=== PATIENT | female | born 1960 | race Caucasian/White ===

== ENCOUNTER 2021-12-30 17:56 | Outpatient (REF) | payer BC, SELFPAY ==
[2021-12-30 18:05] LABS: Abs Immature Grans 0.04 10^3/uL (0.0-0.06); Absolute Basophil Count 0.07 10^3/uL (0.0-0.2); Absolute Eosinophil Count 0.16 10^3/uL (0.0-0.7); Absolute Lymphocyte Count 2.43 10^3/uL (1.2-3.4); Absolute Monocyte Count 0.56 10^3/uL (0.1-0.8); Absolute Neutrophil Count 4.57 10^3/uL (1.2-6.7); Basophils % 0.9; HCT 40.3 % (36.0-46.0); HGB 13.1 g/dL (11.2-15.7); Immature Grans % 0.5; MCH 26.5 pg (27.0-33.0); MCHC 32.5 % (32.0-36.0); MCV 82 fL (80-95); Monocytes % 7.2; Neutrophils % 58.4; Platelet Count 323 10^3/uL (130-400); RBC 4.94 10^6/uL (3.93-5.22); RDW 13.1 % (11.7-14.6); RDW-SD 38.7 fL; WBC 7.83 10^3/uL (4.4-10.8)
[2021-12-30 18:32] LABS: Hemoglobin A1C 5.7 % (<5.7)
[2021-12-30 18:43] LABS: ALT 83 U/L (14-59); AST 38 U/L (15-37); Albumin 3.9 g/dL (3.4-5.0); Alkaline Phosphatase 91 U/L (46-116); Anion Gap 8.4 mmol/L (3-11); BUN 19 mg/dL (7-18); Bilirubin, Total 0.3 mg/dL (0.2-1.0); CO2 26.6 mmol/L (21.0-32.0); CREATININE 0.6 mg/dL (0.55-1.02); Calcium 8.6 mg/dL (8.5-10.1); Calculated LDL 127 mg/dL (<100); Chloride 102 mmol/L (98-107); Cholesterol 200 mg/dL (<200); Glucose 75 mg/dL (74-106); HDL Cholesterol 54 mg/dL (40-60); Potassium 4.1 mmol/L (3.5-5.1); Sodium 137 mmol/L (136-145); TSH (W/Ref FT4) 1.58 uIU/mL (0.36-3.74); Total Protein 6.9 g/dL (6.4-8.2); Triglyceride 98 mg/dL (<150); Troponin I < 50 ng/L (<or=60)
[2021-12-30 22:59] LABS: NT-proBNP 130 pg/mL (<300)
[2022-01-01 08:55] LABS: IgE 15 IU/mL (<158)
[2022-01-01 10:52] LABS: IgA 252 mg/dL (85-499); IgG 914 mg/dL (610-1,616); IgM 88 mg/dL (35-242)
== END 2021-12-30 17:57 | disposition home or self-care (01) ==
LOC: LBN 17:56
PROVIDERS: PCP Internal Medicine; Visit Provider Student in an Organized Health Care Education/Training Program
DX: R07.9 Chest pain, unspecified (principal); U09.9 Post COVID-19 condition, unspecified; R79.89 Other specified abnormal findings of blood chemistry
CPT/HCPCS: 80053; 80061; 82784; 82785; 82787; 83036; 83880; 84443; 84484; 85025

== ENCOUNTER 2021-12-30 18:25 | Outpatient (REF) | payer BC, SELFPAY | END 2021-12-30 18:26 | disposition home or self-care (01) | LOC: LBN 18:25 | PROVIDERS: PCP Internal Medicine; Visit Provider Student in an Organized Health Care Education/Training Program ==

== ENCOUNTER 2022-01-11 03:37 | Outpatient (CLI) | payer BC, SELFPAY ==
[2022-01-11] MEDS: Albuterol HFA 18 GM 200 PUFF INH IH (17:18)
[2022-01-11] MEDS: Methacholine 100 MG VIAL IH (17:18)
[2022-01-11] MEDS: Inhaler, Assist Device 1 EACH MC (17:18)
--- NOTE | 2022-01-12 16:27 | W.PFT ---
Date of service: 01/11/22 Time of Service: 15:10 Pulmonary Function Test Result Requesting Provider Duchene Indications: [facility] Interpretation Spirometry: There is no airflow limitation. The FVC is low. There is a negative methacholine challenge test. Lung Volumes: Normal lung volumes. Diffusion Capacity: Diffusion is normal Airway Pressure: Normal airways resistance. Impression Normal pulmonary function testing. The slightly low FVC is likely pseudo-restriction from an elevated BMI. Clinical Correlation therefore is recommended.
== END 2022-01-11 03:38 | disposition home or self-care (01) ==
LOC: RT 03:38
PROVIDERS: PCP Internal Medicine; Visit Provider Student in an Organized Health Care Education/Training Program
DX: U09.9 Post COVID-19 condition, unspecified (principal); R07.89 Other chest pain; R06.09 Other forms of dyspnea; Z73.3 Stress, not elsewhere classified
CPT/HCPCS: 94060; 94070; 94726; 94729; 94010; J7674

== ENCOUNTER 2024-02-24 15:56 | Emergency (ER) | payer BC, SELFPAY ==
[2024-02-24 15:58] VITALS: BP 165/90; PULSE 81; RESP 18; TEMP 36.1; O2SAT 98
--- NOTE | 2024-02-24 16:19 | ED.GENADUL_ITS ---
Discharge Plan Disposition Patient Disposition: Home Condition: Stable Discharge Details Clinical Impression: Cellulitis of second toe of right foot Primary Care Provider: Yasmeen Grace ED Provider: Luann Huffman Home Meds and New Rx's Prescriptions: New levofloxacin 500 mg tablet 500 mg PO DAILY 5 Days Qty: 5 0RF Rx Instructions: take one tablet once daily x 5 days Continued multivitamin Tablet 1 tab PO DAILY hydroxyzine HCl 25 mg tablet 25 mg PO QHS PRN (Reason: anxiety and insomnia) omeprazole 20 mg capsule,delayed release(DR/EC) 20 mg PO DAILY venlafaxine 75 mg capsule,extended release 24hr 75 mg PO DAILY Discharge Instructions Instructions: Cellulitis (Skin Infection), Adult ED Additional Instructions: Please take the antibiotic as prescribed with yogurt or a probiotic. follow up with primary care provider in 3-5 days. Return to ED sooner if any worsening or concerns. Please take Tylenol or Ibuprofen with food every 4-6 hours as needed for pain and swelling. Rest ice compression elevation wear the walking boot as instructed for protection. Keep your previously Scheduled appointment. Referrals: Yasmeen Grace [Primary Care Provider] - 3 days Discharge Data Discharge Date/Time-TO BE ENTERED AT DEPARTURE: 02/24/24 18:21 HPI General Mode of arrival: ambulatory . Date/Time Provider Initiated Documentation: 02/24/24 16:06 . Limitations to Documentation: no limitations . Information obtained by: patient, RN notes reviewed and old records reviewed . HPI Narrative: 63 year old female presents to the ER with cc of right second toe infection x2 weeks. patient has been on 2 rounds of antibiotics and is on the last day of a 5 day course of Levofloxacin. Patient reports that 2 weeks ago she noticed a cyst which was draining to her right second toe which she popped with a tweezer and began squeezing it. She then dug out the tweezers next day. Shortly thereafter began with redness, increased pain and swelling. She also reports some bodyaches which began last night. Related Data Home Medications ?Medication ?Instructions ?Recorded ?Confirmed hydroxyzine HCl 25 mg tablet 25 mg PO QHS PRN anxiety and 10/19/21 12/30/21 insomnia omeprazole 20 mg capsule,delayed 20 mg PO DAILY 10/19/21 12/30/21 release venlafaxine 75 mg capsule,extended 75 mg PO DAILY 10/19/21 12/30/21 release 24 hr multivitamin 1 tab PO DAILY 10/21/21 12/30/21 levofloxacin 500 mg tablet 500 mg PO DAILY Cellulitis 5 days 02/24/24 #5 tabs Previous Rx's ?Medication ?Instructions ?Recorded levofloxacin 500 mg tablet 500 mg PO DAILY Cellulitis 5 days 02/24/24 #5 tabs Allergies Allergy/AdvReac Type Severity Reaction Status Date / Time oxycodone Allergy Unknown Verified 12/30/21 11:03 escitalopram (From Lexapro) Allergy Verified 12/30/21 11:03 sumatriptan (From Imitrex) Allergy chest pain Verified 12/30/21 11:03 General Stated Complaint: Cellulitis LIZ: 3 Review of Systems All systems reviewed & are unremarkable except as noted in HPI and below Musculoskeletal Musculoskeletal: Reports as per HPI and Reports joint swelling Integumentary/Breasts Skin/Breast: Reports erythema, Reports skin pain and Reports skin swelling Exam Extrem Right lower extremity: foot Details: tenderness and abnormal ROM of toe Details: pain with active ROM Location: of the 2nd digit Ankle/foot/toe images: 2 1. Erythema, swelling noted to right second toe. Course Vital Signs Vital signs: Vital Signs Temperature 36.1 C L 02/24/24 15:58 Pulse 81 02/24/24 15:58 Respiratory Rate 18 02/24/24 15:58 Blood Pressure 165/90 H 02/24/24 15:58 Pulse Oximetry 98 02/24/24 15:58 Temperature 36.1 C L 02/24/24 15:58 Pulse 81 02/24/24 15:58 Respiratory Rate 18 02/24/24 15:58 Blood Pressure 165/90 H 02/24/24 15:58 Pulse Oximetry 98 02/24/24 15:58 Oxygen Delivery Method Room Air 02/24/24 15:58 Oxygen Flow Rate 0 02/24/24 15:58 Procedures Abscess I/D Site: Foot Side (if applicable): Right Local Anesthetic: Lidocaine 1% Amount of anesthesia used (mL): 3 Technique: Incised with #11 Blade Amount of fluid expressed (mL): 0 Irrigation: No Packing used?: None Complications: Bleeding Medical Decision Making 63 year old female presents to the ER with cc of right second toe infection x2 weeks. patient has been on 2 rounds of antibiotics and is on the last day of a 5 day course of Levofloxacin. Patient reports that 2 weeks ago she noticed a cyst which was draining to her right second toe which she popped with a tweezer and began squeezing it. She then dug out the tweezers next day. Shortly thereafter began with redness, increased pain and swelling. She also reports some bodyaches which began last night. Patient is requesting an I&D, will do a superficial incision and place on IV Ancef. Patient reports she does have labs drawn and is requesting not to have any lab work done at this time. Attempted i&d, no purulent fluid expressed, will place dressing and give patient a walking boot. Placed on 5 more days of Levofloxacin 500 mg PO Daily. Instructed to follow up with PCP as previously scheduled. This text was generated using [employer]entric[employer] system, please disregard any oddities of phrase or misspellings. Quality:SDOH Health Related Social Needs: 2 No Data to Display PFSH All Active Problems (Updated 02/24/24 @ 17:59 by Luann Huffman NP) Cellulitis of second toe of right foot (Acute) Memory deficit (Acute) Cognitive decline (Acute) LFT elevation (Acute) Chest pain on exertion (Acute) Post-acute sequelae of COVID-19 (PASC) (Acute) Parosmia (Acute) Medical History Sense of smell altered REHMAN (dyspnea on exertion) COVID-19 Encounter for tubal ligation Shoulder arthralgia Verruca plantaris Tubulovillous adenoma of rectum Onychomycosis Basal cell carcinoma of scalp Migraine Fibrocystic disease of breast Dizziness and giddiness Reyes's pelvis Degenerative joint disease of hand Constipation Benign paroxysmal positional vertigo Mixed anxiety and depressive disorder Osteoarthritis of hips, bilateral Surgical History History of tonsillectomy H/O: hysterectomy H/O exploratory laparotomy S/P total abdominal hysterectomy H/O breast augmentation H/O abdominoplasty History of cholecystectomy H/O hernia repair S/P cystourethroscopy with dilation of urethral stricture H/O local excision of skin lesion History of colonoscopy H/O carpal tunnel repair Family History Mother Malignant carcinoid tumor of lung Maternal Uncle FH: prostate cancer Social History Smoking/Tobacco Use Status: Never Smoking risk assessment performed?: Yes Alcohol Intake: current Alcohol Intake frequency: holidays/special occasions only Drug use: Never Household members: spouse Communication Needs: Corrective Lenses Pets and animals: Yes Working smoke detector in home: Yes Carbon monox detector in home: Yes
[2024-02-24] MEDS: ceFAZolin 1 GM/50 ML BAG IVPB (16:54)
--- OUTSIDE RECORDS SUMMARY | 2024-02-24 17:04 | XMS_ITS | Continuity of Care Document ---
Author Organization [facility] Address [address] [place] [address] Care Team Providers Care Roller Shop Supervisor Name Role Phone Yasmeen Grace Primary Care Physician [phone] [facility] Date[facility]s): 04/11/22 - 04/11/22 [facility] [address] [place] [address] Encounter Diagnosis Left ankle sprain(Discharge Diagnosis) - 04/11/22 Discharge Disposition: Home or Self Care Attending Physician: Anastasia Bella MD Admitting Physician: Anastasia Bella MD Allergies, Adverse Reactions, Alerts Substance Reaction Severity Status escitalopram Unknown Active oxyCODONE Unknown Active SUMAtriptan Chest pain Unknown Active Assessment and Plan Future Appointments Future Scheduled Tests Radiology* MRI Brain w/ + w/o Contrast 03/17/22 Functional Status 04/11/22 Family Member Travel History No recent t ravel Recent Travel History No recent travel Other exposure to Infectious Disease Non e Immunizations Given and Recorded Vaccine Date Status Refusal Reason zoster vaccine, inactivated 11/17/21 Given zoster vaccine, inactivated 1 07/30/21 Recorded SARS-CoV-2 mRNA fzuiqiqzlky-zylq-thyrbwn 2 11/03/21 Recorded SARS-CoV-2 mRNA oaomuefwowh-vqqf-gzvzost 3 10/08/21 Recorded SARS-COV-2 (COVID-19) vaccine, unspecifi 11/03/21 Recorded influenza virus vaccine, live 04/09/20 Recorded influenza virus vaccine, live 04/12/19 Recorded Td(adult) unspecified formulation 07/04/17 Recorde d Td(adult) unspecified formulation 07/04/87 Recorde d zoster vaccine live 10/04/16 Recorded hepatitis B adult vaccine 07/04/99 Recorded 1Result Comment: Pt tolerated well 2Result Comment: Tolerated well 3Result Comment: Pt tolerated well Medications LORazepam 0.5 mg oral tablet 0.5 mg = 1 tab, Oral, BID, # 28 tab, 0 Refill(s), Pharmacy: [id number] Start Date: 03/11/22 Stop Date: 03/25/22 Status: Ordered omeprazole 20 mg oral delayed release capsule 20 mg = 1 cap, Oral, Daily Start Date: 11/09/21 Status: Ordered venlafaxine 150 mg oral capsule, extended release 150 mg = 1 cap, Oral, Daily, # 90 cap, 3 Refill(s), Pharmacy: [id number] Start Date: 03/17/22 Stop Date: 03/12/23 Status: Ordered Problem List Condition Confirmation Course Effective Dates Status H ealth Status Informant Basal cell carcinoma of scalp Confirmed Active Benign paroxysmal positional vertigo Confirmed Active Constipation Confirmed Active Degenerative joint disease of hand Confirmed Active Dizziness and giddiness Confirmed Active Fibrocystic disease of breast Confirmed Active Migraine 1 Confirmed Active Mixed anxiety and depressive disorder 2 Confirmed 03/27/19 Active Onychomycosis Confirmed Active Osteoarthritis of bilateral hip joints 3 Confirmed 08/31/20 Active Reyes's pelvis Confirmed Active Tubulovillous adenoma of rectum Confirmed Active Verruca plantaris Confirmed Active 1From 07-18-2019 visit: Patient notes h/a x 18 days. Related to URI. She notes h/o migraines, only responsive to percocet. She is allergic to other abortive measures. Discussed narcotics for migraines is not standard of care. Will administer ketorolac today in office, headache resolved after injection. Will have her be evaluated by Dr. Pal. She notes trying multiple medications for migraine without improvement. 2From 07-02-2021 visit: Significant anxiety related to recent covid19 infection, persistent sxs and fear of returning to work. Emotional support provided. Will increase venlafaxine to 112.5 mg qd to target sxs of anxiety. Will additionally rx hydroxyzine 25-50 mg qhs at bedtime to target sxs of anxiety and insomnia. 3with coxa profunda deformity, seen by [facility] orthopedics 08/27/20 - advised conservative management, consider surgical intervention if progressive dz Procedures Procedure Date Related Diagnosis Body Site Status Mammogram 09/09/21 Completed Carpal tunnel Surgery - Right Hand 01/19/21 Completed Colonoscopy 1 05/26/20 Completed Arthroscopy, shoulder, surgi avis; capsulorrhaphy 08/28/15 Completed Arthroscopy, shoulder, surgi avis; capsulorrhaphy 2 08/27/15 Completed Mohs surgery 3 08/18/14 Completed Shave biopsy of skin lesion 4 04/17/14 Completed Shave biopsy 5 02/14/11 Completed Shave biopsy of skin lesion 6 12/03/10 Completed Shave biopsy of skin lesion 7 10/11/10 Completed Repair of urethra 8 04/17/08 Compl eted Repair of incisional ventral hernia 06/02/05 Completed Cholecystectomy 10/28/04 Completed Cyst Excision 9 04/29/04 Completed Abdominoplasty 07/03/02 Completed Breast augmentation with implant 07/03/02 Completed Colonoscopy 01/31/02 Completed Total abdominal hysterectomy 10 01/21/00 Completed Exploratory laparotomy 12/30/99 Co mpleted Colonoscopy 11 12/27/99 Completed Bowel surgery procedure 12 07/03/99 Completed Hysterectomy 07/03/99 Completed Tubal ligation 13 06/04/98 Complet ed Tonsillectomy 11/13/90 Completed 11 sm polyp, prior anastomsis noted just proximal to first rectal fold is widely patent. 09/09/16 adenomatous rectal polyp-recommended rescreen 3 yrs 2right JFL 3BCC right occipital scalp 4Basal cell carcinoma, nodular and micronodular-right occipital scalp, 5right nasal sidewall 6Nevi on legs 7left cheek 8cystourethroscopy-urethral lift - with exploration and reclosure of anterior vaginal wall defect 9excision angiolipoma left biceps 10BSO and anterior resection 11normal exam 12associated with hysterectomy related to endometriosis 13bilateral TL with filshie clips Vital Signs Most recent to oldest [Reference Range]: 1 2 Temperature Temporal Artery [36-38 Deg C ] 36.8 Deg C (04/11/22 10:44 AM) Peripheral Pulse Rate [60-100 bpm] 80 bp m (04/11/22 11:09 AM) 76 bpm (04/11/22 10:44 AM) Respiratory Rate [12-24 br/min] 16 br/mi n (04/11/22 10:44 AM) Blood Pressure [90-140/60-90 mmHg] 143/7 6mmHg *HI* (04/11/22 10:44 AM) Weight Dosing 100.00 kg (04/11/22 10:52 AM) Weight Estimated 100.00 kg (04/11/22 10:44 AM) Height/Length Dosing 173.000 cm (04/11/22 10:52 AM) Height/Length Estimated 173.000 cm (04/11/22 10:44 AM) Social History Social History Type Response Tobacco Never tobacco user T obacco Use:. Sex Female Hospital Discharge Instructions Patient Education 04/11/2022 10:50:27 Ankle Sprain Ankle Sprain An ankle sprain is a stretch or tear in a ligament in the ankle. Ligaments are tissues that connectbones to each other. The two most common types of ankle sprains are: ??? Inversion sprain. This happens when the foot turns inward and the ankle rolls outward. It affects the ligament on the outside of the foot (lateral ligament). ??? Eversion sprain. This happens when the foot turns outward and the ankle rolls inward. It affects the ligament on the inner side of the foot (medial ligament). What are the causes? This condition is often caused by accidentally rolling or twisting the ankle. What increases the risk? You are more likely to develop this condition if you play sports. What are the signs or symptoms? Symptoms of this condition include: ??? Pain in your ankle. ??? Swelling. ??? Bruising. This may develop right after you sprain your ankle or 1???2 days later. ??? Trouble standing or walking, especially when you turn or change directions. How is this diagnosed? This condition is diagnosed with: ??? A physical exam. During the exam, your health care provider will press on certain parts of yourfoot and ankle and try to move them in certain ways. ??? X-ray imaging. These may be taken to see how severe the sprain is and to check for broken bones. How is this treated? This condition may be treated with: ??? A brace or splint. This is used to keep the ankle from moving until it heals. ??? An elastic bandage. This is used to support the ankle. ??? Crutches. ??? Pain medicine. ??? Surgery. This may be needed if the sprain is severe. ??? Physical therapy. This may help to improve the range of motion in the ankle. Follow these instructions at home: If you have a brace or a splint: ??? Wear the brace or splint as told by your health care provider. Remove it only as told by your health care provider. ??? Loosen the brace or splint if your toes tingle, become numb, or turn cold and blue. ??? Keep the brace or splint clean. ??? If the brace or splint is not waterproof: ??? Do not let it get wet. ??? Cover it with a watertight covering when you take a bath or a shower. If you have an elastic bandage (dressing): ??? Remove it to shower or bathe. ??? Try not to move your ankle much, but wiggle your toes from time to time. This helps to prevent swelling. ??? Adjust the dressing to make it more comfortable if it feels too tight. ??? Loosen the dressing if you have numbness or tingling in your foot, or if your foot becomes coldand blue. Managing pain, stiffness, and swelling ??? Take zygn-pzl-ztskhhr and prescription medicines only as told by your health care provider. ??? For 2???3 days, keep your ankle raised (elevated) above the level of your heart as much as possible. ??? If directed, put ice on the injured area: ??? If you have a removable brace or splint, remove it as told by your health care provider. ??? Put ice in a plastic bag. ??? Place a towel between your skin and the bag. ??? Leave the ice on for 20 minutes, 2???3 times a day. General instructions ??? Rest your ankle. ??? Do not use the injured limb to support your body weight until your health care provider says that you can. Use crutches as told by your health care provider. ??? Do not use any products that contain nicotine or tobacco, such as cigarettes, e-cigarettes, andchewing tobacco. If you need help quitting, ask your health care provider. ??? Keep all follow-up visits as told by your health care provider. This is important. Contact a health care provider if: ??? You have rapidly increasing bruising or swelling. ??? Your pain is not relieved with medicine. Get help right away if: ??? Your foot or toes become numb or blue. ??? You have severe pain that gets worse. Summary ??? An ankle sprain is a stretch or tear in a ligament in the ankle. Ligaments are tissues that connect bones to each other. ??? This condition is often caused by accidentally rolling or twisting the ankle. ??? Symptoms include pain, swelling, bruising, and trouble walking. ??? To relieve pain and swelling, put ice on the affected ankle, raise your ankle above the level of your heart, and use an elastic bandage. ??? Keep all follow-up visits as told by your health care provider. This is important. This information is not intended to replace advice given to you by your health care provider. Make sure you discuss any questions you have with your health care provider. Document Revised: 08/13/2021 Document Reviewed: 08/13/2021 Elsevier Patient Education ?? 2021 [employer] Follow Up Care 04/11/2022 10:44:45 With:Yasmeen Grace Address: [facility] [address] [address]- When:1 week Patient Care team information Personnel Name: Yasmeen Grace Address: Address: [id number] [place] [address]
--- OUTSIDE RECORDS SUMMARY | 2024-02-24 17:04 | XMS_ITS | Continuity of Care Document ---
Author Organization [facility] Address [address] [place] [address] Care Team Providers Care Vehicle Operator Technician Name Role Phone Yasmeen Grace Primary Care Physician [phone] [facility] Date[facility] 07/28/22 - 07/28/[address] [address] Discharge Disposition: Home or Self Care Attending Physician: Maria Teresa Moyer NP Admitting Physician: Maria Teresa Moyer NP Referring Physician: Maria Teresa Moyer TRAIN CONTROLLER Allergies, Adverse Reactions, Alerts Substance Reaction Severity Status escitalopram Unknown Active oxyCODONE Unknown Active SUMAtriptan Chest pain Unknown Active Assessment and Plan Future Appointments Future Scheduled Tests Radiology* MRI Brain w/ + w/o Contrast 03/17/22 Immunizations Given and Recorded Vaccine Date Status Refusal Reason zoster vaccine, inactivated 11/17/21 Given zoster vaccine, inactivated 1 07/30/21 Recorded SARS-CoV-2 mRNA fyhklfjclbl-awya-jmpkkkn 2 11/03/21 Recorded SARS-CoV-2 mRNA ohjkxhikden-qjaw-nftgyzc 3 10/08/21 Recorded SARS-COV-2 (COVID-19) vaccine, unspecifi 11/03/21 Recorded influenza virus vaccine, live 04/09/20 Recorded influenza virus vaccine, live 04/12/19 Recorded Td(adult) unspecified formulation 07/04/17 Recorde d Td(adult) unspecified formulation 07/04/87 Recorde d zoster vaccine live 10/04/16 Recorded hepatitis B adult vaccine 07/04/99 Recorded 1Result Comment: Pt tolerated well 2Result Comment: Tolerated well 3Result Comment: Pt tolerated well Medications azithromycin 250 mg oral tablet See Instruction, Oral, Daily, take 2 tabs on day 1 and 1 tabs on day 2-5, # 6 tab, 0 Refill(s), Pharmacy: [id number], 173, cm, 04/11/22 10:52:00 EDT, Height/Length Dosing, 100, kg, 04/11/22 10:52:00 EDT, Weight Dosing Start Date: 06/14/22 Stop Date: 06/19/22 Status: Ordered LORazepam 0.5 mg oral tablet 0.5 mg = 1 tab, Oral, BID, # 56 tab, 0 Refill(s), Pharmacy: [facility], 173, cm, 04/11/22 10:52:00 EDT, Height/Length Dosing, 100, kg, 04/11/22 10:52:00 EDT, Weight Dosing Start Date: 06/14/22 Stop Date: 07/12/22 Status: Ordered losartan 25 mg oral tablet 25 mg = 1 tab, Oral, Daily, # 90 tab, 2 Refill(s), Pharmacy: [facility], 173, cm, 04/11/22 10:52:00 EDT, Height/Length Dosing, 100, kg, 04/11/22 10:52:00 EDT, Weight Dosing Start Date: 07/09/22 Stop Date: 10/07/22 Status: Ordered omeprazole 20 mg oral delayed release capsule See Instructions, Take 1 capsule by mouth once daily, # 90 cap, 0 Refill(s), Pharmacy: [id number], 173, cm, 04/11/22 10:52:00 EDT, Height/Length Dosing, 100, kg, 04/11/22 10:52:00 EDT, Weight Dosing Start Date: 05/12/22 Status: Ordered predniSONE 20 mg oral tablet 40 mg = 2 tab, Oral, Daily, # 10 tab, 0 Refill(s), Pharmacy: [id number], 173, cm, 04/11/22 10:52:00 EDT, Height/Length Dosing, 100, kg, 04/11/22 10:52:00 EDT, Weight Dosing Start Date: 06/14/22 Stop Date: 06/19/22 Status: Ordered venlafaxine 37.5 mg oral capsule, extended release 37.5 mg = 1 cap, Oral, Daily, with food, take with 75mg capsule, # 90 cap, 3 Refill(s), Pharmacy: [id number], 173, cm, 04/11/22 10:52:00 EDT, Height/Length Dosing, 100, kg, 04/11/22 10:52:00 EDT, Weight Dosing Start Date: 05/25/22 Status: Ordered venlafaxine 75 mg oral capsule, extended release 75 mg = 1 cap, Oral, Daily, with food, take with 37.5 mg capsule, # 90 cap, 0 Refill(s), Pharmacy: [id number], 173, cm, 04/11/22 10:52:00 EDT, Height/Length Dosing, 100, kg, 04/11/22 10:52:00 EDT, Weight Dosing Start Date: 04/23/22 Status: Ordered Ventolin HFA 90 mcg/inh inhalation aerosol 2 puffs, Inhale, every 6 hr, PRN as needed for wheezing, 2 puffs 30 minutes prior to exercise, # 1 EA, 0 Refill(s), Pharmacy: [id number], 173, cm, 04/11/22 10:52:00 EDT, Height/Length Dosing, 100, kg, 04/11/22 10:52:00 EDT, Weight Dosing Start Date: 04/22/22 Status: Ordered Problem List Condition Confirmation Course [...] insomnia. 3with coxa profunda deformity, seen by [facility] orthopedics 08/27/20 - advised conservative management, consider [...] to endometriosis 13bilateral TL with filshie clips Social History Social History Type Response Tobacco Never tobacco user T obacco Use:. Sex Female Patient Care team information Personnel Name: Yasmeen Grace Address: Address: [facility] [id number] [place] [address]
--- OUTSIDE RECORDS SUMMARY | 2024-02-24 17:04 | XMS_ITS | Continuity of Care Document ---
Author Organization [facility] Address [address] [place] [address] Care Team Providers Care First Cook Name Role Phone Yasmeen Grace Primary Care Physician [phone] [facility]counter [facility] Date(s): 08/10/23 - 08/10/[address] [address] Encounter Diagnosis Other specified bacterial agents as the cause of diseases classified elsewhere (Discharge Diagnosis) - 08/10/23 Discharge Disposition: Home or Self Care Attending Physician: Chano Vogt MD Admitting Physician: Chano Vogt MD Referring Physician: Chano Vogt MD Allergies, Adverse Reactions, Alerts Substance Reaction Severity Status escitalopram Unknown Active oxyCODONE Unknown Active SUMAtriptan Chest pain Unknown Active Assessment and Plan Future Appointments Diagnostic Tests Pending * Molecular Vaginitis/Vaginosis Assay, [facility] 08/10/23 Future Scheduled Tests Laboratory* Ferritin 09/01/22 * TSH w/ Rflx to Free T4 09/01/22 Radiology* XR Knee Complete 4+ Views Bilateral 08/04/23 * XR Hips 2 Views Bilat 08/04/23 * MG Mammo Implant Screening Ramon w/ Hiro 08/04/23 Immunizations Given and Recorded Vaccine Date Status Refusal Reason zoster vaccine, inactivated 11/17/21 Given zoster vaccine, inactivated 1 07/30/21 Recorded SARS-CoV-2 mRNA kkcrjkhoujg-vqch-lokjhvw 2, 3 11/03/21 Recorded SARS-CoV-2 mRNA jzmnqktboaz-vvig-aenctwu 4 10/08/21 Recorded SARS-COV-2 (COVID-19) vaccine, unspecifi 11/03/21 Recorded influenza virus vaccine, live 04/09/20 Recorded influenza virus vaccine, live 04/12/19 Recorded Td(adult) unspecified formulation 07/04/17 Recorde d Td(adult) unspecified formulation 07/04/87 Recorde d zoster vaccine live 10/04/16 Recorded hepatitis B adult vaccine 07/04/99 Recorded 1Result Comment: Pt tolerated well 2Result Comment: Tolerated well duplicate 3Result Comment: Tolerated well 4Result Comment: Pt tolerated well Medications losartan 25 mg oral tablet 1 tab, Oral, Daily, # 90 tab, 3 Refill(s), Pharmacy: [facility], 170, cm, 04/26/23 8:40:00 EDT, Height, 100, kg, 04/11/22 10:52:00 EDT, Weight Dosing Start Date: 07/21/23 Stop Date: 11/18/23 Status: Ordered magnesium gluconate 250 mg oral tablet 500 mg 2 tab, Oral, BID, may substitute with magnesium gluconate 500mg 1 tab bid x 90 days at 180 tabs x 3 refills, # 360 tab, 3 Refill(s), Pharmacy: [facility], 173, cm, 04/11/22 10:52:00EDT, Height/Length Dosing, 100, kg, 04/11/22 10:52:00 EDT, Weight Dosing Start Date: 09/01/22 Stop Date: 08/27/23 Status: Ordered metroNIDAZOLE 500 mg oral tablet 500 mg = 1 tab, Oral, BID, # 14 tab, 0 Refill(s), Pharmacy: [facility], 168, cm, 08/10/23 9:29:00 EST, Height, 73.8, kg, 08/10/23 9:43:00 EST, Weight Dosing Start Date: 08/10/23 Status: Ordered MiraLax oral powder for reconstitution 17 g, Oral, Daily, # 510 g, 1 Refill(s), Pharmacy: [facility], 173, cm, 04/11/22 10:52:00 EDT, Height/Length Dosing, 100, kg, 04/11/22 10:52:00 EDT, Weight Dosing Start Date: 02/04/23 Status: Ordered Mounjaro 2.5 mg/0.5 mL subcutaneous solution 2.5 mg =, Subcutaneous, every week, rotate injection sites, # 4 EA, 0 Refill(s), Pharmacy: [facility], 169, cm, 08/04/23 10:41:00 EST, Height, 73.4, kg, 08/04/23 10:52:00 EST, Weight Dosing Start Date: 08/04/23 Status: Ordered omeprazole 20 mg oral delayed release capsule 1 cap, Oral, Daily, # 90 cap, 0 Refill(s), Pharmacy: [facility], 173, cm, 04/11/22 10:52:00 EDT, Height/Length Dosing, 100, kg, 04/11/22 10:52:00 EDT, Weight Dosing Start Date: 03/15/23 Status: Ordered Vitamin D3 1000 intl units oral capsule 25 mcg = 1 cap, Oral, Daily, # 100 cap, 6 Refill(s), Pharmacy: [facility], 173, cm, 04/11/22 10:52:00 EDT, Height/Length Dosing, 100, kg, 04/11/22 10:52:00 EDT, Weight Dosing Start Date: 09/01/22 Status: Ordered Problem List Condition Confirmation Course Effective Dates Status Health Status Informant Adhesive capsulitis of shoulder Confirmed 05/07/14 Active Arthropathy 1 Confirmed 04/23/15 Active Basal cell carcinoma of scalp Confirmed Active Benign paroxysmal positional vertigo Confirmed Active Biceps tendinitis Confirmed 08/28/15 Active Bicipital tenosynovitis Confirmed 06/03/15 Active BMI 32.0-32.9,adult Confirmed Active Bursitis of hip 2 Confirmed 02/22/12 Active Cellulitis of shoulder 3 Confirmed 09/05/15 Active Chondromalacia of right patella 4 Confirmed 02/22/12 Active Chronic pain of left upper limb Confirmed 06/18/16 Active Constipation Confirmed Active Constipation Confirmed Active Degenerative joint disease of hand Confirmed Active Disorder of rectum Confirmed 12/29/18 Active Dizziness and giddiness Confirmed Active Fibrocystic disease of breast Confirmed Active Hypertensive disease Confirmed Active Impingement syndrome of left shoulder region Confirmed 03/25/16 Active Impingement syndrome of right shoulder region 5 Confirmed 04/23/15 Active Migraine 6 Confirmed Active Mixed anxiety and depressive disorder 7 Confirmed 03/27/19 Active Obesity Confirmed Active Onychomycosis Confirmed Active Osteoarthritis of bilateral hip joints 8 Confirmed 08/31/20 Active Osteoarthritis of joint of right shoulder region Confirmed 08/28/15 Active Osteoarthritis of left acromioclavicular joint 9 Confirmed 11/15/16 Active Reyes's pelvis Confirmed Active Supraspinatus tear 10 Confirmed 04/23/15 Active Tendinitis of right rotator cuff Confirmed 08/28/15 Active Tubulovillous adenoma of rectum Confirmed Active Verruca plantaris Confirmed Active 1Outside Source Comment: Overview: Severe moderate right osteoarthrosis AC joint 2Outside Source Comment: Overview: Moderate mild recurrent resolved trochanteric bursitis 3Outside Source Comment: Overview: Cellulitis of right shoulder anterior incision 4Outside Source Comment: Overview: Moderate chronic right chondromalacia patella 5Outside Source Comment: Overview: Secondary impingement right shoulder 6From 07-18-2019 visit: Patient notes h/a x 18 days. Related to URI. She notes h/o migraines, only responsive to percocet. She is allergic to other abortive measures. Discussed narcotics for migraines is not standard of care. Will administer ketorolac today in office, headache resolved after injection. Will have her be evaluated by Dr. Pal. She notes trying multiple medications for migraine without improvement. 7From 07-02-2021 visit: Significant anxiety related to recent covid19 infection, persistent sxs and fear of returning to work. Emotional support provided. Will increase venlafaxine to 112.5 mg qd to target sxs of anxiety. Will additionally rx hydroxyzine 25-50 mg qhs at bedtime to target sxs of anxiety and insomnia. 8with coxa profunda deformity, seen by [facility] orthopedics 08/27/20 - advised conservative management, consider surgical intervention if progressive dz 9Outside Source Comment: Overview: possible 10Outside Source Comment: Overview: Mild right supraspinatus tear - improving Procedures Procedure Date Related Diagnosis Body Site [...] Completed Bowel surgery procedure 12 07/03/99 Completed Tubal ligation 13 06/04/98 Complet [...] Use:. Sex Female Patient Care team information Care Team Personnel Name: Yasmeen Grace Position: Physician Member Role: Primary Care Physician Address: Address: Replaced By [facility] [address] [address]- Care Team Related Persons Name: KEVIN BENNETT Name: GABRIELA SCHAFFER Address: Home [address] [place] [address], [id number]
--- OUTSIDE RECORDS SUMMARY | 2024-02-24 17:04 | XMS_ITS | Continuity of Care Document ---
Author Organization [facility] Address [address] [place] [address] Care Team Providers Care Health Service Worker Name Role Phone Yasmeen Grace Primary Care Physician [phone] Encounter [facility] Date(s): 06/14/22 - 06/14/[address] [address] Discharge Disposition: Home or Self Care Attending Physician: Yasmeen Grace Admitting Physician: Yasmeen Grace Referring Physician: Yasmeen Grace Allergies, Adverse Reactions, Alerts Substance Reaction Severity Status escitalopram Unknown Active oxyCODONE Unknown Active SUMAtriptan Chest pain Unknown Active Assessment and Plan Future Appointments Future Scheduled Tests Radiology* MRI Brain w/ + w/o Contrast 03/17/22 Immunizations Given and Recorded Vaccine Date Status Refusal Reason zoster vaccine, inactivated 11/17/21 Given zoster vaccine, inactivated 1 07/30/21 Recorded SARS-CoV-2 mRNA sqrtejhcpbd-ilwg-neijmja 2 11/03/21 Recorded SARS-CoV-2 mRNA hstmuugvpgc-jppp-vkvydhc 3 10/08/21 Recorded SARS-COV-2 (COVID-19) vaccine, unspecifi [...] 2-5, # 6 tab, 0 Refill(s), Pharmacy: [facility], 173, cm, 04/11/22 10:52:00 EDT, Height/Length Dosing, 100, kg, 04/11/22 10:52:00 EDT, Weight Dosing Start Date: 06/14/22 Stop Date: 06/19/22 Status: Ordered LORazepam 0.5 mg oral tablet 0.5 mg = 1 tab, Oral, BID, # 56 tab, 0 Refill(s), Pharmacy: [facility], 173, cm, 04/11/22 10:52:00 EDT, Height/Length Dosing, 100, kg, 04/11/22 10:52:00 EDT, Weight Dosing Start Date: 06/14/22 Stop Date: 07/12/22 Status: Ordered losartan 25 mg oral tablet 25 mg = 1 tab, Oral, Daily, # 30 tab, 2 Refill(s), Pharmacy: [facility], 173, cm, 04/11/22 10:52:00 EDT, Height/Length Dosing, 100, kg, 04/11/22 10:52:00 EDT, Weight Dosing Start Date: 06/14/22 Stop Date: 09/12/22 Status: Ordered omeprazole 20 mg oral delayed release capsule See Instructions, Take 1 capsule by mouth once daily, # 90 cap, 0 Refill(s), Pharmacy: [facility], 173, cm, 04/11/22 10:52:00 EDT, Height/Length Dosing, 100, kg, 04/11/22 10:52:00 EDT, Weight Dosing Start Date: 05/12/22 Status: Ordered predniSONE 20 mg oral tablet 40 mg = 2 tab, Oral, Daily, # 10 tab, 0 Refill(s), Pharmacy: [facility], 173, cm, 04/11/22 10:52:00 EDT, Height/Length Dosing, 100, kg, 04/11/22 10:52:00 EDT, Weight Dosing Start Date: 06/14/22 Stop Date: 06/19/22 Status: Ordered venlafaxine 37.5 mg oral capsule, extended release 37.5 mg = 1 cap, Oral, Daily, with food, take with 75mg capsule, # 90 cap, 3 Refill(s), Pharmacy: [facility], 173, cm, 04/11/22 10:52:00 EDT, Height/Length Dosing, 100, kg, 04/11/22 10:52:00 EDT, Weight Dosing Start Date: 05/25/22 Status: Ordered venlafaxine 75 mg oral capsule, extended release 75 mg = 1 cap, Oral, Daily, with food, take with 37.5 mg capsule, # 90 cap, 0 Refill(s), Pharmacy: [facility], 173, cm, 04/11/22 10:52:00 EDT, Height/Length Dosing, 100, kg, 04/11/22 10:52:00 EDT, Weight Dosing Start Date: 04/23/22 Status: Ordered Ventolin HFA 90 mcg/inh inhalation aerosol 2 puffs, Inhale, every 6 hr, PRN as needed for wheezing, 2 puffs 30 minutes prior to exercise, # 1 EA, 0 Refill(s), Pharmacy: [facility], 173, cm, 04/11/22 10:52:00 [...] insomnia. 3with coxa profunda deformity, seen by [facility] orthopedics 08/27/20 - advised conservative management, [...] to endometriosis 13bilateral TL with filshie clips Results Laboratory List Name Date SARS-CoV-2 (COVID-19)/Flu/RSV ([facility] ) (COVID-19/Flu/RSV ([facility])) 06/14/22 Most recent to oldest [Reference Range]: 1 Employed in healthcare? No *NA* (06/14/22 9:54 AM) Symptomatic as defined by CDC? Yes *NA* (06/14/22 9:54 AM) Date of onset (Lab) 13-JUN-2022 *Unknown* (06/14/22 9:54 AM) Hospitalized due to COVID-19? No *NA* (06/14/22 9:54 AM) In ICU? No *NA* (06/14/22 9:54 AM) Group care resident? No *NA* (06/14/22 9:54 AM) status? Not *NA* (06/14/22 9:54 AM) SARS-CoV-2(Covid19)PCR([facility] COVFLURSV) [Negative] Negative (06/14/22 9:54 AM) Flu A ([facility] COVFLURSV) [Negative] Posi tive *ABN* (06/14/22 9:54 AM) RSV ([facility] COVFLURSV) [Negative] Negati ve (06/14/22 9:54 AM) Flu B ([facility] COVFLURSV) [Negative] Nega tive (06/14/22 9:54 AM) Social History Social History Type Response Tobacco Never tobacco user T obacco Use:. Sex Female Patient Care team information Personnel Name: Yasmeen Grace Address: Address: [facility] [address]
--- OUTSIDE RECORDS SUMMARY | 2024-02-24 17:04 | XMS_ITS | Continuity of Care Document ---
Author Organization [facility] Address [address] [place] [address] Care Team Providers Care Inspector Government Property Name Role Phone Yasmeen Grace Primary Care Physician [facility] 01/13/24 - 01/13/[address] [address] Discharge Disposition: Home or Self Care Attending Physician: Brandy Simmons MD Admitting Physician: Brandy Simmons MD Referring Physician: Brandy Simmons MD Allergies, Adverse Reactions, Alerts Substance Reaction Severity Status escitalopram Unknown Active oxyCODONE Unknown Active SUMAtriptan Chest pain Unknown Active Assessment and Plan Future Appointments Future Scheduled Tests Radiology* XR Knee Complete 4+ Views Bilateral 08/04/23 Immunizations Given and Recorded Vaccine Date Status Refusal Reason zoster vaccine, inactivated 11/17/21 Given zoster vaccine, inactivated 1 07/30/21 Recorded SARS-CoV-2 mRNA heerrtjefls-gghe-jgtxkht 2, 3 11/03/21 Recorded SARS-CoV-2 mRNA dvcdmauusyk-rusk-ydwiqjz 4 10/08/21 Recorded SARS-COV-2 (COVID-19) vaccine, unspecifi [...] well 4Result Comment: Pt tolerated well Medications Bactrim DS 800 mg-160 mg oral tablet 1 tab, Oral, every 12 hr, # 10 tab, 0 Refill(s), Pharmacy: [facility], 168, cm, 08/10/23 9:29:00 EST, Height, 77.55, kg, 11/09/23 13:50:00 EDT, Weight Dosing Start Date: 01/13/24 Stop Date: 01/18/24 Status: Ordered losartan 25 mg oral tablet 1 tab, Oral, Daily, # 90 tab, 3 Refill(s), Pharmacy: [facility], 170, cm, 04/26/23 8:40:00 EDT, Height, 100, kg, 04/11/22 10:52:00 EDT, Weight Dosing Start Date: 07/21/23 Stop Date: 11/18/23 Status: Ordered magnesium gluconate 250 mg oral tablet 500 mg 2 tab, Oral, BID, may substitute with magnesium gluconate 500mg 1 tab bid x 90 days at 180 tabs x 3 refills, # 360 tab, 3 Refill(s), Pharmacy: [facility], 173, cm, 04/11/22 10:52:00EDT, Height/Length Dosing, 100, kg, 04/11/22 10:52:00 EDT, Weight Dosing Start Date: 09/01/22 Stop Date: 08/27/23 Status: Ordered MiraLax oral powder for reconstitution 17 g, Oral, Daily, # 510 g, 1 Refill(s), Pharmacy: [facility], 173, cm, 04/11/22 10:52:00 EDT, Height/Length Dosing, 100, kg, 04/11/22 10:52:00 EDT, Weight Dosing Start Date: 02/04/23 Status: Ordered omeprazole 20 mg oral delayed release capsule 1 cap, Oral, Daily, # 90 cap, 3 Refill(s), Pharmacy: [facility], 168, cm, 08/10/23 9:29:00 EST, Height, 77.55, kg, 11/09/23 13:50:00 EDT, Weight Dosing Start Date: 12/19/23 Status: Ordered semaglutide 8 mg/3 mL (2 mg dose) subcutaneous solution 2 mg =, Subcutaneous, every week, in the abdomen, thigh, or upper arm, # 3 mL, 2 Refill(s), Pharmacy: [facility], 168, cm, 08/10/23 9:29:00 EST, 77.55, kg, 11/09/23 13:50:00 EDT Start Date: 11/12/23 Status: Ordered Vitamin D3 1000 intl units oral capsule 25 mcg = 1 cap, Oral, Daily, # 100 cap, 6 Refill(s), Pharmacy: [facility], 173, cm, 04/11/22 10:52:00 EDT, [...] insomnia. 8with coxa profunda deformity, seen by [facility] orthopedics 08/27/20 - advised conservative management, consider [...] filshie clips Results Laboratory List Name Date Urinalysis Microscopic 01/13/24 Urinalysis with Micro if Indicated and C ulture if Indicated 01/13/24 Most recent to oldest [Reference Range]: 1 UA Color Yellow (01/13/24 10:38 AM) UA WBC [0-3] 50-100 (01/13/24 10:38 AM) UA Urobilinogen Normal *NA* (01/13/24 10:38 AM) UA Bili [Negative] Negative *NA* (01/13/24 10:38 AM) UA Ketones Trace *NA* (01/13/24 10:38 AM) UA RBC [0-2] 10-25 (01/13/24 10:38 AM) UA Leuk Est 1+ *ABN* (01/13/24 10:38 AM) UA Nitrite Negative *NA* (01/13/24 10:38 AM) UA Glucose [Negative] Negative *NA* (01/13/24 10:38 AM) UA Bacteria Few /HPF (01/13/24 10:38 AM) UA Protein Trace *NA* (01/13/24 10:38 AM) UA Blood 3+ *ABN* (01/13/24 10:38 AM) UA Mucous None Seen /HPF (01/13/24 10:38 AM) UA Spec Grav >=1.030 *NA* (01/13/24 10:38 AM) UA Squam Epithelial [None Seen] None See n (01/13/24 10:38 AM) UA pH 5.0 *NA* (01/13/24 10:38 AM) UA Appear Hazy *ABN* (01/13/24 10:38 AM) UA Culture Ind?. Indicated (01/13/24 10:38 AM) UA Amorph Few /HPF (01/13/24 10:38 AM) Orders for Microbiology Reports Name Date Urine Culture 01/13/24 Microbiology Reports TEST:Urine Culture STATUS:Order in Progress BODY SITE: SOURCE:Urine, Clean Catch COLLECTED DATE/TIME:01/13/24 10:34 AM PRELIMINARY REPORT >100,000 cfu/ml Escherichia coli Susceptibility to follow. Social History Social History Type Response Tobacco Never tobacco user T obacco Use:. Sex Female Patient Care team information Care Team Personnel Name: Yasmeen Grace Position: Physician Member Role: Informed Provider Address: Address: [facility] [address] Care Team Related Persons Name: KEVIN BENNETT Name: GABRIELA SCHAFFER Address: Alternate [address] [place] Address: Home [address] [place], [id number] Address: Mailing [address] [place], [id number]
--- OUTSIDE RECORDS SUMMARY | 2024-02-24 17:04 | XMS_ITS | Continuity of Care Document ---
Author Organization [facility] Address [address] [place] [address] Care Team Providers Care Museum Exhibit Designer Name Role Phone Yasmeen Grace Primary Care Physician [phone] Encounter [facility] Date(s): 04/26/23 - 04/26/23 [facility] [address] [place] [address] Discharge Disposition: Home Allergies, Adverse Reactions, Alerts Substance Reaction Severity Status escitalopram Unknown Active oxyCODONE Unknown Active SUMAtriptan Chest pain Unknown Active Assessment and Plan Future Appointments Future Scheduled Tests Laboratory* Ferritin 09/01/22 * TSH w/ Rflx to Free T4 09/01/22 Radiology* MG Mammo Implant Diag Bilateral w/ Hiro 04/26/23 * US Breast Limited Right 04/26/23 Immunizations Given and Recorded Vaccine Date Status Refusal Reason zoster vaccine, inactivated 11/17/21 Given zoster vaccine, inactivated 1 07/30/21 Recorded SARS-CoV-2 mRNA kyucmajzcdl-huxe-dzxazau 2 11/03/21 Recorded SARS-CoV-2 mRNA jegotlqwvqy-xhyi-gilruoo 3 10/08/21 Recorded SARS-COV-2 (COVID-19) vaccine, unspecifi 11/03/21 Recorded influenza virus vaccine, live 04/09/20 Recorded influenza virus vaccine, live 04/12/19 Recorded Td(adult) unspecified formulation 07/04/17 Recorde d Td(adult) unspecified formulation 07/04/87 Recorde d zoster vaccine live 10/04/16 Recorded hepatitis B adult vaccine 07/04/99 Recorded 1Result Comment: Pt tolerated well 2Result Comment: Tolerated well 3Result Comment: Pt tolerated well Medications losartan 25 mg oral tablet 25 mg = 1 tab, Oral, Daily, # 90 tab, 3 Refill(s), Pharmacy: [facility], 173, cm, 04/11/22 10:52:00 EDT, Height/Length Dosing, 100, kg, 04/11/22 10:52:00 EDT, Weight Dosing Start Date: 04/26/23 Stop Date: 04/20/24 Status: Ordered magnesium gluconate 250 mg oral tablet 500 mg 2 tab, Oral, BID, may substitute with magnesium gluconate 500mg 1 tab bid x 90 days at 180 tabs x 3 refills, # 360 tab, 3 Refill(s), Pharmacy: [facility], 173, cm, 04/11/22 10:52:00EDT, Height/Length Dosing, 100, kg, 04/11/22 10:52:00 EDT, Weight Dosing Start Date: 09/01/22 Stop Date: 08/27/23 Status: Ordered MiraLax oral powder for reconstitution 17 g, Oral, Daily, # 510 g, 1 Refill(s), Pharmacy: [facility], 173, cm, 04/11/22 10:52:00 EDT, Height/Length Dosing, 100, kg, 04/11/22 10:52:00 EDT, Weight Dosing Start Date: 02/04/23 Status: Ordered omeprazole 20 mg oral delayed release capsule 1 cap, Oral, Daily, # 90 cap, 0 Refill(s), Pharmacy: [facility], 173, cm, 04/11/22 10:52:00 EDT, Height/Length Dosing, 100, kg, 04/11/22 10:52:00 EDT, Weight Dosing Start Date: 03/15/23 Status: Ordered semaglutide 8 mg/3 mL (2 mg dose) subcutaneous solution 2 mg =, Subcutaneous, every week, in the abdomen, thigh, or upper arm, # 3 mL, 2 Refill(s), Pharmacy: [facility], 173, cm, 04/11/22 10:52:00 EDT, Height/Length Dosing, 100, kg, 04/11/22 10:52:00 EDT, Weight Dosing Start Date: 03/29/23 Status: Ordered Vitamin D3 1000 intl units oral capsule 25 mcg = 1 cap, Oral, Daily, # 100 cap, 6 Refill(s), Pharmacy: [facility], 173, cm, 04/11/22 [...] insomnia. 8with coxa profunda deformity, seen by [facility] orthopedics 08/27/20 - advised conservative management, consider [...] Member Role: Primary Care Physician Address: Address: [facility] [address] [address]- Care Team Related Persons Name: KEVIN BENNETT Address: Home Name: MEGAN [place] Address: Home Name: GABRIELA SCHAFFER Address: Home [address] [place], [id number]
--- OUTSIDE RECORDS SUMMARY | 2024-02-24 17:04 | XMS_ITS | Continuity of Care Document ---
Author Organization [facility] Address [address] [place] [address] Care Team Providers Care Ic Design Engineer Name Role Phone Yasmeen Grace Primary Care Physician Encounter [facility] Date(s): 12/06/22 - 12/06/[address] [address] Discharge Disposition: Home or Self Care Attending Physician: Tanya Odom UNIFORM MAKER Admitting Physician: Tanya Odom NP Referring Physician: Tanya Odom UNIFORM MAKER Allergies, Adverse Reactions, Alerts Substance Reaction Severity Status escitalopram Unknown Active oxyCODONE Unknown Active SUMAtriptan Chest pain Unknown Active Assessment and Plan Future Appointments Future Scheduled Tests Laboratory* Ferritin 09/01/22 * TSH w/ Rflx to Free T4 09/01/22 Radiology* MRI Brain w/ + w/o Contrast 03/17/22 Immunizations Given and Recorded Vaccine Date Status Refusal Reason zoster vaccine, inactivated 11/17/21 Given zoster vaccine, inactivated 1 07/30/21 Recorded SARS-CoV-2 mRNA avtxewqweuy-tqfi-oaefccc 2 11/03/21 Recorded SARS-CoV-2 mRNA muowvzzyoad-qwnf-idpqoky 3 10/08/21 Recorded SARS-COV-2 (COVID-19) vaccine, unspecifi [...] Daily, # 90 tab, 2 Refill(s), Pharmacy: [id number], 173, cm, 04/11/22 10:52:00 EDT, Height/Length Dosing, 100, kg, 04/11/22 10:52:00 EDT, Weight Dosing Start Date: 07/09/22 Stop Date: 10/07/22 Status: Ordered magnesium gluconate 250 mg oral tablet 500 mg 2 tab, Oral, BID, may substitute with magnesium gluconate 500mg 1 tab bid x 90 days at 180 tabs x 3 refills, # 360 tab, 3 Refill(s), Pharmacy: [id number], 173, cm, 04/11/22 10:52:00EDT, Height/Length Dosing, 100, kg, 04/11/22 10:52:... Start Date: 09/01/22 Stop Date: 08/27/23 Status: Ordered omeprazole 20 mg oral delayed release capsule 1 cap, Oral, Daily, # 90 cap, 0 Refill(s), Pharmacy: [facility], 173, cm, 04/11/22 10:52:00 EDT, Height/Length Dosing, 100, kg, 04/11/22 10:52:00 EDT, Weight Dosing Start Date: 10/29/22 Status: Ordered Vitamin D3 1000 intl units oral capsule 25 mcg = 1 cap, Oral, Daily, # 100 cap, 6 Refill(s), Pharmacy: [id number], 173, cm, 04/11/22 10:52:00 EDT, Height/Length Dosing, 100, kg, 04/11/22 10:52:00 EDT, Weight Dosing Start Date: 09/01/22 Status: Ordered Wellbutrin SR 100 mg/12 hours oral tablet, extended release 100 mg = 1 tab, Oral, BID, # 60 tab, 0 Refill(s), Pharmacy: [id number], 173, cm, 04/11/22 10:52:00 EDT, Height/Length Dosing, 100, kg, 04/11/22 10:52:00 EDT, Weight Dosing Start Date: 12/06/22 Status: Ordered Problem List Condition Confirmation Course Effective Dates Status Health Status Informant Adhesive capsulitis of shoulder Confirmed 05/07/14 Active Arthropathy 1 Confirmed 04/23/15 Active ADHD (attention deficit hyperactivity disorder), combined type Confirmed Active Basal cell carcinoma of scalp Confirmed Active Benign paroxysmal positional vertigo Confirmed Active Biceps tendinitis Confirmed 08/28/15 Active Bicipital tenosynovitis Confirmed 06/03/15 Active BMI 32.0-32.9,adult Confirmed Active Bursitis of hip 2 Confirmed 02/22/12 Active Cellulitis of shoulder 3 Confirmed 09/05/15 Active Chondromalacia of right patella 4 Confirmed 02/22/12 Active Chronic pain of left upper limb Confirmed 06/18/16 Active Constipation Confirmed Active Degenerative joint disease [...] and depressive disorder 7 Confirmed 03/27/19 Active Onychomycosis Confirmed Active Osteoarthritis [...] insomnia. 8with coxa profunda deformity, seen by [facility] orthopedics 08/27/20 - advised conservative management, consider [...] filshie clips Results Laboratory List Name Date Comprehensive Metabolic Panel (CMP) Hemoglobin A1c 12/06/22 Most recent to oldest [Reference Range]: 1 BUN [7-18 mg/dL] 20 mg/dL *HI* (12/06/22 11:49 AM) Glucose Level [74-106 mg/dL] 90 mg/dL (12/06/22 11:49 AM) Potassium Level [3.5-5.1 mmol/L] 3.8 mmo l/L (12/06/22 11:49 AM) AST [15-37 unit/L] 19 unit/L (12/06/22 11:49 AM) ALT [14-59 unit/L] 45 unit/L (12/06/22 11:49 AM) Sodium Level [136-145 mmol/L] 139 mmol/L (12/06/22 11:49 AM) Calcium Level [8.5-10.1 mg/dL] 9.5 mg/dL (12/06/22 11:49 AM) Albumin Level [3.4-5.0 g/dL] 4.0 g/dL (12/06/22 11:49 AM) Protein Total [6.4-8.2 g/dL] 8.3 g/dL *HI* (12/06/22 11:49 AM) Bilirubin Total [0.2-1.0 mg/dL] 0.5 mg/d L (12/06/22 11:49 AM) Alk Phos [46-146 unit/L] 102 unit/L (12/06/22 11:49 AM) CO2 [21-32 mmol/L] 28 mmol/L (12/06/22 11:49 AM) eGFR Non-AA [>=60] 86 (12/06/22 11:49 AM) eGFR AA [>=60] 86 (12/06/22 11:49 AM) Hemoglobin A1c [4.0-6.0 %] 5.6 % (12/06/22 11:49 AM) Chloride Level [98-107 mmol/L] 101 mmol/ L (12/06/22 11:49 AM) Creatinine Level [0.55-1.02 mg/dL] 0.78 mg/dL (12/06/22 11:49 AM) Social History Social History Type Response Tobacco Never tobacco user T obacco Use:. Sex Female Patient Care team information Care Team Personnel Name: Yasmeen Grace Position: Physician Member Role: Primary Care Physician Address: Address: [facility] [address] [address]- Care Team Related Persons Name: KEVIN BENNETT Address: Home Name: MEGAN [place] Address: Home Name: GABRIELA SCHAFFER Address: Home [address] [place] [address], [phone]
--- OUTSIDE RECORDS SUMMARY | 2024-02-24 17:04 | XMS_ITS | Continuity of Care Document ---
Author Organization [facility] Address [address] [place] [address] Care Team Providers Care Assistant Family Teacher Name Role Phone BrigitteJackie mallorybeth Lei Primary Care Physician [phone] Encounter [facility] [id number] Date(s): 09/01/22 - 09/01/22 [facility] [address] [place] [address] Encounter Diagnosis PLMD (periodic limb movement disorder)(Discharge Diagnosis) - 09/01/22 Discharge Disposition: Home or Self Care Attending Physician: Maria Teresa Moyer LUMBER STICKER Allergies, Adverse Reactions, Alerts Substance Reaction Severity Status escitalopram Unknown Active oxyCODONE Unknown Active SUMAtriptan Chest pain Unknown Active Assessment and Plan Future Appointments Future Scheduled Tests Laboratory* Ferritin 09/01/22 * TSH w/ Rflx to Free T4 09/01/22 Radiology* MRI Brain w/ + w/o Contrast 03/17/22 * MG Mammo Implant Screening Ramon w/ Hiro 08/03/22 Functional Status 09/01/22 Other exposure to Infectious Disease Non e Immunizations Given and Recorded Vaccine Date Status Refusal Reason zoster vaccine, inactivated 11/17/21 Given zoster vaccine, inactivated 1 07/30/21 Recorded SARS-CoV-2 mRNA fjpwuqmxpum-nxho-qrtfouf 2 11/03/21 Recorded SARS-CoV-2 mRNA opkqvinggvf-frui-puixdxi 3 10/08/21 Recorded SARS-COV-2 (COVID-19) vaccine, unspecifi 11/03/21 Recorded influenza virus vaccine, live 04/09/20 Recorded influenza virus vaccine, live 04/12/19 Recorded Td(adult) unspecified formulation 1/1/18 Recorde d Td(adult) unspecified formulation 07/04/87 Recorde d zoster vaccine live 10/04/16 Recorded hepatitis B adult vaccine 07/04/99 Recorded 1Result Comment: Pt tolerated well 2Result Comment: Tolerated well 3Result Comment: Pt tolerated well Medications LORazepam 0.5 mg oral tablet 0.5 mg = 1 tab, Oral, BID, # 56 tab, 0 Refill(s), Pharmacy: [id number], 173, cm, 04/11/22 10:52:00 EDT, Height/Length Dosing, 100, kg, 04/11/22 10:52:00 EDT, Weight Dosing Start Date: 08/03/22 Stop Date: 08/31/22 Status: Ordered losartan 25 mg oral tablet 25 mg = 1 tab, Oral, Daily, # 90 tab, 2 Refill(s), Pharmacy: [id number], 173, cm, 04/11/22 10:52:00 EDT, Height/Length Dosing, 100, kg, 04/11/22 10:52:00 EDT, Weight Dosing Start Date: 07/09/22 Stop Date: 10/07/22 Status: Ordered magnesium gluconate 250 mg oral tablet 500 mg 2 tab, Oral, BID, may substitute with magnesium gluconate 500mg 1 tab bid x 90 days at 180 tabs x 3 refills, # 360 tab, 3 Refill(s), Pharmacy: [id number], 173, cm, 04/11/22 10:52:00EDT, Height/Length Dosing, 100, kg, 04/11/22 10:52:... Start Date: 09/01/22 Stop Date: 08/27/23 Status: Ordered omeprazole 20 mg oral delayed release capsule See Instructions, Take 1 capsule by mouth once daily, # 90 cap, 0 Refill(s), Pharmacy: [id number], 173, cm, 04/11/22 10:52:00 EDT, Height/Length Dosing, 100, kg, 04/11/22 10:52:00 EDT, Weight Dosing Start Date: 05/12/22 Status: Ordered Paxlovid 150 mg-100 mg (300 mg-100 mg Dose) oral tablet 3 tab, Oral, BID, Take two 150 mg nirmatrelvir tablets with one 100 mg ritonavir tablet at the sametime as indicated on the blister cards. Provide Fact Sheet for Patients/Caregivers, # 30 tab, 0 Refill(s), Pharmacy: [id number], 173, cm, 10... Start Date: 08/10/22 Stop Date: 08/15/22 Status: Ordered venlafaxine 37.5 mg oral capsule, extended release 37.5 mg = 1 cap, Oral, Daily, Pt decreasing dose to 37.5 mg a day, # 90 cap, 0 Refill(s), Pharmacy:[id number], 173, cm, 04/11/22 10:52:00 EDT, Height/Length Dosing, 100, kg, 04/11/22 10:52:00 EDT, Weight Dosing Start Date: 08/30/22 Status: Ordered Ventolin HFA 90 mcg/inh inhalation aerosol 2 puffs, Inhale, every 6 hr, PRN as needed for wheezing, 2 puffs 30 minutes prior to exercise, # 1 EA, 0 Refill(s), Pharmacy: [id number], 173, cm, 04/11/22 10:52:00 EDT, Height/Length Dosing, 100, kg, 04/11/22 10:52:00 EDT, Weight Dosing Start Date: 04/22/22 Status: Ordered Vitamin D3 1000 intl units oral capsule 25 mcg = 1 cap, Oral, Daily, # 100 cap, 6 Refill(s), Pharmacy: [id number], 173, cm, 04/11/22 10:52:00 [...] 08/28/15 Active Bicipital tenosynovitis Confirmed 06/03/15 Active Bursitis of hip 2 Confirmed 02/22/12 [...] insomnia. 8with coxa profunda deformity, seen by [facility] orthopedics 08/27/20 - advised conservative management, [...] Most recent to oldest [Reference Range]: 1 Weight 95.25 kg (09/01/22 9:35 AM) Weight Measured (lbs) 209.99 lb (09/01/22 9:35 AM) Height 170 cm (09/01/22 9:35 AM) Height/Length Measured (inches) 66.93 in ch (09/01/22 9:35 AM) BSA Measured 2.12 m2 (09/01/22 9:35 AM) Body Mass Index 32.96 kg/m2 (09/01/22 9:35 AM) Social History Social History Type Response Tobacco Never tobacco user T obacco Use:. Sex Female Physician Outpatient Note * Maria Teresa Moyer LUMBER STICKER: PERFORM Event Display: Office Clinic Note Physician Authored Date: [id number] TOÑO MARSHALL :1960 Age:62 years Sex:Female Visit Date:09/01/2022 Primary Care Physician: Yasmeen Grace Chief Complaint Follow-up PSG results History of Present Illness The patient is a pleasant 62-year-old female who follows up today for her PSG results. ?? She reports she slept well on the night of her sleep study??and that it was a typical night sleep for her. She does endorse RLS symptoms in the evening but not aware of leg movement waking her up at night. No other new changes. to report. Review of Systems A 10-point REVIEW OF SYSTEM was obtained and reviewed, includes CONSTITUTIONAL, EYES, NOSE, THROAT,RESPIRATORY, HEART, GASTROINTESTINAL, UROLOGIC, MUSCULOSKELETAL, PSYCHIATRY, SKIN systems. Pertinent symptoms are discussed in history, otherwise negative. Physical Exam Vitals & Measurements HT:??170??cm?? WT:??95.25??kg?? BMI:??32.96?? BSA:??2.12?? General well appearing??statedage, no acute distress,??obesebuild PSYCHIATRIC: well groomed, fluent speech, good insight, linear thought process, good eye contact,_ NEUROLOGIC: alert, oriented, symmetric facial expression ?? Assessment/Plan 1.??PLMD (periodic limb movement disorder)??G47.61 Patient is a pleasant 62-year-old female who follows up today for PSG results. PSG performed 07/28/2022 shows no evidence of sleep disordered breathing, it did however show very severe periodic limb movement disorder with significant arousal.?? PLM index 96.3/h.?? PLM arousal index 13.3/h.?? Patientdoes endorse RLS symptoms prior to bedtime but not aware of any leg movement waking her up however she does endorse frequent nocturnal awakenings.?? She also mentions frequent leg cramps.?? She will begin supplementation with vitamin D 1000 IUs along with magnesium gluconate 250 to 500 mg 1 to 2 hours prior to bedtime.?? Check ferritin and TSH blood level, consider starting iron supplementation pe nding ferritin results.?? If Ferritin and TSH level normal we discussed trial of gabapentin 100 mg QHS. Ordered: magnesium gluconate 250 mg oral tablet, 500 mg 2 tab, Oral, BID, may substitute with magnesium gluconate 500mg 1 tab bid x 90 days at 180 tabs x 3 refills, # 360 tab, 3 Refill(s), Pharmacy: [id number], 173, cm, 04/11/22 10:52:00 EDT, Height/Length Dosing, 100, kg, 04/11/22 10:52:... Ferritin, Blood, Routine, 09/01/22, Once, Lab Collect, PLMD (periodic limb movement disorder) Chronic joint pain, Order for future visit TSH w/ Rflx to Free T4, Blood, Routine, 09/01/22, Once, Lab Collect, PLMD (periodic limb movement disorder) Weight gain, Order for future visit ?? Orders: Vitamin D3 1000 intl units oral capsule, 25 mcg = 1 cap, Oral, Daily, # 100 cap, 6 Refill(s), Pharmacy: [id number], 173, cm, 04/11/22 10:52:00 EDT, Height/Length Dosing, 100, kg, 04/11/22 10:52:00 EDT, Weight Dosing I provided greater than??30??minutes in the care of this patient, more than half the time was spentin [id number] counseling. ?with comorbidities of Past medical history includes??HTN, Anxiety (Lorazepam 0.5mg BID), Depression (Venlafaxine 112.5mg QD), PTSD,??Insomnia (Benadryl), Obesity ? Clinical Data Reviewed: [place] Sleepiness Scale:01/24 ? Sleep Clinical Timeline:?? 06/17/2022. Sleep consult, referred by Yasmeen Grace 07/28/2022. PSG diagnostic. snoring, frequent nocturnal awakenings, nonrestorative sleep, waking up with headaches, waking up with a dry mouth, narrow airway, Mallampati 3, ESS 04/26, [place] 3 out of 3 positive categories, CO2 of 28. Wt??= 207.8lbs, BMI = 33 mg/k2. IMPRESSION: 1.??No evidence of sleep disordered breathing during this sleep study. ??However, respiratory events may be missed due to minimal supine position sleep, only 18 minutes of NREM and absent supine REM sleep. 2.??Overall AHI: 1.3/hr; Overall RDI: 2.1/hr; REM AHI: 0.0/hr; Supine AHI: 0/hr; Right Lateral AHI:1 /hr; Left Lateral AHI: 2/hr; Prone AHI: 1/hr. 3.??Mean SpO2: 94% and [place] SpO2: 68% on Room Air; 1.4 minutes spent with SpO2 less than or equal to 88% on Room Air. 4.??Very Severe Periodic Limb Movement Disorder with significant arousals. ??PLM index 96.3/hr. PLMarousal index 13.3/hr. ?? 09/01/2022. f/u PSG results, no disordered breathing,??start Vit D3 1000 iu and mag gluconate 250-500 mg QHS, check ferritin and TSH, consider trial of gabapentin 100 mg QHS if ferritin and TSH normal ? Today's Assessment and Plan: see above Follow up: will contact patient with lab test results ? Future Orders Ferritin, Blood, Routine, 09/01/22, Once, Lab Collect, PLMD (periodic limb movement disorder) Chronic joint pain, Order for future visit TSH w/ Rflx to Free T4, Blood, Routine, 09/01/22, Once, Lab Collect, PLMD (periodic limb movement disorder) Weight gain, Order for future visit Problem List/Past Medical History Ongoing Adhesive capsulitis of shoulder Arthropathy Basal cell carcinoma of scalp Benign paroxysmal positional vertigo Biceps tendinitis Bicipital tenosynovitis Bursitis of hip Cellulitis of shoulder Chondromalacia of right patella Chronic pain of left upper limb Constipation Degenerative joint disease of hand Disorder of rectum Dizziness and giddiness Fibrocystic disease of breast Hypertensive disease Impingement syndrome of left shoulder region Impingement syndrome of right shoulder region Migraine Mixed anxiety and depressive disorder Onychomycosis Osteoarthritis of bilateral hip joints Osteoarthritis of joint of right shoulder region Osteoarthritis of left acromioclavicular joint Reyes's pelvis Supraspinatus tear Tendinitis of right rotator cuff Tubulovillous adenoma of rectum Verruca plantaris Historical No qualifying data Procedure/Surgical History ???Mammogram (09/10/2021)???Carpal tunnel Surgery - Right Hand (01/20/2021)???Colonoscopy (05/27/2020)???Arthroscopy, shoulder, surgical; capsulorrhaphy (08/28/2015)???Arthroscopy, shoulder, surgical; capsulorrhaphy (08/28/2015)???Mohs surgery (08/19/2014)???Shave biopsy of skin lesion (04/18/2014)???Shave biopsy (02/15/2011)???Shave biopsy of skin lesion (12/04/2010)???Shave biopsy of skin lesion (10/12/2010)???Repair of urethra (04/18/2008)???Repair of incisional ventral hernia (06/03/2005)??? Cholecystectomy (10/29/2004)???Cyst Excision (04/30/2004)???Abdominoplasty (07/04/2002)???Breast augmentation with implant (07/04/2002)???Colonoscopy (02/01/2002)???Total abdominal hysterectomy (01/22/2000)???Exploratory laparotomy (12/31/1999)???Colonoscopy (12/28/1999)???Hysterectomy (07/04/1999)? ??Bowel surgery procedure (07/04/1999)???Tubal ligation (06/05/1998)???Tonsillectomy (11/14/1990) Medications LORazepam 0.5 mg oral tablet, 0.5 mg= 1 tab, Oral, BID losartan 25 mg oral tablet, 25 mg= 1 tab, Oral, Daily, 2 refills magnesium gluconate 250 mg oral tablet, 500 mg= 2 tab, Oral, BID, 3 refills omeprazole 20 mg oral delayed release capsule, See Instructions Paxlovid 150 mg-100 mg (300 mg-100 mg Dose) oral tablet, 3 tab, Oral, BID venlafaxine 37.5 mg oral capsule, extended release, 37.5 mg= 1 cap, Oral, Daily Ventolin HFA 90 mcg/inh inhalation aerosol, 2 puffs, Inhale, every 6 hr, PRN Vitamin D3 1000 intl units oral capsule, 25 mcg= 1 cap, Oral, Daily, 6 refills Allergies SUMAtriptan??(Chest pain) escitalopram oxyCODONE Social History Alcohol Electronic Cigarette/Vaping Electronic Cigarette Use: Never. 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 Highest education level: High school. Home/Environment Lives with Spouse. Nutrition/Health Diet: Regular. Caffeine intake amount: 1 coffee daily. Substance Use Never Tobacco Never tobacco user Tobacco Use:. Family History Bee sting-induced anaphylaxis: Brother. Malignant neoplasm of liver: Aunt/Uncle. Malignant tumor of breast: Aunt/Uncle and Grandfather (M). Malignant tumor of cervix: Mother and Aunt/Uncle. Malignant tumor of lung: Mother. Malignant tumor of prostate: Aunt/Uncle and Grandfather (M). Immunizations Vaccine Date Status zoster vaccine, inactivated 11/17/2021 Given SARS-CoV-2 mRNA xtnioubxrxi-xaal-yvarefu 11/03/2021 Recorded Comments : Tolerated well SARS-COV-2 (COVID-19) vaccine, unspecifi 11/03/2021 Recorded SARS-CoV-2 mRNA ubjsrwomvzk-fhuy-fachver 10/08/2021 Recorded Comments : Pt tolerated well zoster vaccine, inactivated 2021 Recorded Comments : Pt tolerated well influenza virus vaccine, live 04/09/2020 Recorded influenza virus vaccine, live 04/12/2019 Recorded Td(adult) unspecified formulation 07/04/2017 Recorded zoster vaccine live 10/04/2016 Recorded hepatitis B adult vaccine 07/04/1999 Recorded Td(adult) unspecified formulation 07/04/1987 Recorded Electronically Signed on 09/01/22 10:22 AM Aly [facility] Patient Care team information Care Team Personnel Name: Yasmeen Grace Position: Physician Member Role: Primary Care Physician Address: Address: [facility] [place] [address]- Care Team Related Persons Name: KEVIN BENNETT Address: Home Name: MEGAN [place]ONA Name: GABRIELA SCHAFFER Address: Home [address] [place] [address], [phone]
--- OUTSIDE RECORDS SUMMARY | 2024-02-24 17:04 | XMS_ITS | Continuity of Care Document ---
Author Organization [facility] Address [address] [place] [address] Care Team Providers Care Casualty Underwriter Name Role Phone Yasmeen Grace Primary Care Physician [facility] - 02/08/[address] [address] Discharge Disposition: Home or Self Care Attending [...] vaccine, inactivated 1 07/30/21 Recorded SARS-CoV-2 mRNA wsgpygbbdqt-brbl-lubavub 2, 3 11/03/21 Recorded SARS-CoV-2 mRNA yfljnhvqinj-scoo-kqwrtyc 4 10/08/21 Recorded SARS-COV-2 (COVID-19) vaccine, unspecifi [...] 4Result Comment: Pt tolerated well Medications losartan 50 mg oral tablet 50 mg = 1 tab, Oral, Daily, # 90 tab, 3 Refill(s), Pharmacy: [id number], 168, cm, 02/08/24 9:58:00 EDT, Height, 77.05, kg, 02/08/24 9:46:00 EDT, Weight Dosing Start Date: 02/08/24 Stop Date: 02/02/25 Status: Ordered magnesium gluconate 250 mg oral [...] Daily, # 90 cap, 3 Refill(s), Pharmacy: [facility], 168, cm, 08/10/23 9:29:00 EST, Height, 77.55, kg, 11/09/23 13:50:00 EDT, Weight Dosing Start Date: 12/19/23 Status: Ordered Ozempic 8 mg/3 mL (2 mg dose) subcutaneous solution 2 mg =, Subcutaneous, every week, IN ABDOMEN, THIGH OR UPPER ARM., # 3 mL, 0 Refill(s), Pharmacy: [id number], 168, cm, 08/10/23 9:29:00 EST, Height, 77.55, kg, 11/09/23 13:50:00 EDT, Weight Dosing Start Date: 01/24/24 Status: Ordered Vitamin D3 1000 intl units [...] insomnia. 8with coxa profunda deformity, seen by [facility] orthopedics 08/27/20 - advised conservative management, [...] tobacco user T obacco Use:. Sex Female US Heart * Elen Alfredo A: PERFORM Event Display: Echo Report Authored Date: [id number] Patient Care team information Care Team Personnel Name: Yasmeen Grace Position: Physician Member Role: Informed Provider Address: Address: [facility] [address] [address]- Care Team Related Persons Name: KEVIN BENNETT Name: GABRIELA SCHAFFER Address: Alternate [address] Address: Home [address] [place], [id number] Address: Mailing [address] [place] [address] [address] [place], [id number]
--- OUTSIDE RECORDS SUMMARY | 2024-02-24 17:04 | XMS_ITS | Continuity of Care Document ---
Author Organization [facility] Address [address] [place] [address] Care Team Providers Care Ux Designer Name Role Phone Yasmeen Grace Primary Care Physician Encounter [facility] Date(s): 05/05/22 - 05/05/[address] [address] Discharge Disposition: Home or Self Care Attending Physician: Brit Altman Admitting Physician: Brit Altman Allergies, Adverse Reactions, Alerts Substance Reaction Severity Status escitalopram Unknown Active oxyCODONE Unknown Active SUMAtriptan Chest pain Unknown Active Assessment and Plan Future Appointments Future Scheduled Tests Radiology* MRI Brain w/ + w/o Contrast 03/17/22 Immunizations Given and Recorded Vaccine Date Status Refusal Reason zoster vaccine, inactivated 11/17/21 Given zoster vaccine, inactivated 1 07/30/21 Recorded SARS-CoV-2 mRNA bsrpebywocv-wnmj-mgrmfmu 2 11/03/21 Recorded SARS-CoV-2 mRNA gtcydtyilcm-ltnu-vtcqmab 3 10/08/21 Recorded SARS-COV-2 (COVID-19) vaccine, unspecifi [...] BID, # 56 tab, 0 Refill(s), Pharmacy: [id number], 173, cm, 04/11/22 10:52:00 EDT, Height/Length Dosing, 100, kg, 04/11/22 10:52:00 EDT, Weight Dosing Start Date: 04/22/22 Stop Date: 05/20/22 Status: Ordered omeprazole 20 mg oral delayed release capsule 20 mg = 1 cap, Oral, Daily Start Date: 11/09/21 Status: Ordered venlafaxine 37.5 mg oral capsule, extended release 37.5 mg = 1 cap, Oral, Daily, with food, take with 75mg capsule, # 90 cap, 0 Refill(s), Pharmacy: [id number], 173, cm, 04/11/22 10:52:00 EDT, Height/Length Dosing, 100, kg, 04/11/22 10:52:00 EDT, Weight Dosing Start Date: 04/23/22 Status: Ordered venlafaxine 75 mg oral capsule, extended release 75 mg = 1 cap, Oral, Daily, with food, take with 37.5 mg capsule, # 90 cap, 0 Refill(s), Pharmacy: [id number], 173, cm, 04/11/22 10:52:00 EDT, Height/Length Dosing, 100, kg, 04/11/22 10:52:00 EDT, Weight Dosing Start Date: 04/23/22 Status: Ordered Ventolin HFA 90 mcg/inh inhalation aerosol 2 puffs, Inhale, every 6 hr, PRN as needed for wheezing, 2 puffs 30 minutes prior to exercise, # 1 EA, 0 Refill(s), Pharmacy: [id number], 173, cm, 04/11/22 10:52:00 [...] rectum Confirmed Active Verruca plantaris [facility]: Patient notes h/a x 18 days. Related to URI. She notes h/o migraines, only responsive to percocet. She is allergic to other abortive measures. Discussed narcotics for migraines is not standard of care. Will administer ketorolac today in office, headache resolved after injection. Will have her be evaluated by Dr. Pal. She notes trying multiple medications for migraine without improvement. [facility]: Significant anxiety related to recent covid19 infection, persistent sxs and fear of returning to work. Emotional support provided. Will increase venlafaxine to 112.5 mg qd to target sxs of anxiety. Will additionally rx hydroxyzine 25-50 mg qhs at bedtime to target sxs of anxiety and insomnia. 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 Unknown *NA* (05/05/22 8:49 PM) Symptomatic as defined by CDC? Unknown *NA* (05/05/22 8:49 PM) Hospitalized due to COVID-19? Unknown *NA* (05/05/22 8:49 PM) In ICU? Unknown *NA* (05/05/22 8:49 PM) Group care resident? Unknown *NA* (05/05/22 8:49 PM) status? Unknown *NA* (05/05/22 8:49 PM) Social History Social History Type Response Tobacco Never tobacco user T obacco Use:. Sex Female Patient Care team information Personnel Name: Yasmeen Grace Address: Address: [facility] [address]
--- OUTSIDE RECORDS SUMMARY | 2024-02-24 17:04 | XMS_ITS | Continuity of Care Document ---
Author Organization [facility] Address [address] [place] [address] Care Team Providers Care Weekend Anchor Name Role Phone Yasmeen Grace Primary Care Physician [facility] [facility]/13/22 - 09/13/[address] [address] Encounter Diagnosis Breast cancer screening(Discharge Diagnosis) - 09/13/22 Discharge Disposition: Home or Self Care Attending [...] vaccine, inactivated 1 07/30/21 Recorded SARS-CoV-2 mRNA owixjrhcwwv-cfak-hmbgalf 2 11/03/21 Recorded SARS-CoV-2 mRNA ywsmopiiohk-eucc-arbvlkh 3 10/08/21 Recorded SARS-COV-2 (COVID-19) vaccine, unspecifi [...] # 56 tab, 0 Refill(s), Pharmacy: [id number], 173, cm, 04/11/22 10:52:00 EDT, Height/Length Dosing, 100, kg, 04/11/22 10:52:00 EDT, Weight Dosing Start Date: 08/03/22 Stop Date: 08/31/22 Status: Ordered losartan 25 mg oral tablet 25 mg = 1 tab, Oral, Daily, # 90 tab, 2 Refill(s), Pharmacy: [id number], 173, cm, 04/11/22 10:52:00 EDT, Height/Length Dosing, 100, kg, 04/11/22 10:52:00 EDT, Weight Dosing Start Date: 07/09/22 Stop Date: 10/07/22 Status: Ordered magnesium gluconate 250 mg oral tablet 500 mg 2 tab, Oral, BID, may substitute with magnesium gluconate 500mg 1 tab bid x 90 days at 180 tabs x 3 refills, # 360 tab, 3 Refill(s), Pharmacy: [id number], 173, cm, 04/11/22 10:52:00EDT, Height/Length Dosing, 100, kg, 04/11/22 10:52:... Start Date: 09/01/22 Stop Date: 08/27/23 Status: Ordered omeprazole 20 mg oral delayed release capsule See Instructions, Take 1 capsule by mouth once daily, # 90 cap, 0 Refill(s), Pharmacy: [id number], 173, cm, 04/11/22 10:52:00 [...] # 30 tab, 0 Refill(s), Pharmacy: [id number], 173, cm, 10... Start Date: 08/10/22 Stop Date: 08/15/22 Status: Ordered venlafaxine 37.5 mg oral capsule, extended release 37.5 mg = 1 cap, Oral, Daily, Pt decreasing dose to 37.5 mg a day, # 90 cap, 0 Refill(s), Pharmacy:[id number], 173, cm, 04/11/22 10:52:00 EDT, Height/Length Dosing, 100, kg, 04/11/22 10:52:00 EDT, Weight Dosing Start Date: 08/30/22 Status: Ordered Ventolin HFA 90 mcg/inh inhalation aerosol 2 puffs, Inhale, every 6 hr, PRN as needed for wheezing, 2 puffs 30 minutes prior to exercise, # 1 EA, 0 Refill(s), Pharmacy: [id number], 173, cm, 04/11/22 10:52:00 EDT, Height/Length Dosing, 100, kg, 04/11/22 10:52:00 EDT, Weight Dosing Start Date: 04/22/22 Status: Ordered Vitamin D3 1000 intl units oral capsule 25 mcg = 1 cap, Oral, Daily, # 100 cap, 6 Refill(s), Pharmacy: [id number], 173, cm, 04/11/22 10:52:00 [...] insomnia. 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
--- OUTSIDE RECORDS SUMMARY | 2024-02-24 17:04 | XMS_ITS | Continuity of Care Document ---
Author Organization [facility] Address [address] [place] [address] Care Team Providers Care Certified Orthoptist Name Role Phone Yasmeen Grace Primary Care Physician [facility] - 08/12/[address] [address] Encounter Diagnosis Bilateral hip pain(Discharge Diagnosis) - 08/12/23 Pain in left hip(Discharge Diagnosis) - 08/12/23 Discharge Disposition: Home or Self Care Attending [...] Knee Complete 4+ Views Bilateral 08/04/23 * MG Mammo Implant Screening Ramon w/ Hiro 08/04/23 Immunizations Given and Recorded Vaccine Date Status Refusal Reason zoster vaccine, inactivated 11/17/21 Given zoster vaccine, inactivated 1 07/30/21 Recorded SARS-CoV-2 mRNA yxiaewbhhdj-nwhj-vjszhpo 2, 3 11/03/21 Recorded SARS-CoV-2 mRNA nrmnqoqluin-ktdw-pehbcfl 4 10/08/21 Recorded SARS-COV-2 (COVID-19) vaccine, unspecifi [...] Daily, # 90 tab, 3 Refill(s), Pharmacy: [id number], 170, cm, 04/26/23 8:40:00 EDT, Height, 100, kg, 04/11/22 10:52:00 EDT, Weight Dosing Start Date: 07/21/23 Stop Date: 11/18/23 Status: Ordered magnesium gluconate 250 mg oral tablet 500 mg 2 tab, Oral, BID, may substitute with magnesium gluconate 500mg 1 tab bid x 90 days at 180 tabs x 3 refills, # 360 tab, 3 Refill(s), Pharmacy: [facility] [employer], 173, cm, 04/11/22 10:52:00EDT, Height/Length Dosing, 100, kg, 04/11/22 10:52:00 EDT, Weight Dosing Start Date: 09/01/22 Stop Date: 08/27/23 Status: Ordered metroNIDAZOLE 500 mg oral tablet 500 mg = 1 tab, Oral, BID, # 14 tab, 0 Refill(s), Pharmacy: [facility], 168, cm, 08/10/23 9:29:00 EST, Height, 73.8, kg, 08/10/23 9:43:00 EST, Weight Dosing Start Date: 08/10/23 Status: Ordered MiraLax oral powder for reconstitution 17 g, Oral, Daily, # 510 g, 1 Refill(s), Pharmacy: [id number], 173, cm, 04/11/22 10:52:00 EDT, Height/Length Dosing, 100, kg, 04/11/22 10:52:00 EDT, Weight Dosing Start Date: 02/04/23 Status: Ordered Mounjaro 2.5 mg/0.5 mL subcutaneous solution 2.5 mg =, Subcutaneous, every week, rotate injection sites, # 4 EA, 0 Refill(s), Pharmacy: [id number], 169, cm, 08/04/23 10:41:00 EST, Height, 73.4, kg, 08/04/23 10:52:00 EST, Weight Dosing Start Date: 08/04/23 Status: Ordered omeprazole 20 mg oral delayed release capsule 1 cap, Oral, Daily, # 90 cap, 0 Refill(s), Pharmacy: [id number], 173, cm, 04/11/22 10:52:00 EDT, Height/Length Dosing, 100, kg, 04/11/22 10:52:00 EDT, Weight Dosing Start Date: 03/15/23 Status: Ordered Vitamin D3 1000 intl units oral capsule 25 mcg = 1 cap, Oral, Daily, # 100 cap, 6 Refill(s), Pharmacy: [id number], 173, cm, 04/11/22 10:52:00 [...] insomnia. 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
--- OUTSIDE RECORDS SUMMARY | 2024-02-24 17:04 | XMS_ITS | Continuity of Care Document ---
Author Organization [facility] Address [address] [place] [address] Care Team Providers Care Acoustical Engineer Name Role Phone Yasmeen Grace Primary Care Physician [facility]counter [facility] Date(s): 05/05/23 - 05/05/[address] [address] Encounter Diagnosis Lump of right breast(Discharge Diagnosis) - 05/05/23 Discharge Disposition: Home or Self Care Attending Physician: Yasmeen Grace Admitting Physician: Yasmeen Grace Referring Physician: Yasmeen Grace Allergies, Adverse Reactions, Alerts Substance Reaction Severity Status escitalopram Unknown Active oxyCODONE Unknown Active SUMAtriptan Chest pain Unknown Active Assessment and Plan Future Appointments Future Scheduled Tests Laboratory* Ferritin 09/01/22 * TSH w/ Rflx to Free T4 09/01/22 Immunizations Given and Recorded Vaccine Date Status Refusal Reason zoster vaccine, inactivated 11/17/21 Given zoster vaccine, inactivated 1 07/30/21 Recorded SARS-CoV-2 mRNA xrycrvwunqf-neez-bqbrhax 2 11/03/21 Recorded SARS-CoV-2 mRNA rpyvrzeyyit-lqmh-wzbhyjv 3 10/08/21 Recorded SARS-COV-2 (COVID-19) vaccine, unspecifi [...] Daily, # 90 tab, 3 Refill(s), Pharmacy: [id number], 173, cm, 04/11/22 10:52:00 EDT, Height/Length Dosing, 100, kg, 04/11/22 10:52:00 EDT, Weight Dosing Start Date: 04/26/23 Stop Date: 04/20/24 Status: Ordered magnesium gluconate 250 mg oral tablet 500 mg 2 tab, Oral, BID, may substitute with magnesium gluconate 500mg 1 tab bid x 90 days at 180 tabs x 3 refills, # 360 tab, 3 Refill(s), Pharmacy: [id number], 173, cm, 04/11/22 10:52:00EDT, Height/Length Dosing, 100, kg, 04/11/22 10:52:00 EDT, Weight Dosing Start Date: 09/01/22 Stop Date: 08/27/23 Status: Ordered MiraLax oral powder for reconstitution 17 g, Oral, Daily, # 510 g, 1 Refill(s), Pharmacy: [facility], 173, cm, 04/11/22 10:52:00 EDT, Height/Length Dosing, 100, kg, 04/11/22 10:52:00 EDT, Weight Dosing Start Date: 02/04/23 Status: Ordered omeprazole 20 mg oral delayed release capsule 1 cap, Oral, Daily, # 90 cap, 0 Refill(s), Pharmacy: [facility], 173, cm, 04/11/22 10:52:00 EDT, Height/Length Dosing, 100, kg, 04/11/22 10:52:00 EDT, Weight Dosing Start Date: 03/15/23 Status: Ordered semaglutide 8 mg/3 mL (2 mg dose) subcutaneous solution 2 mg =, Subcutaneous, every week, in the abdomen, thigh, or upper arm, # 3 mL, 2 Refill(s), Pharmacy: [facility], 173, cm, 04/11/22 10:52:00 EDT, Height/Length Dosing, 100, kg, 04/11/22 10:52:00 EDT, Weight Dosing Start Date: 03/29/23 Status: Ordered Vitamin D3 1000 intl units oral capsule 25 mcg = 1 cap, Oral, Daily, # 100 cap, 6 Refill(s), Pharmacy: [id number], 173, cm, 04/11/22 10:52:00 EDT, [...] insomnia. 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
--- OUTSIDE RECORDS SUMMARY | 2024-02-24 17:05 | XMS_ITS | Encounter Summary ---
Author Organization [facility] Address [address] [place] [address] Care Team Providers Care Computer Hardware Technician Name Role Phone Matt Jackson MD Primary Care Provider Unava ilable Reason for Visit * Reason Comments Shoulder Pain left Encounter Details Date Type Department Care Team (Late st Contact Info) Description 12/27/2016 8:15 EDT Office Visit [facility] - [facility] Yakov Suazo [address] [place] [address] John Cooper III, MD [address] [place] [address] Adhesive capsulitis of left shoulder (Primary Dx); Chronic left shoulder pain Social History Tobacco Use Types Packs/Day Years Used Date Smoking Tobacco: Former Alcohol Use Standard Drinks/Week Comments Yes 0 (1 standard drink = 0.6 oz pur e alcohol) occas Sex and Gender Information Value Date Recorded Sex Assigned at Not on file Gender Identity Female 06/20/2020 11:02 EST Sexual Orientation Not on file documented as of this encounter Last Filed Vital Signs Vital Sign Reading Time Taken Comments Blood Pressure - - Pulse - - Temperature - - Respiratory Rate - - Oxygen Saturation - - Inhaled Oxygen Concentration - - Weight 77.1 kg (170 lb) 12/27/2016 0822 EDT Height 172.7 cm (5' 8) 12/27/2016 0822 EDT Body Mass Index 25.85 12/27/2016 0822 EDT documented in this encounter Progress Notes * John Cooper MD - 12/27/2016 0815 EDT Patient is here to discuss her left shoulder pain. This patient follows up to note that her left shoulder still bothers her with use. She is fairly comfortable at rest but when she tries to pick her hand away from her body or above her chest she getsincreasing discomfort. She notes her pain is primarily a mild ache at rest but when she does something suddenly or reachesthe extremes of her motion she can have a temporary severe pain which resolves quickly when she gets back to a comfortable position. She denies numbness or tingling associated with this. She denies significant swelling in her left upper extremity. She is taking no medications for this pain. She is not going to physical therapy at this time She remains very happy with her right shoulder and notices that that continues to improve and is doing exceedingly well. She also reports that her Workmen's Compensation insurance carrier has denied her left shoulder complaints as work-related and is not willing to obtain an MRI study which was her request. I have reviewed the review of systems which has been gathered by the Maintenance Manager and placed in this note. REVIEW OF SYSTEMS: Yes No Yes No Fever/Chills x Joint pain x Fatigue x Muscle pain x Night sweats x Morning stiffness x Weight change x If yes, duration Gain or loss? Numbness/tingling x Headaches x If yes, where? Dizziness x Muscle weakness x Chest pain x Excessive thirst x Shortness of breath x Change in mood x Cough x Nervous or anxious x Nausea/vomiting x Sad or depressed x Abdomnial pains/cramps x Excessive bruising x Heartburn/Reflux x Urinary Changes x Rash x Balance Issues x Objective: This patient is alert, awake and cooperative. This patient is normocephalic. This patient's mood is appropriate and is in no acute distress. This patient has unlabored breathing with a normal rate and rhythm. This patient has a regular pulse. There is no significant increased tenderness to palpation of the scalenus anticus muscle on the affected side. . There is no deformity, induration, soft tissue defect or abnormal mass detected. There is no palpable muscle atrophy. There is no focal point tenderness to palpation over the clavicle, acromioclavicular joint, anterior acromion, lesser tuberosity, bicipital groove, or greater tuberosity unless stated below: None The right shoulder has 180 degrees of forward elevation, 180 degrees of active abduction in the scapular plane, 90 degrees of external rotation at 0?? abduction and internal rotation to T12. The left shoulder has 160 degrees of forward elevation, 150 degrees of active abduction in the scapular plane, 70 degrees of external rotation at 0?? abduction and internal rotation to left buttock. With the scapula stabilized pure glenohumeral motion can be passively measured: The RIGHT shoulder has 100 degrees of forward elevation, 90 degrees of abduction in scapular plane and 90 degrees of external rotation at 0?? of abduction. At 90 degree of abduction there is not measured degrees of passive internal rotation and not measured degrees of passive external rotation. With the scapula stabilized pure glenohumeral motion can be passively measured: The LEFT shoulder has 80 degrees of forward elevation, 60 degrees of abduction in scapular plane and 30 degrees of external rotation at 0?? of abduction. At 90 degree of abduction there is not measured degrees of passive internal rotation and not measured degrees of passive external rotation. The affected shoulder has 5/5 strength with contraction of the supraspinatus, 5/5 strength with contraction of the infraspinatus, 5/5 strength with contraction of the subscapularis, 5/5 strength withcontraction of the biceps, 5/5 strength with contraction of the deltoid, 5/5 strength with contraction of the serratus anterior. The contralateral shoulder has 5/5 strength with contraction of the supraspinatus, 5/5 strength with contraction of the infraspinatus, 5/5 strength with contraction of the subscapularis, 5/5 strengthwith contraction of the biceps, 5/5 strength with contraction of the deltoid, 5/5 strength with cont raction of the serratus anterior. The ipsilateral elbow wrist and fingers have a supple, full and painless range of motion. There is an intact radial pulse. The fingers are pink and warm with good capillary refill. There is no swelling in this extremity. Assessment: Encounter Diagnoses Name Primary? Adhesive capsulitis of left shoulder Yes ??? Chronic left shoulder pain I do believe that some of her left shoulder symptoms are connected to her work place as they did relate to overuse while compensate for her right however I do agree that her full blown left shoulder idiopathic adhesive capsulitis is not likely work-related. I also doubt that she actually needs an MRI study given her strength and physical findings which seem to clearly indicate a frozen shoulder. I have offered to order one through her regular insurance but she declines that option at this time. Plan: 1. She will gently stretch her capsule independently 2. I will see her back in 4 months check on her progress or sooner if she is deteriorating This note was prepared with the aid of voice recognition technology. My attempts at proofreading sometimes misses mistakes. All attempts are made to reproduce pertinent clinical information but sometimes grammatical mistakes and inappropriate word spelling occurs. I apologize for any inconvenience. documented in this encounter Plan of Treatment Not on file documented as of this encounter Visit Diagnoses Diagnosis Adhesive capsulitis of left shoulder- Primary Adhesive capsulitis of shoulder Chronic left shoulder pain Pain in joint, shoulder region documented in this encounter Care Teams Computer Hardware Technician Relationship Specialty Start Date End Date Matt Jackson MD PCP - General 11/04/08 08/10/18 documented as of this encounter
--- OUTSIDE RECORDS SUMMARY | 2024-02-24 17:05 | XMS_ITS | Continuity of Care Document ---
Author Organization [facility] Address [address] [place] [address] Care Team Providers Care Reservations Sales Supervisor Name Role Phone Yasmeen Grace Primary Care Physician Encounter [facility] Date(s): 08/04/23 - 08/04/23 [facility] [address] [place] [address] Discharge Disposition: Home Allergies, Adverse Reactions, Alerts [...] vaccine, inactivated 1 07/30/21 Recorded SARS-CoV-2 mRNA zgztjaqdiue-hcxr-wgrxjfl 2, 3 11/03/21 Recorded SARS-CoV-2 mRNA ndpfsyrpxkb-mcpn-znxberq 4 10/08/21 Recorded SARS-COV-2 (COVID-19) vaccine, unspecifi [...] Daily, # 90 tab, 3 Refill(s), Pharmacy: [id number], 170, cm, 04/26/23 8:40:00 EDT, Height, 100, kg, 04/11/22 10:52:00 EDT, Weight Dosing Start Date: 07/21/23 Stop Date: 11/18/23 Status: Ordered magnesium gluconate 250 mg oral tablet 500 mg 2 tab, Oral, BID, may substitute with magnesium gluconate 500mg 1 tab bid x 90 days at 180 tabs x 3 refills, # 360 tab, 3 Refill(s), Pharmacy: [place] [id number], 173, cm, 04/11/22 10:52:00EDT, Height/Length Dosing, 100, kg, 04/11/22 10:52:00 EDT, Weight Dosing Start Date: 09/01/22 Stop Date: 08/27/23 Status: Ordered MiraLax oral powder for reconstitution 17 g, Oral, Daily, # 510 g, 1 Refill(s), Pharmacy: [facility], 173, cm, 04/11/22 10:52:00 EDT, Height/Length Dosing, 100, kg, 04/11/22 10:52:00 EDT, Weight Dosing Start Date: 02/04/23 Status: Ordered Mounjaro 2.5 mg/0.5 mL subcutaneous solution 2.5 mg =, Subcutaneous, every week, rotate injection sites, # 4 EA, 0 Refill(s), Pharmacy: [id number], 169, cm, 08/04/23 10:41:00 EST, Height, 73.4, kg, 08/04/23 10:52:00 EST, Weight Dosing Start Date: 08/04/23 Status: Ordered omeprazole 20 mg oral delayed release capsule 1 cap, Oral, Daily, # 90 cap, 0 Refill(s), Pharmacy: [id number], 173, cm, 04/11/22 10:52:00 EDT, Height/Length Dosing, 100, kg, 04/11/22 10:52:00 EDT, Weight Dosing Start Date: 03/15/23 Status: Ordered Vitamin D3 1000 intl units oral capsule 25 mcg = 1 cap, Oral, Daily, # 100 cap, 6 Refill(s), Pharmacy: [id number], 173, cm, 04/11/22 10:52:00 [...] Primary Care Physician Address: Address: [facility] [address] [address]- Care Team Related Persons Name: KEVIN BENNETT Address: Home Name: GABRIELA SCHAFFER Address: Home [address] [place] [address] [address], [id number]
--- OUTSIDE RECORDS SUMMARY | 2024-02-24 17:05 | XMS_ITS | Encounter Summary ---
Author Organization [facility] Address [address] [place] [address] Care Team Providers Care Form Carpenter Name Role Phone Matt Jackson MD Primary Care Provider Unava ilable Encounter Details Date Type Department Care Team (Latest Contact Info) Description 10/26/2016 8:46 EDT - 10/26/2016 23:59 EDT Hospital Encounter [facility] [place] [address] [place] [address] John Cooper III, MD [address] [place] [phone] Discharge Disposition: Auto Discharge Social History Tobacco Use Types Packs/Day Years Used Date Smoking Tobacco: Former Alcohol Use Standard Drinks/Week Comments Yes 0 (1 standard drink = 0.6 oz pur e alcohol) occas Sex and Gender Information Value Date Recorded Sex Assigned at Not on file Gender Identity Female 06/20/2020 11:02 EST Sexual Orientation Not on file documented as of this encounter Discharge Diagnoses Diagnosis M25.512 Pain in left shoulder-M25.512[ICD-10-CM] documented in this encounter Medications at Time of Discharge Medication Sig Dispensed Refills Start Date End Date ibuprofen (MOTRIN) 200 mg tablet Take 800 mg by mouth 3 times daily as needed for Pain. POTASSIUM &MAGNESIUM ASPARTATE (POTASSIUM & MAGNESIUM ASPARTAT ORAL) Take 1 Tab by mouth every morning. MULTIVITAMIN ORAL Take by mouth. Reported on 09/09/2016 12/18/2018 UNABLE TO FIND as needed. Reported on 09/09/2016 12/18/2018 documented as of this encounter Discharge Disposition Disposition Code Departure Means Destination Auto Discharge Home documented in this encounter Plan of Treatment Not on file documented as of this encounter Visit Diagnoses Not on filedocumented in this encounter Orders Medications Ordered That Lavon ht Not Have Been Administered Count Last Ordered Date First Ordered Date methylPREDNISolone ACETATE ( DEPO-MEDROL) injection 80 mg 1 10/26/2016 documented in this encounter Care Teams Form Carpenter Relationship Specialty Start Date End Date Matt Jackson MD PCP - General 11/04/08 08/10/18 documented as of this encounter
--- OUTSIDE RECORDS SUMMARY | 2024-02-24 17:05 | XMS_ITS | Encounter Summary ---
Author Organization [facility] Address [address] [place] [address] Care Team Providers Care Validation Leader Name Role Phone Shukri Renae Primary Care Provider [phone] Reason for Visit * (Routine) - Receiving Office to Obtain Authorization Specialty Diagnoses / Procedures Referred By Manisha smiley Referred To Contact Procedures XR OUTSIDE IMAGES STEFANIE Diane, Provider, Referral ID Status Reason Start Date Expiration Date Visits Requested Visits Authorized [id number] Receiving Office to Obtain Authorization 07/13/2019 1 1 Encounter Details Date Type Department Care Team (Latest Contact Info) Description 07/02/2019 - 07/02/2019 23:59 EST Hospital Encounter [facility] Radiology - [facility] [place] [address] [place] [address] Discharge Disposition: Home or Self Care Social History Tobacco Use Types Packs/Day Years Used Date Smoking Tobacco: Former Alcohol Use Standard Drinks/Week Comments Yes 0 (1 standard drink = 0.6 oz pur e alcohol) occas Sex and Gender Information Value Date Recorded Sex Assigned at Not on file Gender Identity Female 06/20/2020 11:02 EST Sexual Orientation Not on file documented as of this encounter Medications at Time of Discharge Medication Sig Dispensed Refills Start Date End Date acetaminophen (TYLENOL) 325 mg tablet Take 2 Tabs by mouth every 6 hours as needed for Pain. 12/29/2018 diphenhydrAMINE (BENADRYL) 25 mg capsule Take 50 mg by mouth every 4 hours. docusate sodium (COLACE) 100 mg capsule Take 1 Cap by mouth 2 times daily as needed for Constipation. 12/29/2018 ibuprofen (MOTRIN) 200 mg tablet Take 800 mg by mouth 3 times daily as needed for Pain. mineral oil external liquid 1 teaspoon twice daily on the vagina for 1 week 1 Bottle 2 12/29/2018 oxyCODONE (ROXICODONE) 5 mg immediate release tablet Take 1 Tab by mouth every 4 hours as needed for Pain. Daily Max: 30 mg 10 Tab 12/29/2018 polyethylene glycol 3350 (MIRALAX) 17 gram packet Take 17 g by mouth 2 times daily. 12/29/2018 POTASSIUM &MAGNESIUM ASPARTATE (POTASSIUM & MAGNESIUM ASPARTAT ORAL) Take 1 Tab by mouth every morning. venlafaxine (EFFEXOR XR) 75 mg XR capsule Take 75 mg by mouth at bedtime. documented as of this encounter Discharge Disposition Disposition Code Departure Means Destination Home or Self Care documented in this encounter Plan of Treatment Not on file documented as of this encounter Procedures Procedure Name Priority Date/Time Associated Diagnosis Comments XR OUTSIDE IMAGES MSK Routine 07/13/2019 12:32 EST documented in this encounter Results * XR OUTSIDE IMAGES MSK (07/13/2019 12:32 EST) Narrative JUAN - 07/13/2019 12:32 EST This is a non-reportable exam. Provider Unknown MD ROSAS OTHER IMAGING OR DERABLES Performing Organization Address City/State/[facility] Co de Phone Number JUAN documented in this encounter Visit Diagnoses Not on filedocumented in this encounter Care Teams Validation Leader Relationship Specialty Start Date End Date Shukri Renae PA [address] [place] [address] PCP - General 08/11/18 08/26/19 documented as of this encounter
--- OUTSIDE RECORDS SUMMARY | 2024-02-24 17:05 | XMS_ITS | Referral Summary ---
Author Organization [facility] Address [address] [place] [address] Care Team Providers Care Product Lead Name Role Phone Yasmeen Grace Primary Care Provider + Encounters Date Type Department Care Team Description 01/17/2024 Lab Requisition [facility] Pathology & Laboratory [facility] - [facility] [address] [place] [address] Sultana Trent MD Neoplasm of uncertain behavior of skin from Last 3 Months Allergies Active Allergy Reactions Criticality Noted Date Comments Sumatriptan Succinate Shortness Of Breath,Anxiety,Other (See Comments) High 07/17/2014 Heavy pressure in chest Medications Medication Sig Dispensed Refills Start Date End Date Status ibuprofen (MOTRIN) 200 mg tablet Take 800 mg by mouth 3 times daily as needed for Pain. Active POTASSIUM &MAGNESIUM ASPARTATE (POTASSIUM & MAGNESIUM ASPARTAT ORAL) Take 1 Tab by mouth every morning. Active venlafaxine (EFFEXOR XR) 75 mg XR capsule Take 75 mg by mouth at bedtime. Active diphenhydrAMINE (BENADRYL) 25 mg capsule Take 50 mg by mouth every 4 hours. Active oxyCODONE (ROXICODONE) 5 mg immediate release tablet Take 1 Tab by mouth every 4 hours as needed for Pain. Daily Max: 30 mg 10 Tab 12/29/2018 Active Additional Information Patient not taking.Reported on 08/27/2020 acetaminophen (TYLENOL) 325 mg tablet Take 2 Tabs by mouth every 6 hours as needed for Pain. 12/29/2018 Active Additional Information Patient not taking.Reported on 08/27/2020 polyethylene glycol 3350 (MIRALAX) 17 gram packet Take 17 g by mouth 2 times daily. 12/29/2018 Active Additional Information Patient not taking.Reported on 08/27/2020 docusate sodium (COLACE) 100 mg capsule Take 1 Cap by mouth 2 times daily as needed for Constipation. 12/29/2018 Active Additional Information Patient not taking.Reported on 08/27/2020 mineral oil external liquid 1 teaspoon twice daily on the vagina for 1 week 1 Bottle 2 12/29/2018 Active Additional Information Patient not taking.Reported on 08/27/2020 Active Problems Problem Noted Date Diagnosed Date Rectocele 12/29/2018 Adhesive capsulitis of left shoulder 11/15/2016 Osteoarthritis of left acromioclavicular joint 0 11/15/2016 Overview: possible Chronic left shoulder pain 06/18/2016 Secondary adhesive capsulitis of right shoulder 06/16/2016 Surgical aftercare, musculoskeletal system 06/16 Impingement syndrome of left shoulder 03/25/2016 Cellulitis of shoulder 09/05/2015 Overview: Cellulitis of right shoulder anterior incision Tear of supraspinatus tendon 08/28/2015 Bicipital tendinitis of right shoulder 6 Primary osteoarthritis of right shoulder 016 Tendinitis of right rotator cuff 08/28/2015 Right bicipital tenosynovitis 06/03/2015 Arthrosis of right acromioclavicular joint 04/23 Overview: Severe moderate right osteoarthrosis AC joint Impingement syndrome of right shoulder 5 Overview: Secondary impingement right shoulder Tear of right supraspinatus tendon 04/23/2015 Overview: Mild right supraspinatus tear - improving Adhesive capsulitis of right shoulder 05/07/2014 Adhesive capsulitis of shoulder 05/07/2014 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 Overview: Moderate chronic right chondromalacia patella Trochanteric bursitis 02/22/2012 Overview: Moderate mild recurrent resolved trochanteric bursitis Social History Tobacco Use Types Packs/Day Years Used Date Smoking Tobacco: Former Smokeless Tobacco: Never Alcohol Use Standard Drinks/Week Comments Yes 0 (1 standard drink = 0.6 oz pur e alcohol) occas Interpersonal Safety Answer Date Record ed Physically Hurt Never 02/05/2020 Verbally Threaten Not on file 02/05/2020 Sex and Gender Information Value Date Recorded Sex Assigned at Not on file Gender Identity Female 06/20/2020 11:02 EST Sexual Orientation Not on file Last Filed Vital Signs Vital Sign Reading Time Taken Comments Blood Pressure 117/53 12/29/2018 1304 EDT Pulse 63 09/09/2016 1506 EST Temperature 36.2 ??C (97.2 ??F) 12/29/2018 1304 EDT Respiratory Rate 16 12/29/2018 1304 EDT Oxygen Saturation 96% 12/29/2018 1304 EDT Inhaled Oxygen Concentration - - Weight 79.4 kg (175 lb) 08/27/2019 1053 EST Height 172.7 cm (5' 8) 06/24/2020 1120 EST Body Mass Index 26.61 08/27/2019 1053 EST Plan of Treatment Not on file Procedures Procedure Name Priority Date/Time Associated Diagnosis Comments SURGICAL PATHOLOGY Today 01/16/2024 9:43 EDT Neoplasm of uncertain behavior of skin from Last 3 Months Results * SURGICAL PATHOLOGY (01/16/2024 9:43 EDT) Note to Patient The following pathology results have been interpreted by your pathologist and may be available to you before your health provider has had the opportunity to review them. Please allow time for your provider to receive these results and explore management options, if applicable. 01/17/2024 16:08 EDT [facility] Final Diagnosis A. SKIN OF ARM, RIGHT DISTAL POSTERIOR UPPER, SHAVE BIOPSY: - Melanocytic nevus, junctional type, with unusual architectural features and mild cytologic atypia, irritated, encompassed within the examined sections.. 01/17/2024 16:08 EDT [facility] Attestation By the signature below, the attending physician certifies that they have 1) personally conducted a gross and/or microscopic examination of the described specimen(s), and/or personally interpreted the results of laboratory testing of the described specimen(s), and 2) personally rendered or confirmed the above diagnosis. 01/17/2024 16:08 [facility] at 1608 Clinical History Irregular brown macule; Ddx: Atypical nevus vs other; clinical diagnosis code: D48.5 01/17/2024 16:08 [facility] Gross Description A. Received in formalin labelled with proper patient identification (initials M, P) and right distal posterior uppe... is a 0.6 x 0.6 cm reyes irregular skin shave. The epidermis displays a 0.4 x 0.3 cm central brown irregular macule which is less than 0.1 cm from the closest peripheral margin. The specimen is inked, bisected and entirely submitted in A1. JOSE DANIEL RODRIGUEZ(ASCP) 01/17/2024 7:49 01/17/2024 16:08 T [facility] Performing Lab [facility] 01/17/2024 16:08 [facility] Scanned Images 01/17/2024 16:08 [facility] Tissue SPECIMEN FROM SKIN / Unknown 01/16/2024 9:43 EDT 01/17/2024 7:10 EDT Sultana Trent MD PATHOLOGY ORDERABLES [facility] [address] [place], [place] [address] from Last 3 Months Advance Directives For more information, please contact: [phone] * Full Code (Latest Code Status on File) Date Activated Date Inactivated Comments 12/29/2018 6:58 12/29/2018 15:25 Question Answer Comments Reason for decision includes: Full code consistent with overall plan of care Who participated in the discussion? Not Discusse d * Full Code Date Activated Date Inactivated Comments 08/28/2015 10:23 08/28/2015 19:11 Question Answer Comments Reason for decision includes: Full code consistent with overall plan of care Who participated in the discussion? Not Discusse d Care Teams Product Lead Relationship Specialty Start Date End Date Yasmeen Grace PA [facility] [place] [phone] PCP - General 08/27/19
--- OUTSIDE RECORDS SUMMARY | 2024-02-24 17:05 | XMS_ITS | Clinical Summary ---
Author Organization [facility] Address [address] [place] [address] Care Team Providers Care Award Machine Operator Name Role Phone Yasmeen Grace Primary Care Provider + Allergies Active Allergy Reactions Criticality Noted Date [...] Overview: Moderate mild recurrent resolved trochanteric bursitis Encounters Date Type Department Care Team Description 01/17/2024 Lab Requisition [facility] Pathology & Laboratory Medicine - [address] [address] Sultana Trent MD Neoplasm of uncertain behavior of skin from Last 3 Months Surgical History Surgery Date Site/Laterality Comments GALLBLADDER SURGERY CHOLECYSTECTOMY HYSTERECTOMY SKIN BIOPSY ABDOMEN SURGERY APPENDECTOMY COLON SURGERY TONSILLECTOMY COSMETIC SURGERY MOHS SURGERY 08/19/14 right occipital scalp SHOULDER ARTHROSCOPY 08/28/2015 Right Capsular Release DCE OVARY REMOVAL MAMMAPLASTY AUGMENTATION 07/04/2012 - 07/03/2013 Bilateral silicone Medical History Medical History Date Comments Basal cell carcinoma 08/19/14 right occip ital scalp Adhesive capsulitis of shoulder 05/07/2014 Right bicipital tenosynovitis 06/03/2015 Cellulitis of shoulder 09/05/2015 Celluliti s of right shoulder anteror incision Chondromalacia, patella 02/22/2012 Acromioclavicular arthrosis 04/23/2015 Impingement syndrome of right shoulder 5 Secondary Supraspinatus tendon tear 04/23/2015 Trochanteric bursitis 02/22/2012 Family History Medical History Relation Comments Breast Cancer Maternal Aunt Cancer Maternal Grandfather Breast Cancer Maternal Grandmother Cancer Maternal Grandmother Cancer Mother lung Relation Status Comments Maternal Aunt Maternal Grandfather Maternal Grandmother Mother Social History Tobacco Use Types Packs/Day Years [...] 11:02 EST Sexual Orientation Not on file Obstetrics History Para Term AB IAB SAB Ectopic Multiple Livin g Live Births 5 5 Date Outcome GA Total Labor Labor/2nd/3rd Weight Sex Type Anes PTL Aleena A1 A5 Name Clin Para Para Para Para Para Last Filed Vital Signs Vital Sign Reading [...] 26.61 08/27/2019 1053 EST Plan of Treatment Health Maintenance Due Date Last Done Comments Hepatitis C Screen 1960 RSV Immunization ( o r 60+ Years) (1 - 1-dose 60+ series) 2021 COVID-19 Vaccine (2022-24 season) 2023 Procedures Procedure Name Priority Date/Time Associated Diagnosis [...] explore management options, if applicable. 01/17/2024 16:08 [facility] Final Diagnosis A. SKIN OF ARM, RIGHT DISTAL POSTERIOR UPPER, SHAVE BIOPSY: - Melanocytic nevus, junctional type, with unusual architectural features and mild cytologic atypia, irritated, encompassed within the examined sections.. 01/17/2024 16:08 [facility] Attestation By the signature below, the attending physician certifies that they have 1) personally conducted a gross and/or microscopic examination of the described specimen(s), and/or personally interpreted the results of laboratory testing of the described specimen(s), and 2) personally rendered or confirmed the above diagnosis. 01/17/2024 16:08 [facility] at 1608 Clinical History Irregular brown macule; Ddx: Atypical nevus vs other; clinical diagnosis code: D48.5 01/17/2024 16:08 [facility] Gross Description A. Received in [...] JOSE DANIEL RODRIGUEZ(ASCP) 01/17/2024 7:49 01/17/2024 16:08 EDT [facility] Performing Lab [facility] 01/17/2024 16:08 EDT [facility] Scanned Images 01/17/2024 16:08 EDT [facility] Tissue SPECIMEN FROM SKIN / Unknown 01/16/2024 9:43 EDT 01/17/2024 7:10 EDT Sultana Trent MD PATHOLOGY ORDERABLES [facility] [address] [place] [address] from Last 3 Months Advance Directives For more information, please contact: [phone] * Full Code (Latest Code Status on [...] the discussion? Not Discusse d Care Teams Award Machine Operator Relationship Specialty Start Date End Date Yasmeen Grace PA [address] [place] [address] [place] [phone] PCP - General 08/27/19
--- OUTSIDE RECORDS SUMMARY | 2024-02-24 17:05 | XMS_ITS | Encounter Summary ---
Author Organization [facility] Address [address] [place] [address] Care Team Providers Care Physical Fitness Teacher Name Role Phone Yasmeen Grace Primary Care Provider + Reason for Referral * Radiology Services (Routine/Next Available) - Closed Specialty Diagnoses / Procedures Referred By Contac t Referred To Contact Diagnoses Bilateral hip pain Procedures XR HIPS BILATERAL 5 OR MORE VIEWS, OPTIONAL PELVIS Walter Dixon MD [address] [place] [phone] Referral ID Status Reason Start Date Expiration Date Visits Re quested Visits Authorized [id number] Closed 08/22/2020 1 1 Reason for Visit * Radiology Services (Routine/Next Available) - Closed Specialty Diagnoses / Procedures Referred By Contac t Referred To Contact Diagnoses Bilateral hip pain Procedures XR HIPS BILATERAL 5 OR MORE VIEWS, OPTIONAL PELVIS Walter Dixon MD [address] [place] [phone] Referral ID Status Reason Start Date Expiration Date Visits Re quested Visits Authorized [id number] Closed 08/22/2020 1 1 Encounter Details Date Type Department Care Team (Latest Contact Info) Description 08/27/2020 11:05 EST - 08/27/2020 23:59 EST Hospital Encounter [address] [facility] [address] [facility] [place] [address] Bilateral hip pain Discharge Disposition: Home or Self Care Social [...] Name Priority Date/Time Associated Diagnosis Comments XR HIPS BILATERAL 5 OR MORE VIEWS, OPTIONAL PELVIS Routine 08/27/2020 11:30 EST Bilateral hip pain documented in this encounter Results * XR HIPS BILATERAL 5 OR MORE VIEWS, OPTIONAL PELVIS (08/27/2020 11:30 EST) Anatomical Region Laterality Modality Bilateral Computed Radiogr aphy 08/27/2020 13:1 9 EST Impressions 08/27/2020 13:19 EST FINDINGS / IMPRESSION: * ??One view pelvis 2 views each hip * ??Moderate to severe bilateral hip degenerative changes. * ??SI joint, and pubic symphyseal as well as lower lumbar spine degenerative changes. Narrative 08/27/2020 13:19 EST EXAM/TECHNIQUE: XR HIPS BILATERAL 5 OR MORE VIEWS, OPTIONAL PELVIS ??08/27/2020 11:15 AM HISTORY: ??BILAT HIP PAIN COMPARISON: None. Procedure Note Alpesh Pope MD - 08/27/2020 EXAM/TECHNIQUE: XR HIPS BILATERAL 5 OR MORE VIEWS, OPTIONAL PELVIS08/27/2020 11:15 AM HISTORY: BILAT HIP PAIN COMPARISON: None. IMPRESSION FINDINGS / IMPRESSION: * One view pelvis 2 views each hip * Moderate to severe bilateral hip degenerative changes. * SI joint, and pubic symphyseal as well as lower lumbar spinedegenerative changes. Walter Dixon MD IMG DIAGNOST IC IMAGING ORDERABLES documented in this encounter Visit Diagnoses Diagnosis Bilateral hip pain Pain in joint, pelvic region and thigh documented in this encounter Care Teams Physical Fitness Teacher Relationship Specialty Start Date End Date Yasmeen Grace PA [address] [place] [address] [place] [phone] PCP - General 08/27/19 documented as of this encounter
--- OUTSIDE RECORDS SUMMARY | 2024-02-24 17:05 | XMS_ITS | Encounter Summary ---
Author Organization [facility] Address [address] [place] [address] Care Team Providers Care Leather Sprayer Name Role Phone Yasmeen Grace Primary Care Provider + Encounter Details Date Type Department Care Team (Latest Contact Info) Description 06/20/2020 Travel Social History Tobacco Use Types Packs/Day Years [...] 11:02 EST Sexual Orientation Not on file COVID-19 Exposure Response Date Recorded In the last month, have you been in contact with someone who was confirmed or suspected to have Coronavirus / COVID-19? No / Unsure 06/20/2020 10:59 EST documented as of this encounter Plan of Treatment Not on file documented as of this encounter Visit Diagnoses Not on filedocumented in this encounter Care Teams Leather Sprayer Relationship Specialty Start Date End Date Yasmeen Grace PA [address] [place] [address] [place] [phone] PCP - General 08/27/19 documented as of this encounter
--- OUTSIDE RECORDS SUMMARY | 2024-02-24 17:05 | XMS_ITS | Encounter Summary ---
Author Organization [facility] Address [address] [place] [address] Care Team Providers Care Surgical Assistant Certified Name Role Phone Yasmeen Grace Primary Care Provider + Encounter Details Date Type Department Care Team (Late st Contact Info) Description 12/31/2021 Lab Requisition [facility] Pathology & [facility] - [facility] [address] [place] [address] Outr Resulting Lab, Provider Social History Tobacco Use Types Packs/Day Years [...] on file documented as of this encounter Plan of Treatment Not on file documented as of this encounter Procedures Procedure Name Priority Date/Time Associated Diagnosis Comments HOLD SST Today 12/30/2021 12:05 EDT IMMUNOGLOBULINS Today 12/30/2021 12:05 EDT IGE Today 12/30/2021 12:05 EDT documented in this encounter Results * HOLD SST (12/30/2021 12:05 EDT) Hold Hold 12/31/2021 19:15 EDT [facility] Blood VENOUS BLOOD / Unknown 12/30/2021 12:05 EDT 12/31/2021 18:04 EDT Provider Outr Resulting Lab LAB INFO SER VICE AND SUPPORT & PHONE RESULT Performing Organization Address City/[facility]/ZIP Co de Phone Number [facility] [address] [place] [address] * IGE (12/30/2021 12:05 EDT) IgE 15 <158 IU/mL 01/01/2022 8:50 EDT [facility] Blood VENOUS BLOOD / Unknown 12/30/2021 12:05 EDT 12/31/2021 17:59 EDT Provider Outr Resulting Lab CHEMISTRY & BLOOD GAS ORDERABLES Performing Organization Address City/[facility]/ZIP Co de Phone Number [facility] [address] [place] [address] * IMMUNOGLOBULINS (12/30/2021 12:05 EDT) Pathologist [facility] IgG 914 610-1,616 mg/dL 01/01/2022 10:48 EDT [facility] IgA 252 85 - 499 mg/dL 01/01/2022 10:48 EDT [facility] IgM 88 35 - 242 mg/dL 01/01/2022 10:48 EDT [facility] Blood VENOUS BLOOD / Unknown 12/30/2021 12:05 EDT 12/31/2021 17:59 EDT Provider Outr Resulting Lab CHEMISTRY & BLOOD GAS ORDERABLES Performing Organization Address City/[facility]/ZIP Co de Phone Number [facility] [address] [place] [address] documented in this encounter Visit Diagnoses Not on filedocumented in this encounter Care Teams Surgical Assistant Certified Relationship Specialty Start Date End Date Yasmeen Grace PA [address] [place] [address] [place] [phone] PCP - General 08/27/19 documented as of this encounter
--- OUTSIDE RECORDS SUMMARY | 2024-02-24 17:05 | XMS_ITS | Encounter Summary ---
Author Organization [facility] Address [address] [place] [address] Care Team Providers Care Leaf Size Picker Name Role Phone Yasmeen Grace Primary Care Provider + Reason for Referral * Radiology Services (Routine) - Closed Specialty Diagnoses / Procedures Referred By Manisha smiley Referred To Contact Diagnoses Breast cancer screening by mammogram Procedures MA BREAST SCREENING FAITH BILATERAL Matt Jackson MD Referral ID Status Reason Start Date Expiration Date Visits Re quested Visits Authorized [id number] Closed 09/27/2019 1 1 Reason for Visit * Radiology Services (Routine) - Closed Specialty Diagnoses / Procedures Referred By Manisha smiley Referred To Contact Diagnoses Breast cancer screening by mammogram Procedures MA BREAST SCREENING FAITH BILATERAL Matt Jackson MD Referral ID Status Reason Start Date Expiration Date Visits Re quested Visits Authorized [id number] Closed 09/27/2019 1 1 Encounter Details Date Type Department Care Team (Latest Contact Info) Description 06/24/2020 10:57 EST - 06/24/2020 23:59 EST Hospital Encounter [facility] [address], [place] [id number] Breast cancer screening by mammogram Discharge Disposition: Home or Self Care Social [...] have Coronavirus / COVID-19? No / Unsure 06/24/2020 10:55 EST documented as of this encounter Last Filed Vital Signs Vital Sign Reading Time Taken Comments Blood Pressure - - Pulse - - Temperature - - Respiratory Rate - - Oxygen Saturation - - Inhaled Oxygen Concentration - - Weight - - Height 172.7 cm (5' 8) 06/24/2020 1120 EST Body Mass Index - - documented in this encounter Medications at Time [...] Procedure Name Priority Date/Time Associated Diagnosis Comments MA BREAST SCREENING FAITH BILATERAL Routine 06/24/2020 11:59 EST Breast cancer screening by mammogram documented in this encounter Results * MA BREAST SCREENING FAITH BILATERAL (06/24/2020 11:59 EST) Anatomical Region Laterality Modality Breast Bilateral Mammography 06/24/2020 14:5 5 EST Impressions 06/24/2020 14:55 EST Negative, no evidence of malignancy. RECOMMENDATION: Routine screening mammography is recommended. OVERALL ASSESSMENT: BI-RADS 2: Benign These results will be communicated to your patient via a lay letter from Radiology. If any additional imaging is needed we will contact your patient directly. Narrative 06/24/2020 14:55 EST MA BREAST SCREENING FAITH BILATERAL ??06/24/2020 11:20 AM History: screen Comparison: ??Comparison has been made to previous images. Technique: Routine 3D tomosynthesis with synthesized 2D views with CAD Bilateral Breast Composition: The breast tissue is almost entirely fatty. Bilateral Breast Findings: ??No significant masses, calcifications or other abnormalities are seen. There are bilateral intact-appearing retropectoral silicone implants. Procedure Note Adal Lopez MD - 06/24/2020 MA BREAST SCREENING FAITH BILATERAL 06/24/2020 11:20 AM History: screen Comparison: Comparison has been made to previous images. Technique: Routine 3D tomosynthesis with synthesized 2D views with CAD Bilateral Breast Composition: The breast tissue is almost entirely fatty. Bilateral Breast Findings: No significant masses, calcifications or otherabnormalities are seen. There are bilateral intact-appearing retropectoralsilicone implants. IMPRESSION Negative, no evidence of malignancy. RECOMMENDATION: Routine screening mammography is recommended. OVERALL ASSESSMENT: BI-RADS 2: Benign These results will be communicated to your patient via a lay letter fromRadiology. If any additional imaging is needed we will contact yourpatient directly. Matt Jackson MD [facility] documented in this encounter Visit Diagnoses Diagnosis Breast cancer screening by mammogram documented in this encounter Care Teams Leaf Size Picker Relationship Specialty Start Date End Date Yasmeen Grace PA [address] [place] [address] [place] [address] PCP - General 08/27/19 documented as of this encounter
--- OUTSIDE RECORDS SUMMARY | 2024-02-24 17:05 | XMS_ITS | Encounter Summary ---
Author Organization [facility] Address [address] [place] [address] Care Team Providers Care Clinical Services Professional Name Role Phone Yasmeen Grace Primary Care Provider + Reason for Visit * Reason Comments Pain Pain * Consult (Routine) - Closed Specialty Diagnoses / Procedures Referred By Manisha smiley Referred To Contact Orthopedic Surgery Diagnoses Bilateral hip joint arthritis Procedures REFERAL TO ORTHOPEADICS Self, Referral [facility] [address] [address] Referral ID Status Reason Start Date Expiration Date Visits Re quested Visits Authorized [id number] Closed 1 1 Encounter Details Date Type Department Care Team (Latest Contact Info) Description 08/27/2019 11:00 EST Initial consult [facility] Orthopedic Surgery - [address] [place] [address] [phone] Beni Corrigan MD [address] [place] [address] [phone] Pain in joint involving right pelvic region and thigh (Primary Dx); Arthritis of left hip; Arthritis of right hip; Iliotibial band syndrome, unspecified laterality; Chronic pain of both knees; Miller's cyst of knee, right; Trochanteric bursitis of both hips; Protrusio acetabuli Social History Tobacco Use Types Packs/Day Years [...] - Inhaled Oxygen Concentration - - Weight 79.4 kg (175 lb) 08/27/2019 1053 EST Height 172.7 cm (5' 8) 08/27/2019 1053 EST Body Mass Index 26.61 08/27/2019 1053 EST documented in this encounter Progress Notes * Francisca Chung MA - 08/27/2019 1100 EST REVIEW OF SYSTEMS: Yes No Yes No [...] Changes x Rash x Balance Issues x * Beni Corrigan MD - 08/27/2019 1100 EST Chief complaint: Hip pain Subjective: This is a 59-year-old female who see me the first time in second opinion consultation regarding bilateral hip pain. The patient works as an [employer]ATOR in [employer] and she has a history ofprevious pulmonary embolism and migraine headaches and she had a previous history of right shoulderrepair by Dr. Cai in August 2015. She is had a 10-year history of bilateral hip pain with theleft mostly hurting more than that of the right but now somewhat equal. Recently she has had over the past 3 days of bilateral knee pain along the lateral aspect of her knees with out any incidence of injury except that she was doing a lot more lifting of patients and noticed some more patellofemoral crepitus. She feels that the knees almost hurt worse than the hips recently. She has been using ibuprofen 800 mg twice a day. She was seen in [facility] [employer] [facility] and had a suggestion of doing a hip replacement for her. Objective: General shows a friendly female no acute distress who is oriented x3 vital signs are stable with the patient's BMI of 26.6 Neck exam grossly normal-appearing Spine exam: Grossly straight without any evidence of significant leg length discrepancy or pelvic obliquity with a negative straight leg raising bilaterally. Pelvis examination: The patient has some pain at the greater trochanteric area bilaterally and there is pain about the iliotibial band bilaterally which is somewhat tight. Internal rotation of 15 degrees next rotation of 40 degrees and abduction 40 degrees and adduction 35 degrees with flexion 110 degrees bilaterally. Knee examination: Both knees are without effusion or swelling have a 6 or 7 degree valgus stance. She has pain along the lateral distal IT band and at the flare of the lateral femur suggesting a lateral IT band friction syndrome. She also has pain at Clemencia's tubercle. Both range of motion of the knees is from 0degrees to 115 degrees with normal tracking of the patella bilaterally. There is some lateral joint line pain but no medial joint line pain. Right knee shows a probable Millre's cyst. Skin exam grossly normal without bruising or vascular change Neurovascular examination: Grossly normal lower extremity sensation in the dermatomes with good strength of flexion extension bilaterally. Pulses are not tested. X-rays: Review of the x-rays from June 21, 2019 and July 02, 2019 of the AP pelvis and lateral hips are independently evaluated by me today showing the patient to have evidence for mild to moderate degenerative arthritis of the hips with protrusio acetabuli and ANN without evidence of fracture. There is some sacroiliac joint arthritis as well. She also was noted to have traction Enthesopathy spurs noted throughout the pelvis. 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 At length we talked about hips and the knees. She has significant protrusio acetabuli andthe resultant stiffness of the hips irritates the capsule when she tries to do abduction or lifting. This therefore the increased pain about the IT band which gives her the trochanteric bursitis painin the friction syndrome at the knee. I have not taken any x-rays of the knees but this also might show some osteoarthritis of the knees as well. Our plan would be to use meloxicam 15 mg daily ratherthan the ibuprofen as a trial coupled with heat stretching exercises she can do by herself because she does not want to do PT and then to have this patient return to see us in 8 weeks and if she is to having pain x-ray the knees at that time. We have also talked about other options for care of her hip arthritic areas including joint replacement therapy. I will have this patient see Dr. Cesar Dixon for entertaining possible anterior approach hip replacements for her. documented in this encounter Plan of Treatment Not on file documented as of this encounter Visit Diagnoses Diagnosis Pain in joint involving right pelvic region and thigh- Primary Arthritis of left hip Arthritis of right hip Iliotibial band syndrome, unspecified laterality Chronic pain of both knees Miller's cyst of knee, right Trochanteric bursitis of both hips Enthesopathy of hip region Protrusio acetabuli Unspecified intrapelvic protrusion acetabulum, pelvic region and thigh documented in this encounter Care Teams Clinical Services Professional Relationship Specialty Start Date End Date Yasmeen Grace PA [address] [place] [address] [place] [address] PCP - General 08/27/19 documented as of this encounter
--- OUTSIDE RECORDS SUMMARY | 2024-02-24 17:05 | XMS_ITS | Encounter Summary ---
Author Organization [facility] Address [address] [place] [address] Care Team Providers Care Child And Youth Program Assistant Name Role Phone Shukri Renae Primary Care Provider [phone] Reason for Referral * (Routine) - Receiving Office to Obtain Authorization Specialty Diagnoses / Procedures Referred By Manisha smiley Referred To Contact Lupe Randle MD [address] [facility] [address] Referral ID Status Reason Start Date Expiration Date Visits Requested Visits Authorized [id number] Receiving Office to Obtain Authorization Specialty Services Required [address] Rivera in 2 weeks in the office. * (Routine) - Receiving Office to Obtain Authorization Specialty Diagnoses / Procedures Referred By Manisha smiley Referred To Contact Lupe Randle MD [address] [place] [address] Referral ID Status Reason Start Date Expiration Date Visits Requested Visits Authorized [id number] Receiving Office to Obtain Authorization Specialty Services Required 9 1 1 Comments Call 911 anytime you think you may need emergency care. For example, call if: - You passed out (lost consciousness). - You have severe trouble breathing. - You have sudden chest pain and shortness of breath, or you cough up blood. Call your doctor now or seek immediate medical care if: - You have bright red vaginal bleeding that soaks one or more pads in an hour for two consecutive hours, or you have large clots. - You have foul-smelling discharge from your vagina. - You are sick to your stomach or cannot keep fluids down. - You have pain that does not get better after you take pain medicine. - You have loose stitches, or your incision comes open. - You have signs of infection, such as: - Increased pain, swelling, warmth, or redness. - Red streaks leading from the incision. - Pus draining from the incision. - A fever greater than 100.4 degrees F (38 degrees C). - You have signs of a blood clot, such as: - Pain in your calf, back of the knee, thigh, or groin. - Redness and swelling in your leg or groin. - You have trouble passing urine or stool, especially if you have pain or swelling in your lower belly. Watch closely for changes in your health, and be sure to contact your doctor if: - You do not have a bowel movement after taking a laxative. - You have hot flashes, sweating, flushing, or a fast heartbeat, but no fever. Encounter Details Date Type Department Care Team (Latest Contact Info) Description 12/29/2018 5:57 EDT - 12/29/2018 13:05 EDT Hospital Encounter [facility] Perioperative Services- [address] [address] John Rivera MD [address] [place] [phone] Rectocele (Primary Dx) Discharge Disposition: Home or Self Care Social [...] Blood Pressure 117/53 12/29/2018 1304 EDT Pulse - - Temperature 36.2 ??C (97.2 ??F) 12/29/2018 1304 EDT Respiratory Rate 16 12/29/2018 1304 EDT Oxygen Saturation 96% 12/29/2018 1304 EDT Inhaled Oxygen Concentration - - Weight 79.4 kg (175 lb) 12/18/2018 1041 EDT Height 172.7 cm (5' 8) 12/18/2018 1041 EDT Body Mass Index 26.61 12/18/2018 1041 EDT documented in this encounter Discharge Diagnoses Diagnosis N81.6 Rectocele-N81.6[ICD-10-CM] documented in this encounter Discharge Instructions * Discharge Instructions* Tyra Magdaleno RN - 12/29/2018 10:54 EDT Nursing Discharge Instructions Diet: ?? You should increase your fluid intake as tolerable for the next 24 hours. ?? If you are unable to keep liquids down due to vomiting, you should contact your surgeon. Activity: ?? Unless specific surgical activities were given, you should alternate periods of rest with periods of mild activity (i.e. walking around the house) and increase your activity as tolerated to normaldaily activities. ?? To help prevent post-operative respiratory complications, take several deep breaths and a few vigorous coughs each hour while awake. Reducing Infection: ?? You and your household members should wash hands regularly, particularly after using the toilet and before handling food. ?? To reduce your risk of a wound infection follow the dressing care instructions from your surgeon. If you have any of the following symptoms, contact your surgeon o Fever greater than 101 degrees o Flu like symptoms (i.e. headache, nausea/vomiting, chills) o Swelling, redness, or drainage (yellow/green in color) around the surgical site o Persistent pain or pain that was controlled with medication but now has worsened. Considerations of Pain Medications: ?? In order to prevent constipation, increase your daily fluid intake and your fiber intake. You may also take daily howd-nia-fryrvcl stool softener such as Colace. ?? Follow your prescription as written on the bottle. Contact your surgeon if you are having difficulty taking your pain medication as prescribed due to nausea/vomiting, excessive drowsiness/stupor, or other side effects. ?? Contact your surgeon if your pain medication does not seem to help with your pain. * Discharge Instr - AVS First Page* Lupe Randle MD - 12/29/2018 10:38 EDT Images from the original note were not included. Pain management: For the 2 days after surgery, alternate/stagger tylenol 650mg and ibuprofen 600mg (if you can take these medications) so you get one or the other every 3 hours. ??You don't have to wake up to take medicines. As healing occurs, you will be able to increase the length of time betweendoses until you will not need to use the medication at all. You may be discharged from the hospitalwith a prescription for pain medicine. Take prescription medicines if pain is not tolerable with the tylenol and ibuprofen. ??Prescription pain medications can be habit forming (addicting) and shouldbe used with caution. For best results, take the medication when you first note the onset of pain. As healing occurs, youwill be able to stretch out the length of time between doses until you will not need to use the medication at all. You may have some degree of discomfort for up to 12 weeks. Hygiene: You will notice a moderate amount of red to brown vaginal drainage for the first several days after surgery. This drainage may persist for up to one month depending on your healing process and activity level. No bathing (immersion in bathtub or hot tub or pool) for three weeks after surgery unless otherwise directed as this can increase the risk of infections. Sitz baths OK as directed by your doctor. You may shower; washing carefully around catheter and rinsing well. As healing occurs, you may notice sutures in the vaginal area. Do not pull on them. Many of the sutures will dissolve over time. Managing Constipation: ??Avoiding pushing and straining after surgery is important. You will be prescribed stool softeners or can take Milk of Magnesium to assist with ease of bowel movements, especially while you take pain medications. If advised, take Fiber supplement by mouth twice daily for thenext 4 weeks unless stools become too soft and Colace 1 capsule by mouth twice daily. Do not go longer than two days without a bowel movement. If necessary, take one ounce (30cc) of Milk of Magnesiumat bedtime. If you do not have a bowel movement by the next morning, repeat the process again that morning. You may need to take this medicine more than once in the first few weeks after surgery, especially if you are taking pain medication. If you are already taking a regular routine of supplements or stool softeners, you will continue to do so. Diet/nutrition: Follow a high fiber diet and maintain good hydration (urine should be light yellow). Water will aid in keeping your stool soft and keeping your urine dilute. Eight 8 ounce glasses of water daily is recommended. Fiber adds bulk to your stool and keeps it softer, making elimination easier. Suggested foods include: whole wheat grains, bran, brown rice, dried fruits, berries, oranges,and vegetables including broccoli, beans, peas, and corn. Driving precautions: ?You should not drive if you are taking pain medications.?? Catheter: ??It is possible that you might have a catheter for a few days after surgery. If so, you will be instructed on how to remove it in advance, or you will have an office visit shortly after surgery to have it removed. Please review the Catheter Care instructions before surgery so you will bebetter prepared after your surgery. Activity Level and Exercises:?You are allowed to walk as much as is comfortable two days after surgery. Walk within your pain/discomfort limit - don???t push yourself for long distances. ??Slowly rebuild your endurance and slowly work up to the distances you walked before your surgery. No strenuous activity for the first 2-3 weeks. Don???t do crunches, sit ups or double leg lowering, and other similar exercises, as they put too much downward pressure on your pelvic organs. Roll to your side to get out of bed, don???t sit straight up. Rest: If you overdo activity, you may notice an increase in fatigue and the amount and redness of vaginal discharge. If so, cut back on your activity. You should rest lying down on your back with your knees supported by a pillow or two to relieve the pressure within the pelvis. If you continue to bleed heavily, (one pad per hour), contact our office. Nothing in your vagina for 6-12 weeks: Your surgeon will discuss this with you at your follow up visit and update this precaution based on your healing. Lifting limits: Do not lift anything heavier than 10# (pounds) in the first 6 weeks and no more than 30 pounds x 3 months post-operatively. ?? Some examples: A gallon of milk weighs 8.6 lbs. Your grocery bag shouldn???t have much more in it if you buy a gallon of anything. ?Don???t lift a roast or turkey out of the oven if it weighs more than this. Ask for help. ?Plan in advance to dole out dog or cat food, ajay litter, etc into smaller containers than you might ordinarily use - lighten things up in advance. Lifting Mechanics:?Avoid full squats with your knees apart. Instead, do a golfer???s or a half kneeling lift.? Golfer???s Lift ?Half kneeling Lift Start to use your pelvic floor muscles gently, to support your healing surgery. Limit lifting, and gently use your muscles to support your healing repair, when you do light lifting ?? PROBLEMS? Please call our office if you experience: Fever greater than 101.5 F A malodorous or foul vaginal discharge Heavy vaginal bleeding that does not slow down with less activity Significant increase in pain not associated with increased activity documented in this encounter Medications at Time [...] at bedtime. documented as of this encounter Ordered Prescriptions Prescription Sig Dispensed Refills Start Date End Da te mineral oil external liquid 1 teaspoon twice daily on the vagina for 1 week 1 Bottle 2 12/29/2018 docusate sodium (COLACE) 100 mg capsule Take 1 Cap by mouth 2 times daily as needed for Constipation. 12/29/2018 polyethylene glycol 3350 (MIRALAX) 17 gram packet Take 17 g by mouth 2 times daily. 12/29/2018 acetaminophen (TYLENOL) 325 mg tablet Take 2 Tabs by mouth every 6 hours as needed for Pain. 12/29/2018 oxyCODONE (ROXICODONE) 5 mg immediate release tablet Take 1 Tab by mouth every 4 hours as needed for Pain. Daily Max: 30 mg 10 Tab 12/29/2018 documented in this encounter Discharge Disposition Disposition Code Departure Means Destination Home or Self Care documented in this encounter Progress Notes * Mulu Joyner RN - 12/18/2018 1109 EDT Michelle Blanco has been instructed as follows regarding medication administration for the day of the scheduled procedure. Date of Surgery: 12/29/2018 Instructions for Taking Medications Day of Surgery Medication Sig Last Dose Hold DOS Take DOS ibuprofen (MOTRIN) 200 mg tablet Take 800 mg by mouth 3 times daily as needed for Pain. 12/25/2018 POTASSIUM &MAGNESIUM ASPARTATE (POTASSIUM & MAGNESIUM ASPARTAT ORAL) Take 1 Tab by mouth every morning. 12/22/2018 venlafaxine (EFFEXOR XR) 75 mg XR capsule Take 75 mg by mouth at bedtime. Yes Anesthesia prescreen phone call completed with patient. documented in this encounter H&P Notes * Lupe Randle MD - 12/29/2018 0656 EDT The preoperative history and physical which was performed within 30 days of this procedure has been reviewed and the clinically appropriate elements of the physical examination have been repeated. There are no changes to the documented history and physical or if so such changes are documented below CV: RRR Pulm: CTAB Lupe Randle MD 12/29/2018 6:56 Source Note - DISTRICT EXTENSION SERVICE AGENT, SCAN 2 - 12/28/2018 11:43 EDT documented in this encounter OR Notes * OR Surgeon - John Rivera MD - 12/29/2018 0000 EDT OPERATIVE REPORT SERVICE DATE: 12/29/2018 SURGEON: John Rivera MD PROJECT SURVEYOR: Lupe Randle MD PREOPERATIVE DIAGNOSIS: Rectocele. POSTOPERATIVE DIAGNOSIS: Rectocele. PROCEDURE: Posterior colporrhaphy. ANESTHESIA: General with laryngeal mask airway, local with 0.25% Marcaine with epinephrine. FINDINGS: Stage II cystocele and stage II rectocele. INDICATIONS: Michelle Goff is a 58-year-old who presented to clinic because she had to splint in order to have a bowel movement. She was counseled on risks, benefits and alternatives and desired surgical repair. NARRATIVE: The patient was taken to the OR with an IV in place where a WHO checklist was performed with the patient awake and participatory. General anesthesia was then induced with successful placement of LMA. The patient was placed in the dorsal lithotomy position and cleansed and prepped in the usual sterile fashion. Exam was performed with findings as above. The vagina was grasped with an Allis clamp, an Allis clamp at 1 cm proximal to the hymenal ring and then was grasped approximately 6 cm cranial to this as well with another Allis clamp, 0.25% Marcaine with epinephrine was then injected just superficially and incision was then made with the scalpel through the skin. The lateral aspect of this incision was then grasped on the left side and Metzenbaum scissors were used to sharply dissect laterally. This was then followed with blunt dissection to create the rectovaginal plane. The same procedure was then performed on the right aspect of the incision. The incision was then extended superiorly in similar fashion until it was thought to extend to the most superior aspect of the rectocele. A 2-0 PDS suture was then used at the most superior aspect of the rectocele and a horizontal mattress suture was then placed at the superior aspect of the rectocele in order to reduce the rectocele at the junction of the rectovaginal fascia. An additional suture was then placed in a similarfashion immediately caudal to this suture and subsequently 2-0 Vicryls were then placed continuallyinferiorly and caudally along this plane until the entirety of the rectocele was reduced. The vaginal mucosa was then closed in a running locked fashion with 2-0 Vicryl and there was not thought to be a need for a perineorrhaphy. Heránndez catheter was placed with good urine output of 150 mL. The suture line was felt to be hemostatic. The patient was taken out of the dorsal lithotomy position after being cleansed and she was awoken from general anesthesia in stable condition. The patient tolerated the procedure well. Sponge, lap and needle counts were correct x2. Dr Rivera was present for the entire procedure. ESTIMATED BLOOD LOSS: 20 mL FLUIDS: 1 mL URINE OUTPUT: 150 mL SPECIMENS: None. DRAINS, PACKS, FOREIGN OBJECTS RETAINED: Hernández. COMPLICATIONS: None. CONDITION: Stable. DISPOSITION: PACU, then home. Unless otherwise noted, there were no complications, no blood loss, no cultures obtained, no specimens removed, and no drains retained. John Rivera MD 06 01 PM / Lupe Randle MD rn Confirmation: [id number] Dictation ID: [id number] cc:Lupe Rivera MD documented in this encounter Miscellaneous Notes * Anesthesia Post-Eval - Brendon Draper MD - 12/29/2018 1223 EDT Anesthesia Post op Note Michelle Blanco [id number] Anesthesia received: General; Vital Signs: Temp: 36.3 ??C (97.3 ??F), Heart Rate: 89 BPM, BP: 120/61, Resp: 16, SpO2: 99 % Vital signs Stable: Yes Consciousness: Recovered to baseline Patient's participation in evaluation:Able to participate Temperature Status: Normothermic Respiratory Status: Airway patent Supplemental O2: Room air Oxygen Saturation: Within patient's normal range Cardiovascular Status: Within patient's normal range Post-op Hydration: Adequate Nausea / Vomiting: None Pain Control: Adequate Current Pain Score: Numeric Pain Level (Scale 1-10): 0 Post-op Assessment: Tolerated procedure well Disposition: Home Complications: No apparent anesthetic complications Brendon Draper MD 12/29/2018 12:23 * Brief Op Note - Lupe Randle MD - 12/29/2018 1024 EDT Brief Operative Note Date: 12/29/2018 Attending: John Rivera MD Shipping Supervisor: Lupe Randle MD Pre-op diagnosis: Rectocele Post-op diagnosis: Same Procedure: Posterior colporrhaphy Anesthesia: General with LMA Findings: 1. Stage 2 cystocele 2. Stage 2 rectocele Blood loss: 20 cc Fluids: 1 L Urine output: 150 cc Specimens: none Drains/Packs/Foreign object retained: Hernández Complications: None Condition: stable Disposition: PACU, then home See dictated operative report for more details Lupe Randle MD 12/29/2018 10:25 documented in this encounter Plan of Treatment Scheduled Referrals Name Type Priority Associated Diagnoses Order Schedule PROVIDER FOLLOW-UP INSTRUCTIONS Outpatient Referral Routine Ordered: 12/29/2018 PROVIDER FOLLOW-UP INSTRUCTIONS Outpatient Referral Routine Ordered: 12/29/2018 documented as of this encounter Procedures Procedure Name Priority Date/Time Associated Diagnosis Comments ECG REPORT - SCANNED 12/28/2018 11:43 EDT documented in this encounter Results * ECG REPORT - SCANNED (12/28/2018 11:43 EDT) 12/28/2018 11:4 3 EDT Scan 2 [employer] Field Technician PROCEDURE/MINOR AMINA GICAL ORDERABLES documented in this encounter Visit Diagnoses Diagnosis Rectocele- Primary Rectocele documented in this encounter Administered Medications Inactive Administered Medications - up to 3 most recent administrations Medication Order MAR Action Action Date Dose Rate Site atropine 0.1 mg/mL syringe 0.5 mg 0.5 mg, intravenous, PRN, Starting on Tue12/29/18 at 0941, Until Tue12/29/18 at 1520, Symptomatic HR < 50, Routine, Recovery (only) diphenhydrAMINE (BENADRYL) injection 12.5 mg 12.5 mg, intravenous, PRN, 1 dose, Starting on Tue12/29/18 at 0941, Until Tue12/29/18 at 1101, nausea, Routine, Recovery (only) Given 12/29/2018 11:01 EDT 12.5 mg fentaNYL citrate (PF) injection 25-50 mcg 25-50 mcg, intravenous, EVERY 5 MIN PRN, 2 doses, Starting on Tue12/29/18 at 0941, Until Tue12/29/18 at 1520, Pain, Routine, Recovery (only) lactated ringers (LR) infusion at 25 mL/hr, intravenous, CONTINUOUS, Starting on Tue12/29/18 at 1000, Until Tue12/29/18 at 1520, Routine, Pre-Op DOS Rx Approved lactated ringers (LR) infusion at 25 mL/hr, intravenous, CONTINUOUS, Starting on Tue12/29/18 at 0730, Until Tue12/29/18 at 1520, Routine, Preprocedure lactated ringers (LR) infusion at 75 mL/hr, intravenous, CONTINUOUS, Starting on Tue12/29/18 at 1000, Until Tue12/29/18 at 1520, Routine, Recovery (only) naloxone (NARCAN) injection 0.2 mg 0.2 mg, intravenous, PRN, Starting on Tue12/29/18 at 0941, Until Tue12/29/18 at 1520, Opioid Reversal, Routine, Recovery (only) ondansetron (PF) (ZOFRAN) injection 4 mg 4 mg, intravenous, PRN, 1 dose, Starting on Tue12/29/18 at 0941, Until Tue12/29/18 at 1520, Nausea, Vomiting, Routine, Recovery (only) oxyCODONE (ROXICODONE) immediate release tablet 5-10 mg 5-10 mg, oral, EVERY 30 MINUTES PRN, 2 doses, Starting on Tue12/29/18 at 0941, Until Tue12/29/18 at 1520, Pain, Routine, Recovery (only) Given 12/29/2018 10:40 EDT 5 mg documented in this encounter Discontinued Medications Medication Sig Discontinue Reason Start Date End Da te gabapentin (NEURONTIN) 300 mg capsule Take 1 Cap by mouth at bedtime. May increase prn to 1 po bid and then 1 po tid, may add 1 dose every 2 days not to exceed 3 po TID Therapy completed 04/11/2017 12/18/2018 MULTIVITAMIN ORAL Take by mouth. Reported on 09/09/2016 Therapy completed 12/18/2018 traMADol (ULTRAM) 50 mg tablet Take 1-2 Tabs by mouth every 6 hours as needed for Pain. Daily Max: 400 mg Therapy completed 04/29/2017 12/18/2018 UNABLE TO FIND as needed. Reported on 09/09/2016 Therapy completed 12/18/2018 documented as of this encounter Historical Medications * This list may reflect changes made after this encounter. Medication Sig Dispensed Refills Start Date End Date diphenhydrAMINE (BENADRYL) 25 mg capsule Take 50 mg by mouth every 4 hours. venlafaxine (EFFEXOR XR) 75 mg XR capsule Take 75 mg by mouth at bedtime. added in this encounter Active and Recently Administered Medications Times are shown in EDT. Continuous Medication Order 12/27/2018 12/28/2018 12/29/2018 lactated ringers (LR) infusion at 25 mL/hr, intravenous, CONTINUOUS, Starting on Tue12/29/18 at 1000, Until Tue12/29/18 at 1520, Routine, Pre-Op DOS Rx Approved 1041 (Completed - Pr ovider: Tyra Magdaleno RN) lactated ringers (LR) infusion at 25 mL/hr, intravenous, CONTINUOUS, Starting on Tue12/29/18 at 0730, Until Tue12/29/18 at 1520, Routine, Preprocedure 1041 (Completed - Pr ovider: Tyra Magdaleno RN) lactated ringers (LR) infusion at 75 mL/hr, intravenous, CONTINUOUS, Starting on Tue12/29/18 at 1000, Until Tue12/29/18 at 1520, Routine, Recovery (only) 1041 (Continued Infu edis - Provider: Tyra Magdaleno RN) PRN Medication Order 12/27/2018 12/28/2018 12/29/2018 atropine 0.1 mg/mL syringe 0.5 mg 0.5 mg, intravenous, PRN, Starting on Tue12/29/18 at 0941, Until Tue12/29/18 at 1520, Symptomatic HR < 50, Routine, Recovery (only) diphenhydrAMINE (BENADRYL) injection 12.5 mg (COMPLETED) 12.5 mg, intravenous, PRN, 1 dose, Starting on Tue12/29/18 at 0941, Until Tue12/29/18 at 1101, nausea, Routine, Recovery (only) 1101 (Given - Provid er: Tyra Magdaleno RN) fentaNYL citrate (PF) injection 25-50 mcg 25-50 mcg, intravenous, EVERY 5 MIN PRN, 2 doses, Starting on Tue12/29/18 at 0941, Until Tue12/29/18 at 1520, Pain, Routine, Recovery (only) naloxone (NARCAN) injection 0.2 mg 0.2 mg, intravenous, PRN, Starting on Tue12/29/18 at 0941, Until Tue12/29/18 at 1520, Opioid Reversal, Routine, Recovery (only) ondansetron (PF) (ZOFRAN) injection 4 mg 4 mg, intravenous, PRN, 1 dose, Starting on Tue12/29/18 at 0941, Until Tue12/29/18 at 1520, Nausea, Vomiting, Routine, Recovery (only) oxyCODONE (ROXICODONE) immediate release tablet 5-10 mg 5-10 mg, oral, EVERY 30 MINUTES PRN, 2 doses, Starting on Tue12/29/18 at 0941, Until Tue12/29/18 at 1520, Pain, Routine, Recovery (only) 1040 (Given - Provid er: Tyra Magdaleno RN) documented in this encounter Orders Medications Ordered That Lavon ht Not Have Been Administered Count Last Ordered Date First Ordered Date atropine 0.1 mg/mL syringe 0.5 mg 1 019 fentaNYL citrate (PF) injection 25-50 mcg 1 12/29/2018 lactated ringers (LR) infusion 3 12/29/2018 naloxone (NARCAN) injection 0.2 mg 1 2018 ondansetron (PF) (ZOFRAN) injection 4 mg 1 12/29/2018 Diet Count Last Ordered Date First Orde red Date DISCHARGE DIET 1 12/29/2018 Nursing Count Last Ordered Date First Orde red Date APPLY WARMING BLANKET 1 12/29/[address] SEQUENTIAL COMPRESSION DEVICE 1 12/29 Admission Count Last Ordered Date First Orde red Date STATUS: OUTPATIENT SURGICAL OP BED/SERVICES 1 12/29/2018 Transfer Count Last Ordered Date First Orde red Date NOTIFY PPS PACU PATIENT DISCHARGE 1 019 NOTIFY PPS PATIENT ARRIVAL IN PACU 1 2018 Discharge Count Last Ordered Date First Orde red Date DISCHARGE PATIENT 1 12/29/2018 documented in this encounter Care Teams Child And Youth Program Assistant Relationship Specialty Start Date End Date Shukri Renae PA [address] [place] [address] PCP - General 08/11/18 08/26/19 documented as of this encounter
--- OUTSIDE RECORDS SUMMARY | 2024-02-24 17:05 | XMS_ITS | Encounter Summary ---
Author Organization [facility] Address [address] [place] [address] Care Team Providers Care Public Transit Trolley Driver Name Role Phone Yamseen Grace Primary Care Provider + Encounter Details Date Type Department Care Team (Late st Contact Info) Description 01/17/2024 Lab Requisition [facility] Pathology & Laboratory Medicine - [address] [address] Sultana Trent MD [address] [facility], Level [address] [place] [address] Neoplasm of uncertain behavior of skin Social History Tobacco Use Types Packs/Day Years [...] EDT Neoplasm of uncertain behavior of skin documented in this encounter Results * SURGICAL PATHOLOGY (01/16/2024 9:43 EDT) Note to Patient The following pathology results have been interpreted by your pathologist and may be available to you before your health provider has had the opportunity to review them. Please allow time for your provider to receive these results and explore management options, if applicable. 01/17/2024 16:08 [facility] Final Diagnosis A. SKIN OF ARM, RIGHT DISTAL POSTERIOR UPPER, SHAVE BIOPSY: - Melanocytic nevus, junctional type, with unusual architectural features and mild cytologic atypia, irritated, encompassed within the examined sections.. 01/17/2024 16:08 [facility] Attestation By the signature below, the attending physician certifies that they have 1) personally conducted a gross and/or microscopic examination of the described specimen(s), and/or personally interpreted the results of laboratory testing of the described specimen(s), and 2) personally rendered or confirmed the above diagnosis. 01/17/2024 16:08 [facility] at 1608 Clinical History Irregular brown macule; Ddx: Atypical nevus vs other; clinical diagnosis code: D48.5 01/17/2024 16:08 [facility] Gross Description A. Received [...] JOSE DANIEL RODRIGUEZ(ASCP) 01/17/2024 7:49 01/17/2024 16:08 [facility] Performing Lab [facility] 01/17/2024 16:08 [facility] Scanned Images 01/17/2024 16:08 [facility] Tissue SPECIMEN FROM SKIN / Unknown 01/16/2024 9:43 EDT 01/17/2024 7:10 EDT Sultana Trent MD PATHOLOGY ORDERABLES [facility] [address] [place] [address] documented in this encounter Visit Diagnoses Diagnosis Neoplasm of uncertain behavior of skin documented in this encounter Care Teams Public Transit Trolley Driver Relationship Specialty Start Date End Date Yasmeen Grace PA [address] [place] [address] [place] [phone] PCP - General 08/27/19 documented as of this encounter
--- OUTSIDE RECORDS SUMMARY | 2024-02-24 17:05 | XMS_ITS | Encounter Summary ---
Author Organization [facility] Address [address] [place] [address] Care Team Providers Care Backhaul Driver Name Role Phone Matt Jackson MD Primary Care Provider Unava ilable Reason for Visit * Reason Onset Date Comments Diagnostic Imaging Report 11/16/2016 MRI -S HOULDER Encounter Details Date Type Department Care Team (Late st Contact Info) Description 11/16/2016 Telephone [facility] Orthopedic Surgery - [facility] [address] [place], [place] [id number] John Cooper III, MD [address] [place] [address] Diagnostic Imaging Report (MRI -SHOULDER) Social History Tobacco Use Types Packs/Day Years Used Date Smoking Tobacco: Former Alcohol Use Standard Drinks/Week Comments Yes 0 (1 standard drink = 0.6 oz pur e alcohol) occas Sex and Gender Information Value Date Recorded Sex Assigned at Not on file Gender Identity Female 06/20/2020 11:02 EST Sexual Orientation Not on file documented as of this encounter Miscellaneous Notes * Telephone Encounter - Rocio Gaspar - 11/22/2016 1032 EDT Patient aware. * Telephone Encounter - Rocio Gaspar - 11/22/2016 0954 EDT Patient aware of MRI date and time. She is unsure if she can do the scanner at [facility] due to anxietyand understands Dr. Cooper's concern with going to [place] [facility]. She is going to see if she cancheck out the scanner prior to her scheduled date to make sure. * Telephone Encounter - Rocio Gaspar - 11/22/2016 0954 EDT ----- Message from Evelyn Becerra sent at 11/16/2016 9:15 EDT ----- Regarding: [facility] MRI scheduled for Tuesday12/01/16 at 4 pm, arrive in registration at 3:30pm, Daxa Love. Evelyn Rowe * Telephone Encounter - Rocio Gaspar - 11/16/2016 0920 EDT Spoke with patient. She is really anxious about [facility] MRI unit and feels that even with the new units, she will not be successful in getting into the unit, regardless of valium or not. Are you willing to ok [place] [facility]? * Telephone Encounter - Ayleen Marshall - 11/16/2016 0805 EDT Reason for Call: Diagnostic Imaging Report (MRI -SHOULDER) Summary/Symptoms: PATIENT WOULD LIKE TO HAVE HER MRI OVER AT [place] [facility] Best number to call back: ABOVE Appointment Offered? No Ayleen Marshall 11/16/2016 8:05 documented in this encounter Plan of Treatment Not on file documented as of this encounter Visit Diagnoses Not on filedocumented in this encounter Care Teams Backhaul Driver Relationship Specialty Start Date End Date Matt Jackson MD PCP - General 11/04/08 08/10/18 documented as of this encounter
--- OUTSIDE RECORDS SUMMARY | 2024-02-24 17:05 | XMS_ITS | Encounter Summary ---
Author Organization [facility] Address [address] [place] [address] Care Team Providers Care Hadoop Architect Name Role Phone Yasmeen Grace Primary Care Provider + Encounter Details Date Type Department Care Team (Latest Contact Info) Description 06/24/2020 Travel Social History Tobacco Use Types Packs/Day [...] 10:55 EST documented as of this encounter Plan of Treatment Not on file documented as of this encounter Visit Diagnoses Not on filedocumented in this encounter Care Teams Hadoop Architect Relationship Specialty Start Date End Date Yasmeen Grace PA [address] [place] [address] [place] [phone] PCP - General 08/27/19 documented as of this encounter
--- OUTSIDE RECORDS SUMMARY | 2024-02-24 17:05 | XMS_ITS | Encounter Summary ---
Author Organization [facility] Address [address] [place] [address] Care Team Providers Care Portfolio Analyst Name Role Phone Yasmeen Grace Primary Care Provider + Reason for Referral * Radiology Services (Routine/Next Available) - Closed Specialty Diagnoses / Procedures Referred By Manisha smiley Referred To Contact Diagnoses Bilateral hip pain Procedures XR HIPS BILATERAL 5 OR MORE VIEWS, OPTIONAL PELVIS Walter Dixon MD [address] [place] [phone] Referral ID Status Reason Start Date Expiration Date Visits Re quested Visits Authorized [id number] Closed 08/22/2020 1 1 Encounter Details Date Type Department Care Team (Late st Contact Info) Description 08/20/2020 Orders Only [facility] Total Joint Program - [address] [place] [address] Walter Dixon MD [address] [place] [phone] Bilateral hip pain (Primary Dx) Social History Tobacco Use Types Packs/Day Years [...] on file documented as of this encounter Results * XR HIPS BILATERAL [...] this encounter Visit Diagnoses Diagnosis Bilateral hip pain- Primary Pain in joint, pelvic region and thigh Bilateral hip pain Pain in joint, pelvic region and thigh documented in this encounter Care Teams Portfolio Analyst Relationship Specialty Start Date End Date Yasmeen Grace PA [address] [place] [address] [place] [phone] PCP - General 08/27/19 documented as of this encounter
--- OUTSIDE RECORDS SUMMARY | 2024-02-24 17:05 | XMS_ITS | Encounter Summary ---
Author Organization [facility] Address [address] [place] [address] Care Team Providers Care Hedis Nurse Name Role Phone Yasmeen Grace Primary Care Provider + Encounter Details Date Type Department Care Team (Late st Contact Info) Description 05/28/2020 Lab Requisition [facility] Pathology & Laboratory Medicine - [facility] [address] [place] [address] Albina Hopson MD [address] [place] [address] [address] [place] [phone] Encounter for other general examination Social History Tobacco Use Types Packs/Day Years [...] Date/Time Associated Diagnosis Comments SURGICAL PATHOLOGY Today 05/27/2020 10 :35 EST Encounter for other general examination documented in this encounter Results * SURGICAL PATHOLOGY (05/27/2020 10:35 EST) Final Diagnosis A. RECTUM, POLYP, BIOPSY: - Traditional serrated adenoma. 06/02/2020 11:45 [facility] Attestation There was significant resident/fellow involvement in the diagnostic evaluation of this case. By the signature below, the attending physician certifies that they have personally conducted a gross and/or microscopic examination of the described specimens and rendered or confirmed the above diagnosis. 06/02/2020 11:45 [facility] at 1145 Clinical History History of colon polyps; colon polyp 06/02/2020 11:45 [facility] Gross Description A. Received in formalin labelled with proper patient identification (initials M, P) and rectal polyp is a reyes-brown tissue (0.6 x 0.3 x 0.2 cm). Submitted in toto in A1. JOSE DANIEL MENDEZ(ASCP) 05/28/2020 8:54 06/02/2020 11:45 [facility] Resident/Arturo w: Albina Iqbal DO 06/02/2020 11:45 [facility] Performing Lab [facility] 06/02/2020 11:45 [facility] Scanned Images 06/02/2020 11:45 [facility] Tissue SPECIMEN FROM RECTUM / Unknown 05/27/2020 10:35 EST 05/28/2020 8:44 EST Albina Hopson MD PATHOLOGY ORDER [facility] [address] [place] [address] documented in this encounter Visit Diagnoses Diagnosis Encounter for other general examination documented in this encounter Care Teams Hedis Nurse Relationship Specialty Start Date End Date Yasmeen Grace PA [address] [place] [address] [place] [phone] PCP - General 08/27/19 documented as of this encounter
--- OUTSIDE RECORDS SUMMARY | 2024-02-24 17:05 | XMS_ITS | Encounter Summary ---
Author Organization [facility] Address [address] [place] [address] Care Team Providers Care Developer Evangelist Name Role Phone Yasmeen Grace Primary Care Provider + Encounter Details Date Type Department Care Team (Late st Contact Info) Description 02/16/2022 Lab Requisition [facility] Pathology & Laboratory Medicine - [facility] [address] [place] [address] Outr Resulting Lab, Provider Social History Tobacco [...] Procedure Name Priority Date/Time Associated Diagnosis Comments AST Routine 02/16/2022 11:26 EDT documented in this encounter Results * (ABNORMAL) AST (02/16/2022 11:26 EDT) AST 62(H) 15 - 46 U/L 02/16/2022 21:[address] [facility] Blood VENOUS BLOOD / Unknown 02/16/2022 11:26 EDT 02/16/2022 21:08 EDT Provider Outr Resulting Lab CHEMISTRY & BLOOD GAS ORDERABLES [facility] [address] [place] [address] documented in this encounter Visit Diagnoses Not on filedocumented in this encounter Care Teams Developer Evangelist Relationship Specialty Start Date End Date Yasmeen Grace PA [address] [place] [address] [place] [phone] PCP - General 08/27/19 documented as of this encounter
--- OUTSIDE RECORDS SUMMARY | 2024-02-24 17:05 | XMS_ITS | Encounter Summary ---
Author Organization [facility] Address [address] [place] [address] Care Team Providers Care Shell Worker Name Role Phone Shukri Renae Primary Care Provider [phone] Encounter Details Date Type Department Care Team (Late st Contact Info) Description 08/30/2018 Results Only Imaging [facility] [phone] Matt Jackson MD Social History Tobacco Use Types Packs/Day Years [...] Name Priority Date/Time Associated Diagnosis Comments MA 2D/3D BILATERAL FAITH ROUTINE SCREENING MAMMO 08/30/2018 13:45 EST documented in this encounter Results * MA 2D/3D BILATERAL FAITH ROUTINE SCREENING MAMMO (08/30/2018 13:45 EST) Anatomical Region Laterality Modality Other 08/30/2018 13:4 5 EST 09/05/2018 11:27 EST Narrative 09/05/2018 11:27 EST Comparison has been made to previous images. Bilateral Breast Findings: (Full breast 2D and implant displaced 3D Tomosynthesis with synthesized 2D views with CAD) There are scattered fibroglandular densities (25% - 50% fibroglandular). Normal-appearing retro-pectoral, silicone gel implants are present. IMPRESSION: BILATERAL BREASTS: Normal-appearing retro-pectoral, silicone gel implants. Benign, no evidence of malignancy. Normal interval follow-up is recommended in 12 months. OVERALL ASSESSMENT - CATEGORY 2 - BENIGN END OF IMPRESSION These results will be communicated to your patient via a lay letter from Radiology. If any additional imaging is needed we will contact your patient directly. Procedure Note Adal Lopez MD - 09/05/2018 Comparison has been made to previous images. Bilateral Breast Findings: (Full breast 2D and implant displaced 3D Tomosynthesis with synthesized 2D views with CAD) There are scattered fibroglandular densities (25% - 50% fibroglandular). Normal-appearing retro-pectoral, silicone gel implants are present. IMPRESSION: BILATERAL BREASTS: Normal-appearing retro-pectoral, silicone gel implants. Benign, no evidence of malignancy. Normal interval follow-up is recommended in 12 months. OVERALL ASSESSMENT - CATEGORY 2 - BENIGN END OF IMPRESSION These results will be communicated to your patient via a lay letter from Radiology. If any additional imaging is needed we will contact your patient directly. Matt Jackson MD IMG MAMMOGRAPHY [facility] documented in this encounter Visit Diagnoses Not on filedocumented in this encounter Care Teams Shell Worker Relationship Specialty Start Date End Date Shukri Renae PA [address] [place] [address] PCP - General 08/11/18 08/26/19 documented as of this encounter
--- OUTSIDE RECORDS SUMMARY | 2024-02-24 17:05 | XMS_ITS | Encounter Summary ---
Author Organization [facility] Address [address] [place] [address] Care Team Providers Care Fluxer Name Role Phone Yasmeen Grace Primary Care Provider + Reason for Visit * Reason Comments Pain Pain * Consult (Routine/Next Available) - Order Cancelled Specialty Diagnoses / Procedures Referred By Manisha smiley Referred To Contact Orthopedic Surgery Diagnoses Arthritis of right hip Arthritis of left hip Pain in joint involving right pelvic region and thigh Iliotibial band syndrome, unspecified laterality Chronic pain of both knees Miller's cyst of knee, right Trochanteric bursitis of both hips Protrusio acetabuli Beni Corrigan MD [address] [place] [address] Walter Dixon MD [address] [place] [phone] Referral ID Status Reason Start Date Expiration Date Visits Requested Visits Authorized [id number] Order Cancelled Specialty Services Required 08/27/2019 1 1 Encounter Details Date Type Department Care Team (Late st Contact Info) Description 08/27/2020 11:00 EST Office Visit [facility] Total Joint Program - [place] [address] [place] [address] Walter Dixon MD [address] [place] [phone] Protrusio acetabuli (Primary Dx); Primary osteoarthritis of both hips Social History Tobacco Use Types Packs/Day Years [...] on file documented as of this encounter Progress Notes * Walter Dixon MD - 08/27/2020 1100 EST NEW HIP PAIN Chief Complaint Patient presents with ??? Right Hip - Pain ??? Left Hip - Pain Patient Active Problem List Diagnosis Date Noted ??? Rectocele 12/29/2018 Priority: Medium ??? Adhesive capsulitis of left shoulder 11/15/2016 Priority: Medium ??? Osteoarthritis of left acromioclavicular joint 11/15/2016 Priority: Medium ??? Chronic left shoulder pain 06/18/2016 Priority: Medium ??? Secondary adhesive capsulitis of right shoulder 06/16/2016 Priority: Medium ??? Surgical aftercare, musculoskeletal system 06/16/2016 Priority: Medium ??? Impingement syndrome of left shoulder 03/25/2016 Priority: Medium ??? Tear of supraspinatus tendon 08/28/2015 Priority: Medium ??? Bicipital tendinitis of right shoulder 08/28/2015 Priority: Medium ??? Primary osteoarthritis of right shoulder 08/28/2015 Priority: Medium ??? Tendinitis of right rotator cuff 08/28/2015 Priority: Medium ??? Right bicipital tenosynovitis 06/03/2015 Priority: Medium ??? Adhesive capsulitis of right shoulder 05/07/2014 Priority: Medium ??? Adhesive capsulitis of shoulder 05/07/2014 Priority: Medium ??? Cellulitis of shoulder 09/05/2015 ??? Arthrosis of right acromioclavicular joint 04/23/2015 ??? Impingement syndrome of right shoulder 04/23/2015 ??? Tear of right supraspinatus tendon 04/23/2015 ??? 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 ??? Trochanteric bursitis 02/22/2012 SUBJECTIVE: Michelle Blanco presents today for bilateral right greater than left hip pain. This has been going on for years. It will awaken her at night 2-3 times. Tends to be worse at night especially when she is laying down. It also bothers her if she sits for too long. She has no problems walking a mile once she gets to 2 or 3 miles she may be somewhat bothered but almost as if she can walk as far she needs without much difficulty. She tried meloxicam that did not help. Is not had any injections and has not done formal physical therapy. She notes that since she was a child she has not been able to sit crisscross. She had a shoulder surgery with Dr. 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 Past Medical History: Diagnosis Date ??? 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 Adhesive capsulitis of shoulder 05/07/2014 ??? Basal cell carcinoma 08/19/14 right occipital scalp ??? Cellulitis of shoulder 09/05/2015 Cellulitis of right shoulder anteror incision ??? 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 Impingement syndrome of right shoulder 04/23/2015 Secondary ??? Right bicipital tenosynovitis 06/03/2015 ??? Supraspinatus tendon tear 04/23/2015 ??? Trochanteric bursitis 02/22/2012 Past Surgical History: Procedure Laterality Date ??? ABDOMEN SURGERY ??? APPENDECTOMY ??? CHOLECYSTECTOMY ??? COLON SURGERY ??? COSMETIC SURGERY ??? GALLBLADDER SURGERY ??? HYSTERECTOMY ??? MAMMAPLASTY AUGMENTATION Bilateral 2013 silicone ??? MOHS SURGERY 08/19/14 right occipital scalp ??? OVARY REMOVAL ??? SHOULDER ARTHROSCOPY Right 08/28/2015 Capsular Release DCE ??? SKIN BIOPSY ??? TONSILLECTOMY Current Outpatient Medications Medication ??? acetaminophen (TYLENOL) 325 mg tablet ??? diphenhydrAMINE (BENADRYL) 25 mg capsule ??? docusate sodium (COLACE) 100 mg capsule ??? ibuprofen (MOTRIN) 200 mg tablet ??? mineral oil external liquid ??? oxyCODONE (ROXICODONE) 5 mg immediate release tablet ??? polyethylene glycol 3350 (MIRALAX) 17 gram packet ? ? POTASSIUM &MAGNESIUM ASPARTATE (POTASSIUM & MAGNESIUM ASPARTAT ORAL) ??? venlafaxine (EFFEXOR XR) 75 mg XR capsule No current facility-administered medications for this visit. Allergies Allergen Reactions ??? Imitrex [Sumatriptan Succinate] Shortness Of Breath, Anxiety and Other (See Comments) Heavy pressure in chest REVIEW OF SYSTEMS: Documented on the patient intake form. These were reviewed by me. Pertinent positives mentioned above. PHYSICAL EXAM: 60 y.o. Patient is in no acute distress, appears normal, mood and affect appropriate, alert and oriented x3. Good historian. Skin: Intact, no rashes, no bruises. Eyes: Sclerae clear. Cardiovascular: Capillary refill normal. Respiratory: Regular, unlabored, without audible wheezing. Musculoskeletal: Ambulates with a stable gait without any limp. Knee: Right: Skin intact, no effusion, ROM functional. Left: Skin intact, no effusion, ROM functional. Hip: Right: Skin intact, ROM: Flexion 115 deg; Ext Rotation 40; Int Rotation 5. Some pain with range of motion especially towards the end of the range Left: Skin intact, ROM: Flexion 115 deg; Ext Rotation 40; Int Rotation 5. Some pain with range of motion especially toward the end of the range. Leg lengths: appear even 2+ DP pulses Intact sensation to light touch distally 5/5 Tibialis anterior and gastrocsoleus muscle strength REVIEW OF IMAGING: AP and lateral views done here today are independently reviewed by me and demonstrate mild bilateral hip osteoarthritis but there is coxa profunda or most protrusio of each hip. Hips appear similar overall in their structure and degree of early arthritis. The joint spaces are relatively well-maintained although there is some acetabular sclerosis and ossification of the labrum on each side. 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 While shecertainly does have symptoms related to her hips I do not think they are quite severe enough that Iwould recommend hip replacement. We discussed that there may still be some nonsurgical treatments that could be helpful for her. PLAN: 1. Consider taking nonsteroidal anti-inflammatories especially with some food before bed we discussed appropriate dosing and options of some [id number] medications she may try. 2. Prescription for formal physical therapy provided. Could also try aquatic therapy. 3. Follow-up as needed to perhaps reconsider surgical options where this disease to advance. I spent a total of 33 minutes on the date of this encounter meeting with the patient and reviewing documentation/coordinating care as described in the above note. No procedures were performed at the time of the visit. documented in this encounter Plan of Treatment Not on file documented as of this encounter Visit Diagnoses Diagnosis Protrusio acetabuli- Primary Unspecified intrapelvic protrusion acetabulum, pelvic region and thigh Primary osteoarthritis of both hips Primary localized osteoarthrosis, pelvic region and thigh documented in this encounter Care Teams Fluxer Relationship Specialty Start Date End Date Yasmeen Grace PA [address] [place] [address] [place] [phone] PCP - General 08/27/19 documented as of this encounter
--- OUTSIDE RECORDS SUMMARY | 2024-02-24 17:05 | XMS_ITS | Encounter Summary ---
Author Organization [facility] Address [address] [place] [address] Care Team Providers Care Communications Technologist Name Role Phone Matt Jackson MD Primary Care Provider Unava ilable Reason for Visit * Reason Onset Date Comments Diagnostic Imaging Report 12/01/2016 LEFT Wie THAO, WORKERS COMP Encounter Details Date Type Department Care Team (Late st Contact Info) Description 12/01/2016 Telephone [facility] Orthopedic Surgery - [facility] [address] [place] [address] John Cooper III, MD [address] [place] [phone] Diagnostic Imaging Report (LEFT SHOULDER, WORKERS COMP) Social History Tobacco Use Types Packs/Day Years [...] encounter Miscellaneous Notes * Telephone Encounter - Line, Ayleen - 12/01/2016 1002 EDT Reason for Call: Diagnostic Imaging Report (LEFT SHOULDER, WORKERS COMP) Summary/Symptoms: Patient dropped off workers comp paper to fax for her upcoming MRI which is at [facility] on 12/14 @ 1:30, paperwork has been filled out and faxed for patient, Best number to call back: above Appointment Offered? No Ayleen Line 12/01/2016 10:02 documented in this encounter Plan of Treatment Not on file documented as of this encounter Visit Diagnoses Not on filedocumented in this encounter Care Teams Communications Technologist Relationship Specialty Start Date End Date Matt Jackson MD PCP - General 11/04/08 08/10/18 documented as of this encounter
--- OUTSIDE RECORDS SUMMARY | 2024-02-24 17:05 | XMS_ITS | Encounter Summary ---
Author Organization [facility] Address [address] [place] [address] Care Team Providers Care Voice Network Engineer Name Role Phone Matt Jackson MD Primary Care Provider Unava ilable Reason for Visit * Reason Onset Date Comments Appointment Related 10/26/2016 Encounter Details Date Type Department Care Team (Late st Contact Info) Description 10/26/2016 Telephone [facility] Orthopedic Surgery - [address] [place] [address] John Cooper III, MD [address] [place] [address] Appointment Related Social History Tobacco Use Types Packs/Day Years [...] encounter Miscellaneous Notes * Telephone Encounter - Maggi Louis - 10/26/2016 1226 EDT Pt scheduled for 5-15 w/Dr Cooper * Telephone Encounter - Albina Haskins RN - 10/26/2016 1121 EDT Voice message left for patient to call the office and request to speak with the nurse. Albina Haskins RN 10/28/16 Voice message left for patient, per Dr. Cooper No PT , will discuss at your FU visit on 11/15/16. Please call the office and request to speak with the nurse for any questions or concerns. Albina Haskins RN * Telephone Encounter - Yeimy Trejo - 10/26/2016 1024 EDT Patient called today she had her FL Guided injection today 10/26/16, they mentioned to her that she should have PT. I do not see an order nor does Dr. Cooper mention in his ov note from 10/18 . However, he did want to see her back 3 weeks from injection date. Patient is not scheduled for follow up appointment. documented in this encounter Plan of Treatment Not on file documented as of this encounter Visit Diagnoses Not on filedocumented in this encounter Care Teams Voice Network Engineer Relationship Specialty Start Date End Date Matt Jackson MD PCP - General 11/04/08 08/10/18 documented as of this encounter
--- OUTSIDE RECORDS SUMMARY | 2024-02-24 17:05 | XMS_ITS | Encounter Summary ---
Author Organization [facility] Address [address] [place] [address] Care Team Providers Care Infection Control Specialist Name Role Phone Yasmeen Grace Primary Care Provider + Encounter Details Date Type Department Care Team (Late st Contact Info) Description 01/16/2020 Orders Only [facility] Total Joint Program - [address] [address] Walter Dixon MD [address] [place] [address] Bilateral hip pain (Primary Dx) Social [...] as of this encounter Visit Diagnoses Diagnosis Bilateral hip pain- Primary Pain in joint, pelvic region and thigh documented in this encounter Care Teams Infection Control Specialist Relationship Specialty Start Date End Date Yasmeen Grace PA [address] [place] [address] [place] [phone] PCP - General 08/27/19 documented as of this encounter
--- OUTSIDE RECORDS SUMMARY | 2024-02-24 17:05 | XMS_ITS | Encounter Summary ---
Author Organization [facility] Address [address] [place] [address] Care Team Providers Care Film Developing Machine Operator Name Role Phone Yasmeen Grace Primary Care Provider + Encounter Details Date Type Department Care Team (Late st Contact Info) Description 08/10/2023 Lab Requisition [facility] Pathology & Laboratory Medicine - [address] [address] Outr Resulting Lab, Provider Social History Tobacco [...] Procedure Name Priority Date/Time Associated Diagnosis Comments MOLECULAR VAGINITIS/VAGINOSIS ASSAY Routine 08/10/2023 14:31 EST documented in this encounter Results * MOLECULAR VAGINITIS/VAGINOSIS ASSAY (08/10/2023 14:31 EST) Ioana Species Negative Negative 13:[address] [facility] Ioana glabrata Negative Negative 08/11/2023 13:[address] [facility] Trichomonas Vaginalis Negative Negative 08/11/2023 13:[address] [facility] BV (Bacterial vaginosis) Negative Negative 08/11/2023 13:[address] [facility] Swab VAGINAL STRUCTURE / Unknown 08/10/2023 14:31 EST 08/10/2023 22:22 EST Provider Outr Resulting Lab MICROBIOLOGY - GENERAL ORDERABLES Performing Organization Address City/State/[facility] Co de Phone Number [facility] [address] [place] [address] documented in this encounter Visit Diagnoses Not on filedocumented in this encounter Care Teams Film Developing Machine Operator Relationship Specialty Start Date End Date Yasmeen Grace PA [address] [place] [address] [place] [phone] PCP - General 08/27/19 documented as of this encounter
--- OUTSIDE RECORDS SUMMARY | 2024-02-24 17:05 | XMS_ITS | Encounter Summary ---
Author Organization [facility] Address [address] [place] [address] Care Team Providers Care Clinical Veterinarian Name Role Phone Matt Jackson MD Primary Care Provider Unava ilable Reason for Visit * Reason Onset Date Comments Shoulder Pain 12/15/2016 LT SHLDR PAIN-AP POINTMENT Encounter Details Date Type Department Care Team (Late st Contact Info) Description 12/15/2016 Telephone [facility] Orthopedic Surgery - [address] [place] [address] John Cooper III, MD [address] [place] [address] Shoulder Pain (LT SHLDR PAIN-APPOINTMENT) Social History Tobacco Use Types Packs/Day Years [...] encounter Miscellaneous Notes * Telephone Encounter - Albina Haskins RN - 12/15/2016 7320 EDT Spoke with patient and she would like me to discuss the W/C with Dr. Cooper as W/C has denied her claim. I let her know he is in on Tuesday and I will discuss with him then. The patient verbalized back understanding with no barriers met * Telephone Encounter - Brit Brown - 12/15/2016 1527 EDT Pt returned Albina's call. Please have Albina call back. Thanks! * Telephone Encounter - Albina Haskins RN - 12/15/2016 1523 EDT Voice message left for patient to call the office and request to speak with the nurse. Albina Haskins RN * Telephone Encounter - Ayleen Marshall - 12/15/2016 1443 EDT Reason for Call: Shoulder Pain (LT SHLDR PAIN-APPOINTMENT) Summary/Symptoms: Patient called was wondering if she still needs 12/27 appointment for her LT Shoulder Best number to call back: ABOVE Appointment Offered? No Ayleen Marshall 12/15/2016 14:43 documented in this encounter Plan of Treatment Not on file documented as of this encounter Visit Diagnoses Not on filedocumented in this encounter Care Teams Clinical Veterinarian Relationship Specialty Start Date End Date Matt Jackson MD PCP - General 11/04/08 08/10/18 documented as of this encounter
--- OUTSIDE RECORDS SUMMARY | 2024-02-24 17:05 | XMS_ITS | Encounter Summary ---
Author Organization [facility] Address [address] [place] [address] Care Team Providers Care Dye House Helper Name Role Phone Yasmeen Grace Primary Care Provider + Encounter Details Date Type Department Care Team (Late st Contact Info) Description 08/06/2021 Lab Requisition [facility] Pathology & Laboratory Medicine - [facility] [address] [place] [address] Lena Schroeder PA [address],[facility] [address] [place] [address] Neoplasm of uncertain behavior of skin Social [...] Date/Time Associated Diagnosis Comments SURGICAL PATHOLOGY Today 08/06/2021 9:37 EST Neoplasm of uncertain behavior of skin documented in this encounter Results * SURGICAL PATHOLOGY (08/06/2021 9:37 EST) Note to Patient The following pathology results have been interpreted by your pathologist and may be available to you before your health provider has had the opportunity to review them. Please allow time for your provider to receive these results and explore management options, if applicable. 08/10/2021 13:10 [facility] Final Diagnosis A. SKIN OF ARM, RIGHT ANTERIOR PROXIMAL UPPER, SHAVE BIOPSY: - At least hypertrophic actinic keratosis, transected at base. See comment. 08/10/2021 13:10 [facility] Diagnosis Comment The biopsy has features of at least actinic keratosis. The atypical squamous epithelium is transected at the base of the biopsy specimen. Therefore, superficially invasive squamous cell carcinoma cannot be excluded. Multiple levels are reviewed. 08/10/2021 13:10 [facility] Attestation By the signature below, the attending physician certifies that they have 1) personally conducted a gross and/or microscopic examination of the described specimen(s), and/or personally interpreted the results of laboratory testing of the described specimen(s), and 2) personally rendered or confirmed the above diagnosis. 08/10/2021 13:10 [facility] at 1310 Clinical History 4 mm crusted papule; DDx: Squamous cell carcinoma vs. verruca vulgaris vs. irritated seborrheic keratosis vs. HAK vs. other; clinical diagnosis code: D48.5 08/10/2021 13:10 [facility] Gross Description A. Received in formalin labelled with proper patient identification (initials M, P) and right anterior proximal upp... Is a 0.5 x 0.4 x 0.1 cm reyes-white skin shave biopsy. At 1 edge there is a 0.2 cm in diameter crusted pink papule. Inked, bisected and submitted entirely in A1. JOSE DANIEL SKELTON(ASCP) 08/06/2021 18:28 08/10/2021 13:10 [facility] Performing Lab [facility] 08/10/2021 13:10 [facility] Scanned Images 08/10/2021 13:10 EST [facility] Tissue TISSUE SPECIMEN FROM SKIN / Unknown 08/06/2021 9:37 EST 08/06/2021 15:04 EST Lena SKY PATHOLOGY ORDERABLE S [facility] [address] [place] [address] documented in this encounter Visit Diagnoses Diagnosis Neoplasm of uncertain behavior of skin documented in this encounter Care Teams Dye House Helper Relationship Specialty Start Date End Date Yasmeen Grace PA [address] [place] [address] [place] [phone] PCP - General 08/27/19 documented as of this encounter
--- OUTSIDE RECORDS SUMMARY | 2024-02-24 17:05 | XMS_ITS | Encounter Summary ---
Author Organization [facility] Address [address] [place] [address] Care Team Providers Care Roll Plugger Name Role Phone Yasmeen Grace Primary Care Provider + Encounter Details Date Type Department Care Team (Late st Contact Info) Description 05/28/2020 Lab Requisition [facility] Pathology & Laboratory Medicine - [facility] [address] [place] [address] Outr Resulting Lab, Provider Social History Tobacco [...] on filedocumented in this encounter Care Teams Roll Plugger Relationship Specialty Start Date End Date Yasmeen Grace PA [address] [place] [address] [place] [phone] PCP - General 08/27/19 documented as of this encounter
--- OUTSIDE RECORDS SUMMARY | 2024-02-24 17:05 | XMS_ITS | Continuity of Care Document ---
Author Organization [facility] Address [address] [place] [address] Care Team Providers Care Sash Repairer Name Role Phone BrigitteYasmeen britton Primary Care Physician [phone] Encounter [facility] Date(s): 02/15/24 - 02/15/[address] [address] Discharge Disposition: Home or Self Care Attending Physician: Cassia Zavaleta PA-C Admitting Physician: Cassia Zavaleta PA-C Referring Physician: Cassia Zavaleta PA-C Allergies, Adverse Reactions, Alerts Substance Reaction Severity Status escitalopram Unknown Active oxyCODONE Unknown Active SUMAtriptan Chest pain Unknown Active Assessment and Plan Future Appointments Future Scheduled Tests Radiology* XR Knee Complete 4+ Views Bilateral 08/04/23 Immunizations Given and Recorded Vaccine Date Status Refusal Reason zoster vaccine, inactivated 11/17/21 Given zoster vaccine, inactivated 1 07/30/21 Recorded SARS-CoV-2 mRNA rnjkirnjpsi-ufgw-nkgewsv 2, 3 11/03/21 Recorded SARS-CoV-2 mRNA ibvrlifxbux-ffqq-xuixnoa 4 10/08/21 Recorded SARS-COV-2 (COVID-19) vaccine, unspecifi [...] Daily, # 90 tab, 3 Refill(s), Pharmacy: [id number], 168, cm, 02/08/24 9:58:00 EDT, Height, 77.05, kg, 02/08/24 9:46:00 EDT, Weight Dosing Start Date: 02/08/24 Stop Date: 02/02/25 Status: Ordered magnesium gluconate 250 mg oral tablet 500 mg 2 tab, Oral, BID, may substitute with magnesium gluconate 500mg 1 tab bid x 90 days at 180 tabs x 3 refills, # 360 tab, 3 Refill(s), Pharmacy: [id number], 173, cm, 04/11/22 10:52:00EDT, Height/Length Dosing, 100, kg, 04/11/22 10:52:00 EDT, Weight Dosing Start Date: 09/01/22 Stop Date: 08/27/23 Status: Ordered MiraLax oral powder for reconstitution 17 g, Oral, Daily, # 510 g, 1 Refill(s), Pharmacy: [id number], 173, cm, 04/11/22 10:52:00 EDT, Height/Length Dosing, 100, kg, 04/11/22 10:52:00 EDT, Weight Dosing Start Date: 02/04/23 Status: Ordered omeprazole 20 mg oral delayed release capsule 1 cap, Oral, Daily, # 90 cap, 3 Refill(s), Pharmacy: [facility], 168, cm, 08/10/23 9:29:00 EST, Height, 77.55, kg, 11/09/23 13:50:00 EDT, Weight Dosing Start Date: 12/19/23 Status: Ordered Ozempic 8 mg/3 mL (2 mg dose) subcutaneous solution 2 mg =, Subcutaneous, every week, IN ABDOMEN, THIGH OR UPPER ARM., # 3 mL, 0 Refill(s), Pharmacy: [facility], 168, cm, 08/10/23 9:29:00 EST, Height, 77.55, kg, 11/09/23 13:50:00 EDT, Weight Dosing Start Date: 01/24/24 Status: Ordered Vitamin D3 1000 intl units oral capsule 25 mcg = 1 cap, Oral, Daily, # 100 cap, 6 Refill(s), Pharmacy: [id number], 173, cm, 04/11/22 [...] insomnia. 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 STAIN REPORT No organisms seen. Social History Social History Type Response Tobacco Never tobacco user T obacco Use:. Sex Female Patient Care team information Care Team Personnel Name: Yasmeen Grace Position: Physician Member Role: Informed Provider Address: Address: [facility] [address] Care Team Related Persons Name: KEVIN BENNETT Name: GABRIELA SCHAFFER Address: Alternate [address] [place] Address: Home [address] [place], [id number] Address: Mailing [address] [place], [id number]
--- OUTSIDE RECORDS SUMMARY | 2024-02-24 17:05 | XMS_ITS | Continuity of Care Document ---
Author Organization [facility] Address [address] [place] [address] Care Team Providers Care Actuarial Manager Name Role Phone Yasmeen Grace Primary Care Physician Encounter [facility] Date(s): 04/26/23 - 04/26/23 [facility] [address] [place] [address] Discharge Disposition: Home Allergies, Adverse Reactions, Alerts [...] vaccine, inactivated 1 07/30/21 Recorded SARS-CoV-2 mRNA doifwvmjobi-osbi-vsnjwbx 2 11/03/21 Recorded SARS-CoV-2 mRNA dxsorbehiig-zkjg-gbonpqi 3 10/08/21 Recorded SARS-COV-2 (COVID-19) vaccine, unspecifi [...] Daily, # 90 tab, 3 Refill(s), Pharmacy: [id number], 173, cm, 04/11/22 10:52:00 EDT, Height/Length Dosing, 100, kg, 04/11/22 10:52:00 EDT, Weight Dosing Start Date: 04/26/23 Stop Date: 04/20/24 Status: Ordered magnesium gluconate 250 mg oral tablet 500 mg 2 tab, Oral, BID, may substitute with magnesium gluconate 500mg 1 tab bid x 90 days at 180 tabs x 3 refills, # 360 tab, 3 Refill(s), Pharmacy: [facility], 173, cm, 04/11/22 10:52:00EDT, Height/Length Dosing, 100, kg, 04/11/22 10:52:00 EDT, Weight Dosing Start Date: 09/01/22 Stop Date: 08/27/23 Status: Ordered MiraLax oral powder for reconstitution 17 g, Oral, Daily, # 510 g, 1 Refill(s), Pharmacy: [facility], 173, cm, 04/11/22 10:52:00 EDT, Height/Length Dosing, 100, kg, 04/11/22 10:52:00 EDT, Weight Dosing Start Date: 02/04/23 Status: Ordered omeprazole 20 mg oral delayed release capsule 1 cap, Oral, Daily, # 90 cap, 0 Refill(s), Pharmacy: [facility], 173, cm, 04/11/22 10:52:00 EDT, Height/Length Dosing, 100, kg, 04/11/22 10:52:00 EDT, Weight Dosing Start Date: 03/15/23 Status: Ordered semaglutide 8 mg/3 mL (2 mg dose) subcutaneous solution 2 mg =, Subcutaneous, every week, in the abdomen, thigh, or upper arm, # 3 mL, 2 Refill(s), Pharmacy: [facility], 173, cm, 04/11/22 10:52:00 EDT, Height/Length Dosing, 100, kg, 04/11/22 10:52:00 EDT, Weight Dosing Start Date: 03/29/23 Status: Ordered Vitamin D3 1000 intl units oral capsule 25 mcg = 1 cap, Oral, Daily, # 100 cap, 6 Refill(s), Pharmacy: [facility], 173, cm, 04/11/22 10:52:00 [...] insomnia. 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
--- OUTSIDE RECORDS SUMMARY | 2024-02-24 17:05 | XMS_ITS | Encounter Summary ---
Author Organization [facility] Address [address] [place] [address] Care Team Providers Care Project Control Analyst Name Role Phone Shukri Renae Primary Care Provider [phone] Reason for Visit * (Routine) - Receiving Office to Obtain Authorization Specialty Diagnoses / Procedures Referred By Manisha smiley Referred To Contact Procedures XR OUTSIDE IMAGES STEFANIE Diane, Provider, Referral ID Status Reason Start Date Expiration Date Visits Requested Visits Authorized [id number] Receiving Office to Obtain Authorization 07/13/2019 1 1 Encounter Details Date Type Department Care Team (Latest Contact Info) Description 06/11/2019 - 06/11/2019 23:59 EST Hospital Encounter [facility] Radiology - [place] [address] [place] [address] Discharge Disposition: Home or Self Care Social [...] Comments XR OUTSIDE IMAGES MSK Routine 07/13/2019 12:33 EST documented in this encounter Results * XR OUTSIDE IMAGES MSK (07/13/2019 12:33 EST) Narrative JUAN - 07/13/2019 12:33 EST This is a non-reportable exam. Provider Unknown MD ROSAS OTHER IMAGING OR DERABLES Performing Organization Address City/State/[facility] Co de Phone Number JUAN documented in this encounter Visit Diagnoses Not on filedocumented in this encounter Care Teams Project Control Analyst Relationship Specialty Start Date End Date Shukri Renae PA [address] [place] [address] PCP - General 08/11/18 08/26/19 documented as of this encounter
--- OUTSIDE RECORDS SUMMARY | 2024-02-24 17:05 | XMS_ITS | Encounter Summary ---
Author Organization [facility] Address [address] [place] [address] Care Team Providers Care Superintendent Meter Tests Name Role Phone Matt Jackson MD Primary Care Provider Unava ilable Reason for Visit * Reason Onset Date Comments Medication Management 05/30/2017 left shoul david Encounter Details Date Type Department Care Team (Late st Contact Info) Description 05/30/2017 Telephone [facility] Orthopedic Surgery - [address] [place] [address] John Cooper III, MD [address] [place] [address] Medication Management (left shoulder) Social History Tobacco Use Types Packs/Day Years [...] Telephone Encounter - Albina Haskins RN - 05/31/2017 6848 EST The patient was called and per Dr. Cooper she may try the OTC oil. The patient verbalized back understanding with no barriers met * Telephone Encounter - Ayleen Marshall - 05/30/2017 1613 EST Reason for Call: Medication Management (left shoulder) Summary/Symptoms: Patient called would like to discuss medication for pain with nurse,she was also curious bout a new oil she was thinking to try for pain Best number to call back: ABOVE Appointment Offered? No Ayleen Marshall 05/30/2017 16:13 documented in this encounter Plan of Treatment Not on file documented as of this encounter Visit Diagnoses Not on filedocumented in this encounter Care Teams Superintendent Meter Tests Relationship Specialty Start Date End Date Matt Jackson MD PCP - General 11/04/08 08/10/18 documented as of this encounter
--- OUTSIDE RECORDS SUMMARY | 2024-02-24 17:05 | XMS_ITS | Continuity of Care Document ---
Author Organization [facility] Address [address] [place] [address] Care Team Providers Care Camp Advisor Name Role Phone Yasmeen Grace Primary Care Physician Encounter [facility] Date(s): 04/27/23 - 04/27/23 [facility] [address] [place] [address] Discharge Disposition: Home Allergies, Adverse Reactions, Alerts Substance Reaction Severity Status escitalopram Unknown Active oxyCODONE Unknown Active SUMAtriptan Chest pain Unknown Active Assessment and Plan Future Appointments Future Scheduled Tests Laboratory* Ferritin 09/01/22 * TSH w/ Rflx to Free T4 09/01/22 Radiology* US Breast Limited Right 04/26/23 * MG Mammo Implant Diag Right w/ Hiro 04/27/23 Immunizations Given and Recorded Vaccine Date Status Refusal Reason zoster vaccine, inactivated 11/17/21 Given zoster vaccine, inactivated 1 07/30/21 Recorded SARS-CoV-2 mRNA mntbkhttyye-dzla-xjbbeez 2 11/03/21 Recorded SARS-CoV-2 mRNA epcugwjqmvv-oxqm-aiymbvl 3 10/08/21 Recorded SARS-COV-2 (COVID-19) vaccine, unspecifi [...] Daily, # 90 tab, 3 Refill(s), Pharmacy: [facility], 173, cm, 04/11/22 10:52:00 EDT, Height/Length Dosing, 100, kg, 04/11/22 10:52:00 EDT, Weight Dosing Start Date: 04/26/23 Stop Date: 04/20/24 Status: Ordered magnesium gluconate 250 mg oral tablet 500 mg 2 tab, Oral, BID, may substitute with magnesium gluconate 500mg 1 tab bid x 90 days at 180 tabs x 3 refills, # 360 tab, 3 Refill(s), Pharmacy: [facility], 173, cm, 04/11/22 10:52:00EDT, Height/Length Dosing, 100, kg, 04/11/22 10:52:00 EDT, Weight Dosing Start Date: 09/01/22 Stop Date: 08/27/23 Status: Ordered MiraLax oral powder for reconstitution 17 g, Oral, Daily, # 510 g, 1 Refill(s), Pharmacy: [facility], 173, cm, 04/11/22 10:52:00 EDT, Height/Length Dosing, 100, kg, 04/11/22 10:52:00 EDT, Weight Dosing Start Date: 02/04/23 Status: Ordered omeprazole 20 mg oral delayed release capsule 1 cap, Oral, Daily, # 90 cap, 0 Refill(s), Pharmacy: [facility], 173, cm, 04/11/22 10:52:00 EDT, Height/Length Dosing, 100, kg, 04/11/22 10:52:00 EDT, Weight Dosing Start Date: 03/15/23 Status: Ordered semaglutide 8 mg/3 mL (2 mg dose) subcutaneous solution 2 mg =, Subcutaneous, every week, in the abdomen, thigh, or upper arm, # 3 mL, 2 Refill(s), Pharmacy: [facility], 173, cm, 04/11/22 10:52:00 EDT, Height/Length Dosing, 100, kg, 04/11/22 10:52:00 EDT, Weight Dosing Start Date: 03/29/23 Status: Ordered Vitamin D3 1000 intl units oral capsule 25 mcg = 1 cap, Oral, Daily, # 100 cap, 6 Refill(s), Pharmacy: [facility], 173, cm, 04/11/22 [...] insomnia. 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
--- OUTSIDE RECORDS SUMMARY | 2024-02-24 17:05 | XMS_ITS | Continuity of Care Document ---
Author Organization [facility] Address [address] [place] [address] Care Team Providers Care Home Appliance Installer Name Role Phone Yasmeen Grace Primary Care Physician [facility] Date(s): 09/15/23 - 09/15/[address] [address] Encounter Diagnosis Breast cancer screening(Discharge Diagnosis) - 09/15/23 Discharge Disposition: Home or Self Care Attending [...] vaccine, inactivated 1 07/30/21 Recorded SARS-CoV-2 mRNA fatpdjaqmrn-tgvw-pykfhcc 2, 3 11/03/21 Recorded SARS-CoV-2 mRNA oyjzpryejyo-gvko-lryhgxl 4 10/08/21 Recorded SARS-COV-2 (COVID-19) vaccine, unspecifi 11/03/21 Recorded influenza virus vaccine, live 04/09/20 Recorded influenza virus vaccine, live 04/12/19 Recorded Td(adult) unspecified formulation 07/04/17 Recorde d Td(adult) unspecified formulation 07/04/87 Recorde d zoster vaccine live 4/3/17 Recorded hepatitis B adult vaccine 07/04/99 Recorded 1Result Comment: Pt tolerated well 2Result Comment: Tolerated well 3Result Comment: Tolerated well duplicate 4Result Comment: Pt tolerated well Medications losartan 25 mg oral tablet 1 tab, Oral, Daily, # 90 tab, 3 Refill(s), Pharmacy: [id number], 170, cm, 04/26/23 8:40:00 EDT, Height, 100, kg, 04/11/22 10:52:00 EDT, Weight Dosing Start Date: 07/21/23 Stop Date: 11/18/23 Status: Ordered magnesium gluconate 250 mg oral tablet 500 mg 2 tab, Oral, BID, may substitute with magnesium gluconate 500mg 1 tab bid x 90 days at 180 tabs x 3 refills, # 360 tab, 3 Refill(s), Pharmacy: [place] [id number], 173, cm, 04/11/22 10:52:00EDT, Height/Length Dosing, 100, kg, 04/11/22 10:52:00 EDT, Weight Dosing Start Date: 09/01/22 Stop Date: 08/27/23 Status: Ordered metroNIDAZOLE 500 mg oral tablet 500 mg = 1 tab, Oral, BID, # 14 tab, 0 Refill(s), Pharmacy: [facility], 168, cm, 08/10/23 9:29:00 EST, Height, 73.8, kg, 08/10/23 9:43:00 EST, Weight Dosing Start Date: 08/10/23 Status: Ordered MiraLax oral powder for reconstitution 17 g, Oral, Daily, # 510 g, 1 Refill(s), Pharmacy: [facility], 173, cm, 04/11/22 10:52:00 EDT, Height/Length Dosing, 100, kg, 04/11/22 10:52:00 EDT, Weight Dosing Start Date: 02/04/23 Status: Ordered Mounjaro 5 mg/0.5 mL subcutaneous solution 5 mg =, Subcutaneous, every week, rotate injection sites, # 4 EA, 0 Refill(s), Pharmacy: [id number], 168, cm, 08/10/23 9:29:00 EST, Height, 73.8, kg, 08/10/23 9:43:00 EST, Weight Dosing Start Date: 09/06/23 Status: Ordered omeprazole 20 mg oral delayed release capsule 1 cap, Oral, Daily, # 90 cap, 3 Refill(s), Pharmacy: [id number], 168, cm, 08/10/23 9:29:00 EST, Height, 73.8, kg, 08/10/23 9:43:00 EST, Weight Dosing Start Date: 09/06/23 Status: Ordered Vitamin D3 1000 intl units oral capsule 25 mcg = 1 cap, Oral, Daily, # 100 cap, 6 Refill(s), Pharmacy: [id number], 173, cm, 04/11/22 10:52:00 [...] insomnia. 8with coxa profunda deformity, seen by [facility] orthopedics 08/27/20 - advised conservative [...] Physician Member Role: Informed Provider Address: Address: [facility] [address] Care Team Related Persons Name: KEVIN BENNETT Name: GABRIELA SCHAFFER Address: Alternate [address] Address: Home [address] [place], [id number] Address: Mailing [address] [place], [id number]
--- OUTSIDE RECORDS SUMMARY | 2024-02-24 17:05 | XMS_ITS | Encounter Summary ---
Author Organization [facility] Address [address] [place] [address] Care Team Providers Care Workers Compensation Legal Secretary Name Role Phone Matt Jackson MD Primary Care Provider Unava ilable Reason for Visit * Reason Comments Shoulder Pain Left shoulder pain f or over a years Encounter Details Date Type Department Care Team (Late st Contact Info) Description 04/11/2017 13:30 EDT Office Visit [facility] Orthopedic Surgery - [facility] [address] [place] [address] John Cooper III, MD [address] [place] [phone] Adhesive capsulitis of left shoulder (Primary [...] - - Weight 77.1 kg (170 lb) 04/11/2017 1325 EDT Height 172.7 cm (5' 8) 04/11/2017 1325 EDT Body Mass Index 25.85 04/11/2017 1325 EDT documented in this encounter Ordered Prescriptions Prescription Sig Dispensed Refills Start Date End Da te gabapentin (NEURONTIN) 300 mg capsule Take 1 Cap by mouth at bedtime. May increase prn to 1 po bid and then 1 po tid, may add 1 dose every 2 days not to exceed 3 po TID 60 Cap 5 04/11/2017 12/18/2018 documented in this encounter Progress Notes * John Cooper MD - 04/11/2017 1330 EDT This patient follows up to note persistent left shoulder pain. It is a global pain without radiation. She denies shoulder instability, numbness or tingling. She denies fever, chills or night sweats. She denies any swelling in her left upper extremity. I been seeing her for this for sometime now. Roughly in October of this year she started getting significant stiffness in this continues to be a problem for her. She started getting some left shoulder symptoms prior to that and in June 2016 I obtained radiographs which were within normal limits. She had an image guided injection into her left acromioclavicular joint in July 2016 when she was not really stiff she thought it helped. She then became quite stiff by October and then had a image guided injection into her left glenohumeral joint done by theradiology department which she says was quite painful and not helpful. She comes back now noticing increasing pain and stiffness. She is just taking Benadryl at night to help her sleep. She is interested in some stronger medication to help her with her symptoms. I have reviewed the past medical history, past family history, social history outlined in this chart and reviewed the review of systems which has been gathered and placed in this record by the [employer]. REVIEW OF SYSTEMS: Yes No Yes No [...] rhythm. This patient has a regular pulse. The cervical spine has normal alignment, it is not tender to palpation and has supple range of motion without pain. There is a negative cervical compression test to the affected side. There is no significant increased tenderness to palpation of the scalenus anticus muscle on the affected side. The skin about the affected shoulder is clean, dry and not inflamed. There is no deformity, induration, soft tissue defect or abnormal mass detected. There is no visual or palpable muscle atrophy. The skin has normal color, temperature and hydration. There is no focal point tenderness to palpation over the clavicle, acromioclavicular joint, anterior acromion, lesser tuberosity, bicipital groove, or greater tuberosity unless stated below: No point tenderness The right shoulder has 180 degrees of forward elevation, 180 degrees of active abduction in the scapular plane, 90 degrees of external rotation at 0?? abduction and internal rotation to T12. The left shoulder has 80 degrees of forward elevation, 40 degrees of active abduction in the scapular plane, 30 degrees of external rotation at 0?? abduction and internal rotation to left buttock. With the scapula stabilized pure glenohumeral motion can be passively measured: The RIGHT shoulder has 100 degrees of forward elevation, 90 degrees of abduction in scapular plane and 60 degrees of external rotation at 0?? of abduction. With the scapula stabilized pure glenohumeral motion can be passively measured: The LEFT shoulder has 80 degrees of forward elevation, 30 degrees of abduction in scapular plane and 10 degrees of external rotation at 0?? of abduction. The affected shoulder has 5/5 strength with [...] with cont raction of the serratus anterior. There are negative anterior and posterior drawer tests. There is a negative Nancy test. There is no apprehension or laxity to load and shift testing anteriorly, inferiorly or posteriorly at 0?? and at 90?? of abduction in scapular plane. The ipsilateral elbow wrist and fingers have a supple, full and painless range of motion. There is an intact radial pulse. The fingers are pink and warm with good capillary refill. There is no swelling in this extremity. Assessment: 1. 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 I prescribed gabapentin to take 300 mg q.h.s. and gradually increase by 300 mg every other day until symptoms are better controlled, not to exceed 900 mg t.i.d. 2. Also recommended Tylenol 650 mg q.i.d. on schedule 3. I have also recommended ibuprofen 800 mg t.i.d. p.c. to stop if she develops GI symptoms or bleeding 4. She also should simply try to find a position of comfort even if that means wearing a sling She will let me know if this medical management is not successful We could consider another glenohumeral injection but she had a poor response to the other one. Thatwas done in the radiology department and perhaps she would have better luck with Dr. Rodrigues. Other options could include repeating plain radiographs looking for possible avascular necrosis MRI study also could be considered area we discussed that earlier but as her Workmen's Compensationinsurance declined covering this problem the patient declined any on her own insurance. I will see her back in 1 month to see if she is progressing and more comfortable This note was prepared with the aid [...] region documented in this encounter Care Teams Workers Compensation Legal Secretary Relationship Specialty Start Date End Date Matt Jackson MD PCP - General 11/04/08 08/10/18 documented as of this encounter
--- OUTSIDE RECORDS SUMMARY | 2024-02-24 17:05 | XMS_ITS | Encounter Summary ---
Author Organization [facility] Address [address] [place] [address] Care Team Providers Care Crane Engineer Name Role Phone Matt Jackson MD Primary Care Provider Unava ilable Reason for Visit * Reason Comments Shoulder Pain left Encounter Details Date Type Department Care Team (Latest Contact Info) Description 11/15/2016 13:15 EDT Office Visit [facility] Orthopedic Surgery - [address] [place] [address] John Cooper III, MD [address] [place] [address] Chronic left shoulder pain (Primary Dx); Adhesive capsulitis of left shoulder; Osteoarthritis of left acromioclavicular joint Discharge Disposition: Auto Discharge Social History Tobacco [...] - - Weight 77.1 kg (170 lb) 11/15/2016 1316 EDT Height 172.7 cm (5' 8) 11/15/2016 1316 EDT Body Mass Index 25.85 11/15/2016 1316 EDT documented in this encounter Discharge Disposition Disposition Code Departure Means Destination Auto Discharge documented in this encounter Progress Notes * John Cooper MD - 11/15/2016 1315 EDT Patient is here to discuss her left shoulder pain. This patient follows up to report that her left shoulder pain has not been improved from the glenohumeral injection which was done on October 26, 2016. This was an image guided injection given in the radiology department at [facility]. Roughly 10 mL of Marcaine and 40 mg of Depo-Medrol were injected under fluoroscopic control. The patient reports that the injection was quite painful and she had severe shoulder pain for about 24 hours. She does not think the local anesthetic often any relief. She alsodoes not think that the cortisone gave her any relief within the next several weeks. She thinks that by now though she is back to her baseline. She has no pain at rest but when she tries to move her left shoulder particularly suddenly she gets significant increased pain. She denies fever, chills, night sweats or erythema or redness about her left shoulder. She continues to note that her right shoulder is improving significantly. I reminded that she has had plain x-rays of her left shoulder which were noted to be within normal limits. She has not had more advanced imaging studies. The most reminded that she maintains that her left shoulder has never bothered her until she was overusing it while she protected her right which in turn was injured when she gave a dog a biscuit while at work. The details of her right shoulder condition are outlined in previous notes. 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 REVIEW OF SYSTEMS: Yes No Yes No [...] This patient has a regular pulse. The right shoulder has 180 degrees of forward elevation, 180 degrees of active abduction in the scapular plane, 90 degrees of external rotation at 0?? abduction and internal rotation to T12. The left shoulder has 150 degrees of forward elevation, 110 degrees of active abduction in the scapular plane, 60 degrees of external rotation at 0?? abduction [...] shoulder has 80 degrees of forward elevation, 70 degrees of abduction in scapular plane and 20 degrees of external rotation at 0?? of abduction. The affected shoulder has 5/5 strength with contraction of the supraspinatus, 5/5 strength with contraction of the infraspinatus, 5/5 strength with contraction of the subscapularis, 5/5 strength withcontraction of the biceps, 5/5 strength with contraction of the deltoid, 5/5 strength with contraction of the serratus anterior , all without pain. The contralateral shoulder has 5/5 strength with [...] no swelling in this extremity. Assessment: 1. Probable left shoulder idiopathic adhesive capsulitis in the frozen phase 2. Possible left acromioclavicular arthrosis by history although I would not expect that would limit her motion and doubt that is a major contributor to her current symptoms. 3. I doubt but cannot rule out very unusual possibilities such as avascular necrosis, focal glenohumeral arthrosis, infection or neoplasm Plan: 1. I recommended an MRI of her left shoulder as we have not had one to date. I believe this can be done without contrast and would be done primarily to verify there is no significant rotator cuff tear or obvious destructive lesion in her bony architecture. On occasion this might show evidence of adhesive capsulitis 2. In meantime I recommended that she simply work very gently on stretching on her own and that shenot go to skilled PT 3. I have no objection to her doing her current job as long as it does not cause her increasing left shoulder pain. 4. I will see her back about 1 week after her MRI to discuss results and plan further management. documented in this encounter Plan of Treatment Not on file documented as of this encounter Visit Diagnoses Diagnosis Chronic left shoulder pain- Primary Pain in joint, shoulder region Adhesive capsulitis of left shoulder Adhesive capsulitis of shoulder Osteoarthritis of left acromioclavicular joint documented in this encounter Care Teams Crane Engineer Relationship Specialty Start Date End Date Matt Jackson MD PCP - General 11/04/08 08/10/18 documented as of this encounter
--- OUTSIDE RECORDS SUMMARY | 2024-02-24 17:05 | XMS_ITS | Encounter Summary ---
Author Organization [facility] Address [address] [place] [address] Care Team Providers Care Sales Promotion Coordinator Name Role Phone Shukri Renae Primary Care Provider [phone] Encounter Details Date Type Department Care Team (Latest Contact Info) Description 08/30/2018 13:11 EST - 08/30/2018 23:59 EST Hospital Encounter [facility] [address] [place] [address] Shukri Renae PA [address] [place], [place] [address] Matt Jackson MD Discharge Disposition: Auto Discharge Social History Tobacco [...] as of this encounter Discharge Diagnoses Diagnosis Z12.31 Encounter for screening mammogram for malignant neoplasm of breast-Z12.31[ICD-10-CM] documented in this encounter Medications at Time of Discharge Medication Sig Dispensed Refills Start Date End Date ibuprofen (MOTRIN) 200 mg tablet Take 800 mg by mouth 3 times daily as needed for Pain. POTASSIUM &MAGNESIUM ASPARTATE (POTASSIUM & MAGNESIUM ASPARTAT ORAL) Take 1 Tab by mouth every morning. gabapentin (NEURONTIN) 300 mg capsule Take 1 Cap by mouth at bedtime. May increase prn to 1 po bid and then 1 po tid, may add 1 dose every 2 days not to exceed 3 po TID 60 Cap 5 04/11/2017 12/18/2018 MULTIVITAMIN ORAL Take by mouth. Reported on 09/09/2016 12/18/2018 traMADol (ULTRAM) 50 mg tablet Take 1-2 Tabs by mouth every 6 hours as needed for Pain. Daily Max: 400 mg 30 Tab 04/29/2017 12/18/2018 UNABLE TO FIND as needed. Reported on 09/09/2016 12/18/2018 documented as of this encounter Discharge Disposition Disposition Code Departure Means Destination Auto Discharge Home documented in this encounter Plan of Treatment Not on file documented as of this encounter Visit Diagnoses Not on filedocumented in this encounter Care Teams Sales Promotion Coordinator Relationship Specialty Start Date End Date Shukri Renae PA [address] [place] [id number] PCP - General 08/11/18 08/26/19 documented as of this encounter
--- OUTSIDE RECORDS SUMMARY | 2024-02-24 17:05 | XMS_ITS | Encounter Summary ---
Author Organization [facility] Address [address] [place] [address] Care Team Providers Care Electrical And Radio Mechanic Name Role Phone Matt Jackson MD Primary Care Provider Unava ilable Reason for Visit * Reason Onset Date Comments Medication Reaction 04/28/2017 Encounter Details Date Type Department Care Team (Late st Contact Info) Description 04/28/2017 Telephone [facility] Orthopedic Surgery - [address] [place] [address] John Cooper III, MD [address] [place] [address] Medication Reaction Social History Tobacco Use Types Packs/Day Years Used Date Smoking Tobacco: Former Alcohol Use Standard Drinks/Week Comments Yes 0 (1 standard drink = 0.6 oz pur e alcohol) occas Sex and Gender Information Value Date Recorded Sex Assigned at Not on file Gender Identity Female 06/20/2020 11:02 EST Sexual Orientation Not on file documented as of this encounter Ordered Prescriptions Prescription Sig Dispensed Refills Start Date End Da te traMADol (ULTRAM) 50 mg tablet Take 1-2 Tabs by mouth every 6 hours as needed for Pain. Daily Max: 400 mg 30 Tab 04/29/2017 12/18/2018 documented in this encounter Miscellaneous Notes * Telephone Encounter - Albina Haskins RN - 04/29/2017 1612 EDT I spoke with the patient and per , he would like her to try tramadol 50-100 mg po every 6 hours prn pain, along with the alternating tylenol and adivil. He would also like to referr her to Dr. Ronal Rodrigues for a cortisone injection. The patient related she will try the tramadol and she willgive the injection some thought. The patient verbalized back understanding with no barriers met * Telephone Encounter - Albina Haskins RN - 04/28/2017 1631 EDT I spoke with the patient and she reported she is having continued / pain the gabapentin at 2 tabs along with tylenol and Advil is not helping at all. She is not sleeping and on Tuesday she fell backward wrenching her shoulder. She is requesting some help with options for her shoulder. She also reported since she has been on 2 tabs of gabapentin she has constant dizziness and it is not helping at all. I have asked her to not stop the gabapentin, however she may decrease to one a day. I will message Dr. Cooper as he is not in the office today. * Telephone Encounter - Albina Haskins RN - 04/28/2017 1500 EDT Voice message left for patient to call the office and request to speak with the nurse. Albina Haskins RN * Telephone Encounter - Maggi Louis - 04/28/2017 1338 EDT Irene marroquin wants to speak w/the nurse regarding her Gabapentin, States since it has been increased she feels light headed an dizzy. Also states that she is getting 0 relief. Please call Michelle at [phone] documented in this encounter Plan of Treatment Not on file documented as of this encounter Visit Diagnoses Not on filedocumented in this encounter Care Teams Electrical And Radio Mechanic Relationship Specialty Start Date End Date Matt Jackson MD PCP - General 11/04/08 08/10/18 documented as of this encounter
--- OUTSIDE RECORDS SUMMARY | 2024-02-24 17:06 | XMS_ITS | Encounter Summary ---
Author Organization [facility] Address [address] [place] [address] Care Team Providers Care Night Warehouse Manager Name Role Phone Matt Jackson MD Primary Care Provider Unava ilable Reason for Visit * Reason Comments Shoulder Pain right Encounter Details Date Type Department Care Team (Latest Contact Info) Description 08/20/2016 15:45 EST Office Visit [facility] Orthopedic Surgery - [address] [place] [address] John Cooper III, MD [address] [place] [phone] Surgical aftercare, musculoskeletal system (Primary Dx); Impingement syndrome of left shoulder; Chronic left shoulder pain; Impingement syndrome of right shoulder; Tear of right supraspinatus tendon, sequela Discharge Disposition: Auto Discharge Social History Tobacco Use Types Packs/Day Years Used Date Smoking Tobacco: Never Alcohol Use Standard Drinks/Week Comments No 0 (1 standard drink = 0.6 oz pur e alcohol) Sex and Gender Information Value Date Recorded [...] - - Weight 77.1 kg (170 lb) 08/20/2016 1556 EST Height 172.7 cm (5' 8) 08/20/2016 1556 EST Body Mass Index 25.85 08/20/2016 1556 EST documented in this encounter Discharge Disposition Disposition Code Departure Means Destination Auto Discharge documented in this encounter Progress Notes * John Cooper MD - 08/20/2016 1545 EST HPI The patient returns for a postoperative visit after undergoing right capsular release, subacromial bursectomy, distal clavicle excision on 08.28.2015. She has no unusual complaints. The patient denies fever, chills, excessive drainage from the wound,and changes in sensation and strength. she is recovering at home, has resumed activities of daily living and is up to full weight bearing. This patient comes in today to followup for both her RIGHT shoulder which underwent a capsular release, subacromial bursectomy and distal clavicle excision done by me on August 28, 2015 as well as ongoing LEFT shoulder girdle symptoms which has temporarily responded to an acromioclavicular injection of local anesthetic corticosteroid under fluoroscopy. I'm quite certain the RIGHT shoulder was approved as a work-related condition . I believe the LEFT shoulder also has been approved as a work related condition as well but I am not as sure of that. In either event the patient comes in today feeling as if she has plateaued in her recovery both in terms of her RIGHT and LEFT shoulder and at this point is anxious to terminate her Worker's Compensation claim although she is somewhat apprehensive about her LEFT shoulder which she worries me deteriorate. 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 REVIEW OF SYSTEMS: Yes No Yes No [...] stated below: None The right shoulder has 170 degrees of forward elevation,150 degrees of active abduction in the scapular plane, A 60 degrees of external rotation at 0?? abduction and internal rotation to S1. The left shoulder has 180 degrees of forward elevation,180 degrees of active abduction in the scapular plane, 70 degrees of external rotation at 0?? abduction and internal rotation to T. 12. In Both shoulders there is a Negative Hawkin impingement test, Negative Neer impingement test, Negative Perry active compression test, Negative external rotation lag test, Negative belly press test, Negative Bear Hug test, Negative Yergason's test, Negative speed's test, Negative cross body abduction impingement sign, Negative crank test, Negative internal impingement test. The right 4+/5 strength with contraction of the supraspinatus, 5/5 strength with contraction of theinfraspinatus, 5/5 strength with contraction of the subscapularis, 5/5 strength with contraction ofthe biceps, 5/5 strength with contraction of the deltoid, 5/5 strength with contraction of the serratus anterior. The left shoulder has 5/5 strength with contraction of the supraspinatus, 5/5 strength with contraction of the infraspinatus, 5/5 strength with contraction of the subscapularis, 5/5 strength with contraction of the biceps, 5/5 strength with contraction of the deltoid, 5/5 strength with contraction of the serratus anterior. Bilaterally: There are negative anterior and posterior drawer tests. There is a negative Nancy test. There is no apprehension or laxity to load and shift testing anteriorly, inferiorly or posteriorly at 0?? and at 90?? of abduction in scapular plane. Bilaterally: elbow wrist and fingers have a supple, full and painless range of motion. Bilaterally: there is an intact radial pulse. The fingers are pink and warm with good capillary refill. There is no swelling in Either extremity. Assessment: 1.Stable status post RIGHT shoulder capsular release, subacromial bursectomy and distal clavicle excision. She has not been able to regain full range of motion even one year post operatively but it is not causing her significant symptoms. 2. 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 I cannot completely rule out supraspinatus pathology but once again she is minimally symptomatic and does not wish further treatment. 3. 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 4. As mentioned, this patient is anxious to be considered at medical end result and will return with her life. Plan: 1 I believe her request for being considered at maximum medical improvement is appropriate. 2. It is possible that she will require intermittent injections into the LEFT a.c. Joint in the future and if symptoms persist she possibly could even require surgical excision in the future but thisis not clear how soon this could happen Or if it will ever happen. 3. I have recommended that she continue to stretch her posterior capsule and strengthen her rotatorcuff including the supraspinatus to get maximum improvement from his RIGHT shoulder condition. 4. She therefore has reached maximum medical improvement from both her RIGHT and LEFT shoulder injury. 5. We discussed the possibility of a functional capacity assessment and both agreed that she does not need to have that done at this time. 6. I will be happy to see her back on an as-needed basis. documented in this encounter Plan of Treatment Not on file documented as of this encounter Visit Diagnoses Diagnosis Surgical aftercare, musculoskeletal system- Primary Aftercare following surgery of the musculoskeletal system, NEC Impingement syndrome of left shoulder Other affections of shoulder region, not elsewhere classified Chronic left shoulder pain Pain in joint, shoulder region Impingement syndrome of right shoulder Other affections of shoulder region, not elsewhere classified Tear of right supraspinatus tendon, sequela documented in this encounter Care Teams Night Warehouse Manager Relationship Specialty Start Date End Date Matt Jackson MD PCP - General 11/04/08 08/10/18 documented as of this encounter
--- OUTSIDE RECORDS SUMMARY | 2024-02-24 17:06 | XMS_ITS | Encounter Summary ---
Author Organization [facility] Address [address] [place] [address] Care Team Providers Care Gluing Crew Leader Name Role Phone Matt Jackson MD Primary Care Provider Unava ilable Encounter Details Date Type Department Care Team (Late st Contact Info) Description 02/21/2012 Results Only Imaging [facility] [phone] Matt Jackson MD Social History Tobacco Use Types Packs/Day Years Used Date Smoking Tobacco: Never Assessed Sex and Gender Information Value Date Recorded Sex Assigned at Not on file Gender Identity Female 06/20/2020 11:02 EST Sexual Orientation Not on file documented as of this encounter Plan of Treatment Not on file documented as of this encounter Procedures Procedure Name Priority Date/Time Associated Diagnosis Comments MA MAMMO SCREENING DIGITAL 03/02/2012 9:09 EDT documented in this encounter Results * MA MAMMO SCREENING DIGITAL (03/02/2012 9:09 EDT) Anatomical Region Laterality Modality Other 03/02/2012 9:09 EDT 03/02/2012 18:23 EDT Narrative 03/02/2012 18:23 EDT Comparison has been made to previous images. Bilateral Breast Findings: (Routine digital views with CAD) There are scattered fibroglandular densities (25% - 50% fibroglandular). No significant masses, calcifications or other abnormalities are seen. IMPRESSION: BILATERAL BREASTS: Negative, no evidence of malignancy. Normal interval follow-up is recommended in 12 months. OVERALL ASSESSMENT - CATEGORY 1 - NEGATIVE END OF IMPRESSION The patient will be notified of her/his breast imaging results via a lay letter from Radiology. Radiology will contact the patient directly regarding any findings which require additional imaging (Category 0) at this time. Procedure Note 03/02/2012 Comparison has been made to previous images. Bilateral Breast Findings: (Routine digital views with CAD) There are scattered fibroglandular densities (25% - 50% fibroglandular). No significant masses, calcifications or other abnormalities are seen. IMPRESSION: BILATERAL BREASTS: Negative, no evidence of malignancy. Normal interval follow-up is recommended in 12 months. OVERALL ASSESSMENT - CATEGORY 1 - NEGATIVE END OF IMPRESSION The patient will be notified of her/his breast imaging results via a lay letter from Radiology. Radiology will contact the patient directly regarding any findings which require additional imaging (Category 0) at this time. Matt Jackson MD IMG MAMMOGRAPHY [facility] documented in this encounter Visit Diagnoses Not on filedocumented in this encounter Care Teams Gluing Crew Leader Relationship Specialty Start Date End Date Matt Jackson MD PCP - General 11/04/08 08/10/18 documented as of this encounter
--- OUTSIDE RECORDS SUMMARY | 2024-02-24 17:06 | XMS_ITS | Encounter Summary ---
Author Organization [facility] Address [address] [place] [address] Care Team Providers Care Hi Lo Driver Name Role Phone Matt Jackson MD Primary Care Provider Unava ilable Reason for Visit * Reason Comments Shoulder Pain Left Shoulder * Consult (Routine) - Specialty Report Received Specialty Diagnoses / Procedures Referred By Manisha smiley Referred To Contact Orthopedic Surgery Diagnoses Chronic left shoulder pain John Cooper III, MD [address] [place] [address] Ronal Rodrigues MD [address] [place] [phone] Referral ID Status Reason Start Date Expiration Date Visits Requested Visits Authorized [id number] Specialty Report Received Specialty Services Required 6 1 1 Encounter Details Date Type Department Care Team (Late st Contact Info) Description 07/16/2016 13:30 EST Office Visit [facility] Sports Medicine Program - [address] [place] [address] Ronal Rodrigues MD [address] [place] [phone] Chronic left shoulder pain (Primary Dx) Social History Tobacco Use [...] - - Weight 77.1 kg (170 lb) 07/16/2016 1330 EST Height 172.7 cm (5' 8) 07/16/2016 1330 EST Body Mass Index 25.85 07/16/2016 1330 EST documented in this encounter Progress Notes * Ronal Rodrigues MD - 07/16/2016 1330 EST Chief Complaint Patient presents with ??? Shoulder Pain Left Shoulder SUBJECTIVE: Michelle Blanco is a 55 y.o. female who present for a ultrasound guided injection into her left AC joint. Patient has a diagnosis of left shoulder pain that appears to be work related. She is being seen for the injection at the request of Dr. John Cooper who has done surgery on her right shoulder. She reports that her left shoulder started to hurt while she was using the left arm for everything after her surgery on the right shoulder. Her pain appears to be mostly superior but is somewhat transient and intermittent. 1 out of 10 pain. At worst is 8 out of 10. Risks, benefits and alternatives were discussed with the patient and consent was obtained. The final Verification/time out immediately prior to incision/procedure has been conducted by me and membersof the procedural team as appropriate to their involvement in the procedure. The patient???s identity, procedure, and when applicable the: side/site, patient position, availability of implants and any special equipment or special requirements was verbally confirmed prior to the procedure PROCEDURE NOTE: Left shoulder AC joint injection using musculoskeletal ultrasound After verbal consent given, area of superior aspect of shoulder was palpated and landmarks were noted, prepped with isopropyl alcohol. Under sterile conditions, AC joint was infused with 1 cc 2% lidocaine, 1 cc 0.5% marcaine and 1 cc 40 mg/cc kenalog without resistance. The needle tip was noted in the joint space. The joint capsule was noted to distend during injection. Cleansed with isopropyl alcohol and bandaged. The patient tolerated the procedure well. After care was reviewed including icing, use of NSAIDs prn and activity modification. Will follow up with Dr. John Cooper for the left shoulder injection result. I discussed all of the above verbally with patient, no barriers to understanding. The patient indicated understanding and agrees to the above plan. Ronal Rodrigues M.D. 07/16/2016 14:35 * Codie Romero - 07/16/2016 1330 EST I. Patient is here for an US guided injection- Lidocaine 2% 20 mg/mL 3cc 1. Med given in left shoulder 2. Med lot number: [id number] [facility] number: [id number] 3. Exp date: 03.04.2018 Manager Nursing: [place]osp[place] I. Patient is here for an US guided injection- Lidocaine 2% 20 mg/mL 3cc 1. Med given in left shoulder 2. Med lot number: [id number] [facility] number: [id number] 3. Exp date: 03.04.2018 Manager Nursing: [employer] I. Patient is here for an US guided injection -Bupivacaine 0.5 % 50mg/10mL 3cc 1. Med given in left shoulder 2. Med lot number: [id number] [facility] number: [id number] 3. Exp date: 01.01.2018 Manager Nursing: [employer] I. Patient is here for US guided injection- Kenalog 40 200mg/5mL 2cc 1. Med given in left shoulder 2. Med lot number: [id number] [facility] number: [id number] 3. Exp date: Manager Nursing: [place] [employer] Codie Romero 07/16/16 documented in this encounter Plan of Treatment Not on file documented as of this encounter Visit Diagnoses Diagnosis Chronic left shoulder pain- Primary Pain in joint, shoulder region documented in this encounter Care Teams Hi Lo Driver Relationship Specialty Start Date End Date Matt Jackson MD PCP - General 11/04/08 08/10/18 documented as of this encounter
--- OUTSIDE RECORDS SUMMARY | 2024-02-24 17:06 | XMS_ITS | Encounter Summary ---
Author Organization [facility] Address [address] [place] [address] Care Team Providers Care Station Installation Supervisor Name Role Phone Matt Jackson MD Primary Care Provider Unava ilable Reason for Referral * Radiology Services (48 Hrs (Urgent)) - Closed Specialty Diagnoses / Procedures Referred By Manisha smiley Referred To Contact Diagnoses Left shoulder pain, unspecified chronicity Adhesive capsulitis of left shoulder Procedures FL GUIDE LOCATION, ASPIRATION, INJECTION, BIOPSY John Cooper III, MD [address] [place] [phone] Referral ID Status Reason Start Date Expiration Date Visits Re quested Visits Authorized [id number] Closed 10/25/2016 1 1 Reason for Visit * Reason Onset Date Comments Injections 10/25/2016 Encounter Details Date Type Department Care Team (Late st Contact Info) Description 10/25/2016 Telephone [facility] Orthopedic Surgery - [address] [place] [phone] John Cooper III, MD [address] [place] [phone] Injections Social History Tobacco Use Types Packs/Day Years [...] Telephone Encounter - Albina Haskins RN - 10/25/2016 1115 EDT Order taken and repeated for Fl guided injection of left shoulder with Special Needs or Instructions: please inject the equivalent of 80 mg DepoMedrol (this dose is important) and at least 10 cc of local anesthetic into left glenohumeral joint, The patient was given a time for her injection 10/26/16 at 0845 check into registration at the [facility]. Do not take any Advil, motrin or aleve. The patient verbalized back understanding with no barriers met Patient verbalized , she was aware there is not enough time to submit approval for workmans comp payment. She verbilized If they cant cover, I will pay for it , I don't want to wait. * Telephone Encounter - Brit Brown - 10/25/2016 0920 EDT Reason for Call: Injections Summary/Symptoms: Pt has a question about getting an injection that Dr Cooper said he was sending her for. Pt states she was told she should have it within a week to avoid frozen shoulder and she hasnot heard anything. She assumes its because of WC, but would like to speak with someone about it. Please call pt. Thanks! Best number to call back: above Appointment Offered? No Brit Brown 10/25/2016 9:20 documented in this encounter Plan of Treatment Not on file documented as of this encounter Procedures Procedure Name Priority Date/Time Associated Diagnosis Comments FL GUIDE LOCATION, ASPIRATION, INJECTION, BIOPSY Routine 10/26/2016 10:07 EDT Left shoulder pain, unspecified chronicity Adhesive capsulitis of left shoulder documented in this encounter Results * FL GUIDE LOCATION, ASPIRATION, INJECTION, BIOPSY (10/26/2016 10:07 EDT) Anatomical Region Laterality Modality Other 10/26/2016 10:0 7 EDT 10/26/2016 12:44 EDT Narrative 10/26/2016 12:44 EDT FL GUIDE LOCATION, ASPIRATION, INJECTION, BIOPSY ??10/26/2016 10:07 AM Clinical History/Comments: M25.512-Pain in left [id number] M75.02-Adhesive capsulitis of left [id number]; left shoulder pain. Procedure: Left shoulder steroid and anesthetic injection under fluoroscopic guidance. Technique: The patient was met in the fluoroscopic suite where after proper identification; the risks, benefits, and alternatives to the procedure were explained in detail to the patient who gave informed oral and written consent to proceed. The patient was subsequently placed in a supine position. A limited examination was performed and the appropriate site of entry on the left shoulder was marked. The shoulder was prepped and draped in the usual sterile fashion. A 1% lidocaine solution was infiltrated at the access site. Subsequently, under fluoroscopic guidance, using strict sterile technique, a 22-gauge spinal needle was advanced into the left glenohumeral joint, and fluoroscopic confirmation was obtained by injecting approximately 2 cc of Omnipaque 300 within the joint space. Following this, one mL of 80 mg/mL of Depo-Medrol suspension was injected into the joint, followed by approximately 10 mL of bupivacaine. The needle was removed. Fluoro spot views were saved during the procedure. The patient tolerated the procedure well. There were no immediate complications. The procedure was performed by Benjamin Sommer, radiology technician under the supervision of Dr. Conte. Impression: 1. Successful intra-articular injection of steroid and bupivacaine into the left shoulder under fluoroscopic guidance and without complications Dr. Conte was present during the injection for the intra-articular administration of the steroid and bupivacaine. Procedure Note Agustin Conte MD - 10/26/2016 FL GUIDE LOCATION, ASPIRATION, INJECTION, BIOPSY 10/26/2016 10:07 AM Clinical History/Comments: M25.512-Pain in left [id number] M75.02-Adhesive capsulitis of left [id number]; left shoulder pain. Procedure: Left shoulder steroid and anesthetic injection under fluoroscopic guidance. Technique: The patient was met in the fluoroscopic suite where after proper identification; the risks, benefits, and alternatives to the procedure were explained in detail to the patient who gave informed oral and written consent to proceed. The patient was subsequently placed in a supine position. A limited examination was performed and the appropriate site of entry on the left shoulder was marked. The shoulder was prepped and draped in the usual sterile fashion. A 1% lidocaine solution was infiltrated at the access site. Subsequently, under fluoroscopic guidance, using strict sterile technique, a 22-gauge spinal needle was advanced into the left glenohumeral joint, and fluoroscopic confirmation was obtained by injecting approximately 2 cc of Omnipaque 300 within the joint space. Following this, one mL of 80 mg/mL of Depo-Medrol suspension was injected into the joint, followed by approximately 10 mL of bupivacaine. The needle was removed. Fluoro spot views were saved during the procedure. The patient tolerated the procedure well. There were no immediate complications. The procedure was performed by Benjamin Sommer, radiology technician under the supervision of Dr. Conte. Impression: 1. Successful intra-articular injection of steroid and bupivacaine into the left shoulder under fluoroscopic guidance and without complications Dr. Conte was present during the injection for the intra-articular administration of the steroid and bupivacaine. John Cooper III, MD IMG FLUOROSCOPY OR DERABLES documented in this encounter Visit Diagnoses Diagnosis Left shoulder pain, unspecified chronicity- Primary Adhesive capsulitis of left shoulder Adhesive capsulitis of shoulder documented in this encounter Care Teams Station Installation Supervisor Relationship Specialty Start Date End Date Matt Jackson MD PCP - General 11/04/08 08/10/18 documented as of this encounter
--- OUTSIDE RECORDS SUMMARY | 2024-02-24 17:06 | XMS_ITS | Encounter Summary ---
Author Organization [facility] Address [address] [place] [address] Care Team Providers Care Medical Equipment Sales Name Role Phone Matt Jackson MD Primary Care Provider Unava ilable Encounter Details Date Type Department Care Team (Late st Contact Info) Description 02/22/2011 Results Only Imaging [facility] [phone] Shukri Renae PA [address] [place] [id number] Social History Tobacco Use Types Packs/Day Years Used Date Smoking Tobacco: Never Assessed Sex and Gender Information Value Date Recorded Sex Assigned at Not on file Gender Identity Female 06/20/2020 11:02 EST Sexual Orientation Not on file documented as of this encounter Plan of Treatment Not on file documented as of this encounter Procedures Procedure Name Priority Date/Time Associated Diagnosis Comments RAD US ASPIRATION ANY SITE 02/24/2011 13:50 EDT documented in this encounter Results * RAD US ASPIRATION ANY SITE (02/24/2011 13:50 EDT) Anatomical Region Laterality Modality Other 02/24/2011 13:5 0 EDT 03/01/2011 15:12 EDT Narrative 03/01/2011 15:12 EDT Study Date ?Accession # ? Procedure Code ?Location ? Procedure 02/10/2011 ?[id number] ?[facility] ?[facility] ?MA MAMMO SCREENING DIGITAL ?? Reason for Study ? routine ?? 02/24/2011 ?[id number] ?[facility] ? ACC ?US ASPIRATION ANY SITE ?? Reason for Study ? u/s bx right breast ? Final Report ? US ASPIRATION ANY SITE ??Feb 24, 2011 01:50:00 PM ? Signs and Symptoms/Comments: ??u/s bx right breast for a hypoechoic area in the right breast at 11 o'clock, 4 cm from the ? nipple. ? There is a mass at 11 o'clock, 4 cm from the nipple, measuring 4 mm x 4 mm x 4 mm. ? The procedure and its potential complications and alternatives were explained to the patient and written and verbal consent ? were obtained. ? Buffered 1% lidocaine was used for local anesthesia. ? The hypoechoic lesion which was imaged and labeled at 11 o'clock, 4 cm from the nipple on this study is actually a cyst ? which was labeled 10 o'clock, 5 cm from the nipple on the study from 02/16/2011. The lesion at 11 o'clock, 4 cm from the ? nipple was found today, but inadvertently, no new images were obtained to document it. The area sampled today did ? correlate with the sonographic abnormality previously imaged at 11 o'clock, 4 cm from the nipple on 02/16/2011. ? A single aspiration was performed with an 18-gauge spinal needle and the structure completely resolved compatible with a ? benign cyst. No specimen was sent for cytology. ? Post-clip digital mammogram shows the mammographic abnormality previously seen in the central aspect of breast on the ? CC view is no longer evident. ? There were no immediate complications. ??The patient left the department in excellent condition. ? New Bi-Rads for the right breast: Bi-Rads Category Assessment 2: Benign Findings. ? Screening mammography is recommended in one year. The patient was told the results and new recommendations by ? Cristopher immediately following the study. ? Addendum Begins This report has been addended for association with another accession number for billing purposes. ??The text has not been altered. ?? T: ??03/01/2011/cynthia ?? Addendum Ends Procedure Note 03/01/2011 Study Date Accession # Procedure Code Location Procedure 02/10/2011 [id number] [facility] MA MAMMO SCREENING DIGITAL Reason for Study routine 02/24/2011 [id number] [facility] US ASPIRATION ANY SITE Reason for Study u/s bx right breast Final Report US ASPIRATION ANY SITE Feb 24, 2011 01:50:00 PM Signs and Symptoms/Comments: u/s bx right breast for a hypoechoic area in the right breast at 11 o'clock, 4 cm from the nipple. There is a mass at 11 o'clock, 4 cm from the nipple, measuring 4 mm x 4 mm x 4 mm. The procedure and its potential complications and alternatives were explained to the patient and written and verbal consent were obtained. Buffered 1% lidocaine was used for local anesthesia. The hypoechoic lesion which was imaged and labeled at 11 o'clock, 4 cm from the nipple on this study is actually a cyst which was labeled 10 o'clock, 5 cm from the nipple on the study from 02/16/2011. The lesion at 11 o'clock, 4 cm from the nipple was found today, but inadvertently, no new images were obtained to document it. The area sampled today did correlate with the sonographic abnormality previously imaged at 11 o'clock, 4 cm from the nipple on 02/16/2011. A single aspiration was performed with an 18-gauge spinal needle and the structure completely resolved compatible with a benign cyst. No specimen was sent for cytology. Post-clip digital mammogram shows the mammographic abnormality previously seen in the central aspect of breast on the CC view is no longer evident. There were no immediate complications. The patient left the department in excellent condition. New Bi-Rads for the right breast: Bi-Rads Category Assessment 2: Benign Findings. Screening mammography is recommended in one year. The patient was told the results and new recommendations by Dr. Nicholas immediately following the study. Addendum Begins This report has been addended for association with another accession number for billing purposes. The text has not been altered. /[facility] Addendum Ends Shukri ROSAS ORDERABLES documented in this encounter Visit Diagnoses Not on filedocumented in this encounter Care Teams Medical Equipment Sales Relationship Specialty Start Date End Date Matt Jackson MD PCP - General 11/04/08 08/10/18 documented as of this encounter
--- OUTSIDE RECORDS SUMMARY | 2024-02-24 17:06 | XMS_ITS | Encounter Summary ---
Author Organization [facility] Address [address] [place] [address] Care Team Providers Care Transition Mgr Rn Name Role Phone Matt Jackson MD Primary Care Provider Unava ilable Reason for Referral * Consult (Routine) - Specialty Report Received Specialty Diagnoses / Procedures Referred By Contac t Referred To Contact Orthopedic Surgery Diagnoses Chronic left shoulder pain John Cooper III, MD [address] [place] [phone] Ronal Rodrigues MD [address] [place] [phone] Referral ID Status Reason Start Date Expiration Date Visits Requested Visits Authorized Specialty Report Received Specialty Services Required 6 1 1 Question Answer Reason for Request: image guided injection left acromioclavicular joint (corticosteroid an local anaesthetic) * Radiology Services (Routine) - Closed Specialty Diagnoses / Procedures Referred By Contac t Referred To Contact Diagnoses Chronic left shoulder pain Procedures SHOULDER 2 OR MORE VIEWS John Cooper III, MD [address] [place] [phone] Referral ID Status Reason Start Date Expiration Date Visits Re quested Visits Authorized [id number] Closed 06/16/2016 1 1 Reason for Visit * Reason Comments Shoulder Pain right shoulder Encounter Details Date Type Department Care Team (Latest Contact Info) Description 06/16/2016 14:30 EST Office Visit [facility] Orthopedic Surgery - [address] [place] [address] John Cooper III, MD [address] [place] [phone] Secondary adhesive capsulitis of right shoulder (Primary Dx); Impingement syndrome of right shoulder; Surgical aftercare, musculoskeletal system; Chronic left shoulder pain Social History Tobacco [...] - - Weight 77.1 kg (170 lb) 06/16/2016 1446 EST Height 172.7 cm (5' 8) 06/16/2016 1446 EST Body Mass Index 25.85 06/16/2016 1446 EST documented in this encounter Discharge Diagnoses Diagnosis M25.512 Pain in left shoulder-M25.512[ICD-10-CM] G89.29 Other chronic pain-G89.29[ICD-10-CM] documented in this encounter Progress Notes * John Cooper MD - 06/16/2016 1430 EST HPI The patient presents to discuss her Aching and Sharp involving her left shoulder. The pain is worse at night. The pain is better at morning The symptoms began gradual several months ago and are associated with none. Exacerbating factors include: lying down, lifting This limits the patient's function or enjoyment of daily living, work life and exercise Alleviating factors include: nothing This 55-year-old right-hand dominant female follows up to discuss her persistent right shoulder symptoms as well as persistent and perhaps progressive left shoulder symptoms. She relates both of her shoulder issues to a work-related injury. His injury resulted in a right shoulder surgery consisting of a distal clavicle excision, subacromial bursectomy and capsular releaseperformed on August 28, 2015. The patient reports, as she was recovering from that she was extremely dependent on her left upper extremity to perform her activities of daily living and this in turnhas caused increased left shoulder pain which she feels is identical to what she felt with her right shoulder. She has been going to physical therapy and notes that her right shoulder has plateaued therefore she has been discharged to an independent exercise program. It also was not helping her left shoulder symptoms. She states that she has been doing her exercises religiously. At this point her right shoulder with early causes her pain and when it does it's just a mild ache.She notes that her range of motion has plateaued and she is expecting that this may never improve. She is actually content with that. She does report that she already has had an independent medical evaluation arranged by the [employer] for her right shoulder evaluation. She states that when she informed the examiner that her left shoulder also was involved that the examiner refused to corroborate that as a work-related situation. She comes in today asking for a workup and evaluation of her left shoulder symptoms. She is contentto see she has reached maximum medical improvement as far as her right shoulder is concerned and isnot interested in more of fibrillation or management of that at this time. She believes that her left shoulder is work related for the reasons outlined above but, if for some reason that is refused either Worker's Compensation carrier she would like to continue with evaluation and management of herleft shoulder on her own insurance as it is so bothersome for her. She does have an energy attorney involved to help negotiate these issues as well. 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 She states that her does and opens theboxes of [employer] and she simply put each piece on a metal ceiling hanger which weighs under 1 pound and does not bother either shoulder at all. She states that she has reported this to her consultant nurse for the work-related injury. Her left shoulder bothers her particularly at night and she is a very hard time finding a comfortable position to sleep. It's a steady ache which is anterior and deep. She denies radiation of the pain and denies numbness urging associated with it. She does not feel as if her shoulder is unstable. This left shoulder has not stiffened up as did her right. REVIEW OF SYSTEMS: Yes No Yes No [...] rhythm. This patient has a regular pulse. This patient has normal-appearing alignment of her cervical spine however there is diminished motion. She lacks about 2 fingerbreadths of forward flexion chin to chest and extends to only 30??. She has roughly 40?? of right rotation and 60?? of left rotation. She has only 10?? of right lateral tiltand 20?? of left lateral tilt. This is significantly limited motion for her relative youth. Cervical compression test to the right and to left do not reproduce her pain however. She does have point tenderness to palpation over the greater tuberosity on the left shoulder but not the a.c. joint. She has no tenderness over her scalenus anticus muscle on either side The Right shoulder incisions are clean, dry and not inflamed. There is no significant ecchymosis, unusual swelling or induration. Right shoulder active range of motion demonstrates 180 degrees of forward elevation, 180 degrees ofabduction in the scapular plane,, 80 degrees of external rotation at 0?? abduction and internal rotation to S1. Left shoulder active range of motion demonstrates 160 degrees of forward elevation, 180 degrees of abduction in the scapular plane,, 80 degrees of external rotation at 0?? abduction and internal rotation to T10. Right and left shoulders have 5/5 strength with contraction of the supraspinatus, subscapularis, infraspinatus, biceps, deltoid and serratus anterior, all without pain. Provocative tests for her left shoulder were examined: She has positive cross body adduction impingement pain, positive [place] at the compression test pain in the left shoulder but not the right. The left shoulder has negative Mendez and Neer impingement test, negative belly press test, negative Bear Hug test, negative external rotation leg sign, negative Yergason's test and negative speed sign. There is no laxity or apprehension with anterior drawer testing or posterior drawer testing or anterior inferior stress testing with abduction and external rotation. She has a negative jerk test posteriorly and a negative Gio test. Sulcus sign is in neutral and external rotation are negative. Both elbows have full and supple range of motion. There is no swelling in the forearm wrist hand or fingers Of both upper extremities. Both upper extremities are grossly neurovascularly intact distally. I did independently review x-rays of her left shoulder today. I also have subsequently reviewed theradiologist interpretation. 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 SHOULDER 2 OR MORE VIEW ??06/16/2016 3:25 PM ? Signs and Symptoms/Comments: ? M25.512-Pain in left [id number]-KEL-19 G89.29-Other chronic ?? pain-ICD-10; SHOULDER PAIN, NO XRAY ? 4 views of the left shoulder are submitted. ? FINDINGS: There are no significant abnormalities of the visualized ?? bones, joints or soft tissues. ? IMPRESSION: Normal left shoulder exam. Assessment: Stable status post right shoulder surgery with some residual posterior fibrous capsulitis creating secondary impingement. Left shoulder pain of uncertain etiology. The patient states it is from overuse compensating for her right shoulder which is something that I see fairly often. Her left shoulder symptoms have the following differential diagnoses: Acromioclavicular arthrosis Cervical spondylosis with referred pain to the left shoulder girdle Early onset of adhesive capsulitis Degenerative SLAP tear Or biceps tendinosis aggravated by repetitive use Plan: We spent a lengthy period of time discussing the anatomy of the shoulder, the pathoanatomy of the above findings as well as operative and nonoperative treatment options. We discussed benefits, risks and complications of all of the options. We discussed perioperative and postoperative management of the surgical options along with time frame of immobilization and anticipated return to activity schedules. I spent 45 minutes of face to face time over half of which was spent counciling All of the patient's questions were answered. At this point she would like to proceed with an image guided injection of local anesthetic and corticosteroid into her left acromioclavicular joint for diagnostic and potentially therapeutic purposes. I stressed the importance of her pain close attention to see if the local anesthetic truly eradicate her pain and if so that is likely her pain generator. I recommended that she continue with capsular mobilization stretching exercises for her right shoulder girdle and maintained full motion of the left. She should continue working on strengthening her rotator cuff and scapular stabilizers bilaterally,keeping the exercises below chest level until her rotation normalizes. I did review those exerciseswith her today. She will followup in about three weeks after the injection to see how she has responded to that andto plan further management. I believe she has reached maximum medical improvement in terms of her right shoulder. I do not expect dramatic deterioration or improvement in the near future. I do expect very gradual improvement over a lengthy period of time, perhaps 18-24 months postoperatively. If needed a formal functional capacity assessment could be accomplished for the right shoulder. Given her left shoulder symptoms it probably would be premature to have a functional capacity assessment due to the expense of such a study as the results might be changed as her left shoulder symptoms improve. documented in this encounter Plan of Treatment Scheduled Referrals Name Type Priority Associated Diagnoses Order Schedule AMB CONS/FOLLOW UP ORTHOPEDICS Outpatient Referral Routine Chronic left shoulder pain Ordered: 06/16/2016 documented as of this encounter Procedures Procedure Name Priority Date/Time Associated Diagnosis Comments SHOULDER 2 OR MORE VIEWS Routine 06/16/2016 15:25 EST Chronic left shoulder pain documented in this encounter Results * SHOULDER 2 OR MORE VIEWS (06/16/2016 15:25 EST) Anatomical Region Laterality Modality Other 06/16/2016 15:2 5 EST 06/17/2016 7:29 EST Narrative 06/17/2016 7:29 EST SHOULDER 2 OR MORE VIEW ??06/16/2016 3:25 PM Signs and Symptoms/Comments: ?? M25.512-Pain in left qxyackku-ZVD-30 G89.29-Other chronic pain-ICD-10; SHOULDER PAIN, NO XRAY 4 views of the left shoulder are submitted. FINDINGS: There are no significant abnormalities of the visualized bones, joints or soft tissues. IMPRESSION: Normal left shoulder exam. Procedure Note Adal Lopez MD - 06/17/2016 SHOULDER 2 OR MORE VIEW 06/16/2016 3:25 PM Signs and Symptoms/Comments: M25.512-Pain in left ayjpaunt-ELT-29 G89.29-Other chronic pain-ICD-10; SHOULDER PAIN, NO XRAY 4 views of the left shoulder are submitted. FINDINGS: There are no significant abnormalities of the visualized bones, joints or soft tissues. IMPRESSION: Normal left shoulder exam. John Cooper III, MD [facility]NA [facility]ING ORDERABLES documented in this encounter Visit Diagnoses Diagnosis Secondary adhesive capsulitis of right shoulder- Primary Impingement syndrome of right shoulder Other affections of shoulder region, not elsewhere classified Surgical aftercare, musculoskeletal system Aftercare following surgery of the musculoskeletal system, NEC Chronic left shoulder pain Pain in joint, shoulder region documented in this encounter Care Teams Transition Mgr Rn Relationship Specialty Start Date End Date Matt Jackson MD PCP - General 11/04/08 08/10/18 documented as of this encounter
--- OUTSIDE RECORDS SUMMARY | 2024-02-24 17:06 | XMS_ITS | Encounter Summary ---
Author Organization [facility] Address [address] [place] [address] Care Team Providers Care Flat Spring Assembler Name Role Phone Matt Jackson MD Primary Care Provider Unava ilable Encounter Details Date Type Department Care Team (Latest Contact Info) Description 07/21/2016 9:00 EST - 07/21/2016 9:01 [facility] Hospital Encounter [address] [address] Shikha Benavidez MD [address] [place] [phone] Discharge Disposition: Home or Self Care Social [...] as of this encounter Discharge Diagnoses Diagnosis N95.1 Menopausal and female climacteric states-N95.1[ICD-10-CM] Z13.220 Encounter for screening for lipoid disorders-Z13.220[ICD-10-CM] R30.0 Dysuria-R30.0[ICD-10-CM] Z13.1 Encounter for screening for diabetes mellitus-Z13.1[ICD-10-CM] M79.1 Myalgia-M79.1[ICD-10-CM] documented in this encounter Medications at Time of Discharge Medication Sig Dispensed Refills Start Date End Date MULTIVITAMIN ORAL Take by mouth. Reported on 09/09/2016 12/18/2018 UNABLE TO FIND as needed. Reported on 09/09/2016 12/18/2018 documented as of this encounter Discharge Disposition Disposition Code Departure Means Destination Home or Self Care documented in this encounter Plan of Treatment Not on file documented as of this encounter Visit Diagnoses Not on filedocumented in this encounter Care Teams Flat Spring Assembler Relationship Specialty Start Date End Date Matt Jackson MD PCP - General 11/04/08 08/10/18 documented as of this encounter
--- OUTSIDE RECORDS SUMMARY | 2024-02-24 17:06 | XMS_ITS | Encounter Summary ---
Author Organization [facility] Address [address] [place] [address] Care Team Providers Care Equity Research Analyst Name Role Phone Matt Jackson MD Primary Care Provider Unava ilable Encounter Details Date Type Department Care Team (Late st Contact Info) Description 09/09/2015 Results Only [facility] [phone] Shukri Renae PA [address] [place] [address] Social History Tobacco Use Types Packs/Day Years Used Date Smoking Tobacco: Never Sex and Gender Information Value Date Recorded Sex Assigned at Not on file Gender Identity Female 06/20/2020 11:02 EST Sexual Orientation Not on file documented as of this encounter Plan of Treatment Not on file documented as of this encounter Procedures Procedure Name Priority Date/Time Associated Diagnosis Comments C. DIFFICILE PCR Routine 09/09/2015 12:4 6 EST documented in this encounter Results * C. DIFFICILE PCR (09/09/2015 12:46 EST) Specimen Description Feces 09/09/2015 12:49 EST [facility] Result Negative 09/09/2015 23:15 EST [facility] TOPOGRAPHY UNKNOWN / Unknown 09/09/2015 12:46 EST 09/09/2015 19:35 EST Shukri SKY MICROBIOLOGY - GENER AL ORDERABLES [facility] [address] [place] [address] documented in this encounter Visit Diagnoses Not on filedocumented in this encounter Care Teams Equity Research Analyst Relationship Specialty Start Date End Date Matt Jackson MD PCP - General 11/04/08 08/10/18 documented as of this encounter
--- OUTSIDE RECORDS SUMMARY | 2024-02-24 17:06 | XMS_ITS | Encounter Summary ---
Author Organization [facility] Address [address] [place] [address] Care Team Providers Care Health Care Facility Administrator Name Role Phone Matt Jackson MD Primary Care Provider Unava ilable Encounter Details Date Type Department Care Team (Late st Contact Info) Description 03/02/2011 Results Only Imaging [facility] [phone] Loyda Parra PA-C [address] [facility] [address] [place] [id number] Social History Tobacco Use Types Packs/Day Years Used Date Smoking Tobacco: Never Assessed Sex and Gender Information Value Date Recorded Sex Assigned at Not on file Gender Identity Female 06/20/2020 11:02 EST Sexual Orientation Not on file documented as of this encounter Plan of Treatment Not on file documented as of this encounter Visit Diagnoses Not on filedocumented in this encounter Care Teams Health Care Facility Administrator Relationship Specialty Start Date End Date Matt Jackson MD PCP - General 11/04/08 08/10/18 documented as of this encounter
--- OUTSIDE RECORDS SUMMARY | 2024-02-24 17:06 | XMS_ITS | Encounter Summary ---
Author Organization [facility] Address [address] [place] [address] Care Team Providers Care Chaser Apprentice Name Role Phone Matt Jackson MD Primary Care Provider Unava ilable Reason for Referral * Consult (3 - 10 Business Days) - Closed Specialty Diagnoses / Procedures Referred By Manisha smiley Referred To Contact Orthopedic Surgery Diagnoses Adhesive capsulitis of left shoulder John Cooper III, MD [address] [place] [phone] Ronal Rodrigues MD [address] [place] [phone] Referral ID Status Reason Start Date Expiration Date V isits Requested Visits Authorized [id number] Closed Specialty Services Required 10/18/2016 1 1 Question Answer Reason for Request: Semi - urgent request for image guided injection into left glenohumeral joint for impending idiopathic adhesive capsulitis see below: Comments Please inject the equivalent of 80 mg Depomedrol (this dose is important) and at least 10 cc of local anaestethic into left glenohumeral joint. I believe she is just heading into the freezing phase of adhesive capsulitis Reason for Visit * Reason Comments Shoulder Pain left Encounter Details Date Type Department Care Team (Latest Contact Info) Description 10/18/2016 11:[address] [facility] Orthopedic Surgery - [address] [place] [address] John Cooper III, MD [address] [place] [phone] Chronic left shoulder pain (Primary Dx); Surgical aftercare, musculoskeletal system; Impingement syndrome of left shoulder; Adhesive capsulitis of left shoulder Social History Tobacco Use Types Packs/Day Years [...] - - Weight 77.1 kg (170 lb) 10/18/2016 1126 EDT Height 172.7 cm (5' 8) 10/18/2016 1126 EDT Body Mass Index 25.85 10/18/2016 1126 EDT documented in this encounter Progress Notes * John Cooper MD - 10/18/2016 1100 EDT HPI The patient presents to discuss her Aching and dull involving her left shoulder. The pain is worse at night, but it aches all day long. The pain is better at rest, but the aches is still present. The symptoms began gradual 8 months ago and are associated with loss of motion. Exacerbating factors include: movement, lying down This limits the patient's function or enjoyment of daily living, work life and exercise Alleviating factors include: rest REVIEW OF SYSTEMS: Yes No Yes No [...] Changes x Rash x Balance Issues x This office note has been dictated. * John Cooper MD - 10/18/2016 0000 EDT [facility] ORTHOPEDIC SURGERY - [facility] PROGRESS / FOLLOWUP NOTE - 10/18/2016 SUBJECTIVE: This is a 56-year-old female who follows up with me today to discuss her persistent left shoulder pain. I have seen her multiple times for shoulder issues. The right shoulder was treated with surgical intervention on 08/28/2015. At that time a capsular release, subacromial bursectomy and distal clavicle excision was accomplished. She had received partial relief from glenohumeral injections of cortisone prior to that. I believe this was considered a work- related injury. She did develop erythema postoperatively thought possibly to be cellulitis, which was treated with clindamycin and resolved. She stopped that medication somewhat early due to diarrhea. She had reported left shoulder pain to me on 01/22/2016, and at that time said that she had been having that pain all along. At that time she stated that her left shoulder started to bother her because she was sleeping on her left side and over using it for all her activities as she was recovering from the right shoulder. I do not believe there was a specific injury at work directly causing her left shoulder symptoms. Once again, her original injury was while working at a [employer] when she reached [id number] to hand a dog a cookie and she developed sharp right shoulder pain. 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 When I saw her last visit on 08/20/2016, she still was having shoulder symptoms bilaterally, but decided she wanted to stop all the medical treatment and wanted me to consider her at maximum medical improvement, which I thought was appropriate. At that time she had previously had an acromioclavicular injection of corticosteroid, which she thought was quite helpful. Since then, the left shoulder symptoms have worsened and she now comes back changing her mind. She does not want to be considered at maximum medical improvement and she comes in today hoping for surgery on her left shoulder. At this time, she states her right shoulder is doing exceedingly well and she wants to have the same surgery done on the left, that was done on the right. Her past medical history, past social history, family history, review of systems were all reviewed and are outlined in this record. OBJECTIVE: This is a well-developed, well-nourished 56-year-old female who is no apparent distress. She is normocephalic and atraumatic. She is breathing comfortably and regularly. Her mood is appropriate, as is her affect. She is well oriented. Her pulse is regular. She stands with a level shoulder girdle and normal neck alignment. She forward flexes her neck suchthat her chin reaches her chest and she can extend 60 degrees. She has 60 degrees of left and rightcervical rotation and 20 degrees of left and right lateral flexion. Cervical compression does not recreate her left shoulder symptoms. She has no pain with palpation of the left scalenus anticus muscle. She has no tenderness to palpation over the left AC joint, bicipital groove, coracoid process or acromion. She has 160 degrees of forward elevation of the left shoulder compared to 180 degrees on the right.She has 160 degrees of abduction in the scapular plane on the left shoulder compared to 180 degreeson the right. She has 70 degrees of external rotation on the left compared to 90 degrees on the right, at 0 degrees of abduction. She has internal rotation to S1 on the right compared to her buttock on the left. With the scapula stabilized, pure glenohumeral motion can be passively measured. She has 80 degreesof passive forward elevation on the left compared to 100 degrees on the right, 70 degrees of passive abduction and scapular pain on the left compared to 90 degrees on the right and 50 degrees of external rotation at 0 degrees of abduction on left compared to 90 degrees on the right. There is no scapular winging. She is very apprehensive and virtually all provocative tests cause her discomfort, making all of them unreliable. This includes Mendez and Neer impingement test, Lafayette's Active compression test, cross body adduction impingement test, internal impingement test, Speed's sign and Yergason's tests, as well as belly press test. She has a negative Yergason's test and negative external rotation lag sign. Similarly, her strength is limited by apprehension with 4/5 strength to supraspinatus, infraspinatus, subscapularis, deltoid, biceps, triceps, trapezius, and serratus anterior all noted without focalpain and without obvious muscle atrophy. She has 5/5 strength and no pain with all these muscles onthe right side. Left shoulder has no laxity with load and shift testing anteriorly, inferiorly or posteriorly at 0,45 or 90 degrees of abduction in scapular plane. 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 Her clinical shoulder angle is 30.4. There is no os acromiale. There is minimal glenohumeral arthrosis. There is no superior migration of the humeral head and no obvious destructive bony process or abnormal soft tissue density. IMPRESSION: 1. This patient appears to be developing idiopathic adhesive capsulitis of her left shoulder. She is the right age group and the right demographic. She had similar problems on the right shoulder, which might well have been caused by the same thing and it is often bilateral. 2. She may have some underlying acromioclavicular arthrosis of a degenerative nature that is aggravating her and could have contributed to her symptoms. 3. It is not clear to me precisely how these left shoulder symptoms are related to her work-relatedinjury on the right when she gave the dog a biscuit and injured her right shoulder. PLAN: I have recommended an image-guided injection into her glenohumeral joint of local anesthetic and corticosteroid using an 80 mg of Depo-Medrol equivalent as a high-dose steroid injection, which has been shown to possibly short circuit the entire idiopathic adhesive capsulitis cascade. I will see her back 3 weeks later. She will pay close attention to see how much the local anesthetic was helpful. If it was not helpful at all, it may be that her pain is from her acromioclavicular joint only, particularly if her range of motion has returned to normal by then. John Cooper III, MD 12 10 PM - John Cooper III, MD mn Dictation ID: [id number] documented in this encounter Plan of Treatment Scheduled Referrals Name Type Priority Associated Diagnoses Order Schedule AMB CONS/FOLLOW UP ORTHOPEDICS Outpatient Referral Routine Adhesive capsulitis of left shoulder Ordered: 10/18/2016 documented as of this encounter Visit Diagnoses Diagnosis Chronic left shoulder pain- Primary Pain in joint, shoulder region Surgical aftercare, musculoskeletal system Aftercare following surgery of the musculoskeletal system, NEC Impingement syndrome of left shoulder Other affections of shoulder region, not elsewhere classified Adhesive capsulitis of left shoulder Adhesive capsulitis of shoulder documented in this encounter Historical Medications * This list may reflect changes made after this encounter. Medication Sig Dispensed Refills Start Date End Date POTASSIUM &MAGNESIUM ASPARTATE (POTASSIUM & MAGNESIUM ASPARTAT ORAL) Take 1 Tab by mouth every morning. added in this encounter Care Teams Chaser Apprentice Relationship Specialty Start Date End Date Matt Jackson MD PCP - General 11/04/08 08/10/18 documented as of this encounter
--- OUTSIDE RECORDS SUMMARY | 2024-02-24 17:06 | XMS_ITS | Encounter Summary ---
Author Organization [facility] Address [address] [place] [address] Care Team Providers Care Coffee Machine Technician Name Role Phone Matt Jackson MD Primary Care Provider Unava ilable Encounter Details Date Type Department Care Team (Latest Contact Info) Description 02/24/2011 12:50 EDT - 02/24/2011 23:59 EDT Hospital Encounter [facility] [address] [place] [address] Matt Jackson MD Discharge Disposition: Auto Discharge Social History Tobacco Use Types Packs/Day Years Used Date Smoking Tobacco: Never Assessed Sex and Gender Information Value Date Recorded Sex Assigned at Not on file Gender Identity Female 06/20/2020 11:02 EST Sexual Orientation Not on file documented as of this encounter Discharge Disposition Disposition Code Departure Means Destination Auto Discharge Home documented in this encounter Plan of Treatment Not on file documented as of this encounter Visit Diagnoses Not on filedocumented in this encounter Care Teams Coffee Machine Technician Relationship Specialty Start Date End Date Matt Jackson MD PCP - General 11/04/08 08/10/18 documented as of this encounter
--- OUTSIDE RECORDS SUMMARY | 2024-02-24 17:06 | XMS_ITS | Encounter Summary ---
Author Organization [facility] Address [address] [place] [address] Care Team Providers Care Maintenance Fitter Name Role Phone Matt Jackson MD Primary Care Provider Unava ilable Reason for Visit * Reason Comments Basal Cell Carcinoma right occipital sca lp Encounter Details Date Type Department Care Team (Late st Contact Info) Description 08/19/2014 13:15 EST Office Visit [facility] Dermatology 5th Floor [facility] [address] [place], [place] [id number] Zi Lopez MD [address] [place] [address], [address] [place] [address] Basal cell carcinoma of skin of other and unspecified parts of face (Primary Dx) Social History Tobacco Use Types Packs/Day Years Used Date Smoking Tobacco: Never Sex and Gender Information Value Date Recorded Sex Assigned at Not on file Gender Identity Female 06/20/2020 11:02 EST Sexual Orientation Not on file documented as of this encounter Last Filed Vital Signs Vital Sign Reading Time Taken Comments Blood Pressure 117/82 08/19/2014 1320 EST Pulse 74 08/19/2014 1320 EST Temperature 36.9 ??C (98.5 ??F) 08/19/2014 1320 EST Respiratory Rate - - Oxygen Saturation - - Inhaled Oxygen Concentration - - Weight - - Height - - Body Mass Index - - documented in this encounter Discharge Diagnoses Diagnosis 173.41 BASAL CELL CARCINOMA OF SCALP AND SKIN OF NECK[ICD-9-CM] documented in this encounter Patient Instructions * Patient Instructions* Marina Trotter PA - 08/19/2014 12:59 EST WOUND CARE INSTRUCTIONS FOR SKIN SURGERY The BANDAGE should remain in place for 24 hours. You may shower after 24 hours; remove the bandage and replace it after the shower (see wound care section). DISCOMFORT: Expect some discomfort. Extra-Strength Tylenol, taken as directed by the ecological modeler, will help relieve pain. If Tylenol does not provide relief, you may alternate with ibuprofen. If thepain is severe please call the office. BLEEDING: You may notice some blood on the edges of the dressing the first day - this is NORMAL. Ifthe bleeding soaks through the dressing, remove the dressing, and apply firm, steady pressure with a moist clean wash cloth for fifteen minutes. If the bleeding stops, redress the wound, if not, callour office at . ACTIVITY: Relax and limit your physical activity for the first 48 hours after surgery. Your provider may ask you to limit activity for a longer period of time. If the surgery was on the face or scalp, keep your head elevated. APPEARANCE: There may be swelling and bruising around the wound. Some redness is normal, but the wound should not be red, hot and tender. If the wound becomes increasingly inflamed, warm, or drains pus, please call our office. With surgery on the nose, eyelids, forehead, or scalp your eyes may become swollen and bruised. WOUND CARE: ?? Change the dressing daily and when it becomes wet. ?? Wash hands with soap and water before changing the dressing. ?? Clean the wound with mild soap and warm water. ?? You may gently loosen any crusts with a cotton swab. ?? The wound may be slightly tender and may bleed a small amount. A small amount of discharge is normal. ?? Apply a thin layer of sterile petroleum jelly over the wound. ?? Cover with Telfa or similar non-stick dressing or bandage. ?? Tape in place with Hypafix or paper tape. ?? It is important to keep the wound covered for 7 days at which point the dressing may be removed and does not need to be reapplied. However, if there are areas that are not fully healed, the dressing should remain in place until the skin has healed completely. ?? If your sutures require removal, you will receive specific instructions regarding when and whereto have them removed; Continue daily dressings until the sutures are removed. Dissolvable sutures generally fall out in 7 to 14 days. If there are suture remnants still present after 7 days you may pull them out with tweezers. Please CALL OUR OFFICE IF YOU EXPERIENCE: or ?? Increasing redness ?? Wound is warm or hot to touch ?? Increasing pain ?? Drainage with a foul odor ?? Rapid swelling of the wound ?? Fever or chills documented in this encounter Progress Notes * Linda Green - 08/19/2014 1325 EST Patient Education Topic: wound care Method: Handout and Verbal Taught to: Family and Patient Barriers: None Outcomes: independent Signature: Linda Green 13:25 08/19/2014 * Marina Trotter PA - 08/19/2014 1259 EST Images from the original note were not included. MOHS SURGERY POST-OP SUMMARY Michelle Blanco is a 54 y.o. year old female who underwent Mohs surgery today 08/19/2014. The following is a summary of the operative findings: Lesion 1 basal cell carcinoma Location right occipital scalp Size Preop (cm) 1.3 x 1.3 cm Size Postop (cm) 1.8 x 1.8 cm Stages 1 Depth of Excision subcutis Repair complex linear repair Ms. Blanco was discharged from the operative suite in good condition. She was carefully instructed in postoperative wound care both verbally and in writing. Follow up with Nanci Brown PA-C, here as needed. Note: None JOSE DANIEL St MD 08/19/2014 15:47 * Marina Trotter PA - 08/19/2014 1258 EST MOHS OPERATIVE REPORT Patient Name: Michelle Blanco Date of Service: August 19, 2014 Surgeon: Zi Lopez MD Log Data Technician: Ricardo Edwards MD; JOSE DANIEL St Case #: [id number] Preoperative Diagnosis: basal cell carcinoma Preoperative Procedure: Mohs micrographic surgery Location of Lesion: right occipital scalp Preoperative Lesion Size: 1.3 cm x 1.3 cm Preoperative Procedure: Mohs microscopically-controlled fresh tissue excision Indications: The patient presents with a basal cell carcinoma. Because of the histologic and clinical nature of the lesion, as well as its location, the need to achieve the highest cure rate while providing maximum tissue preservation warranted tumor extirpation via microscopically-controlled excision using the Mohs fresh tissue technique. Alternate therapeutic options were discussed on several occasions prior to surgery. After informed consent was obtained and appropriate instruction was provided, the patient underwent tumor extirpation by the Mohs fresh tissue technique as follows: PROCEDURE - INITIAL STAGE: Patient position: supine Anesthesia: 1% lidocaine with epinephrine 1:100,000 local infiltration Prep: Povodine Iodine The patient was brought to the operative suite. The lesion was identified and was prepped in a sterile fashion. The area was infiltrated with lidocaine/epinephrine to achieve complete anesthesia and to augment hemostasis. An initial beveled excision was performed to the subcutis with a scalpel blade and tissue scissors as indicated. A hash was created in the specimen and within the adjacent epidermis for marking purposes. The Mohs specimen was excised in a sharp manner, and carefully placed in proper orientation on the surgical tray. Hemostasis of the operative wound was obtained with carefulspot electrocoagulation. A sterile non-adherent dressing was applied to the operative wound. The Mohs tissue specimen was carefully transferred to the lab where the tissue was divided, and color inked for orientation by me. These specimens were mapped and then handed personally to the senior games technician for frozen sectioning. The tissue was embedded so that the deep and surface margins lay in the same plane, and sections were made through this plane. Once the slide preparation was complete I personally performed histologic evaluation and interpretation of all sections. A summary of my findingsmay be found below. Stage 1 findings: Wound Depth subcutis Sections Created 2 Number of Sections Containing Tumor 0 With the patient clear of microscopic tumor, surgery was considered complete. Postoperative Wound Size: 1.8 x 1.8 cm Final Diagnosis: basal cell carcinoma Final Procedure: Mohs micrographic surgery Blood Loss: Minimal Operative Time: 30 minutes Complications: None Note: None I was present during all florez and critical portions of this procedure and remained immediately available throughout. I performed the florez elements of the procedure. Zi Lopez MD 08/19/2014 15:51 COMPLEX REPAIR Patient Information: Michelle Blanco 54 y.o. female Referring Provider: Renato Bowers MD Surgeon: Zi Lopez MD Log Data Technician: Ricardo Edwards MD Preoperative Diagnosis: basal cell carcinoma Preoperative Procedure: Complex Linear Closure Wound Location: right occipital scalp Wound Dimensions: 1.8 cm x 1.8 cm INDICATIONS: The patient presents with an operative wound following tumor removal. After careful consideration and discussion of all repair options, it was determined that, given the location and nature of the defect, a multilayered complex linear closure offered the best chance for preservation of normal anatomic and functional relationships. Alternate options were discussed and the patient was encouraged toask questions, which, I believe, were answered appropriately. Informed consent was obtained in writing. After informed consent was obtained and appropriate instruction was provided, the patient underwent operative repair as follows. PROCEDURE: Patient Position: prone Anesthesia: 1% lidocaine with epinephrine 1:100,000 local infiltration Prep: Povodine Iodine The Mohs operative defect was identified, and the area was infiltrated with lidocaine/epinephrine to achieve complete anesthesia and to augment hemostasis. The area was prepped in the usual sterile fashion and was draped with sterile drapes. A linear closure was designed with care to place the operative repair within functional and cosmetic lines to minimize the postoperative distortion of normaltissues. The wound edges were prepared using a # 15 scalpel blade to precisely delineate the operative repair and were then extensively undermined with combined blunt and, as needed, sharp dissectiontaking great care to avoid functionally important vessels and nerves. Undermining was carried out at the level of the subcutaneous fat. Hemostasis of the operative wound was obtained with careful spot electrocoagulation, and ligature as indicated. The wound edges were then approximated using 4.0 Monocryl (poliglecaprone 25) buried interrupted sutures at the level of the subcutis and dermis. The epidermis was then approximated using 5.0 Fast absorbing plain gut. The final wound length was 6.5 cm Final Diagnosis: Defect following microscopically controlled excision. Final Procedure: Complex linear closure Blood Loss: minimal Operative Time: 30 minutes Complications: none Note: None I was present during all florez and critical portions of this procedure and remained immediately available throughout. I performed the florez elements of the procedure. Zi Lopez MD 08/19/2014 15:51 documented in this encounter Plan of Treatment Not on file documented as of this encounter Visit Diagnoses Diagnosis Basal cell carcinoma of skin of other and unspecified parts of face- Primary documented in this encounter Historical Medications * This list may reflect changes made after this encounter. Medication Sig Dispensed Refills Start Date End Date oxyCODONE-acetaminophen (PERCOCET) 5-325 mg per tablet Take 1 Tab by mouth every 6 hours 08/28/2015 added in this encounter Care Teams Maintenance Fitter Relationship Specialty Start Date End Date Matt Jackson MD PCP - General 11/04/08 08/10/18 documented as of this encounter
--- OUTSIDE RECORDS SUMMARY | 2024-02-24 17:06 | XMS_ITS | Encounter Summary ---
Author Organization [facility] Address [address] [place] [address] Care Team Providers Care Frame Coverer Name Role Phone Matt Jackson MD Primary Care Provider Unava ilable Encounter Details Date Type Department Care Team (Late st Contact Info) Description 07/19/2016 Results Only [facility] [phone] Pramod Franco MD [address] [place] [phone] Social History Tobacco Use Types Packs/Day Years [...] Procedure Name Priority Date/Time Associated Diagnosis Comments PAP TEST- RESULT ONLY Routine 07/19/2016 0:00 EST documented in this encounter Results * PAP TEST- RESULT ONLY (07/19/2016 0:00 EST) Pathology Report: CYTOPATHOLOGY REPORT Reports generated via electronic interface contain original data; however they are lacking the format of the original report. Caution should be taken when reading/interpreti ng unformatted reports. Name: ? MICHELLE BLANCO ? Accession #: ? [id number] : ? 1960 (Age: 55) ??F ?Collect Date: ? 07/19/2016 Location: ? [facility] ? Receive Date: ? 07/20/2016 Provider: ?PRAMOD FRANCO MD Copy to: ?MANDIE SKY ? Specimen/Source: ?Pap Test, Cervix, ThinPrep Imaging System with manual evaluation Last Menstrual Period: ? Menstrual/Pregnanc y Status: ? Post Menopausal ? SPECIMEN ADEQUACY ? Satisfactory for Evaluation - transformation zone component present GENERAL CATEGORIZATION ? Negative for Intraepithelial Lesion or Malignancy ? Document reviewed and electronically signed by: ? CORNELIUS Flannery(ASCP) ? Report Date: ??07/22/2016 11:26 End of Report [facility] 07/19/2016 07/20/2016 Pramod Franco MD PATHOLOGY ORDERABLE S [facility] [address] [place] [address] documented in this encounter Visit Diagnoses Not on filedocumented in this encounter Care Teams Frame Coverer Relationship Specialty Start Date End Date Matt Jackson MD PCP - General 11/04/08 08/10/18 documented as of this encounter
--- OUTSIDE RECORDS SUMMARY | 2024-02-24 17:06 | XMS_ITS | Encounter Summary ---
Author Organization [facility] Address [address] [place] [address] Care Team Providers Care Restaurant Operations Manager Name Role Phone Matt Jackson MD Primary Care Provider Unava ilable Reason for Visit * Reason Onset Date Comments Shoulder Pain 05/31/2016 B-LAT SHOULDER Encounter Details Date Type Department Care Team (Late st Contact Info) Description 05/31/2016 Telephone [facility] Orthopedic Surgery - [address] [place] [address] John Cooper III, MD [address] [place] [phone] Shoulder Pain (B-LAT SHOULDER) Social History Tobacco Use Types Packs/Day Years [...] * Telephone Encounter - Maggi Louis - 05/31/2016 1249 EST Made pt apt for 14 @ 2:30. * Telephone Encounter - Albina Haskins RN - 05/31/2016 1014 EST Spoke with patient regarding increased Left shoulder pain. Has appointment July to see Dr. Cooper. She wishes an earlier appointment or put on, youth nutritional monitor list if no sooner appointment available. Albina Haskins, RN * Telephone Encounter - Ayleen Marshall - 05/31/2016 0851 EST Reason for Call: Shoulder Pain (B-LAT SHOULDER) Summary/Symptoms: NA Best number to call back: ABOVE Appointment Offered? No RECEIVED PAPERWORK FOR AN EYAD AND HAS NOT YET BEEN RELEASED FOR WORK YET, WOULD LIKE TO SPEAK WITH REEMA Marshall 05/31/2016 8:51 documented in this encounter Plan of Treatment Not on file documented as of this encounter Visit Diagnoses Not on filedocumented in this encounter Care Teams Restaurant Operations Manager Relationship Specialty Start Date End Date Matt Jackson MD PCP - General 11/04/08 08/10/18 documented as of this encounter
--- OUTSIDE RECORDS SUMMARY | 2024-02-24 17:06 | XMS_ITS | Encounter Summary ---
Author Organization [facility] Address [address] [place] [address] Care Team Providers Care Petroleum Refining Equipment Operator Name Role Phone Matt Jackson MD Primary Care Provider Unava ilable Encounter Details Date Type Department Care Team (Latest Contact Info) Description 07/08/2014 17:43 EST - 07/08/2014 17:44 EST Hospital Encounter [address] [address] Shikha Benavidez MD [address] [place] [phone] Discharge Disposition: Home or Self Care Social History Tobacco Use Types Packs/Day Years Used Date Smoking Tobacco: Never Assessed Sex and Gender Information Value Date Recorded Sex Assigned at Not on file Gender Identity Female 06/20/2020 11:02 EST Sexual Orientation Not on file documented as of this encounter Discharge Diagnoses Diagnosis V72.31 ROUTINE GYNECOLOGICAL EXAMINATION[ICD-9-CM] V76.2 SCREENING MAL NEOP-CERVIX[ICD-9-CM] V73.81 SPECIAL SCREENING EXAMINATION, HUMAN PAPILLOMAVIRUS (HPV)[ICD-9-CM] documented in this encounter Discharge Disposition Disposition Code Departure Means Destination Home or Self Care documented in this encounter Plan of Treatment Not on file documented as of this encounter Procedures Procedure Name Priority Date/Time Associated Diagnosis Comments VL CAROTID/VERTEBRAL DUPLEX BILATERAL 2014 13:56 EST documented in this encounter Results * VL CAROTID/VERTEBRAL DUPLEX BILATERAL (2014 13:56 EST) Anatomical Region Laterality Modality Other 2014 13:5 6 EST Narrative 08/07/2014 9:30 EST Vascular Diagnostic Laboratory [facility], Level 5 [address] [facility] [place] [address] Technologist: Alison Jacob ?Marlene Aiken IMPRESSIONS 1. 16-49% stenosis in the bilateral internal carotid arteries. 2. The bilateral vertebral arteries are patent with normal antegrade flow. PROCEDURE: Carotid/vertebral arterial ultrasound; complete bilateral evaluation of the extracranial carotid system. ? 2D ultrasound, color flow Doppler, and spectral Doppler. INDICATION: Whooshing heard per patient on the left ear; r/o carotid artery stenosis HISTORY: Patient denies any pertinent medical history. DOPPLER FINDINGS: + +-------+------+ + Location ? V sys ?? V ed ?? Flow analysis + +-------+------+ + Right CCA - prox 77cm/s 20cm/s ? + +-------+------+ + Right CCA - dist 50cm/s 21cm/s ? + +-------+------+ + Right ICA - prox 120cm/s 53cm/s ? + +-------+------+ + Right ICA - dist 70cm/s 26cm/s ? + +-------+------+ + Right ECA - prox 106cm/s 25cm/s ? + +-------+------+ + Right vertebral 50cm/s 14cm/s Antegrade flow + +-------+------+ + Right subclavian 93cm/s ? + +-------+------+ + Innominate ? 94cm/s ? + +-------+------+ + Left CCA - prox 93cm/s 34cm/s ? + +-------+------+ + Left CCA - dist 70cm/s 34cm/s ? + +-------+------+ + Left ICA - prox 116cm/s 51cm/s ? + +-------+------+ + Left ICA - dist 82cm/s 32cm/s ? + +-------+------+ + Left ECA - prox 104cm/s 22cm/s ? + +-------+------+ + Left vertebral ?? 57cm/s 18cm/s Antegrade flow + +-------+------+ + Left subclavian 95cm/s ? + +-------+------+ + * VELOCITY RATIOS: +-------+ + + ? Right, V sys Left, V sys +-------+ + + ICA/CCA 2.4 ? 1.7 ? +-------+ + + * GREYSCALE FINDINGS: Right common carotid: The distal vessel has low profile smooth-surfaced homogeneous plaque. Right internal carotid: ??Low profile smooth-surfaced heterogeneous plaque. Left common carotid: The distal vessel has low profile smooth-surfaced homogeneous plaque. Left internal carotid: ??Low profile smooth-surfaced heterogeneous plaque. Electronically signed by: Cyrus Resendez [id number] Procedure Note 08/07/2014 Vascular Diagnostic Laboratory [facility], [facility] [address] [place] [address] Technologist: Alison Jacob Candice IMPRESSIONS 1. 16-49% stenosis in the bilateral internal carotid arteries. 2. The bilateral vertebral arteries are patent with normal antegrade flow. PROCEDURE: Carotid/vertebral arterial ultrasound; complete bilateral evaluation ofthe extracranial carotid system. 2D ultrasound, color flow Doppler, andspectral Doppler. INDICATION: Whooshing heard per patient on the left ear; r/o carotid artery stenosis HISTORY: Patient denies any pertinent medical history. DOPPLER FINDINGS: + +-------+------+ + Location V sys V ed Flow analysis + +-------+------+ + Right CCA - prox 77cm/s 20cm/s + +-------+------+ + Right CCA - dist 50cm/s 21cm/s + +-------+------+ + Right ICA - prox 120cm/s 53cm/s + +-------+------+ + Right ICA - dist 70cm/s 26cm/s + +-------+------+ + Right ECA - prox 106cm/s 25cm/s + +-------+------+ + Right vertebral 50cm/s 14cm/s Antegrade flow + +-------+------+ + Right subclavian 93cm/s + +-------+------+ + Innominate 94cm/s + +-------+------+ + Left CCA - prox 93cm/s 34cm/s + +-------+------+ + Left CCA - dist 70cm/s 34cm/s + +-------+------+ + Left ICA - prox 116cm/s 51cm/s + +-------+------+ + Left ICA - dist 82cm/s 32cm/s + +-------+------+ + Left ECA - prox 104cm/s 22cm/s + +-------+------+ + Left vertebral 57cm/s 18cm/s Antegrade flow + +-------+------+ + Left subclavian 95cm/s + +-------+------+ + * VELOCITY RATIOS: +-------+ + + Right, V sys Left, V sys +-------+ + + ICA/CCA 2.4 1.7 +-------+ + + * GREYSCALE FINDINGS: Right common carotid: The distal vessel has low profile smooth-surfaced homogeneous plaque. Right internal carotid: Low profile smooth-surfaced heterogeneous plaque. Left common carotid: The distal vessel has low profile smooth-surfaced homogeneous plaque. Left internal carotid: Low profile smooth-surfaced heterogeneous plaque. Electronically signed by: Cyrus Resendez [id number] Shukri ROSAS VASCULAR ORDEllen CONNORS documented in this encounter Visit Diagnoses Not on filedocumented in this encounter Care Teams Petroleum Refining Equipment Operator Relationship Specialty Start Date End Date Matt Jackson MD PCP - General 11/04/08 08/10/18 documented as of this encounter
--- OUTSIDE RECORDS SUMMARY | 2024-02-24 17:06 | XMS_ITS | Encounter Summary ---
Author Organization [facility] Address [address] [place] [address] Care Team Providers Care Heavy Equipment Service Technician Name Role Phone Matt Jackson MD Primary Care Provider Unava ilable Reason for Visit * Reason Comments Mohs Consult Basal cell carcinoma on the right occipital scalp Encounter Details Date Type Department Care Team (Late st Contact Info) Description 07/17/2014 13:00 EST Office Visit [facility] Dermatology 3rd Floor [facility] [address] [place], [place] [id number] Zi Lopez MD [address] [place] [address], [address] [place] [address] Basal cell carcinoma of skin of other and unspecified parts of face (Primary Dx) Social History Tobacco Use Types Packs/Day Years Used Date Smoking Tobacco: Never Sex and Gender Information Value Date Recorded Sex Assigned at Not on file Gender Identity Female 06/20/2020 11:02 EST Sexual Orientation Not on file documented as of this encounter Discharge Diagnoses Diagnosis 173.41 BASAL CELL CARCINOMA OF SCALP AND SKIN OF NECK[ICD-9-CM] documented in this encounter Patient Instructions * Patient Instructions* Miquel Campbell - 07/17/2014 13:05 EST PATIENT INSTRUCTIONS FOR MOHS MICROSCOPICALLY CONTROLLED EXCISION Mohs micrographic surgery is a surgical procedure. Please bring someone with you for your surgery visit. Plan to spend at least two hours on the day of the surgery. In complicated cases you may be with us for much of the day. 1) Surgery appointment times are approximate. We do our best to remain on time, but surgery is unpredictable and your surgery may be delayed on occasion by up to an hour. 2) Plan not to be alone for at least 12 hours after surgery. 3) If you are taking Vitamin E, garlic, gingko, ginseng, or other unspecified herbal supplements please discontinue these one week prior to surgery. They can cause bleeding. 4) Stop mediation containing ibuprofen (Motrin, Advil) or naproxen (Aleve) one day prior to surgery. 5) If you are on coumadin or aspirin we will discuss with you whether or not to discontinue these prior to surgery. 6) The morning of surgery eat a normal breakfast and take any medications you normally take in the morning. Bring medication that will be needed during the day. 7) Wear clothing with buttons. Avoid pullover clothing. 8) Do not use cosmetics the day of surgery. 9) You will be given postoperative instruction following your procedure. documented in this encounter Progress Notes * Miquel Campbell - 07/17/2014 1306 EST MOHS EVALUATION NOTE Chief Complaint Patient presents with ??? Mohs Consult Basal cell carcinoma on the right occipital scalp Subjective: Michelle Blanco is a 53 y.o. year old female who is referred to me for evaluation and treatment of a basal cell carcinoma of the right occipital scalp by Nanci Brown. The patient is referred to consider Mohs surgery versus other treatment options. The patient notes that this lesion has beenpresent for 10 years, and reports slow growth. The patient???s risk factors for skin cancer includehistory of actinic keratoses. Risk factors: Pacemaker/ICD: None Anticoagulants: PRN ibuprofen Total joint replacements/valves: None Allergies: Patient is allergic to imitrex. Immunosuppression: None For full Medical, Surgical, Family, and Social histories as well as Review of Systems, Medications and Allergies please see those sections of this encounter in the electronic chart which I have personally reviewed. Objective: Complete physical examination of the affected area in the office today revealed a 1.3 cm x 1.3 cm pearly and pink, plaque located on the right occipital scalp. Careful examination of the draining lymph nodes revealed no suspicious adenopathy. Pathology: Right occipital scalp: BCC, nodular and micronodular (outside path) Assessment: - basal cell carcinoma Plan: Ms. Blanco and I discussed the meaning of the diagnosis of skin cancer and the options for treatment including curettage and electrodesiccation, radiation therapy, conventional excision, and excision by Mohs micrographic surgery. Due to the need for a high cure rate and optimum functional andaesthetic outcome, I feel that Mohs surgery is indicated. The risks of Mohs surgery and potential re constructive surgery, including but not limited to, bleeding, scarring, infection, recurrence, injury to functionally or cosmetically important nerve structures and an unsatisfactory cosmetic result were reviewed. The patient was given an opportunity to ask questions, and I believe that all of her questions were answered satisfactorily. In addition the patient was provided with written material that describes the Mohs procedure and related matters. Ms. Blanco understands that following Mohs surgery an operative repair may be required and may involve substantial suturing. We have jointly planned to have me repair the wound at the day of surgery. She understands that following reconstruction, if performed, many months may elapse before a decision can be made about the final cosmetic result, and that, in some cases a revision may be necessary to optimize the outcome. I explained to Ms. Blanco that in addition to the risk of recurrence from her skin cancer she has an increased risk of developing additional new skin cancers elsewhere. For that reason, follow up for ongoing skin surveillance examinations, after surgery, will be i mperative. The patient has been scheduled to undergo surgery in the next few months. Note: None Miquel Campbell MD 07/17/2014 13:06 Attestation statement: I saw and examined the patient with the resident / fellow. I agree with the findings and plan of care documented in the resident's / fellow's note. Zi Lopez MD 07/17/2014 14:50 * Linda Green - 07/17/2014 9597 EST Review of Systems Constitutional: Negative for fever, fatigue and unexpected weight change. HENT: Negative for mouth sores. Eyes: Negative for pain. Respiratory: Negative for cough and shortness of breath. Cardiovascular: Negative for chest pain and palpitations. Gastrointestinal: Negative for nausea, vomiting, abdominal pain, diarrhea, constipation and blood in stool. Genitourinary: Negative for dysuria, frequency and hematuria. Musculoskeletal: Negative for myalgias, joint swelling, arthralgias and muscle stiffness in the morning. Skin: Negative for rash. Neurological: Positive for headaches. Negative for numbness. Endo/Heme/Allergies: Does not bruise/bleed easily. Psychiatric/Behavioral: Negative for sleep disturbance. The patient is not nervous/anxious. Linda Green 12:58 07/17/2014 documented in this encounter Plan of Treatment Not on file documented as of this encounter Visit Diagnoses Diagnosis Basal cell carcinoma of skin of other and unspecified parts of face- Primary documented in this encounter Care Teams Heavy Equipment Service Technician Relationship Specialty Start Date End Date Matt Jackson MD PCP - General 11/04/08 08/10/18 documented as of this encounter
--- OUTSIDE RECORDS SUMMARY | 2024-02-24 17:06 | XMS_ITS | Encounter Summary ---
Author Organization [facility] Address [address] [place] [address] Care Team Providers Care Animal Laboratory Technician Name Role Phone Matt Jackson MD Primary Care Provider Unava ilable Encounter Details Date Type Department Care Team (Latest Contact Info) Description 07/06/2013 9:26 EST - 07/06/2013 23:59 [facility] Hospital Encounter [address] [address] Shikha Benavidez MD [address] [place] [phone] Discharge Disposition: Home or Self Care [...] Associated Diagnosis Comments MA MAMMO SCREENING DIGITAL 04/09/2014 10:44 EDT documented in this encounter Results * MA MAMMO SCREENING DIGITAL (04/09/2014 10:44 EDT) Anatomical Region Laterality Modality Other 04/09/2014 10:4 4 EDT 04/11/2014 17:28 EDT Narrative 04/11/2014 17:28 EDT Comparison has been made to previous images. Bilateral Breast Findings: (Routine digital views with CAD and implant displaced views) There are scattered fibroglandular densities (25% - 50% fibroglandular). Normal-appearing sub-pectoral rossly intact, silicone gel implants are present. There are no other significant abnormalities. IMPRESSION: BILATERAL BREASTS: Normal-appearing sub-pectoral, silicone gel implants. Benign, no evidence of malignancy. Normal interval follow-up is recommended in 12 months. OVERALL ASSESSMENT - CATEGORY 2 - BENIGN END OF IMPRESSION These results will be communicated to your patient via a lay letter from Radiology. If any additional imaging is needed we will contact your patient directly. Procedure Note 04/11/2014 Comparison has been made to previous images. Bilateral Breast Findings: (Routine digital views with CAD and implant displaced views) There are scattered fibroglandular densities (25% - 50% fibroglandular). Normal-appearing sub-pectoral rossly intact, silicone gel implants are present. There are no other significant abnormalities. IMPRESSION: BILATERAL BREASTS: Normal-appearing sub-pectoral, silicone gel implants. Benign, no evidence of [...] on filedocumented in this encounter Care Teams Animal Laboratory Technician Relationship Specialty Start Date End Date Matt Jackson MD PCP - General 11/04/08 08/10/18 documented as of this encounter
--- OUTSIDE RECORDS SUMMARY | 2024-02-24 17:06 | XMS_ITS | Encounter Summary ---
Author Organization [facility] Address [address] [place] [address] Care Team Providers Care Mechanical Service Representative Name Role Phone Matt Jackson MD Primary Care Provider Unava ilable Reason for Visit * Reason Comments Wound Check Encounter Details Date Type Department Care Team (Late st Contact Info) Description 08/20/2014 11:30 EST Office Visit [facility] Dermatology 5th Floor [facility] [address] [place] [address] Unknown, Provider, Nursing Team, [facility] Dermatology Mohs Basal cell carcinoma of scalp (Primary Dx) Social History Tobacco Use Types Packs/Day Years Used Date Smoking Tobacco: Never Sex and Gender Information Value Date Recorded Sex Assigned at Not on file Gender Identity Female 06/20/2020 11:02 EST Sexual Orientation Not on file documented as of this encounter Discharge Diagnoses Diagnosis 173.41 BASAL CELL CARCINOMA OF SCALP AND SKIN OF NECK[ICD-9-CM] V58.31 ENCOUNTER FOR CHANGE OR REMOVAL OF SURGICAL WOUND DRESSING[ICD-9-CM] documented in this encounter Progress Notes * Rebecca Moore - 08/20/2014 1129 EST WOUND ASSESSMENT CC: Chief Complaint Patient presents with ??? Wound Check Ms. Blanco is status post Mohs 08/19/14 for BCC on right occipital scalp with Dr. Zi Lopez. SUBJECTIVE: Patient reports pain from the wound area (10/10 pain scale) and swelling. Patient also reports thatthe percocet has not given any relief. OBJECTIVE: There were no vitals taken for this visit. Wound edges: well-approximated Wound Site: pink, mild edema inferior to wound Drainage: none PLAN: Dressing: left open to air Culture obtained: No MD/PAJavi consulted Yes - Dr. Danni Ching in to assess. Patient reassured that the pain and swelling were completely normal and will be alleviated with time. FOLLOW UP Patient advised to return to follow-up care as planned or sooner if concern Wound care instructions given to patient Note: I was supervised by Dr. Zi Lopez who was present and immediately available in the office suite. Rebecca Moore 11:30 08/20/2014 documented in this encounter Plan of Treatment Not on file documented as of this encounter Visit Diagnoses Diagnosis Basal cell carcinoma of scalp- Primary Basal cell carcinoma of scalp and skin of neck documented in this encounter Care Teams Mechanical Service Representative Relationship Specialty Start Date End Date Matt Jackson MD PCP - General 11/04/08 08/10/18 documented as of this encounter
--- OUTSIDE RECORDS SUMMARY | 2024-02-24 17:06 | XMS_ITS | Encounter Summary ---
Author Organization [facility] Address [address] [place] [address] Care Team Providers Care Bank Teller Machine Mechanic Name Role Phone Matt Jackson MD Primary Care Provider Unava ilable Encounter Details Date Type Department Care Team (Latest Contact Info) Description 02/16/2011 10:58 EDT - 02/16/2011 10:59 EDT Hospital Encounter [facility] [address] [place] [address] Matt Jackson MD Discharge Disposition: Home or Self Care Social [...] on filedocumented in this encounter Care Teams Bank Teller Machine Mechanic Relationship Specialty Start Date End Date Matt Jackson MD PCP - General 11/04/08 08/10/18 documented as of this encounter
--- OUTSIDE RECORDS SUMMARY | 2024-02-24 17:06 | XMS_ITS | Encounter Summary ---
Author Organization [facility] Address [address] [place] [address] Care Team Providers Care Director Supply Chain Name Role Phone Matt Jackson MD Primary Care Provider Unava ilable Encounter Details Date Type Department Care Team (Late st Contact Info) Description 07/14/2015 Results Only [facility] [phone] Pramod Franco MD [address] [place] [phone] Social History Tobacco Use Types Packs/Day [...] Diagnosis Comments PAP TEST- RESULT ONLY Routine 07/14/2015 0:00 EST documented in this encounter Results * PAP TEST- RESULT ONLY (07/14/2015 0:00 EST) Pathology Report: CYTOPATHOLOGY REPORT Reports generated via electronic interface contain original data; however they are lacking the format of the original report. Caution should be taken when reading/interpreti ng unformatted reports. Name: ? MICHELLE ALFREDO Sher ? Accession #: ? [id number] : ? 1960 (Age: 54) ??F ?Collect Date: ? 07/14/2015 Location: ? [facility] ? Receive Date: ? 07/15/2015 Provider: ?PRAMOD FRANCO MD Copy to: ? Specimen/Source: ?Pap Test, Vagina, ThinPrep Imaging System with manual evaluation Last Menstrual Period: ? SPECIMEN ADEQUACY ? Satisfactory for Evaluation - assessment of transformation zone component not applicable ( e.g. atrophy, vaginal sample, hysterectomy) GENERAL CATEGORIZATION ? Negative for Intraepithelial Lesion or Malignancy ? Document reviewed and electronically signed by: ? CORNELIUS De León(ASCP) ? Report Date: ??07/17/2015 08:18 End of Report [facility] 07/14/2015 07/15/2015 Pramod Franco MD PATHOLOGY ORDERABLE S [facility] [address] [place] [address] documented in this encounter Visit Diagnoses Not on filedocumented in this encounter Care Teams Director Supply Chain Relationship Specialty Start Date End Date Matt Jackson MD PCP - General 11/04/08 08/10/18 documented as of this encounter
--- OUTSIDE RECORDS SUMMARY | 2024-02-24 17:06 | XMS_ITS | Encounter Summary ---
Author Organization [facility] Address [address] [place] [address] Care Team Providers Care Account Executive [employer] Name Role Phone Matt Jackson MD Primary Care Provider Unava ilable Encounter Details Date Type Department Care Team (Latest Contact Info) Description 03/02/2012 8:29 EDT - 03/02/2012 23:59 EDT Hospital Encounter [address] [id number] Matt Jackson MD Discharge Disposition: Home or Self Care Social History Tobacco Use Types Packs/Day Years Used Date Smoking Tobacco: Never Assessed Sex and Gender Information Value Date Recorded Sex Assigned at Not on file Gender Identity Female 06/20/2020 11:02 EST Sexual Orientation Not on file documented as of this encounter Discharge Disposition Disposition Code Departure Means Destination Home or Self [facility] documented in this encounter Plan of Treatment Not on file documented as of this encounter Visit Diagnoses Not on filedocumented in this encounter Care Teams Account Executive [employer] Relationship Specialty Start Date End Date Matt Jackson MD PCP - General 11/04/08 08/10/18 documented as of this encounter
--- OUTSIDE RECORDS SUMMARY | 2024-02-24 17:06 | XMS_ITS | Encounter Summary ---
Author Organization Health system Address [address] [place] [address] Care Team Providers Care Sock Liner Name Role Phone Matt Jackson MD Primary Care Provider Unava ilable Encounter Details Date Type Department Care Team (Latest Contact Info) Description 09/09/2015 14:54 EST - 09/09/2015 14:55 EST Hospital Encounter [address] [address] Shukri Renae PA [address] [place] [phone] Discharge Disposition: Home or Self Care Social History Tobacco Use Types Packs/Day Years Used Date Smoking Tobacco: Never Sex and Gender Information Value Date Recorded Sex Assigned at Not on file Gender Identity Female 06/20/2020 11:02 EST Sexual Orientation Not on file documented as of this encounter Discharge Diagnoses Diagnosis R19.7 Diarrhea, unspecified-R19.7[ICD-10-CM] documented in this encounter Medications at Time of Discharge Medication Sig Dispensed Refills Start Date End Date cephALEXin (KEFLEX) 500 mg capsule Take 1 Cap by mouth every 6 hours. Take 1 tablet every 6 hours for a total of 4 doses postop. 4 Cap 0 08/28/2015 03/25/2016 ondansetron (ZOFRAN-ODT) 4 mg disintegrating tablet Take 1 Tab by mouth every 8 hours as needed for Nausea. 10 Tab 0 08/28/2015 03/25/2016 oxyCODONE (ROXICODONE) 5 mg immediate release tablet Take 1-3 Tabs by mouth every 4 hours as needed for Pain (for severe/breakthrough pain). Daily Max: 90 mg 60 Tab 0 08/28/2015 03/25/2016 UNABLE TO FIND as needed. Reported on 09/09/2016 12/18/2018 documented as of this encounter Discharge Disposition Disposition Code Departure Means Destination Home or Self Care documented in this encounter Plan of Treatment Not on file documented as of this encounter Visit Diagnoses Not on filedocumented in this encounter Care Teams Sock Liner Relationship Specialty Start Date End Date Matt Jackson MD PCP - General 11/04/08 08/10/18 documented as of this encounter
--- OUTSIDE RECORDS SUMMARY | 2024-02-24 17:06 | XMS_ITS | Encounter Summary ---
Author Organization [facility] Address [address] [place] [address] Care Team Providers Care Card Sorter Name Role Phone Matt Jackson MD Primary Care Provider Unava ilable Encounter Details Date Type Department Care Team (Latest Contact Info) Description 08/28/2015 9:57 EST - 08/28/2015 16:58 EST Hospital Encounter [facility] - [address] [address] John Cooper III, MD [address] [place] [phone] Tendinitis of right rotator cuff (Primary Dx); Bicipital tendinitis of right shoulder; Tear of supraspinatus tendon, right, subsequent encounter; Primary osteoarthritis of right shoulder Discharge Disposition: Home or Self Care Social History Tobacco Use Types Packs/Day Years Used Date Smoking Tobacco: Never Sex and Gender Information Value Date Recorded Sex Assigned at Not on file Gender Identity Female 06/20/2020 11:02 EST Sexual Orientation Not on file documented as of this encounter Last Filed Vital Signs Vital Sign Reading Time Taken Comments Blood Pressure 137/69 08/28/2015 1652 EST Pulse - - Temperature 36.6 ??C (97.9 ??F) 08/28/2015 1652 EST Respiratory Rate 16 08/28/2015 1652 EST Oxygen Saturation 95% 08/28/2015 1652 EST Inhaled Oxygen Concentration - - Weight 80.7 kg (178 lb) 08/18/2015 0846 EST Height 172.7 cm (5' 7.99) 08/18/2015 0846 EST Body Mass Index 27.07 08/18/2015 0846 EST documented in this encounter Discharge Instructions * Discharge Instructions* Megan, JOSE DANIEL Crowe - 08/28/2015 14:24 EST Images from the original note were not included. [facility] SHOULDER ARTHROSCOPY POSTOPERATIVE INSTRUCTIONS Your arthroscopy results included: RT Shoulder frozen shoulder, impingement, AC joint arthrosis Treatment included: RT Shoulder arthroscopic capsular release, subacromial debridement/decompression, distal clavicle excision. Dressing Care: Underneath your sling and Cryo/Cuff is a bulky dressing covering your incisions. Thedressing should remain in place for 48 hours following surgery. At that point, the dressing can be removed and you can shower regularly. Do not bathe or submerse yourself in water. Dry the incisions c arefully and cover with Band-Aids. Some slight drainage is normal. Cryo/Cuff: Continue to use the Cryo/Cuff as ice is an excellent treatment for postoperative pain. Sling: The sling is not only for your comfort, but also for your protection. You may remove your sling tomorrow (on post op Day #1 to start gentle passive range of motion discussed below. Most arthroscopic rotator cuff or labral repairs require the use of the sling for 4-6 weeks following surgery. It is okay to use your hand and wrist for light activities as long as your sling is on and your elbow is by your side. (i.e., typing, writing, etcetera). You should wear the sling when sleeping. Sleeping in a recliner might be more comfortable. Exercises/Pendulums: These can also be done in the shower, and can be started tomorrow (postop Day #1). Bend forward about 90 degrees at the waist, using your good (non-operative) arm for support andbalance. Rock your body in a circular pattern allowing your arm to dangle clockwise then counterclockwise for at least 30 seconds. Try to perform these 3 times a day. The motion of your upper body, not your shoulder muscles should move your arm. To complete these exercises, you will remove your sling with your elbow kept at your side. You may also start passive gentle range of motion (ROM) that includes: 1. Table slides (see picture/drawing): Rest your right arm on the kitchen/dining room table, push your body forward using your core muscles and lower back, not your right arm, allowing your right armto slide in front along the table to the point of tightness/stretching, but not pain, and hold thisstretch for 10 seconds. Repeat 3x and try to perform 3x/day. 2. Passive External Rotation (see picture/drawing): using a stick/golf club, driving the surgical arm (right) with your good arm (left) to the point of tightness but not pain and hold that stretch for 10 seconds. Repeat this 3x and try to perform these 3 times daily. 3. Passive forward flexion (see picture/drawing): Using your left arm/hand, hold your right forearmand with the left arm doing all the work, raise the right arm in front of your body to the point ofstretching/tightness, but not pain and hold. When finished, put your sling back on. Elbow / Wrist / Hand Range of Motion: When the sling is off in the shower or for pendulums, gently work on elbow range of motion by trying to straighten and flex the elbow. DO NOT FORCE and you may use your good arm for assistance. With your sling on, work on turning from palm up to palm down. Also practice opening and closing your hand, and squeeze the ball that came with the Ultra Sling. Pain Control: You may not have much pain immediately after surgery due to a nerve block performed by your surgeon or the anesthesiologist. Try to begin your pain medication before this nerve block wears off. Taking Tylenol regularly as described on the bottle is advised for at least the first few days, but only if your prescription pain medications do not contain Tylenol in them. See below for your specific pain medications. You may take ibuprofen, Motrin, Aleve/Naproxen, or Advil for the first 6 weeks after your surgery, as these drugs may slow the healing process. The instructions for use are on the prescription bottles: 1. Oxycodone 5 mg: Take 1-3 tablets as needed every 4-6 hours for breakthrough pain. 2. Keflex 500 mg: Take this antibiotic, 1 tablet every 6 hours for a total of 4 doses postop. Your PACU nurse will notify you of the time of your last dose so you know when to first start this medication. 3. Zofran 4 mg: Dissolve 1 tablet under your tongue every 8 hours as needed for nausea. Nausea & Vomiting Medications: You may have been given meds for nausea secondary to the effectsof anesthesia or to treat any nausea induced by your pain medications. Narcotics can lead to constipation; using an [id number] stool softener may be helpful: these include Colace, Miralax, Senna, or Dulcolax. Things to Call Your Surgeon About: If the incisions become red, have continuous drainage, smell foul, or if you develop persistent fevers (greater than 100.4 F degrees) vomiting, or diarrhea, shortness of breath or calf pain; call your surgeons office. There is always someone available. * Medications* Kell Frederick RN - 08/28/2015 14:33 EST Tylenol 1000mg given @ 10:32 am - may take next dose @ 4 pm. documented in this encounter Medications at Time [...] 09/09/2016 12/18/2018 documented as of this encounter Ordered Prescriptions Prescription Sig Dispensed Refills Start Date End Da te ondansetron (ZOFRAN-ODT) 4 mg disintegrating tablet Take 1 Tab by mouth every 8 hours as needed for Nausea. 10 Tab 0 08/28/2015 03/25/2016 oxyCODONE (ROXICODONE) 5 mg immediate release tablet Take 1-3 Tabs by mouth every 4 hours as needed for Pain (for severe/breakthroug h pain). Daily Max: 90 mg 60 Tab 0 08/28/2015 03/25/2016 cephALEXin (KEFLEX) 500 mg capsule Take 1 Cap by mouth every 6 hours. Take 1 tablet every 6 hours for a total of 4 doses postop. 4 Cap 0 08/28/2015 03/25/2016 documented in this encounter Discharge Disposition Disposition Code Departure Means Destination Home or Self Care documented in this encounter Progress Notes * Jose Daniel Soria RN - 08/18/2015 0907 EST Michelle Blanco has been instructed as follows regarding medication administration for the day of the scheduled procedure. Date of Surgery: 08/28/2015 Instructions for Taking Medications Day of Surgery Medication Sig Last Dose Hold DOS Take DOS oxyCODONE-acetaminophen (PERCOCET) 5-325 mg per tablet Take 1 Tab by mouth every 6 hours Yes documented in this encounter H&P Notes * John Cooper MD - 08/28/2015 1206 EST The preoperative history and physical which was performed within 30 days of this procedure has been reviewed and the clinically appropriate elements of the physical examination have been repeated. There are no changes to the documented history and physical or if so such changes are documented below JOSE DANIEL Sher 08/28/2015 12:06 I concur with the above note Please refer to addended Orthopaedic office notes for further details of the history of present illness as well as the musculoskeletal portion of this exam.I concur with the above note Source Note - [employer], DU 2 - 08/26/2015 12:18 EST documented in this encounter OR Notes * OR Surgeon - John Cooper MD - 08/29/2015 0127 EST OPERATIVE REPORT SERVICE DATE: 08/28/2015 PREOPERATIVE DIAGNOSIS: Right shoulder adhesive capsulitis, acromioclavicular arthrosis, possible biceps tendinosis. POSTOPERATIVE DIAGNOSIS: Right shoulder adhesive capsulitis, acromioclavicular arthrosis, subacromial impingement and bursitis. PROCEDURE: Right shoulder evaluation under anesthesia, arthroscopic extensive debridement, subacromial bursa, arthroscopic distal clavicle excision, arthroscopic resection of the rotator interval andcircumferential capsular release. SURGEON: John Cooper III, MD FOREST AIDE: Rose Mary Guzman PA-C (There are no orthopedic residents available to assist with this procedure). ANESTHESIA: General endotracheal plus local. INDICATIONS: This is a 55-year-old female with persistent right shoulder pain, stiffness, weakness and disability, which has not responded to a lengthy period of conservative measures. Her physical findings have suggested an adhesive capsulitis type picture, which has not been responding to conservative measures. Also is suggestive of acromioclavicular arthrosis possibly causing her symptoms as well as biceps tendinosis and/or SLAP tear. Imaging studies have been consistent with acromioclavicular arthrosis and questioning biceps or superior labral pathology without any obvious rotator cuff tear seen. Having not responded to a lengthy period of conservative measures, she has elected to proceed with surgical intervention, which she understands might in part be diagnostic in nature. Please refer to the history and physical with addended orthopedic office notes within this chart for furtherdocumentation of indications for this procedure. NARRATIVE: The patient was brought to the operating room and placed on the OR table in supine position where general endotracheal anesthetic was administered without complication. She received Kefzol2 g intravenously within 60 minutes of skin incision. She received a preoperative pain protocol including Tylenol, Lyrica, Celebrex and OxyContin, which is standard practice in this institution. She was placed in semi-Rubio position using the TENET table. All bony prominences were well padded. Her neck was carefully kept in neutral position and head secured to the headrest using a foam facemask securely fashioned around her forehead and loosely fashioned around her mandible. Both shoulders were examined under anesthesia and compared one to the other. With the scapula stabilized, her right glenohumeral joint passively could be elevated 90 degrees, abducted in the scapular plane 80 degrees, externally rotated at 0 degrees abduction 30 degrees and internally rotated at 90 degrees abduction to 20 degrees. On the contralateral shoulder, the left glenohumeral joint could be forward elevated 100 degrees, abducted 90 degrees in scapular plane, externally rotated 90 degrees at 0 degrees abduction and internally rotated 60 degrees at 90 degrees of abduction, all with the scapula stabilized. The right shoulder was then prepped with ChloraPrep and draped in a sterile fashion with the arm draped freely. A Spider arm support was used to support the arm. NARRATIVE: The patient was brought to the operating room and placed on the OR table in supine position where general endotracheal anesthesia was administered without complication after an interscalene block was administered in the preop hold area without complication. The patient was placed in the beach-chair position using a Tenet table with all bony prominences well padded. The shoulder was prepped with Betadine and alcohol and the subacromial space, glenohumeral joint and acromioclavicular joint were infiltrated with 0.25% Marcaine with epinephrine (30 mL). The shoulder was then formally prepped and draped in a sterile fashion. Using a [employer] arthroscopic pump set at 50 mmHg, lactated Ringer inflow solution was utilized. A 4.5-mm arthroscope was introduced without difficulty using a dull trocar atraumatically through a standard posterior portal. The glenohumeral joint, superior, middle and inferior glenohumeral ligaments, subscapularis, supraspinatus, infraspinatus, teres minor and biceps tendons were all evaluated arthroscopically. When needed, a separate anterior portal was used through the rotator interval, placed just lateral to the coracoid process and the portal was placed under direct visualization with needle localization. Then 0.25% Marcaine with epinephrine was instilled into the portal prior to placement with an 11-blade scalpel. Care was taken to protect the biceps tendon and subscapularis tendons as well as labrum during the portal placement. A hook probe was used to facilitate the evaluation of the shoulder. The arthroscope was then removed from the glenohumeral joint and placed in the subacromial space where arthroscopic evaluation was done to inspect the bursa. When required, for visualization a limited bursectomy was done with a 4.5-mm shaver and radiofrequency ablation device. A standard posterior portal was used for visualization and the standard anterolateral portal as well as the standard anterior portal was utilized. The anterior portal was the same skin incision which had previously been placed for the anterior rotator interval portal but the dull trocar was reintroduced into the subacromial space at the region of the acromioclavicular joint. The arthroscope was moved around from portal to portal for better visualization. Note that epinephrine was instilled into each 3-liter bag of lactated Ringer inflow solution based upon our standard protocol. Arthroscopic findings revealed that there was some injection and rubor all around the anterior capsule as well as the posterior and inferior capsule with some thickening appreciated to palpation and inspection. The subscapularis, supraspinatus, infraspinatus and teres minor were intact. The long head of the biceps was intact. There was a negative ramp test. The subscapularis also was inspected using a 70-degree arthroscope with the arm forward elevated 90 degrees and posterior directed stress applied to the humeral head. Clearly these tendons were all intact on the articular side. The superior, middle and inferior glenohumeral ligaments were also noted to be intact, although once again, the capsule appeared to be quite tight anteriorly and inferiorly, especially somewhat posteriorly. The labrum was clearly intact circumferentially, including superiorly. It was stable to hook probe palpation as well. The arthroscope was then placed in the subacromial space, where there was noted be a moderate amount of bursitis treated with partial bursectomy. Extensive debridement of the subacromial bursa was accomplished to expose the undersurface of the acromion, including the superior part of the scapula. The deltoid attachment sites posteriorly, laterally and anteriorly were also visualized and well preserved. The coracoacromial ligament was noted to be slightly frayed consistent with chronic impingement and was debrided with a shaver and a MegaVac 90 radiofrequency device, but was well preserved. The acromion was a gentle type 2 or mild type 1 and was therefore left alone. There were some small osteophytes noted at the acromioclavicular joint. Consistent with the preoperative plan, these were coplaned and removed with a 5.5 mm kamini and there was moderate arthrosis noted at the AC joint. This was treated with a distal clavicle resection, removing 6 mm distal clavicle from lateral to medial, inferior to superior, anterior to posterior using a 5.5 mm kamini with an end cutting and side cutting sheath. Hemostasis was maintained with the radiofrequency device. The periosteum and acromioclavicular ligament superiorly posteriorly and posteriorly inferiorly were preserved. Copious irrigation was utilized and all bony debris was removed from the subacromial fluid. At this point, the arthroscope was placed back in the glenohumeral joint where there was noted to be minimal glenohumeral arthrosis. This was a resection of the rotator interval capsule and accomplished using a MegaVac 90 radiofrequency device and the attachment sites to the coracoacromial ligamentat the base of the coracoid process were divided. Then, using the hook-tipped radiofrequency device and placing a large bump in the patient's upper arm between her chest wall and the midportion of the humerus, the arm was distracted and then adducted around the bolster and brought back in adductionto put tension on the capsule. This allowed a controlled capsulotomy to be performed using this radiofrequency device and using it also for hemostasis. Special care was taken at the anterior inferiorglenoid where the axillary nerve was closest to the capsule. The patient was not paralyzed and carewas taken to avoid the axillary nerve with just enough penetration of the capsular to create a capsulotomy. As this location was passed, I just brought my dissection more peripherally away from the glenoid labrum inferiorly to avoid the axillary nerve. This continued to the posterior inferior capsule. The arthroscope was then placed in the rotator interval portal and the hook-tipped radiofrequency device placed posteriorly and the capsulotomy was continued up posteriorly up to the posterior aspect of the labrum posterior to the biceps insertion and away from the suprascapular nerve. Before extending any further superiorly, the arthroscopic equipment was then removed and the shoulder was examined under anesthesia. This was found to have returned the patient's range of motion to normal. With the scapula stabilized, she could be forward elevated 100 degrees, abducted 90 degrees in the scapular plane, externally rotated to 90 degrees at 0 degrees abduction and internally rotated 60 degrees at 90 degrees abduction. Copious irrigation was utilized. Hemostasis was assured with the radiofrequency device and the arthroscopic portals were then repaired with 3-0 Prolene simple sutures. The arthroscopic posterior portal was used to deliver the arthroscopic cannula and dull obturator into the glenohumeral joint. Into this, 10 mL of 0.5% ropivacaine was delivered for postoperative analgesia. This was redirected to the subacromial space where an additional 10 mL was delivered anteriorly near the distal clavicle resection area. The cannula was removed and the posterior capsule repaired with 3-0 Prolene simple sutures. A spinal needle was then placed percutaneously, posterior to the distal clavicle and in line with the coracoid base. This was aimed at 15 degrees anteriorly and the coracoid base was encountered at the appropriate depth. Multiple aspirations were done to verify no intravascular placement, an additional 10 mL of 0.5% ropivacaine was delivered to create a suprascapular nerve block. The arthroscopic portals were then cleansed and covered with Adaptic, 4 x 4 gauzes and ABD pads, which were held in place with foam tape. She was placed in a Cryo/Cuff and then a sling postoperatively without the abduction pillow. She was extubated after sponge and needle counts were noted to be correct and no adverse clinical events to report. She was transferred to a hospital stretcher and taken to PACU in stable condition, suffering a minimal blood loss and no complications. She did receive 1200 mL of lactated Ringer's IV fluid intraoperatively. There was no urine output. There were no specimens or cultures sent and no drains left behind. The arthroscopic portals were repaired using 4-0 nylon sutures. The incisions were cleansed and dressed with Adaptic, covered with 4 x 4 gauze and ABD pads and held in place with foam tape. A Cryo/Cuff was placed and charged with ice water over which a sling was applied. The patient was extubated and transferred to a hospital stretcher and taken to postanesthesia care unit in stable condition suffering minimal blood loss and no complications. Unless otherwise noted, there were no complications, no blood loss, no cultures obtained, no specimens removed, and no drains retained. John Cooper III, MD 04 21 PM / John Cooper III, MD kn Confirmation: [id number] Dictation ID: [id number] documented in this encounter Miscellaneous Notes * Anesthesia Post-Eval - Wally Irizarry MD - 08/28/2015 1653 EST Post Anesthesia Evaluation Note Date of Service: 08/28/2015 Michelle Blanco, a 55 y.o. year old female has received General Anesthesia today. She has been evaluated, assessed and discharged from anesthesia care with stable cardiorespiratory function and alert mental status. The last set of recorded vital signs and pain rating were reviewed: Temp: 36.6 ??C (97.9 ??F), Heart Rate: 89 BPM, BP: 122/64 mmHg, Resp: 17, SpO2: 95 %,Numeric Pain Level (Scale 1-10): 4 Michelle Blanco participated in this evaluation unless otherwise noted. Her pain, nausea and vomiting have been managed and her body temperature and fluid balance have been restored. Additional monitoring and assessment needs have been addressed. If present, any postoperative events are documented below. Wally Irizarry MD 08/28/2015 16:53 * Brief Op Note - Rose Mary Guzman PA - 08/28/2015 1208 EST Date of procedure: 08/28/2015 Pre op dx: Right shoulder possible biceps tendinitis, possible rotator cuff tendintis, impingement,adhesive capsulitis Post op dx: Right shoulder adhesive capsulitis, impingement, AC joint arthrosis Procedure: Right shoulder arthroscopic capsular release, subacromial bursectomy, distal clavicle excision Surgeon: John Cooper MD Assist: JOSE DANIEL Sher Anesthesia: General EBL: Min IVF: 1000 cc Specimens: none To RR in Stable condition. JOSE DANIEL Sher documented in this encounter Plan of Treatment Not on file documented as of this encounter Procedures Procedure Name Priority Date/Time Associated Diagnosis Comments ECG REPORT - SCANNED 09/02/2015 10:40 EST documented in this encounter Results * ECG REPORT - SCANNED (09/02/2015 10:40 EST) 09/02/2015 10:4 0 EST Scan 2 Rougher Helper PROCEDURE/MINOR AMINA GICAL ORDERABLES documented in this encounter Visit Diagnoses Diagnosis Tendinitis of right rotator cuff- Primary Disorders of bursae and tendons in shoulder region, unspecified Tendinitis of right rotator cuff Disorders of bursae and tendons in shoulder region, unspecified Bicipital tendinitis of right shoulder Bicipital tenosynovitis Tear of supraspinatus tendon, right, subsequent encounter Primary osteoarthritis of right shoulder Primary localized osteoarthrosis, shoulder region Tear of supraspinatus tendon Supraspinatus (muscle) (tendon) sprain Bicipital tendinitis of right shoulder Bicipital tenosynovitis Primary osteoarthritis of right shoulder Primary localized osteoarthrosis, shoulder region documented in this encounter Administered Medications Inactive Administered Medications - up to 3 most recent administrations Medication Order MAR Action Action Date Dose Rate Site acetaminophen (TYLENOL) tablet 1,000 mg 1,000 mg, oral, PRE-OP ONCE, 1 dose, On Ritika 08/28/15 at 1045, Routine, Pre-Op DOS Rx Approved Given 08/28/2015 10:32 EST 1,000 mg acetaminophen (TYLENOL) tablet 500 mg 500 mg, oral, PRN, 2 doses, Starting on Ritika 08/28/15 at 1400, Until Ritika 08/28/15 at 1911, Pain, 6 hours after preop dose, Routine, Recovery (only) Given 08/28/2015 16:15 EST 1,000 mg ceFAZolin (ANCEF) syringe 2 g 2 g, intravenous, Administer over 10 Minutes, PRE-OP ONCE, 1 dose, On Ritika 08/28/15 at 1045, Routine, Pre-Op DOS Rx Approved Given by Other 08/28/2015 12:51 EST 2 g celecoxib (CELEBREX) capsule 200 mg 200 mg, oral, PRE-OP ONCE, 1 dose, On Ritika 08/28/15 at 1045, Routine, Pre-Op DOS Rx Approved Given 08/28/2015 10:33 EST 200 mg diphenhydrAMINE (BENADRYL) injection 6.25 mg 6.25 mg, intravenous, PRN, 2 doses, Starting on Ritika 2/25/16 at 1400, Until Ritika 08/28/15 at 1509, nausea, Routine, Recovery (only) Given 08/28/2015 15:09 EST 6.25 mg Given 08/28/2015 14:41 EST 6.25 mg fentaNYL citrate (PF) 50 mcg/mL injection 25-100 mcg 25-100 mcg, intravenous, EVERY 5 MIN PRN, Starting on Ritika 08/28/15 at 1400, Until Ritika 08/28/15 at 1911, Pain, Routine, Recovery (only) Given 08/28/2015 1 5:48 EST 50 mcg Given 08/28/2015 15:22 EST 50 mcg lactated ringers (LR) infusion at 25 mL/hr, intravenous, CONTINUOUS, Starting on Ritika 08/28/15 at 1045, Until Ritika 08/28/15 at 1312, Routine, Pre-Op DOS Rx Approved New Bag 08/28/2015 10:28 EST 25 mL/hr lactated ringers (LR) infusion at 150 mL/hr, intravenous, CONTINUOUS, Starting on Ritika 08/28/15 at 1430, Until Ritika 08/28/15 at 1911, Routine, Recovery (only) Rate Documented 08/28/2015 14:16 EST 150 mL/hr ondansetron (PF) (ZOFRAN) injection 4 mg 4 mg, intravenous, PRN, 1 dose, Starting on Ritika 08/28/15 at 1632, Until Ritika 08/28/15 at 1438, Nausea, Vomiting, Routine, Recovery (only) Given 08/28/2015 14:38 EST 2 mg oxyCODONE (OXYCONTIN) CR tablet 10 mg 10 mg, oral, PRE-OP ONCE, 1 dose, On Ritika 08/28/15 at 1045, Routine, Pre-Op DOS Rx Approved Given 08/28/2015 10:33 EST 10 mg oxyCODONE (ROXICODONE) immediate release tablet 5 mg 5 mg, oral, PRN, 2 doses, Starting on Ritika 08/28/15 at 1400, Until Ritika 08/28/15 at 1911, Pain, Routine, Recovery (only) Given 08/28/2015 15:19 EST 5 mg pregabalin (LYRICA) capsule 100 mg 100 mg, oral, PRE-OP ONCE, 1 dose, On Ritika 08/28/15 at 1045, Routine, Pre-Op DOS Rx Approved Given 08/28/2015 10:32 EST 100 mg documented in this encounter Discontinued Medications Medication Sig Discontinue Reason Start Date End Da te oxyCODONE-acetaminophen (PERCOCET) 5-325 mg per tablet Take 1 Tab by mouth every 6 hours 08/28/2015 ibuprofen (MOTRIN) 200 mg tablet Take 400 mg by mouth every 6 hours. 08/28/2015 documented as of this encounter Historical Medications * This list may reflect changes made after this encounter. Medication Sig Dispensed Refills Start Date End Date ibuprofen (MOTRIN) 200 mg tablet Take 400 mg by mouth every 6 hours. 08/28/2015 UNABLE TO FIND as needed. Reported on 09/09/2016 12/18/2018 added in this encounter Active and Recently Administered Medications Times are shown in EST. Scheduled Medication Order 08/26/2015 08/27/2015 08/28/2015 acetaminophen (TYLENOL) tablet 1,000 mg (COMPLETED) 1,000 mg, oral, PRE-OP ONCE, 1 dose, On Ritika 08/28/15 at 1045, Routine, Pre-Op DOS Rx Approved 1032 (Given - Provid er: Nancy Kinsey RN) ceFAZolin (ANCEF) syringe 2 g (COMPLETED) 2 g, intravenous, Administer over 10 Minutes, PRE-OP ONCE, 1 dose, On Ritika 08/28/15 at 1045, Routine, Pre-Op DOS Rx Approved 1251 (Given by Other - Provider: Kathleen Ramirez RN - Comment: Given in OR by anesthesia Jhony) celecoxib (CELEBREX) capsule 200 mg (COMPLETED) 200 mg, oral, PRE-OP ONCE, 1 dose, On Ritika 08/28/15 at 1045, Routine, Pre-Op DOS Rx Approved 1033 (Given - Provid er: Nancy Kinsey RN) oxyCODONE (OXYCONTIN) CR tablet 10 mg (COMPLETED) 10 mg, oral, PRE-OP ONCE, 1 dose, On Ritika 08/28/15 at 1045, Routine, Pre-Op DOS Rx Approved 1033 (Given - Provid er: Nancy Kinsey RN) pregabalin (LYRICA) capsule 100 mg (COMPLETED) 100 mg, oral, PRE-OP ONCE, 1 dose, On Ritika 08/28/15 at 1045, Routine, Pre-Op DOS Rx Approved 1032 (Given - Provid er: Nancy Kinsey RN) Continuous Medication Order 08/26/2015 08/27/2015 08/28/2015 lactated ringers (LR) infusion (CANCELED) at 25 mL/hr, intravenous, CONTINUOUS, Starting on Ritika 08/28/15 at 1045, Until Ritika 08/28/15 at 1312, Routine, Pre-Op DOS Rx Approved 1028 (New Bag - Prov ider: Cassia Richardson RN) lactated ringers (LR) infusion (CANCELED) at 150 mL/hr, intravenous, CONTINUOUS, Starting on Ritika 08/28/15 at 1430, Until Ritika 08/28/15 at 1911, Routine, Recovery (only) 1416 (Rate Documente d - Provider: Kell Frederick RN)1641 (Completed - Provider: Kell Frederick RN) PRN Medication Order 08/26/2015 08/27/2015 08/28/2015 acetaminophen (TYLENOL) tablet 500 mg (CANCELED) 500 mg, oral, PRN, 2 doses, Starting on Ritika 08/28/15 at 1400, Until Ritika 08/28/15 at 1911, Pain, 6 hours after preop dose, Routine, Recovery (only) 1615 (Given - Provid er: Kell Frederick RN) diphenhydrAMINE (BENADRYL) injection 6.25 mg (COMPLETED) 6.25 mg, intravenous, PRN, 2 doses, Starting on Ritika 08/28/15 at 1400, Until Ritika 08/28/15 at 1509, nausea, Routine, Recovery (only) 1441 (Given - Provid er: Kell Frederick RN)1509 (Given - Provider: Kell Frederick RN) fentaNYL citrate (PF) 50 mcg/mL injection 25-100 mcg (CANCELED) 25-100 mcg, intravenous, EVERY 5 MIN PRN, Starting on Ritika 16 at 1400, Until Ritika 16 at 1911, Pain, Routine, Recovery (only) 1522 (Given - Provid er: Kell Frederick RN)1548 (Given - Provider: Kell Frederick RN) ondansetron (PF) (ZOFRAN) injection 4 mg (COMPLETED) 4 mg, intravenous, PRN, 1 dose, Starting on Ritika 08/28/15 at 1632, Until Ritika 08/28/15 at 1438, Nausea, Vomiting, Routine, Recovery (only) 1438 (Given - Provid er: Kell Frederick, [place]) oxyCODONE (ROXICODONE) immediate release tablet 5 mg (CANCELED) 5 mg, oral, PRN, 2 doses, Starting on Ritika 08/28/15 at 1400, Until Ritika 08/28/15 at 1911, Pain, Routine, Recovery (only) 1519 (Given - Provid er: Kell Frederick, [place]) documented in this encounter Orders Medications Ordered That Lavon ht Not Have Been Administered Count Last Ordered Date First Ordered Date atropine 0.1 mg/mL syringe 0.5 mg 1 016 HYDROmorphone (PF) (DILAUDID ) 1 mg/mL injection 0.2-1 mg 1 08/28/2015 nalOXone (NARCAN) injection 0.2 mg 1 2015 promethazine (PHENERGAN) injection 12.5 mg 1 08/28/2015 Nursing Count Last Ordered Date First Orde red Date APPLY WARMING BLANKET 1 08/28/[address] SEQUENTIAL COMPRESSION DEVICE 1 08/28 Admission Count Last Ordered Date First Orde red Date STATUS: OUTPATIENT SURGICAL OP BED/SERVICES 1 08/28/2015 Transfer Count Last Ordered Date First Orde red Date NOTIFY PPS PACU PATIENT DISCHARGE 1 016 Discharge Count Last Ordered Date First Orde red Date DISCHARGE PATIENT 1 08/28/2015 documented in this encounter Care Teams Card Sorter Relationship Specialty Start Date End Date Matt Jackson MD PCP - General 11/04/08 08/10/18 documented as of this encounter
--- OUTSIDE RECORDS SUMMARY | 2024-02-24 17:06 | XMS_ITS | Encounter Summary ---
Author Organization [facility] Address [address] [place] [address] Care Team Providers Care Petroleum Plant Operator Name Role Phone Matt Jackson MD Primary Care Provider Unava ilable Encounter Details Date Type Department Care Team (Latest Contact Info) Description 01/08/2015 10:06 EDT - 01/08/2015 10:07 EDT Hospital Encounter [address] [address] John Rivera MD [address] [place] [phone] Discharge Disposition: Home or Self Care Social History Tobacco Use Types Packs/Day Years Used Date Smoking Tobacco: Never Sex and Gender Information Value Date Recorded Sex Assigned at Not on file Gender Identity Female 06/20/2020 11:02 EST Sexual Orientation Not on file documented as of this encounter Discharge Diagnoses Diagnosis 788.41 URINARY FREQUENCY[ICD-9-CM] 788.1 DYSURIA[ICD-9-CM] documented in this encounter Medications at Time of Discharge Medication Sig Dispensed Refills Start Date End Date oxyCODONE-acetaminophen (PERCOCET) 5-325 mg per tablet Take 1 Tab by mouth every 6 hours 08/28/2015 documented as of this encounter Discharge Disposition Disposition Code Departure Means Destination Home or Self Care documented in this encounter Plan of Treatment Not on file documented as of this encounter Procedures Procedure Name Priority Date/Time Associated Diagnosis Comments HARRY MAMMO SCREENING DIGITAL 05/22/2015 14:23 EST documented in this encounter Results * MA MAMMO SCREENING DIGITAL (05/22/2015 14:23 EST) Anatomical Region Laterality Modality Other 05/22/2015 14:2 3 EST 05/23/2015 8:15 EST Narrative 05/23/2015 8:15 EST Comparison has been made to previous images. Bilateral Breast Findings: (Routine digital views with CAD and implant displaced views) There are scattered fibroglandular densities (25% - 50% fibroglandular). Normal-appearing retro-pectoral implants are present. There are no other significant abnormalities. IMPRESSION: BILATERAL BREASTS: Normal-appearing retro-pectoral implants. Benign, no evidence of malignancy. Normal interval follow-up is recommended in 12 months. OVERALL ASSESSMENT - CATEGORY 2 - BENIGN END OF IMPRESSION These results will be communicated to your patient via a lay letter from Radiology. If any additional imaging is needed we will contact your patient directly. Procedure Note Corrina Ayala MD - 05/23/2015 Comparison has been made to previous images. Bilateral Breast Findings: (Routine digital views with CAD and implant displaced views) There are scattered fibroglandular densities (25% - 50% fibroglandular). Normal-appearing retro-pectoral implants are present. There are no other significant abnormalities. IMPRESSION: BILATERAL BREASTS: Normal-appearing retro-pectoral implants. Benign, no evidence of malignancy. Normal interval follow-up is recommended in 12 months. OVERALL ASSESSMENT - CATEGORY 2 - BENIGN END OF IMPRESSION These results will be communicated to your patient via a lay letter from Radiology. If any additional imaging is needed we will contact your patient directly. Tramaine Jackson MD IMG MAMMOGRAPHY ORDERABLES documented in this encounter Visit Diagnoses Not on filedocumented in this encounter Care Teams Petroleum Plant Operator Relationship Specialty Start Date End Date Matt Jackson MD PCP - General 11/04/08 08/10/18 documented as of this encounter
--- OUTSIDE RECORDS SUMMARY | 2024-02-24 17:06 | XMS_ITS | Encounter Summary ---
Author Organization [facility] Address [address] [place] [address] Care Team Providers Care Device Engineer Name Role Phone Matt Jackson MD Primary Care Provider Unava ilable Encounter Details Date Type Department Care Team (Late st Contact Info) Description 02/22/2011 Results Only Imaging [facility] [phone] Shukri Renae PA [address] [place] [address] Social History Tobacco Use Types Packs/Day Years Used Date Smoking Tobacco: Never Assessed Sex and Gender Information Value Date Recorded Sex Assigned at Not on file Gender Identity Female 06/20/2020 11:02 EST Sexual Orientation Not on file documented as of this encounter Plan of Treatment Not on file documented as of this encounter Procedures Procedure Name Priority Date/Time Associated Diagnosis Comments MA STEPHANIE DIAG DIGITAL UNILATERAL ADDED VIEWS 02/24/2011 14:12 EDT documented in this encounter Results * MA STEPHANIE DIAG DIGITAL UNILATERAL ADDED VIEWS (02/24/2011 14:12 EDT) Anatomical Region Laterality Modality Other 02/24/2011 14:1 2 EDT 03/01/2011 15:12 EDT Narrative 03/01/2011 15:12 EDT Study Date ?Accession # ? Procedure Code ?Location ? Procedure 02/10/2011 ?[id number] ?[facility] ?ACC ?MA MAMMO SCREENING DIGITAL ?? Reason for Study ? routine ?? 02/24/2011 ?[id number] ?US[facility]N ? ACC ?US ASPIRATION ANY SITE [...] text has not been altered. ?? T: ??03/01/2011/[facility] ?? Addendum Ends Procedure Note 03/01/2011 Study Date Accession # Procedure Code Location Procedure 02/10/2011 [id number] [facility] MA MAMMO SCREENING DIGITAL Reason for Study routine 02/24/2011 [id number] [facility] US ASPIRATION ANY SITE Reason for Study [...] purposes. The text has not been altered. /[facility] Addendum Ends Shukri SKY IMG MAMMOGRAPHY [facility] documented in this encounter Visit Diagnoses Not on filedocumented in this encounter Care Teams Device Engineer Relationship Specialty Start Date End Date Matt Jackson MD PCP - General 11/04/08 08/10/18 documented as of this encounter
--- OUTSIDE RECORDS SUMMARY | 2024-02-24 17:06 | XMS_ITS | Encounter Summary ---
Author Organization [facility] Address [address] [place] [address] Care Team Providers Care Perioperative Tech Name Role Phone Matt Jackson MD Primary Care Provider Unava ilable Encounter Details Date Type Department Care Team (Late st Contact Info) Description 02/15/2011 Results Only Imaging [facility] [phone] Shukri Renae PA [address] [place] [id number] Social History Tobacco Use Types Packs/Day Years Used Date Smoking Tobacco: Never Assessed Sex and Gender Information Value Date Recorded Sex Assigned at Not on file Gender Identity Female 06/20/2020 11:02 EST Sexual Orientation Not on file documented as of this encounter Plan of Treatment Not on file documented as of this encounter Procedures Procedure Name Priority Date/Time Associated Diagnosis Comments HARRY BROWN DIAG DIGITAL UNILATERAL ADDED VIEWS 02/16/2011 15:47 EDT documented in this encounter Results * HARRY BROWN DIAG DIGITAL UNILATERAL ADDED VIEWS (02/16/2011 15:47 EDT) Anatomical Region Laterality Modality Other 02/16/2011 15:4 7 EDT 02/17/2011 9:53 EDT Narrative 02/17/2011 9:53 EDT Right breast mammography (diagnostic) on 02/16/2011 Right breast ultrasound (diagnostic) on 02/16/2011 Comparisons: Screening mammograms on 02/10/2011, 03/08/2008, 03/07/2007. Indications: The patient is a 50-year-old female found to have a one view asymmetry in the central aspect of her right breast on her most recent screening mammogram. Right breast mammography findings: There are scattered fibroglandular densities. The repeat CC view again demonstrates an asymmetry in the central aspect of the breast. A rolled view suggests that this asymmetry is located within the upper portion of the right breast. Ultrasound is indicated for further evaluation. Right breast ultrasound findings: The upper breast was scanned between the 10:00 and 2:00 positions. At 10:00 5 cm out from the nipple, there is a round, well-circumscribed anechoic mass with faint posterior acoustic enhancement, measuring 3 x 2 x 3 mm, consistent with a simple cyst. At 11:00 4 cm out from the nipple, there is a round, well-circumscribed hypoechoic mass measuring 4 x 4 x 4 mm. No definite posterior acoustic shadowing or enhancement is present. No internal color Doppler flow or associated calcifications are identified. At 12:00 5 cm out from the nipple, there is an anechoic, well-circumscribed mass with a thin calcified rim and mild posterior acoustic shadowing. This corresponds to a round low-density lesion with peripheral calcification on the mammogram, findings consistent with a simple cyst with rim calcification. Right breast impression: BI-RADS Category 3: ??Probably benign. ?? 1. Round, well-circumscribed 4 mm hypoechoic mass at 11:00 4 cm out from the nipple. This appears to correspond to the one view asymmetry on mammography. While likely a cyst, the absence of posterior acoustic enhancement makes this lesion indeterminate. BI-RADS Category 3: ??Probably benign. ?? 2. Recommendation: Management options include attempted aspiration of the presumed cyst versus monitoring by followup mammogram and ultrasound in 6 months. These options were discussed in detail with patient and her who, given her strong family history of breast cancer, prefers to have the (likely)cyst aspirated as soon as possible. Therefore, the patient will be scheduled for ultrasound-guided cyst aspiration with mammography to follow if this lesion proves to be a cyst and decompresses during the FNA. Should the (likely) cyst fail to resolve with aspiration, ??core biopsy and clip placement will then be performed. The patient will be notified of her/his breast imaging results via a lay letter from Radiology. Radiology will contact the patient directly regarding any findings which require additional imaging (Category 0) at this time. I have personally reviewed the images and the above interpretation and agree with the findings. Procedure Note Brendon Velez MD - 02/17/2011 Right breast mammography (diagnostic) on 02/16/2011 Right breast ultrasound (diagnostic) on 02/16/2011 Comparisons: Screening mammograms on 02/10/2011, 03/08/2008, 03/07/2007. Indications: The patient is a 50-year-old female found to have a one view asymmetry in the central aspect of her right breast on her most recent screening mammogram. Right breast mammography findings: There are scattered fibroglandular densities. The repeat CC view again demonstrates an asymmetry in the central aspect of the breast. A rolled view suggests that this asymmetry is located within the upper portion of the right breast. Ultrasound is indicated for further evaluation. Right breast ultrasound findings: The upper breast was scanned between the 10:00 and 2:00 positions. At 10:00 5 cm out from the nipple, there is a round, well-circumscribed anechoic mass with faint posterior acoustic enhancement, measuring 3 x 2 x 3 mm, consistent with a simple cyst. At 11:00 4 cm out from the nipple, there is a round, well-circumscribed hypoechoic mass measuring 4 x 4 x 4 mm. No definite posterior acoustic shadowing or enhancement is present. No internal color Doppler flow or associated calcifications are identified. At 12:00 5 cm out from the nipple, there is an anechoic, well-circumscribed mass with a thin calcified rim and mild posterior acoustic shadowing. This corresponds to a round low-density lesion with peripheral calcification on the mammogram, findings consistent with a simple cyst with rim calcification. Right breast impression: BI-RADS Category 3: Probably benign. 1. Round, well-circumscribed 4 mm hypoechoic mass at 11:00 4 cm out from the nipple. This appears to correspond to the one view asymmetry on mammography. While likely a cyst, the absence of posterior acoustic enhancement makes this lesion indeterminate. BI-RADS Category 3: Probably benign. 2. Recommendation: Management options include attempted aspiration of the presumed cyst versus monitoring by followup mammogram and ultrasound in 6 months. These options were discussed in detail with patient and her who, given her strong family history of breast cancer, prefers to have the (likely)cyst aspirated as soon as possible. Therefore, the patient will be scheduled for ultrasound-guided cyst aspiration with mammography to follow if this lesion proves to be a cyst and decompresses during the FNA. Should the (likely) cyst fail to resolve with aspiration, core biopsy and clip placement will then be performed. The patient will be notified of her/his breast imaging results via a lay letter from Radiology. Radiology will contact the patient directly regarding any findings which require additional imaging (Category 0) at this time. I have personally reviewed the images and the above interpretation and agree with the findings. Shukri SKY IMG MAMMOGRAPHY [facility] documented in this encounter Visit Diagnoses Not on filedocumented in this encounter Care Teams Perioperative Tech Relationship Specialty Start Date End Date Mtat Jackson MD PCP - General 11/04/08 08/10/18 documented as of this encounter
--- OUTSIDE RECORDS SUMMARY | 2024-02-24 17:06 | XMS_ITS | Encounter Summary ---
Author Organization [facility] Address [address] [place] [address] Care Team Providers Care Racquet Maker Name Role Phone Matt Jackson MD Primary Care Provider Unava ilable Encounter Details Date Type Department Care Team (Late st Contact Info) Description 02/09/2011 Results Only Imaging [facility] [phone] Shukri Renae PA [address] [place] [id number] Social History Tobacco Use Types Packs/Day Years [...] Associated Diagnosis Comments MA MAMMO SCREENING DIGITAL 02/10/2011 15:31 EDT documented in this encounter Results * MA MAMMO SCREENING DIGITAL (02/10/2011 15:31 EDT) Anatomical Region Laterality Modality Other 02/10/2011 15:3 1 EDT 03/18/2011 11:44 EDT Narrative 02/11/2011 16:42 EDT Comparison is made to images from 03/08/2008 (bilateral) and images from 03/07/2007 (bilateral) and images from 02/16/2006 (bilateral) and images from 02/15/2005 (bilateral) and images from 02/13/2004 and images from 02/11/2003. Right Breast Findings: (CAD used to interpret routine digital) There are scattered fibroglandular densities (25% - 50% fibroglandular). An area of asymmetry is present slightly medial to the nipple on the CC view. Left Breast Findings: (CAD used to interpret routine digital) There are scattered fibroglandular densities (25% - 50% fibroglandular). No significant masses, calcifications or other abnormalities are seen. IMPRESSION: RIGHT BREAST: Asymmetry. Additional projections are recommended at this time in the CC projection. LEFT BREAST: Negative, no evidence of malignancy. Normal interval follow-up is recommended in 12 months. OVERALL ASSESSMENT - CATEGORY 0 - INCOMPLETE: NEED ADDITIONAL IMAGING EVALUATION END OF IMPRESSION The patient will be notified of her/his breast imaging results via a lay letter from Radiology. Radiology will contact the patient directly regarding any findings which require additional imaging (Category 0) at this time. Procedure Note 03/18/2011 Comparison is made to images from 03/08/2008 (bilateral) and images from 03/07/2007 (bilateral) and images from 02/16/2006 (bilateral) and images from 02/15/2005 (bilateral) and images from 02/13/2004 and images from 02/11/2003. Right Breast Findings: (CAD used to interpret routine digital) There are scattered fibroglandular densities (25% - 50% fibroglandular). An area of asymmetry is present slightly medial to the nipple on the CC view. Left Breast Findings: (CAD used to interpret routine digital) There are scattered fibroglandular densities (25% - 50% fibroglandular). No significant masses, calcifications or other abnormalities are seen. IMPRESSION: RIGHT BREAST: Asymmetry. Additional projections are recommended at this time in the CC projection. LEFT BREAST: Negative, no evidence of malignancy. Normal interval follow-up is recommended in 12 months. OVERALL ASSESSMENT - CATEGORY 0 - INCOMPLETE: NEED ADDITIONAL IMAGING EVALUATION END OF IMPRESSION The patient will be notified of her/his breast imaging results via a lay letter from Radiology. Radiology will contact the patient directly regarding any findings which require additional imaging (Category 0) at this time. Shukri ROSAS MAMMOGRAPHY [facility]NORS documented in this encounter Visit Diagnoses Not on filedocumented in this encounter Care Teams Racquet Maker Relationship Specialty Start Date End Date Matt Jackson MD PCP - General 11/04/08 08/10/18 documented as of this encounter
--- OUTSIDE RECORDS SUMMARY | 2024-02-24 17:06 | XMS_ITS | Encounter Summary ---
Author Organization [facility] Address [address] [place] [address] Care Team Providers Care Press Operator Carbon Blocks Name Role Phone Matt Jackson MD Primary Care Provider Unava ilable Encounter Details Date Type Department Care Team (Latest Contact Info) Description 02/10/2011 14:42 EDT - 02/10/2011 23:59 EDT Hospital Encounter [address] [address] Matt Jackson MD Discharge Disposition: Home or Self Care Social History Tobacco Use Types Packs/Day Years Used Date Smoking Tobacco: Never Assessed Sex and Gender Information Value Date Recorded Sex Assigned at Not on file Gender Identity Female 06/20/2020 11:02 EST Sexual Orientation Not on file documented as of this encounter Discharge Disposition Disposition Code Departure Means Destination Home or Self [facility] documented in this encounter Plan of Treatment Not on file documented as of this encounter Visit Diagnoses Not on filedocumented in this encounter Care Teams Press Operator Carbon Blocks Relationship Specialty Start Date End Date Matt Jackson MD PCP - General 11/04/08 08/10/18 documented as of this encounter
--- OUTSIDE RECORDS SUMMARY | 2024-02-24 17:06 | XMS_ITS | Encounter Summary ---
Author Organization [facility] Address [address] [place] [address] Care Team Providers Care Squad Boss Name Role Phone Matt Jackson MD Primary Care Provider Unava ilable Encounter Details Date Type Department Care Team (Latest Contact Info) Description 12/15/2010 8:17 EDT - 12/15/2010 8:18 EDT Hospital Encounter [address] [address] Shukri Renae PA [address] [place] [address] Discharge Disposition: Home or Self Care Social [...] on filedocumented in this encounter Care Teams Squad Boss Relationship Specialty Start Date End Date Matt Jackson MD PCP - General 11/04/08 08/10/18 documented as of this encounter
--- OUTSIDE RECORDS SUMMARY | 2024-02-24 17:06 | XMS_ITS | Encounter Summary ---
Author Organization [facility] Address [address] [place] [address] Care Team Providers Care Chief Solution Architect Name Role Phone Matt Jackson MD Primary Care Provider Unava ilable Encounter Details Date Type Department Care Team (Late st Contact Info) Description 03/30/2013 Results Only Imaging [facility] [phone] Matt Jackson MD Social History Tobacco Use [...] Associated Diagnosis Comments MA MAMMO SCREENING DIGITAL 04/03/2013 13:04 EDT documented in this encounter Results * MA MAMMO SCREENING DIGITAL (04/03/2013 13:04 EDT) Anatomical Region Laterality Modality Other 04/03/2013 13:0 4 EDT 04/03/2013 16:36 EDT Narrative 04/03/2013 16:36 EDT Comparison has been made to previous images. Bilateral Breast Findings: (Routine digital views with CAD) There are scattered fibroglandular densities (25% - 50% fibroglandular). No significant masses, calcifications or other abnormalities are seen. IMPRESSION: BILATERAL BREASTS: Negative, no evidence of malignancy. Normal interval follow-up is recommended in 12 months. OVERALL ASSESSMENT - CATEGORY 1 - NEGATIVE END OF IMPRESSION These results will be communicated to your patient via a lay letter from Radiology. If any additional imaging is needed we will contact your patient directly. Procedure Note 04/03/2013 Comparison has been made to previous images. Bilateral Breast Findings: (Routine digital views with CAD) There are scattered fibroglandular densities (25% - 50% fibroglandular). No significant masses, calcifications or other abnormalities are seen. IMPRESSION: BILATERAL BREASTS: Negative, no evidence of malignancy. Normal interval follow-up is recommended in 12 months. OVERALL ASSESSMENT - CATEGORY 1 - NEGATIVE END OF IMPRESSION These results will be communicated to your patient via a lay letter from Radiology. If any additional imaging is needed we will contact your patient directly. Matt Jackson MD IMG MAMMOGRAPHY [facility] documented in this encounter Visit Diagnoses Not on filedocumented in this encounter Care Teams Chief Solution Architect Relationship Specialty Start Date End Date Matt Jackson MD PCP - General 11/04/08 08/10/18 documented as of this encounter
--- OUTSIDE RECORDS SUMMARY | 2024-02-24 17:06 | XMS_ITS | Encounter Summary ---
Author Organization [facility] Address [address] [place] [address] Care Team Providers Care Director Alumni Relations Name Role Phone Matt Jackson MD Primary Care Provider Unava ilable Encounter Details Date Type Department Care Team (Latest Contact Info) Description 08/27/2015 Pre-Procedure Orders Encounter [facility] [address] [place], [place] [id number] Child, Rose Mary Willard PA-C [address] [place] [phone] Tendinitis of right rotator cuff (Primary Dx); Bicipital tendinitis of right shoulder; Tear of supraspinatus tendon, right, subsequent encounter; Primary osteoarthritis of right shoulder Social History Tobacco Use Types Packs/Day Years Used Date Smoking Tobacco: Never Sex and Gender Information Value Date Recorded Sex Assigned at Not on file Gender Identity Female 06/20/2020 11:02 EST Sexual Orientation Not on file documented as of this encounter Plan of Treatment Not on file documented as of this encounter Visit Diagnoses Diagnosis Tendinitis of right rotator cuff- Primary Disorders of bursae and tendons in shoulder region, unspecified Bicipital tendinitis of right shoulder Bicipital tenosynovitis Tear of supraspinatus tendon, right, subsequent encounter Primary osteoarthritis of right shoulder Primary localized osteoarthrosis, shoulder region documented in this encounter Care Teams Director Alumni Relations Relationship Specialty Start Date End Date Matt Jackson MD PCP - General 11/04/08 08/10/18 documented as of this encounter
--- OUTSIDE RECORDS SUMMARY | 2024-02-24 17:06 | XMS_ITS | Encounter Summary ---
Author Organization [facility] Address [address] [place] [address] Care Team Providers Care Pressurizer Name Role Phone Matt Jackson MD Primary Care Provider Unava ilable Encounter Details Date Type Department Care Team (Late st Contact Info) Description 01/08/2015 Results Only [facility] [phone] John Rivera MD [address] [place] [phone] Social History Tobacco Use Types Packs/Day Years Used Date Smoking Tobacco: Never Sex and Gender Information Value Date Recorded Sex Assigned at Not on file Gender Identity Female 06/20/2020 11:02 EST Sexual Orientation Not on file documented as of this encounter Plan of Treatment Not on file documented as of this encounter Procedures Procedure Name Priority Date/Time Associated Diagnosis Comments BACTERIAL CULTURE, URINE Routine 01/08/2015 20:02 EDT documented in this encounter Results * BACTERIAL CULTURE, URINE (01/08/2015 20:02 EDT) Result No growth 01/10/2015 7:32 EDT [facility] URINE / Unknown 01/08/2015 2 0:02 EDT 01/08/2015 20:02 EDT John Rivera MD MICROBIOLOGY - GENER AL ORDERABLES [facility] [address] [place] [address] documented in this encounter Visit Diagnoses Not on filedocumented in this encounter Care Teams Pressurizer Relationship Specialty Start Date End Date Matt Jackson MD PCP - General 11/04/08 2 documented as of this encounter
--- OUTSIDE RECORDS SUMMARY | 2024-02-24 17:06 | XMS_ITS | Encounter Summary ---
Author Organization [facility] Address [address] [place] [address] Care Team Providers Care Transportation Museum Helper Name Role Phone Matt Jackson MD Primary Care Provider Unava ilable Encounter Details Date Type Department Care Team (Late st Contact Info) Description 02/16/2011 15:09 EDT - 02/16/2011 23:59 EDT Hospital Encounter [facility] [address] [place] [address] Rocio Carrasco MD [address] [place] [phone] Discharge Disposition: Auto Discharge Social History Tobacco [...] Priority Date/Time Associated Diagnosis Comments RAD US BREAST UNILATERAL - ONE BREAST 02/16/2011 16:43 EDT documented in this encounter Results * RAD US BREAST UNILATERAL - ONE BREAST (02/16/2011 16:43 EDT) Anatomical Region Laterality Modality Other 02/16/2011 16:4 3 EDT 02/17/2011 9:53 EDT Narrative 02/17/2011 9:53 [...] above interpretation and agree with the findings. Matt Jackson MD IMG US ORDERABLES documented in this encounter Visit Diagnoses Not on filedocumented in this encounter Care Teams Transportation Museum Helper Relationship Specialty Start Date End Date Matt Jackson MD PCP - General 11/04/08 08/10/18 documented as of this encounter
--- OUTSIDE RECORDS SUMMARY | 2024-02-24 17:06 | XMS_ITS | Encounter Summary ---
Author Organization [facility] Address [address] [place] [address] Care Team Providers Care Automotive Technician Name Role Phone Matt Jackson MD Primary Care Provider Unava ilable Encounter Details Date Type Department Care Team (Late st Contact Info) Description 07/06/2013 Results Only [facility] - [facility] [address] [place] [id number] Pramod Franco MD [address] [place] [address] [address] [place] [phone] Social History Tobacco Use Types Packs/Day [...] Diagnosis Comments PAP TEST- RESULT ONLY Routine 07/06/2013 0:00 EST documented in this encounter Results * PAP TEST- RESULT ONLY (07/06/2013 0:00 EST) Pathology Report: CYTOPATHOLOGY REPORT Reports generated via electronic interface contain original data; however they are lacking the format of the original report. Caution should be taken when reading/interpreti ng unformatted reports. Name: ? MICHELLE BLANCO ? Accession #: ? [id number] : ? 1960 (Age: 52) ??F ?Collect Date: ? 07/06/2013 Location: ? [facility] ? Receive Date: ? 07/09/2013 Provider: ?PRAMOD FRANCO MD Copy to: ?MANDIE SKY ? Specimen/Source: ?Pap Test, Vagina, ThinPrep Imaging System with manual evaluation Last Menstrual Period: ? Treatment History: ? TASHA/BSO: S/P ? SPECIMEN ADEQUACY ? Satisfactory for Evaluation - assessment of transformation zone component not applicable ( e.g. atrophy, vaginal sample, hysterectomy) GENERAL CATEGORIZATION ? Negative for Intraepithelial Lesion or Malignancy ? Document reviewed and electronically signed by: ? Richelle Vallecillo, CT(ASCP) ? Report Date: ??07/10/2013 11:41 End of Report [facility] 07/06/2013 07/09/2013 Pramod Franco MD PATHOLOGY ORDERABLE S [facility] [address] [place] [address] documented in this encounter Visit Diagnoses Not on filedocumented in this encounter Care Teams Automotive Technician Relationship Specialty Start Date End Date Matt Jackson MD PCP - General 11/04/08 08/10/18 documented as of this encounter
--- OUTSIDE RECORDS SUMMARY | 2024-02-24 17:06 | XMS_ITS | Encounter Summary ---
Author Organization [facility] Address [address] [place] [address] Care Team Providers Care Fishing Tool Technician Oil Well Name Role Phone Matt Jackson MD Primary Care Provider Unava ilable Encounter Details Date Type Department Care Team (Latest Contact Info) Description 04/03/2013 12:37 EDT - 04/03/2013 23:59 EDT Hospital Encounter [facility] [address] [place] [address] Matt Jackson MD Discharge Disposition: Auto Discharge [...] on filedocumented in this encounter Care Teams Fishing Tool Technician Oil Well Relationship Specialty Start Date End Date Matt Jackson MD PCP - General 11/04/08 08/10/18 documented as of this encounter
--- OUTSIDE RECORDS SUMMARY | 2024-02-24 17:06 | XMS_ITS | Encounter Summary ---
Author Organization [facility] Address [address] [place] [address] Care Team Providers Care Tree Inspector Name Role Phone Matt Jackson MD Primary Care Provider Unava ilable Encounter Details Date Type Department Care Team (Latest Contact Info) Description 02/24/2011 12:49 EDT Hospital Encounter [facility] [address] [place] [address] Matt Jackson MD Discharge Disposition: Home or Self Care Social History Tobacco Use Types Packs/Day Years Used Date Smoking Tobacco: Never Assessed Sex and Gender Information Value Date Recorded Sex Assigned at Not on file Gender Identity Female 06/20/2020 11:02 EST Sexual Orientation Not on file documented as of this encounter Discharge Disposition Disposition Code Departure Means Destination Home or Self Half-Way documented in this encounter Miscellaneous Notes * Scanned Note-Null - Security Delivery Specialist, Scan - 02/24/2011 0000 EDT documented in this encounter Plan of Treatment Not on file documented as of this encounter Visit Diagnoses Not on filedocumented in this encounter Care Teams Tree Inspector Relationship Specialty Start Date End Date Matt Jackson MD PCP - General 11/04/08 08/10/18 documented as of this encounter
--- OUTSIDE RECORDS SUMMARY | 2024-02-24 17:06 | XMS_ITS | Encounter Summary ---
Author Organization [facility] Address [address] [place] [address] Care Team Providers Care Riveting Machine Operator Automatic Name Role Phone Matt Jackson MD Primary Care Provider Unava ilable Encounter Details Date Type Department Care Team (Latest Contact Info) Description 07/14/2015 15:52 EST - 07/14/2015 15:53 [facility] Hospital Encounter [address] [address] Shikha Benavidez MD [address] [place] [phone] Discharge Disposition: Home or Self Care Social History Tobacco Use Types Packs/Day Years Used Date Smoking Tobacco: Never Sex and Gender Information Value Date Recorded Sex Assigned at Not on file Gender Identity Female 06/20/2020 11:02 EST Sexual Orientation Not on file documented as of this encounter Discharge Diagnoses Diagnosis Z01.419 Encounter for gynecological examination (general) (routine) without abnormal findings-Z01.419[ICD-10-CM] Z11.51 Encounter for screening for human papillomavirus (HPV)-Z11.51[ICD-10-CM] Z12.4 Encounter for screening for malignant neoplasm of cervix-Z12.4[ICD-10-CM] documented in this encounter Medications at Time of Discharge Medication Sig Dispensed Refills Start Date End Date cephALEXin (KEFLEX) 500 mg capsule Take 1 Cap by mouth every 6 hours. Take 1 tablet every 6 hours for a total of 4 doses postop. 4 Cap 0 08/28/2015 03/25/2016 ibuprofen (MOTRIN) 200 mg tablet Take 400 mg by mouth every 6 hours. 08/28/2015 ondansetron (ZOFRAN-ODT) 4 mg disintegrating tablet Take 1 Tab by mouth every 8 hours as needed for Nausea. 10 Tab 0 08/28/2015 03/25/2016 oxyCODONE (ROXICODONE) 5 mg immediate release tablet Take 1-3 Tabs by mouth every 4 hours as needed for Pain (for severe/breakthrough pain). Daily Max: 90 mg 60 Tab 0 08/28/2015 03/25/2016 oxyCODONE-acetaminophen (PERCOCET) 5-325 mg per tablet Take 1 Tab by mouth every 6 hours 08/28/2015 UNABLE TO FIND as needed. Reported on 09/09/2016 12/18/2018 documented as of this encounter Discharge Disposition Disposition Code Departure Means Destination Home or Self Care documented in this encounter Plan of Treatment Not on file documented as of this encounter Visit Diagnoses Not on filedocumented in this encounter Care Teams Riveting Machine Operator Automatic Relationship Specialty Start Date End Date Matt Jackson MD PCP - General 11/04/08 08/10/18 documented as of this encounter
--- OUTSIDE RECORDS SUMMARY | 2024-02-24 17:06 | XMS_ITS | Encounter Summary ---
Author Organization [facility] Address [address] [place] [address] Care Team Providers Care Director Of Consumer Marketing Name Role Phone Matt Jackson MD Primary Care Provider Unava ilable Encounter Details Date Type Department Care Team (Late st Contact Info) Description 02/11/2011 Results Only Imaging [facility] [phone] Loyda Parra PA-C [address] [facility] [address] [place] [phone] Social History Tobacco Use Types Packs/Day Years Used Date Smoking Tobacco: Never Assessed Sex and Gender Information Value Date Recorded Sex Assigned at Not on file Gender Identity Female 06/20/2020 11:02 EST Sexual Orientation Not on file documented as of this encounter Plan of Treatment Not on file documented as of this encounter Procedures Procedure Name Priority Date/Time Associated Diagnosis Comments MR EXTREMITY HIP W CONTRAST 03/05/2011 17:19 EDT documented in this encounter Results * MR EXTREMITY HIP W CONTRAST (03/05/2011 17:19 EDT) Anatomical Region Laterality Modality Other 03/05/2011 17:1 9 EDT 03/10/2011 10:52 EDT Narrative 03/10/2011 10:52 EDT MR EXTREMITY HIP W CONTRAST ??Mar 05, 2011 05:19:00 PM SIGNS AND SYMPTOMS/COMMENTS: ??Left hip pain with catching and giving way some relief with injection. COMPARISON: ??None. Technique: Routine multiplanar and multisequence MR arthrographic images of the left hip were obtained after the successful intra-articular administration of contrast under fluoroscopic guidance using an anterior approach and without complications. FINDINGS: Only the left hip is evaluated. There is suboptimal image quality as per technologist report, the patient's severe claustrophobia necessitated imaging on the open MRI with body coil instead of dedicated hip coil. Because of this, diagnostic confidence is reduced and it is possible that pathology may be missed or misinterpreted. Despite study limitations, some useful observations are able to be made. There is successful intra-articular contrast within the left femoroacetabular joint. Some contrast material extends into the iliopsoas bursal space. There is suspicion for a tear involving a small portion of the anterosuperior left acetabular labrum (sagittal #15/16). There are mild degenerative changes in the left hip, manifesting mainly as small marginal osteophytes and mild articular cartilage thinning at the anterior/superior and superior-lateral portions of the joint. There is demonstration of a small dysplastic osseous bump on the anterior/superior of the left femoral head neck junction. ??The estimated alpha angle is increased being approximately 68 degrees (upper limits normal 55 degrees) as measured on the dedicated axial oblique images of the left hip. The ligamentum teres and the transverse acetabular ligaments appear intact. No evidence of avascular necrosis of the left femoral head. The visualized portions of the gluteus muscle-tendon complex appear intact including its attachments in the greater trochanter. However there is tendinosis of the gluteus minimus tendon and possibly mild partial tearing of the gluteus minimus tendon at its attachment onto the anterior facet of the greater trochanter. Although artifact compromises evaluation in this region. The visualized portions of the hamstring muscle-tendon complex appear intact including its attachment in the ischial tuberosity. The visualized portions of the iliopsoas muscle-tendon complex appear intact including its attachment in the lesser trochanter. The visualized portions of the rectus femoris muscle-tendon complex appear intact including its attachments in the ilium and anteroinferior iliac spine. IMPRESSION: 1. Small tear at the anterior/superior aspect of the left labrum. 2. Mild degenerative changes of the left hip joint with mild articular cartilage loss seen mainly at the anterior/superior and superior/lateral portions of the joint. 3. 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 However, this diagnosis cannot be made solely based on the imaging findings. Please correlate clinically for this syndrome. 4. Gluteus minimus shows tendinosis and possibly mild partial tearing near its attachment onto the anterior facet of the greater trochanter. Artifact compromises evaluation in this area. No significant trochanteric bursitis is visualized. 5. Study limitations. See above for details and additional findings. I have personally reviewed the images and the above interpretation and agree with the findings. Procedure Note Brendon Ghotra MD - 03/10/2011 MR EXTREMITY HIP W CONTRAST Mar 05, 2011 05:19:00 PM SIGNS AND SYMPTOMS/COMMENTS: Left hip pain with catching and giving way some relief with injection. COMPARISON: None. Technique: Routine multiplanar and multisequence MR arthrographic images of the left hip were obtained after the successful intra-articular administration of contrast under fluoroscopic guidance using an anterior approach and without complications. FINDINGS: Only the left hip is evaluated. There is suboptimal image quality as per technologist report, the patient's severe claustrophobia necessitated imaging on the open MRI with body coil instead of dedicated hip coil. Because of this, diagnostic confidence is reduced and it is possible that pathology may be missed or misinterpreted. Despite study limitations, some useful observations are able to be made. There is successful intra-articular contrast within the left femoroacetabular joint. Some contrast material extends into the iliopsoas bursal space. There is suspicion for a tear involving a small portion of the anterosuperior left acetabular labrum (sagittal #15/16). There are mild degenerative changes in the left hip, manifesting mainly as small marginal osteophytes and mild articular cartilage thinning at the anterior/superior and superior-lateral portions of the joint. There is demonstration of a small dysplastic osseous bump on the anterior/superior of the left femoral head neck junction. The estimated alpha angle is increased being approximately 68 degrees (upper limits normal 55 degrees) as measured on the dedicated axial oblique images of the left hip. The ligamentum teres and the transverse acetabular ligaments appear intact. No evidence of avascular necrosis of the left femoral head. The visualized portions of the gluteus muscle-tendon complex appear intact including its attachments in the greater trochanter. However there is tendinosis of the gluteus minimus tendon and possibly mild partial tearing of the gluteus minimus tendon at its attachment onto the anterior facet of the greater trochanter. Although artifact compromises evaluation in this region. The visualized portions of the hamstring muscle-tendon complex appear intact including its attachment in the ischial tuberosity. The visualized portions of the iliopsoas muscle-tendon complex appear intact including its attachment in the lesser trochanter. The visualized portions of the rectus femoris muscle-tendon complex appear intact including its attachments in the ilium and anteroinferior iliac spine. IMPRESSION: 1. Small tear at the anterior/superior aspect of the left labrum. 2. Mild degenerative changes of the left hip joint with mild articular cartilage loss seen mainly at the anterior/superior and superior/lateral portions of the joint. 3. 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 However, this diagnosis cannot be made solely based on the imaging findings. Please correlate clinically for this syndrome. 4. Gluteus minimus shows tendinosis and possibly mild partial tearing near its attachment onto the anterior facet of the greater trochanter. Artifact compromises evaluation in this area. No significant trochanteric bursitis is visualized. 5. Study limitations. See above for details and additional findings. I have personally reviewed the images and the above interpretation and agree with the findings. Loyda Parra PA-C IMG MRI ORDERABL ES documented in this encounter Visit Diagnoses Not on filedocumented in this encounter Care Teams Director Of Consumer Marketing Relationship Specialty Start Date End Date Matt Jackson MD PCP - General 11/04/08 08/10/18 documented as of this encounter
--- OUTSIDE RECORDS SUMMARY | 2024-02-24 17:06 | XMS_ITS | Encounter Summary ---
Author Organization [facility] Address [address] [place] [address] Care Team Providers Care Biology Specimen Technician Name Role Phone Matt Townsend MD Primary Care Provider Unava ilable Encounter Details Date Type Department Care Team (Late st Contact Info) Description 09/09/2016 12:51 EST - 09/09/2016 15:40 EST Hospital Encounter [facility] Outpatient [address] [place] [address] Shubham Atkins MD [address] [facility] [address] [place] [address] Discharge Disposition: Home or Self Care Social [...] Sign Reading Time Taken Comments Blood Pressure 122/61 09/09/2016 1506 EST Pulse 63 09/09/2016 1506 EST Temperature 35.6 ??C (96.1 ??F) 09/09/2016 1345 EST Respiratory Rate 26 09/09/2016 1455 EST Oxygen Saturation 100% 09/09/2016 1455 EST Inhaled Oxygen Concentration - - Weight 77.1 kg (170 lb) 09/09/2016 1342 EST Height 172.7 cm (5' 8) 09/09/2016 1342 EST Body Mass Index 25.85 09/09/2016 1342 EST documented in this encounter Discharge Diagnoses Diagnosis Z12.11 Encounter for screening for malignant neoplasm of colon-Z12.11[ICD-10-CM] Z90.49 Acquired absence of other specified parts of digestive tract-Z90.49[ICD-10-CM] D12.8 Benign neoplasm of rectum-D12.8[ICD-10-CM] Z87.891 Personal history of nicotine dependence-Z87.891[ICD-10-CM] documented in this encounter Medications at Time of Discharge Medication Sig Dispensed Refills Start Date End Date ibuprofen (MOTRIN) 200 mg tablet Take 800 mg by mouth 3 times daily as needed for Pain. MULTIVITAMIN ORAL Take by mouth. Reported on 09/09/2016 12/18/2018 UNABLE TO FIND as needed. Reported on 09/09/2016 12/18/2018 documented as of this encounter Discharge Disposition Disposition Code Departure Means Destination Home or Self Care documented in this encounter H&P Notes * Shubham Atkins MD - 09/09/2016 1429 EST Endoscopy Sedation for Procedure History & Physical Date: 09/09/2016 Time: 14:29 Location: [address] Planned Procedure: Colonoscopy Chief Complaint/Indications for Procedure: screening; bowel resection hx History Previous Complication with Sedation and/or Anesthesia? No Allergies: Allergies Allergen Reactions ??? Imitrex [Sumatriptan Succinate] Shortness Of Breath, Anxiety and Other (See Comments) Heavy feeling in chest Current Medications: Current Outpatient Prescriptions Medication Sig Dispense Refill ??? IBUPROFEN (ADVIL ORAL) Take by mouth. ??? MULTIVITAMIN ORAL Take by mouth. Reported on 09/09/2016 ??? UNABLE TO FIND as needed. Reported on 09/09/2016 Current Facility-Administered Medications Medication Route Frequency ??? fentaNYL citrate (PF) 50 mcg/mL injection 100-250 mcg intravenous Once PRN ??? heparin (PF) 100 unit/mL lock flush 500 Units intercatheter PRN ??? lactated ringers (LR) infusion intravenous CONTINUOUS ??? midazolam (PF) (VERSED) 1 mg/mL injection 1-10 mg intravenous Once PRN Past Medical History: Past Medical History: Diagnosis Date ??? 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 Adhesive capsulitis of shoulder 05/07/2014 ??? Basal cell carcinoma 08/19/14 right occipital scalp ??? Cellulitis of shoulder 09/05/2015 Cellulitis of right shoulder anteror incision ??? 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 Impingement syndrome of right shoulder 04/23/2015 Secondary ??? Right bicipital tenosynovitis 06/03/2015 ??? Supraspinatus tendon tear 04/23/2015 ??? Trochanteric bursitis 02/22/2012 Social History: Past Surgical History: Procedure Laterality Date ??? ABDOMEN SURGERY ??? APPENDECTOMY ??? CHOLECYSTECTOMY ??? COLON SURGERY ??? COSMETIC SURGERY ??? GALLBLADDER SURGERY ??? HYSTERECTOMY ??? MOHS SURGERY 08/19/14 right occipital scalp ??? SHOULDER ARTHROSCOPY Right 08/28/2015 Capsular Release DCE ??? SKIN BIOPSY ??? TONSILLECTOMY Social History Substance Use Topics ??? Smoking status: Former Smoker ??? Smokeless tobacco: Not on file ??? Alcohol use Yes Comment: occas Family History: Family History Problem Relation Age of Onset ??? Cancer Mother lung ??? Cancer Maternal Grandmother ??? Cancer Maternal Grandfather Review of Systems as pertinent: Physical Exam Vital Signs: Visit Vitals ??? BP 136/73 ??? Temp 35.6 ??C (96.1 ??F) (Tympanic) ??? Resp 12 ??? Ht 172.7 cm (68) ??? Wt 77.1 kg (170 lb) ??? SpO2 100% ??? BMI 25.85 kg/m2 Heart Examination: Cardiac Regularity: Regular Respiratory Examination: Respiratory Pattern: Regular Breath Sounds Right: Clear Breath Sounds Left: Clear Abdominal Examination: Soft, non-tender, bowel sounds normal, no masses, no organomegaly Additional physical exam related to the proposed procedure, patient activity, disease state and treatment as pertinent: Assessment Previous complications with sedation or anesthesia?: No Airway Concerns: None Anesthesia Classification: ASA 1 Plan: Proceed with sedation for procedure Fasting Time: Time of last liquid intake: 1230 Date of Last Liquid Intake: 09/09/16 Time of last solid intake: 0700 Date of last solid intake: 09/08/16 Patient Appropriate Candidate for Planned Sedation?: Yes Shubham Atkins MD 09/09/2016 14:29 * Shubham Atkins MD - 09/09/2016 1429 EST Endoscopy Sedation for Procedure History & Physical Date: 09/09/2016 Time: 14:29 Location: [address] Planned Procedure: Colonoscopy Chief Complaint/Indications for Procedure: screening; bowel resection hx History Previous Complication with Sedation and/or Anesthesia? No Allergies: Allergies Allergen Reactions ??? Imitrex [Sumatriptan Succinate] Shortness Of Breath, Anxiety and Other (See Comments) Heavy feeling in chest Current Medications: Current Outpatient Prescriptions Medication Sig Dispense Refill ??? IBUPROFEN (ADVIL ORAL) Take by mouth. ??? MULTIVITAMIN ORAL Take by mouth. Reported on 09/09/2016 ??? UNABLE TO FIND as needed. Reported on 09/09/2016 Current Facility-Administered Medications Medication Route Frequency ??? fentaNYL citrate (PF) 50 mcg/mL injection 100-250 mcg intravenous Once PRN ??? heparin (PF) 100 unit/mL lock flush 500 Units intercatheter PRN ??? lactated ringers (LR) infusion intravenous CONTINUOUS ??? midazolam (PF) (VERSED) 1 mg/mL injection 1-10 mg intravenous Once PRN Past Medical History: Past Medical History: Diagnosis Date ??? 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 Adhesive capsulitis of shoulder 05/07/2014 ??? Basal cell carcinoma 08/19/14 right occipital scalp ??? Cellulitis of shoulder 09/05/2015 Cellulitis of right shoulder anteror incision ??? 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 Impingement syndrome of right shoulder 04/23/2015 Secondary ??? Right bicipital tenosynovitis 06/03/2015 ??? Supraspinatus tendon tear 04/23/2015 ??? Trochanteric bursitis 02/22/2012 Social History: Past Surgical History: Procedure Laterality Date ??? ABDOMEN SURGERY ??? APPENDECTOMY ??? CHOLECYSTECTOMY ??? COLON SURGERY ??? COSMETIC SURGERY ??? GALLBLADDER SURGERY ??? HYSTERECTOMY ??? MOHS SURGERY 08/19/14 right occipital scalp ??? SHOULDER ARTHROSCOPY Right 08/28/2015 Capsular Release DCE ??? SKIN BIOPSY ??? TONSILLECTOMY Social History Substance Use Topics ??? Smoking status: Former Smoker ??? Smokeless tobacco: Not on file ??? Alcohol use Yes Comment: occas Family History: Family History Problem Relation Age of Onset ??? Cancer Mother lung ??? Cancer Maternal Grandmother ??? Cancer Maternal Grandfather Review of Systems as pertinent: Physical Exam Vital Signs: Visit Vitals ??? BP 136/73 ??? Temp 35.6 ??C (96.1 ??F) (Tympanic) ??? Resp 12 ??? Ht 172.7 cm (68) ??? Wt 77.1 kg (170 lb) ??? SpO2 100% ??? BMI 25.85 kg/m2 Heart Examination: Cardiac Regularity: Regular Respiratory Examination: Respiratory Pattern: Regular Breath Sounds Right: Clear Breath Sounds Left: Clear Abdominal Examination: Soft, non-tender, bowel sounds normal, no masses, no organomegaly Additional physical exam related to the proposed procedure, patient activity, disease state and treatment as pertinent: Assessment Previous complications with sedation or anesthesia?: No Airway Concerns: None Anesthesia Classification: ASA 1 Plan: Proceed with sedation for procedure Fasting Time: Time of last liquid intake: 1230 Date of Last Liquid Intake: 09/09/16 Time of last solid intake: 0700 Date of last solid intake: 09/08/16 Patient Appropriate Candidate for Planned Sedation?: Yes Shubham Atkins MD 09/09/2016 14:29 documented in this encounter Plan of Treatment Not on file documented as of this encounter Procedures Procedure Name Priority Date/Time Associated Diagnosis Comments PROCEDURE REPORTS - SCANNED 09/10/2016 0:37 EST SURGICAL PATHOLOGY Routine 09/09/2016 8:44 EST documented in this encounter Results * PROCEDURE REPORTS - SCANNED (09/10/2016 0:37 EST) 09/10/2016 0:37 EST Scan 2 Yoga Teacher PROCEDURE/MINOR AMINA GICAL ORDERABLES * SURGICAL PATHOLOGY (09/09/2016 8:44 EST) Pathology Report: SURGICAL PATHOLOGY REPORT Reports generated via electronic interface contain original data; however they are lacking the format of the original report. Caution should be taken when reading/interpret ing unformatted reports. Name: ? MICHELLE BLANCO ? Accession #: ? [id number] ? : ? 1960 (Age: 56) ??F ? Collect Date: ? 09/09/2016 ? Location: ? ENDOP ? Receive Date: ? 09/09/2016 ? Provider: SHUBHAM ATKINS MD Copy to: MATT TOWNSEND MD ? Final Pathologic Diagnosis: RECTUM, POLYP, BIOPSY: - Two (2) portions of tubulovillous adenoma; negative for high-grade dysplasia. Document reviewed and electronically signed by: Tiana Smith MD Report ??Date: 09/13/2016 17:17 By the signature above, the attending physician certifies that he/she has personally conducted a gross and/or microscopic examination of the described specimens and rendered or confirmed the above diagnosis. Specimen(s) Received: Rectal polyp Clinical History: Screening colonoscopy Gross Description: ? Received in formalin labelled with proper patient identification (initials M, P) and rectal polyp are two fragments of reyes-pink tissue measuring 0.3 and 0.7 cm in greatest dimension. The specimens are submitted entirely in 1. JOSE DANIEL Da Silva (ASCP) 09/10/2016 11:20 AM End of Report [facility] 09/09/2016 8:44 EST 09/09/2016 8:44 EST Shubham Atkins MD PATHOLOGY ORDERAB LES [facility] [address] [place] [address] documented in this encounter Visit Diagnoses Not on filedocumented in this encounter Administered Medications Inactive Administered Medications - up to 3 most recent administrations Medication Order MAR Action Action Date Dose Rate Site fentaNYL citrate (PF) 50 mcg/mL injection 100-250 mcg 100-250 mcg, intravenous, ONCE PRN, 1 dose, Starting on Ritika 09/09/16 at 1345, Until Ritika 09/09/16 at 1442, Other, sedation, Routine, Intraprocedure Given 09/09/2016 14:42 EST 75 mcg lactated ringers (LR) infusion 30 mL/hr, intravenous, CONTINUOUS, Starting on Ritika 09/09/16 at 1415, Until Ritika 09/09/16 at 1741, Routine, Preprocedure New Bag 09/09/2016 14:12 EST 30 mL/hr 30 mL/hr midazolam (PF) (VERSED) 1 mg/mL injection 1-10 mg 1-10 mg, intravenous, ONCE PRN, 1 dose, Starting on Ritika 09/09/16 at 1345, Until Ritika 09/09/16 at 1442, Sedation, Routine, Intraprocedure Given 09/09/2016 14:42 EST 3 mg documented in this encounter Historical Medications * This list may reflect changes made after this encounter. Medication Sig Dispensed Refills Start Date End Date ibuprofen (MOTRIN) 200 mg tablet Take 800 mg by mouth 3 times daily as needed for Pain. added in this encounter Orders Medications Ordered That Lavon ht Not Have Been Administered Count Last Ordered Date First Ordered Date heparin (PF) 100 unit/mL loc k flush 500 Units 1 09/09/2016 Transfer Count Last Ordered Date First Orde red Date NOTIFY PPS OF DISCHARGE COMPLETE 1 09/10/19 17 Discharge Count Last Ordered Date First Orde red Date DISCHARGE PATIENT 1 09/09/2016 documented in this encounter Care Teams Biology Specimen Technician Relationship Specialty Start Date End Date Matt Townsend MD PCP - General 11/04/08 08/10/18 documented as of this encounter
--- OUTSIDE RECORDS SUMMARY | 2024-02-24 17:06 | XMS_ITS | Encounter Summary ---
Author Organization [facility] Address [address] [place] [address] Care Team Providers Care Eap Clinician Name Role Phone Matt Jackson MD Primary Care Provider Shukri Sethi Primary Care Provider [phone] Yasmeen Grace Primary Care Provider + Reason for Visit * Reason Onset Date Comments Requesting Sooner Appointment 07/17/2014 Encounter Details Date Type Department Care Team (Late st Contact Info) Description 07/17/2014 Telephone [facility] Dermatology 3rd Floor [address] [id number] Zi Lopez MD [address] [facility], [address] [place] [address] Requesting Sooner Appointment Social History Tobacco Use Types Packs/Day Years Used Date Smoking Tobacco: Never Sex and Gender Information Value Date Recorded Sex Assigned at Not on file Gender Identity Female 06/20/2020 11:02 EST Sexual Orientation Not on file documented as of this encounter Miscellaneous Notes * Telephone Encounter - Linda Green - 07/17/2014 1646 EST Rescheduled patient for Mohs surgery on 08/19/14 at 1:15pm. Linda Green 16:46 07/17/2014 * Telephone Encounter - Alison Webster - 07/17/2014 2678 EST Patient is requesting a MOH's appointment for M1 BCC right scalp before September. Please call patient to schedule appointment. documented in this encounter Plan of Treatment Not on file documented as of this encounter Visit Diagnoses Not on filedocumented in this encounter Care Teams Eap Clinician Relationship Specialty Start Date End Date Matt Jackson MD PCP - General 11/04/08 08/10/18 Shukri Renae PA [address] [place] [address] [place] [id number] PCP - General 08/11/18 08/26/19 Yasmeen Grace PA [address] [place] [address] [place] [phone] PCP - General 08/27/19 documented as of this encounter
--- OUTSIDE RECORDS SUMMARY | 2024-02-24 17:06 | XMS_ITS | Encounter Summary ---
Author Organization [facility] Address [address] [place] [address] Care Team Providers Care Market Maker Name Role Phone Matt Jackson MD Primary Care Provider Unava ilable Encounter Details Date Type Department Care Team (Late st Contact Info) Description 03/05/2011 14:30 EDT - 03/05/2011 23:59 EDT Hospital Encounter [facility] [address] [place] [address] Loyda Parra PA-C [address] [facility], [address] [place] [phone] Discharge Disposition: Home or Self Care Social History Tobacco Use Types Packs/Day Years Used Date Smoking Tobacco: Never Assessed Sex and Gender Information Value Date Recorded Sex Assigned at Not on file Gender Identity Female 06/20/2020 11:02 EST Sexual Orientation Not on file documented as of this encounter Discharge Disposition Disposition Code Departure Means Destination Home or Self Intermediate documented in this encounter Miscellaneous Notes * Scanned Note-Null - Operator Command Support Systems, Scan - 03/05/2011 0000 EDT documented in this encounter Plan of Treatment Not on file documented as of this encounter Visit Diagnoses Not on filedocumented in this encounter Care Teams Market Maker Relationship Specialty Start Date End Date Matt Jackson MD PCP - General 11/04/08 08/10/18 documented as of this encounter
--- OUTSIDE RECORDS SUMMARY | 2024-02-24 17:06 | XMS_ITS | Encounter Summary ---
Author Organization [facility] Address [address] [place] [address] Care Team Providers Care Hotel Reservation Agent Name Role Phone Matt Jackson MD Primary Care Provider Unava ilable Encounter Details Date Type Department Care Team (Latest Contact Info) Description 05/22/2015 13:17 EST - 05/22/2015 23:59 EST Hospital Encounter [facility] [address] [place] [address] Matt Jackson MD Discharge Disposition: Auto Discharge Social History Tobacco Use Types Packs/Day Years Used Date Smoking Tobacco: Never Sex and Gender Information Value Date Recorded Sex Assigned at Not on file Gender Identity Female 06/20/2020 11:02 EST Sexual Orientation Not on file documented as of this encounter Discharge Diagnoses Diagnosis Z12.31 Encounter for screening mammogram for malignant neoplasm of breast-Z12.31[ICD-10-CM] Z98.82 Breast implant status-Z98.82[ICD-10-CM] documented in this encounter Medications at Time [...] on filedocumented in this encounter Care Teams Hotel Reservation Agent Relationship Specialty Start Date End Date Matt Jackson MD PCP - General 11/04/08 08/10/18 documented as of this encounter
--- OUTSIDE RECORDS SUMMARY | 2024-02-24 17:06 | XMS_ITS | Encounter Summary ---
Author Organization [facility] Address [address] [place] [address] Care Team Providers Care Cigar Inspector Name Role Phone Matt Jackson MD Primary Care Provider Unava ilable Reason for Referral * Radiology Services (Routine/Next Available) - Closed Specialty Diagnoses / Procedures Referred By Contleeanne t Referred To Contact Diagnoses Left shoulder pain, unspecified chronicity Procedures MSK SHOULDER Ronal Rodrigues MD [address] [place] [phone] Referral ID Status Reason Start Date Expiration Date Visits Re quested Visits Authorized [id number] Closed 07/16/2016 1 1 Reason for Visit * Reason Onset Date Comments Other 07/16/2016 Encounter Details Date Type Department Care Team (Late st Contact Info) Description 07/16/2016 Orders Only [facility] Sports Medicine Program - [address] [place] [address] Ronal Rodrigues MD [address] [place] [phone] Left shoulder pain, unspecified chronicity (Primary Dx) Social History Tobacco Use Types [...] Procedure Name Priority Date/Time Associated Diagnosis Comments MSK US SHOULDER Routine 07/16/2016 15:52 EST Left shoulder pain, unspecified chronicity documented in this encounter Results * MSK US SHOULDER (07/16/2016 15:52 EST) Anatomical Region Laterality Modality Other 07/16/2016 15:5 2 EST Narrative 07/16/2016 15:52 EST Non Reportable Exam Procedure Note SOCIAL SCIENCE RESEARCH ASSISTANT, IMAGING - 07/22/2016 Non Reportable Exam Ronal Rodrigues MD G US ORDERABLES documented in this encounter Visit Diagnoses Diagnosis Left shoulder pain, unspecified chronicity- Primary documented in this encounter Care Teams Cigar Inspector Relationship Specialty Start Date End Date Matt Jackson MD PCP - General 11/04/08 08/10/18 documented as of this encounter
--- OUTSIDE RECORDS SUMMARY | 2024-02-24 17:06 | XMS_ITS | Encounter Summary ---
Author Organization [facility] Address [address] [place] [address] Care Team Providers Care Plant Equipment Engineer Name Role Phone Matt Jackson MD Primary Care Provider Unava ilable Reason for Referral * PT/OT/ST (Routine/Next Available) - Closed Specialty Diagnoses / Procedures Referred By Manisha smiley Referred To Contact Diagnoses Secondary adhesive capsulitis of right shoulder Impingement syndrome of right shoulder Surgical aftercare, musculoskeletal system John Cooper III, MD [address] [place] [phone] Referral ID Status Reason Start Date Expiration Date V isits Requested Visits Authorized [id number] Closed Specialty Services Required 03/24/2016 1 1 Question Answer Reason for Request: OK to wean to independent exercise now Reason for Visit * Reason Comments Shoulder Pain right Encounter Details Date Type Department Care Team (Latest Contact Info) Description 03/24/2016 9:00 EDT Office Visit [facility] - [address] [place] [address] [phone] John Cooper III, MD [address] [place] [phone] Secondary adhesive capsulitis of right shoulder (Primary Dx); Surgical aftercare, musculoskeletal system; Impingement syndrome of right shoulder; Impingement syndrome of left shoulder; Right bicipital tenosynovitis; Adhesive capsulitis of right shoulder Social History Tobacco Use [...] - - Weight 77.1 kg (170 lb) 03/24/2016 0910 EDT anu ent reported Height 170.2 cm (5' 7) 03/24/2016 0910 EDT anu ent reported Body Mass Index 26.63 03/24/2016 0910 EDT documented in this encounter Progress Notes * John Cooper MD - 03/24/2016 0908 EDT HPI The patient returns for a postoperative visit after undergoing right capsular release, subacromial bursectomy, distal clavicle excision on 08/28/15. She has no unusual complaints. The patient denies fever, chills, excessive drainage from the wound,and changes in sensation and strength. She is recovering at home, has resumed activities of daily living and is up to full weight bearing. REVIEW OF SYSTEMS: Yes No Yes No [...] x Rash x Balance Issues x This patient follows up noticing that her right shoulder is improving. She is exercising independently for the most part. She is attending physical therapy once a week but does not wish to do so as to as a very long drive and she does not think it's helping much. She is following my instructions of having stopped some of her exercises and focused on posterior capsule stretching. She thinks this is has improved her symptoms. Her steady ache is now much better.She is sleeping better at night in terms of the shoulder. She still gets a sharp pain when she moves her right arm the wrong position but that is less common. She does note however that her range of motion has not returned to normal. She restates (or tells me that she restates) that her left shoulder continues to bother her. She maintains that she has been telling me this ever since her right shoulder surgery. She says her left shoulder has been fine all along but after the right shoulder surgery she started getting increasing left shoulder pain because she was sleeping on that side and using for all her activities. The left shoulder pain has been getting worse instead of better. That pain is primarily anterosuperiorly and deep. 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 She continues to deny numbness and tingling is a component of her pain or any sense of shoulder instability. Weakness is also not a significant factor. This patient was seen today along with her rehabilitation assistant Farhana Parikh. Objective: This patient is alert, awake and cooperative. This patient is normocephalic. This patient's mood is appropriate. This patient is in no acute distress. This patient has unlabored breathing with a normal rate and rhythm. This patient has a regular pulse. Her cervical spine has a full range of motion except for some slight loss of left and right lateralflexion. Cervical compression to the right and to the left does not recreate shoulder pain on either side. There is no obvious tenderness to palpation over the scalenus anticus muscles bilaterally. She has a mild scapular protraction deformity bilaterally which is physiologic for her. There is nogross scapular winging. She has no obvious deformity to either shoulder. There is no specific area of point tenderness. There is no muscle atrophy. She has 170?? of active forward elevation of the right shoulder compared to 180?? on the left. She has 180?? of active abduction in the scapular plane bilaterally. She has 60?? of active external rotation of the right shoulder at 0?? abduction compared to 80?? onthe left. Internal rotation at 0?? of abduction is to S1 on the right. T12 on the left. Passive motion is measured with the scapula stabilized. This reflects pure glenohumeral motion: There is 100?? of forward elevation on the right compared to 90?? on the left. There is 90?? of abduction in the scapular plane. At S degrees of abduction is 70?? of external rotation on the right compared to 80?? on the left. At 90?? of abduction there is 20?? of internal rotation on the right compared to 40?? on the left. She has a positive Mendez and Neer impingement signs bilaterally. Some subacromial crepitus is appreciated bilaterally. She has 4+ out of 5 supraspinatus strength on the right shoulder which is mildly uncomfortable compared to 5 minus out of 5 strength on the left with no pain. She has 5 minus out of 5 strength with no pain bilaterally for all other muscles of the shoulder girdle including infraspinatus, subscapularis, biceps, deltoid and serratus anterior. Bilaterally she has full and painless elbow range of motion, wrist hand and finger range of motion.There is no swelling in either arm. She is grossly neurovascularly intact in her bilateral upper extremities. Assessment: Stable status post August 2015 right shoulder capsular release, subacromial bursectomy and distalclavicle excision. Her range of motion has improved from her preoperative condition at least in terms of external rotation. Internal rotation has not improved significantly. There has been improvement though over the past several months and the patient's symptoms have improved. The significance of the fact that she has active external rotation to 60?? yet with the scapula stabilized yet she has passive external rotation to 70?? is unclear. She is complaining of left shoulder pain which has been present only since her right shoulder surgery. This appears to be compensatory overuse type pain indirectly related to her right shoulder surgery. It does not appear as if she has a major structure disrupted but more appears as if she has somemuscular imbalance and insufficiency relative to the demands on her left upper extremity. Plan: As she is at least subjectively improving I recommended that she continue working on an exercise program at home. I've given her a handout to describe these and demonstrate exercises for her. These exercises primarily will be working on stretching her right shoulder capsule, particularly the posterior capsule doing internal rotation stretching at 0?? and 90?? of abduction but also will continue to work on stretching her anterior capsule at 0?? of abduction. The exercises also will involve bilateral shoulder rotator cuff and scapular stabilizer strengthening all done below chest level with her exercise pants that she has at home. She is 7 months post surgery and although she is doing better she still not doing well so she has not yet reached medical end result. She is anxious to know what will happen if she does not continue to improve. I explained that typically I would recommend an image guided glenohumeral corticosteroid injection which should improve her condition. She is very resistant to having that done but would consider it if absolutely necessary. She is anxious to know what will happen if even a cortisone injection doesn't work. In that case I would recommend repeating an MRI arthrogram to look for pathology that may have been missed from herinitial procedure. That could be followed up by an arthroscopic evaluation and revision capsular release with surgical attention to whatever structure may be abnormal . I believe that this is exceedingly unlikely. For now therefore she will exercise on her own as she does not want to go to therapy. I have written her a note with work restrictions as she does have some capacity to work. I will see her back in about 6 weeks. If she is not noticing adequate improvement with her right shoulder we will rediscuss the option of an image guided cortisone shot. If she is not noticing adequate improvement with her left shoulder I would recommend AP, and Grashey AP and axillary lateral x-rays of that shoulder. We discussed that there may be some disagreement with the insurance carrier about whether or not the left shoulder is considered a Worker's Compensation event. Based on my experience and the information available to me at this time I would relate it to her work injury only in terms of compensatory overuse since her right shoulder surgery. Note that 45 min. was spent with this patient, over half of that time was spent counseling. . documented in this encounter Plan of Treatment Scheduled Referrals Name Type Priority Associated Diagnoses Orde r Schedule AMB CONS/FOLLOW UP PHYSICAL THERAPY Outpatient Referral Routine Secondary adhesive capsulitis of right shoulder Impingement syndrome of right shoulder Surgical aftercare, musculoskeletal system Ordered: 03/24/2016 documented as of this encounter Visit Diagnoses Diagnosis Secondary adhesive capsulitis of right shoulder- Primary Surgical aftercare, musculoskeletal system Aftercare following surgery of the musculoskeletal system, NEC Impingement syndrome of right shoulder Other affections of shoulder region, not elsewhere classified Impingement syndrome of left shoulder Other affections of shoulder region, not elsewhere classified Right bicipital tenosynovitis Adhesive capsulitis of right shoulder Adhesive capsulitis of shoulder documented in this encounter Discontinued Medications Medication Sig Discontinue Reason Start Date End Da te cephALEXin (KEFLEX) 500 mg capsule Take 1 Cap by mouth every 6 hours. Take 1 tablet every 6 hours for a total of 4 doses postop. 08/28/2015 03/25/2016 gabapentin (NEURONTIN) 300 mg capsule Take 300 mg by mouth 3 times daily. Take 1 capsule Q hs X 2 nights, then take 1 capsule BID x 2 days, then 1 capsule TID. May increase in this fashion prn, not to exceed 2 capsules TID 09/29/2015 03/25/2016 naproxen sodium (ANAPROX) 220 mg tablet Take 220 mg by mouth every 12 hours. Take 1-2 tablets 11/10/2015 03/25/2016 ondansetron (ZOFRAN-ODT) 4 mg disintegrating tablet Take 1 Tab by mouth every 8 hours as needed for Nausea. 08/28/2015 03/25/2016 oxyCODONE (ROXICODONE) 5 mg immediate release tablet Take 1-3 Tabs by mouth every 4 hours as needed for Pain (for severe/breakthrough pain). Daily Max: 90 mg 08/28/2015 03/25/2016 documented as of this encounter Care Teams Plant Equipment Engineer Relationship Specialty Start Date End Date Matt Jackson MD PCP - General 11/04/08 08/10/18 documented as of this encounter
--- OUTSIDE RECORDS SUMMARY | 2024-02-24 17:06 | XMS_ITS | Encounter Summary ---
Author Organization [facility] Address [address] [place] [address] Care Team Providers Care Supervisor Seaming Name Role Phone Matt Jackson MD Primary Care Provider Unava ilable Encounter Details Date Type Department Care Team (Latest Contact Info) Description 04/09/2014 10:19 EDT - 04/09/2014 23:59 EDT Hospital Encounter [facility] [address] [place] [address] Matt Jackson MD Discharge Disposition: Auto Discharge Social History Tobacco Use Types Packs/Day Years Used Date Smoking Tobacco: Never Assessed Sex and Gender Information Value Date Recorded Sex Assigned at Not on file Gender Identity Female 06/20/2020 11:02 EST Sexual Orientation Not on file documented as of this encounter Discharge Diagnoses Diagnosis V76.12 OTHER SCREENING MAMMOGRAM FOR MALIGNANT NEOPLASM OF BREAST[ICD-9-CM] documented in this encounter Discharge Disposition Disposition Code Departure Means Destination Auto Discharge Home documented in this encounter Progress Notes * [employer], SCAN 2 - 04/24/2014 1142 EDT documented in this encounter Plan of Treatment Not on file documented as of this encounter Visit Diagnoses Not on filedocumented in this encounter Care Teams Supervisor Seaming Relationship Specialty Start Date End Date Matt Jackson MD PCP - General 11/04/08 08/10/18 documented as of this encounter
--- OUTSIDE RECORDS SUMMARY | 2024-02-24 17:06 | XMS_ITS | Encounter Summary ---
Author Organization [facility] Address [address] [place] [address] Care Team Providers Care Photonic Laboratory Technician Name Role Phone Matt Jackson MD Primary Care Provider Unava ilable Encounter Details Date Type Department Care Team (Latest Contact Info) Description 07/19/2016 13:58 EST - 07/19/2016 13:59 [facility] Hospital Encounter [address] [address] Shikha Benavidez MD [address] [place] [phone] Discharge Disposition: Home or Self Care [...] gynecological examination (general) (routine) without abnormal findings-Z01.419[ICD-10-CM] Z12.4 Encounter for screening for malignant neoplasm of cervix-Z12.4[ICD-10-CM] Z11.51 Encounter for screening for human papillomavirus (HPV)-Z11.51[ICD-10-CM] documented in this encounter Medications at Time [...] Procedure Name Priority Date/Time Associated Diagnosis Comments BUN Routine 07/21/2016 14:35 EST TSH Routine 07/21/2016 14:35 EST PHOSPHORUS Routine 07/21/2016 14:35 EST MAGNESIUM Routine 07/21/2016 14:35 EST CREATININE Routine 07/21/2016 14:35 EST CALCIUM Routine 07/21/2016 14:35 EST LIPID PROFILE (INCLUDES CHOLESTEROL, TRIGLYCERIDES, HDL, LDL) Routine 07/21/2016 14:35 EST ELECTROLYTES Routine 07/21/2016 14:35 EST documented in this encounter Results * TSH (07/21/2016 14:35 EST) TSH 2.43 0.55 - 4.78 uIU/ml 07/21/2016 16:41 EST [facility] BLOOD SPECIMEN / Unknown 07/21/2016 14:35 EST 07/21/2016 14:35 EST Shikha Benavidez MD CHEMISTRY & BLOOD G ORDERABLES [facility] [address] [place] [address] * PHOSPHORUS (07/21/2016 14:35 EST) Phosphorus 3.9 2.5 - 4.5 mg/dl 07/21/2016 15:38 EST [facility] BLOOD SPECIMEN / Unknown 07/21/2016 14:35 EST 07/21/2016 14:35 EST Shikha Benavidez MD CHEMISTRY & BLOOD G ORDERABLES Performing Organization Address [facility] Co de Phone Number [facility] [address] [place] [address] * MAGNESIUM (07/21/2016 14:35 EST) Magnesium 1.9 1.7 - 2.8 mg/dl 07/21/2016 15:38 EST [facility] BLOOD SPECIMEN / Unknown 07/21/2016 14:35 EST 07/21/2016 14:35 EST Shikha Benavidez MD CHEMISTRY & BLOOD G ORDERABLES Performing Organization Address [facility] de Phone Number [facility] [address] [place] [address] * ELECTROLYTES (07/21/2016 14:35 EST) Sodium 142 136 - 145 mEq/L 07/21/2016 15:38 [facility] Potassium 4.4 3.5 - 5.0 mEq/L 07/21/2016 15:38 [facility] Chloride 101 96 - 110 mEq/L 07/21/2016 15:38 [facility] CO2 28 22 - 32 mEq/L 07/21/2016 15:38 [facility] Comment:Note new reference r paco 04/20/16 BLOOD SPECIMEN / Unknown 07/21/2016 14:35 EST 07/21/2016 14:35 EST Shikha Benavidez MD CHEMISTRY & BLOOD G ORDERABLES Performing Organization Address [facility] Co de Phone Number [facility] [address] [place] [address] * LIPID PROFILE (INCLUDES CHOLESTEROL, TRIGLYCERIDES, HDL, LDL) (07/21/2016 14:35 EST) Cholesterol 185 mg/dl 07/21/2016 15:38 [facility] Comment: Desirable:<200 Borderline High:200-239 High:>iy=150 Triglycerides 114 mg/dl 07/21/2016 15:38 [facility] Comment: Normal:<150 Borderline High:150-199 High:200-499 Very High:>nw=648 HDL 61 mg/dl 07/21/2016 15:38 [facility] Comment: Low:<40 Normal:40-60 Desirable: >60 LDL, Calculated 101 mg/dl 7 15:38 [facility] Comment: Optimal:<100 Near Optimal:100-129 Borderline High:130-159 High:160-189 Very High:>ng=890 Chol/HDL Ratio 3.0 07/21/2016 15:38 [facility] Fasting? Unknown 07/21/2016 15:38 [facility] Non HDL Cholesterol 124 mg/dl 07/21/2016 15:38 [facility] Comment: Desirable:<130 Borderline:130-159 High: 160-189 Very High: >pl=558 BLOOD SPECIMEN / Unknown 07/21/2016 14:35 EST 07/21/2016 14:35 EST Shikha Benavidez MD CHEMISTRY & BLOOD G ORDERABLES Performing Organization Address [facility] Co de Phone Number [facility] [address] [place] [address] * CREATININE (07/21/2016 14:35 EST) Creatinine 0.64 0.52 - 1.04 mg/dl 07/21/2016 15:38 [facility] GFR, Calculated 101 >60 ml/min/1.7 3m2 07/21/2016 15:38 [facility] Comment: eGFR calculated using CKD-EPI equation for non Americans. Multiply eGFR by 1.16 for Americans. BLOOD SPECIMEN / Unknown 07/21/2016 14:35 EST 07/21/2016 14:35 EST Shikha Benavidez MD CHEMISTRY & BLOOD G ORDERABLES Performing Organization Address [facility] Co de Phone Number [facility] [address] [place] [address] * CALCIUM (07/21/2016 14:35 EST) Calcium 10.0 8.5 - 10.5 mg/dl 07/21/2016 15:38 EST [facility] Calculated Calcium 9.4 8.5 - 10.5 mg/dl 07/21/2016 15:38 EST [facility] Comment: Note new formula for calculation in use 04/07/2016 BLOOD SPECIMEN / Unknown 07/21/2016 14:35 EST 07/21/2016 14:35 EST Shikha Benavidez MD CHEMISTRY & BLOOD G ORDERABLES Performing Organization Address [facility] Co de Phone Number [facility] [address] [place] [address] * BUN (07/21/2016 14:35 EST) BUN 16 10 - 26 mg/dl 07/21/2016 15:38 EST [facility] BLOOD SPECIMEN / Unknown 07/21/2016 14:35 EST 07/21/2016 14:35 EST Shikha Benavidez MD CHEMISTRY & BLOOD G ORDERABLES Performing Organization Address City/[facility]/ZIP Co de Phone Number [facility] [address] [place] [address] documented in this encounter Visit Diagnoses Not on filedocumented in this encounter Care Teams Photonic Laboratory Technician Relationship Specialty Start Date End Date Matt Jackson MD PCP - General 11/04/08 08/10/18 documented as of this encounter
--- OUTSIDE RECORDS SUMMARY | 2024-02-24 17:06 | XMS_ITS | Encounter Summary ---
Author Organization [facility] Address [address] [place] [address] Care Team Providers Care Assembly Cleaner Name Role Phone Matt Jackson MD Primary Care Provider Unava ilable Encounter Details Date Type Department Care Team (Late st Contact Info) Description 02/11/2011 Results Only Imaging [facility] [phone] Loyda Parra PA-C [address] [facility] [address] [place] [id number] Social History Tobacco Use Types Packs/Day Years [...] Comments FL GUIDE LOCATION, ASPIRATION, INJECTION, BIOPSY 03/05/2011 16:16 EDT documented in this encounter Results * FL GUIDE LOCATION, ASPIRATION, INJECTION, BIOPSY (03/05/2011 16:16 EDT) Anatomical Region Laterality Modality Other 03/05/2011 16:1 6 EDT 03/07/2011 22:08 EDT Narrative 03/07/2011 22:08 EDT FL GUIDE LOC,ASP,INJ,BX ??Mar 05, 2011 04:16:00 PM SIGNS AND SYMPTOMS/COMMENTS: ??Left hip pain with catching and giving way some relief with injection. Evaluate for labral tear. COMPARISON: ??None. PROCEDURE: The patient was met in the fluoroscopic suite where after proper identification the risks, benefits and alternatives to the procedure were explained in detail. The patient then gave informed oral and written consent to proceed. The patient was subsequently placed in supine position. The skin anterior to the left hip was prepped and draped in the usual sterile fashion and anesthetized with lidocaine 1%. Utilizing intermittent fluoroscopic guidance a 22-gauge spinal needle was introduced into the left hip joint via an anterior approach. Subsequently, 10 cc of a one in 200 dilute gadolinium solution was injected. The patient tolerated procedure well. There were no immediate complications. Fluoroscopic images were uploaded to PACS as part of the patient's permanent medical record. Dr. Alexandre, attending physician supervised the procedure. The patient was escorted to the MRI suite for followup left hip MRI. IMPRESSION: 1. Successful fluoroscopic guided left hip arthrogram. 2. MR arthrogram to follow. ?? I have personally reviewed the images and the above interpretation and agree with the findings. Procedure Note Brendon Ghotra MD - 03/07/2011 FL GUIDE LOC,ASP,INJ,BX Mar 05, 2011 04:16:00 PM SIGNS AND SYMPTOMS/COMMENTS: Left hip pain with catching and giving way some relief with injection. Evaluate for labral tear. COMPARISON: None. PROCEDURE: The patient was met in the fluoroscopic suite where after proper identification the risks, benefits and alternatives to the procedure were explained in detail. The patient then gave informed oral and written consent to proceed. The patient was subsequently placed in supine position. The skin anterior to the left hip was prepped and draped in the usual sterile fashion and anesthetized with lidocaine 1%. Utilizing intermittent fluoroscopic guidance a 22-gauge spinal needle was introduced into the left hip joint via an anterior approach. Subsequently, 10 cc of a one in 200 dilute gadolinium solution was injected. The patient tolerated procedure well. There were no immediate complications. Fluoroscopic images were uploaded to PACS as part of the patient's permanent medical record. Dr. Alexandre, attending physician supervised the procedure. The patient was escorted to the MRI suite for followup left hip MRI. IMPRESSION: 1. Successful fluoroscopic guided left hip arthrogram. 2. MR arthrogram to follow. I have personally reviewed the images and the above interpretation and agree with the findings. Loyda ROSAS FLUOROSCOPY ORDERABLES documented in this encounter Visit Diagnoses Not on filedocumented in this encounter Care Teams Assembly Cleaner Relationship Specialty Start Date End Date Matt Jackson MD PCP - General 11/04/08 08/10/18 documented as of this encounter
--- OUTSIDE RECORDS SUMMARY | 2024-02-24 17:06 | XMS_ITS | Encounter Summary ---
Author Organization [facility] Address [address] [place] [address] Care Team Providers Care Hip Hop Dance Instructor Name Role Phone Matt Jackson MD Primary Care Provider Unava ilable Encounter Details Date Type Department Care Team (Late st Contact Info) Description 07/08/2014 Results Only [facility] Laboratory Services - [facility] ([facility]) [address] [place] [id number] Pramod Franco MD [address] [place] [address] [address] [place] [phone] Social History Tobacco Use Types [...] Diagnosis Comments PAP TEST- RESULT ONLY Routine 07/08/2014 0:00 EST documented in this encounter Results * PAP TEST- RESULT ONLY (07/08/2014 0:00 EST) Pathology Report: CYTOPATHOLOGY REPORT Reports generated via electronic interface contain original data; however they are lacking the format of the original report. Caution should be taken when reading/interpreti ng unformatted reports. Name: ? MICHELLE BLANCO ? Accession #: ? [id number] : ? 1960 (Age: 53) ??F ?Collect Date: ? 07/08/2014 Location: ? [facility] ? Receive Date: ? 07/08/2014 Provider: ?PRAMOD FRANCO MD Copy to: ?MANDIE SKY ? Specimen/Source: ?Pap Test, Vagina, ThinPrep Imaging System with manual evaluation Last Menstrual Period: ? Treatment History: ? TASHA: s/p ? SPECIMEN ADEQUACY ? Satisfactory for Evaluation - assessment of transformation zone component not applicable ( e.g. atrophy, vaginal sample, hysterectomy) GENERAL CATEGORIZATION ? Negative for Intraepithelial Lesion or Malignancy ? Document reviewed and electronically signed by: ? CORNELIUS Frausto(ASCP) ? Report Date: ??07/10/2014 11:22 End of Report [facility] 07/08/2014 07/08/2014 Pramod Franco MD PATHOLOGY ORDERABLE S [facility] [address] [place] [address] documented in this encounter Visit Diagnoses Not on filedocumented in this encounter Care Teams Hip Hop Dance Instructor Relationship Specialty Start Date End Date Matt Jackson MD PCP - General 11/04/08 08/10/18 documented as of this encounter
--- OUTSIDE RECORDS SUMMARY | 2024-02-24 17:06 | XMS_ITS | Encounter Summary ---
Author Organization [facility] Address [address] [place] [address] Care Team Providers Care Tooth Clerk Name Role Phone Matt Jackson MD Primary Care Provider Unava ilable Encounter Details Date Type Department Care Team (Late st Contact Info) Description 01/21/2016 Abstract [facility] Orthopedic Surgery - [facility] [address] [place] [address] Herbert Chan MD [address] [place] [phone] Social History Tobacco Use Types Packs/Day Years [...] Diagnoses Not on filedocumented in this encounter Historical Medications * This list may reflect changes made after this encounter. Medication Sig Dispensed Refills Start Date End Date gabapentin (NEURONTIN) 300 mg capsule Take 300 mg by mouth 3 times daily. Take 1 capsule Q hs X 2 nights, then take 1 capsule BID x 2 days, then 1 capsule TID. May increase in this fashion prn, not to exceed 2 capsules TID 09/29/2015 03/25/2016 MULTIVITAMIN ORAL Take by mouth. Reported on 09/09/2016 12/18/2018 naproxen sodium (ANAPROX) 220 mg tablet Take 220 mg by mouth every 12 hours. Take 1-2 tablets 11/10/2015 03/25/2016 added in this encounter Care Teams Tooth Clerk Relationship Specialty Start Date End Date Matt Jackson MD PCP - General 11/04/08 08/10/18 documented as of this encounter
--- OUTSIDE RECORDS SUMMARY | 2024-02-24 17:07 | XMS_ITS | Encounter Summary ---
Author Organization [facility] Address [address] [place] [address] Care Team Providers Care Post Exchange Manager Name Role Phone Unavailable Primary Care Provider Unavailabl e Encounter Details Date Type Department Care Team (Latest Contact Info) Description 05/16/2008 20:32 EST Hospital Encounter [facility] - Other [address] [place] [address] Shikha Benavidez MD [address] [place] [phone] Discharge Disposition: Home or Self Care [...] Procedure Name Priority Date/Time Associated Diagnosis Comments COMPLETE BLOOD COUNT Routine 10/29/2008 9:15 EDT documented in this encounter Results * HEMAGRAM (10/29/2008 9:15 EDT) WBC 7.52 4.0 - 12.4 K/cmm [facility] RBC 4.64 3.86 - 5.04 M/cmm [facility] Hemoglobin 12.9 11.6 - 15.2 gm/dl [facility] HCT 38.3 34.9 - 44.4 % [facility] MCV 82 81 - 98 fl [facility] MCH 27.8 26.7 - 33.3 pg [facility] MCHC 33.7 32.1 - 35.9 gm/dl [facility] PLT 284 141 - 320 K/cmm [facility] RDW-CV 13.9 11.7 - 14.6 % [facility] 10/29/2008 9:15 EDT 10/29/2008 19:21 EDT Shukri SKY HEMATOLOGY & PF4 ORD ERABLES [facility] [address] [place] [address] documented in this encounter Visit Diagnoses Not on filedocumented in this encounter
--- OUTSIDE RECORDS SUMMARY | 2024-02-24 17:07 | XMS_ITS | Encounter Summary ---
Author Organization [facility] Address [address] [place] [address] Care Team Providers Care Shell Machine Operator Name Role Phone Unavailable Primary Care Provider Unavailabl e Encounter Details Date Type Department Care Team (Latest Contact Info) Description 10/23/2004 8:42 EDT - 10/23/2004 11:59 EDT Hospital Encounter [facility] [address] [place] [address] Adal Arciniega NP Discharge Disposition: Auto Discharge Social History Tobacco Use Types Packs/Day Years Used Date Smoking Tobacco: Never Assessed Sex and Gender Information Value Date Recorded Sex Assigned at Not on file Gender Identity Female 06/20/2020 11:02 EST Sexual Orientation Not on file documented as of this encounter Discharge Disposition Disposition Code Departure Means Destination Auto Discharge documented in this encounter Plan of Treatment Not on file documented as of this encounter Procedures Procedure Name Priority Date/Time Associated Diagnosis Comments NM BONE SCAN 3 PHASE Routine 10/23/2004 12:56 EDT documented in this encounter Results * NM BONE SCAN 3 PHASE (10/23/2004 12:56 EDT) Anatomical Region Laterality Modality Other 10/23/2004 12:5 6 EDT Narrative 03/03/2009 9:23 EDT 3 PHASE BONE SCAN H/O 3 YR HX LEFT HIP PAIN, RIGHT PAIN DJD R/O OTHER PATHOLOGY ??IE TROCHANTERIC BURSITIS LIMITED THREE PHASE BONE SCAN OF THE HIPS AND PELVIS: 10/23/04. TECHNIQUE: Zvu-jxr-jci-half hours after the IV injection of 24 mCi Tc-99m MDP, standard bone images of the hips and pelvis were obtained. FINDINGS: Radiotracer uptake pattern in bones and soft tissues is normal. /wagner Procedure Note Luis Eduardo Keene MD - 03/03/2009 3 PHASE BONE SCAN H/O 3 YR HX LEFT HIP PAIN, RIGHT PAIN DJD R/O OTHER PATHOLOGY IE TROCHANTERIC BURSITIS LIMITED THREE PHASE BONE SCAN OF THE HIPS AND PELVIS: 10/23/04. TECHNIQUE: Liy-gnu-bym-half hours after the IV injection of 24 mCi Tc-99m MDP, standard bone images of the hips and pelvis were obtained. FINDINGS: Radiotracer uptake pattern in bones and soft tissues is normal. /wagner Adal Arciniega NP IMG NM ORDERABLES documented in this encounter Visit Diagnoses Not on filedocumented in this encounter
--- OUTSIDE RECORDS SUMMARY | 2024-02-24 17:07 | XMS_ITS | Encounter Summary ---
Author Organization [facility] Address [address] [place] [address] Care Team Providers Care Anesthesiology Tech Name Role Phone Unavailable Primary Care Provider Unavailabl e Encounter Details Date Type Department Care Team (Latest Contact Info) Description 03/07/2007 14:49 EDT Hospital Encounter [address] [address] Matt Jackson MD Discharge Disposition: Auto Discharge [...] Associated Diagnosis Comments MA MAMMO SCREENING DIGITAL 03/07/2007 15:22 EDT documented in this encounter Results * MA MAMMO SCREENING DIGITAL (03/07/2007 15:22 EDT) Anatomical Region Laterality Modality Other 03/07/2007 15:2 2 EDT Narrative 12/23/2008 2:30 EDT routine Comparison is made to films from 02/16/2006 (bilateral) and films from 02/15/2005 (bilateral) and films from 02/13/2004 and films from 02/11/2003. Bilateral Breast Findings: (CAD used to interpret routine digital): There are scattered fibroglandular densities. No significant masses, calcifications or other abnormalities are seen. IMPRESSION: BILATERAL BREASTS - CATEGORY 1 Negative, no evidence of malignancy. Normal interval follow-up is recommended in 12 months. OVERALL ASSESSMENT - NEGATIVE END OF IMPRESSION The patient will be notified of her/his breast imaging results via a lay letter from Radiology. ??Radiology will contact the patient directly regarding any findings which require additional imaging (Category 0) at this time. Procedure Note Shakira Nicholas MD - 12/23/2008 routine Comparison is made to films from 02/16/2006 (bilateral) and films from 02/15/2005 (bilateral) and films from 02/13/2004 and films from 02/11/2003. Bilateral Breast Findings: (CAD used to interpret routine digital): There are scattered fibroglandular densities. No significant masses, calcifications or other abnormalities are seen. IMPRESSION: BILATERAL BREASTS - CATEGORY 1 Negative, no evidence of malignancy. Normal interval follow-up is recommended in 12 months. OVERALL ASSESSMENT - NEGATIVE END OF IMPRESSION The patient will be notified of her/his breast imaging results via a lay letter from Radiology. Radiology will contact the patient directly regarding any findings which require additional imaging (Category 0) at this time. Shukri ROSAS MAMMOGRAPHY SRINIVASAN CONNORS documented in this encounter Visit Diagnoses Not on filedocumented in this encounter
--- OUTSIDE RECORDS SUMMARY | 2024-02-24 17:07 | XMS_ITS | Encounter Summary ---
Author Organization [facility] Address [address] [place] [address] Care Team Providers Care Field Supervisor Name Role Phone Matt Jackson MD Primary Care Provider Unava ilable Encounter Details Date Type Department Care Team (Late st Contact Info) Description 03/20/[address] [facility] [address] [place] [address] Shukri Renae PA [address] [place] [phone] Social History Tobacco Use Types Packs/Day Years Used Date Smoking Tobacco: Never Assessed Sex and Gender Information Value Date Recorded Sex Assigned at Not on file Gender Identity Female 06/20/2020 11:02 EST Sexual Orientation Not on file documented as of this encounter Plan of Treatment Not on file documented as of this encounter Procedures Procedure Name Priority Date/Time Associated Diagnosis Comments HEPATIC FUNCTION PANEL (ALB,ALK PHOS,ALT,AST,DBIL,T OT SIMÓN,TOT PROT) Routine 03/20/2004 10:40 EDT documented in this encounter Results * LIVER FUNCTION TESTS (03/20/2004 10:40 EDT) Albumin 4.5 3.4 - 4.9 g/dl [facility] Total Protein 7.5 6.5 - 8.0 g/dl [facility] Total Alkaline Phosphatase 110 38 - 126 U/L [facility] ALT 32 9 - 52 U/L [facility] AST 16 15 - 46 U/L [facility] Unconjugated Bilirubin 0.4 0.1 - 1.1 mg/dl [facility] Conjugated Bilirubin 0.0 0.0 - 0.3 mg/dl [facility] Bilirubin, Total <0.5 0.2 - 1.3 mg/dl [facility] 03/20/2004 10:4 0 EDT 03/20/2004 19:39 EDT Shukri SKY CHEMISTRY & BLOOD GA S ORDERABLES Performing Organization Address City/State/[facility] Co de Phone Number [facility] [address] [place] [address] documented in this encounter Visit Diagnoses Not on filedocumented in this encounter Care Teams Field Supervisor Relationship Specialty Start Date End Date Matt Jackson MD PCP - General 11/04/08 08/10/18 documented as of this encounter
--- OUTSIDE RECORDS SUMMARY | 2024-02-24 17:07 | XMS_ITS | Encounter Summary ---
Author Organization [facility] Address [address] [place] [address] Care Team Providers Care Branch Mechanic Name Role Phone Unavailable Primary Care Provider Unavailabl e Encounter Details Date Type Department Care Team (Latest Contact Info) Description 03/08/2008 14:56 EDT Hospital Encounter [facility] - Other [address] [place] [address] Shikha Benavidez MD [address] [place] [phone] Discharge Disposition: Home or Self Care [...] Associated Diagnosis Comments MA MAMMO SCREENING DIGITAL 03/08/2008 15:56 EDT documented in this encounter Results * MA MAMMO SCREENING DIGITAL (03/08/2008 15:56 EDT) Anatomical Region Laterality Modality Other 03/08/2008 15:5 6 EDT Narrative 11/18/2008 7:34 EDT routine Comparison is made to films from 03/07/2007 (bilateral) and films from 02/16/2006 (bilateral) and films from [...] (Category 0) at this time. Procedure Note Lauren Rain MD - 11/18/2008 routine Comparison is made to films from 03/07/2007 (bilateral) and films from 02/16/2006 (bilateral) and films from [...]
--- OUTSIDE RECORDS SUMMARY | 2024-02-24 17:07 | XMS_ITS | Encounter Summary ---
Author Organization [facility] Address [address] [place] [address] Care Team Providers Care Edi Specialist Name Role Phone Unavailable Primary Care Provider Unavailabl e Encounter Details Date Type Department Care Team (Latest Contact Info) Description 04/18/2008 12:25 EDT Hospital Encounter [facility] Perioperative Services- [facility] [address] [place], [place] [address] Shikha Benavidez MD [address] [place] [phone] Discharge Disposition: Home or Self Care [...] or Self Care documented in this encounter OR Notes * OR Surgeon - Shikha Benavidez MD - 04/18/2008 0000 EDT PROCEDURE REPORT PT TYPE: OPPROC SERVICE DATE: 04/18/2008 SURGEON: Shikha Benavidez MD INTEGRATION ASSISTANT: None. PREOPERATIVE DIAGNOSIS Breakdown of anterior wall vaginal mucosa incision status post TVT procedure. POSTOPERATIVE DIAGNOSIS Breakdown of anterior wall vaginal mucosa incision status post TVT procedure. PROCEDURE Cystourethroscopy, and exploration and reclosure of anterior vaginal wall defect. ANESTHESIA INDICATIONS The patient is a 47-year-old female who is surgically postmenopausal. She underwent total abdominalhysterectomy with bilateral salpingo-oophorectomy in 1999. She has been using Estring for vaginal hormonal replacement. She has significant genuine stress incontinence confirmed with urodynamic testing, and approximately two weeks ago underwent tension-free vaginal tape procedure. The postop coursewas complicated by what appeared to be an infected hematoma (this drained spontaneously), as well as breakdown of the incision. The vertical portion of the incision healed; however, a suture seemed to pull creating a horizontal defect at the level of the midurethra. The patient was placed on antibiotics including ciprofloxacin and Flagyl, and plan was to treat any surrounding cellulitis in the mucosa that may have beenin early stages, and reclose the defect after approximately one week durationof antibiotic therapy. The patient was seen in the office several times in the meantime and there was no further evidence of infection. Vaginal tissues appeared healthy, and thedecision was made to proceed with reclosure of the incision today. The risks and benefits of the procedure were reviewed with the patient, and a written consent was obtained prior to today. FINDINGS Normal-appearing bladder and urethra on cystoscopy. Vaginal mucosal defect approximately 2.5-cm long in the horizontal plane was reapproximated with interrupted stitches of 2-0 Vicryl. NARRATIVE With an IV in place the patient was taken to the operatingroom. She was placed on the operating room table and a spinal anesthetic was administered. She was then placed in the lithotomy position in Ivan stirrups. Her vagina was sterilely prepped. Of note, her Estring was removed as this had apparently not beenremoved prior to her previous procedure. The vagina was sterilely prepped. The bladder was emptied. The patient underwent cystourethroscopy using a 30- degree cystoscope. The entire surface area of the bladder mucosa was inspected, including the urethral orifices which had excellent flowwith jets seen from both. The urethra was also inspected carefully. There was no evidence of tape er osion or stitch placement anywhere near the bladder. The urethra was also clear. The vaginal mucosa defect was then explored, and several 2-0 Vicryl stitches were placed at the angles of the defect to wanda the edges. The vaginal mucosal edges were freshened with the Gracybetter scissors, and approximately six to eight stitches of 2-0 Vicryl were placed to reclose the vaginalmucosa. Once again the patient underwent cystourethroscopy with no evidence of injury to the bladder orurethra, and no stitch placement in the bladder or urethra. The cystoscope was removed. The vagina was packed with iodoform with plans to have that removed in the PACU, and patient was transferred to the PACU after she was cleansed of Betadine. She was in stable condition. There were no complications. I was present and performed the entire procedure. ESTIMATED BLOOD LOSS Minimal. FLUIDS 700 mL lactated Ringers. URINE OUTPUT 100 mL I+O cath prior to procedure. SPECIMENS None. COMPLICATIONS None. Signed by Shikha Benavidez MD 04/23/2008 18:50 Shikha Benavidez MD D: - Shikha Benavidez MD A - CS Job ID: [id number] Document ID: [id number] cc: MD Matt Cordero MD Job ID: [id number] Document ID: [id number] cc: MD Matt Cordero MD documented in this encounter Plan of Treatment Not on file documented as of this encounter Visit Diagnoses Not on filedocumented in this encounter
--- OUTSIDE RECORDS SUMMARY | 2024-02-24 17:07 | XMS_ITS | Encounter Summary ---
Author Organization [facility] Address [address] [place] [address] Care Team Providers Care Automobile Lights Assembler Name Role Phone Unavailable Primary Care Provider Unavailabl e Encounter Details Date Type Department Care Team (Late st Contact Info) Description 02/15/2003 21:30 EDT Hospital Encounter [facility] - Other [address] [place] [address] Nicolás Dickens MD Social History Tobacco Use Types Packs/Day [...]
--- OUTSIDE RECORDS SUMMARY | 2024-02-24 17:07 | XMS_ITS | Encounter Summary ---
Author Organization [facility] Address [address] [place] [address] Care Team Providers Care Gate Watchman Name Role Phone Unavailable Primary Care Provider Unavailabl e Encounter Details Date Type Department Care Team (Latest Contact Info) Description 03/08/2008 15:35 EDT Hospital Encounter [address] [address] Matt Jackson MD Discharge Disposition: Auto Discharge [...]
--- OUTSIDE RECORDS SUMMARY | 2024-02-24 17:07 | XMS_ITS | Encounter Summary ---
Author Organization [facility] Address [address] [place] [address] Care Team Providers Care Head Insulation Board Saw Operator Name Role Phone Unavailable Primary Care Provider Unavailabl e Encounter Details Date Type Department Care Team (Latest Contact Info) Description 09/30/2000 21:24 EST Hospital Encounter [facility] - Other [address] [place] [address] Lauren Li MD Unknown, Provider, Discharge Disposition: Auto Discharge Social History Tobacco [...] Procedure Name Priority Date/Time Associated Diagnosis Comments URINE CHEMICAL (DIP) & SEDIMENT (MICRO) WITHOUT REFLEX TO CULTURE Routine 09/30/2000 16:00 EST BACTERIAL CULTURE, URINE Routine 09/30/2000 16:00 EST documented in this encounter Results * BACTERIAL CULTURE, URINE (09/30/2000 16:00 EST) Specimen Description Urine [facility] Result Greater than 100,000 CFU/ml ESCHERICHIA COLI [facility] Report Status Final [id number] [facility] 09/30/2000 16:0 0 EST 09/30/2000 19:27 EST Narrative Organism Antibiotic Method Susceptibility Greater than 100,000 cfu/ml escherichia coli Ampicillin SUSCEPTIBILITY (AVRIL) 2 Susceptible Greater than 100,000 cfu/ml escherichia coli Cefazolin SUSCEPTIBILITY (AVRIL) <=8 Susceptible Greater than 100,000 cfu/ml escherichia coli Gentamicin SUSCEPTIBILITY (AVRIL) <=0.5 Susceptible Greater than 100,000 cfu/ml escherichia coli Trimethoprim-Sulfameth oxazole SUSCEPTIBILITY (AVRIL) <=.5/9.5 Susceptible Greater than 100,000 cfu/ml escherichia coli Nitrofurantoin SUSCEPTIBILITY (AVRIL) <=32 Susceptible Greater than 100,000 cfu/ml escherichia coli Tobramycin SUSCEPTIBILITY (AVRIL) <=0.5 Susceptible Greater than 100,000 cfu/ml escherichia coli Amikacin SUSCEPTIBILITY (AVRIL) <=2 Susceptible Greater than 100,000 cfu/ml escherichia coli Imipenem SUSCEPTIBILITY (AVRIL) <=4 Susceptible Greater than 100,000 cfu/ml escherichia coli Piperacillin SUSCEPTIBILITY (AVRIL) <=8 Susceptible Greater than 100,000 cfu/ml escherichia coli Ciprofloxacin SUSCEPTIBILITY (AVRIL) <=0.5 Susceptible Lauren Li MD MICROBIOLOGY - [facility] ORDERABLES Performing Organization Address City/State/[facility] Co de Phone Number [facility] [address] [place] [address] * (ABNORMAL) UA WITH MICROSCOPIC (09/30/2000 16:00 EST) Color, UA Yellow [facility] Clarity, UA Cloudy [facility] Glucose, UA Norm NORM [facility] Bilirubin, UA Neg [facility] Ketones, UA Neg NEG [facility] Specific [place], Urine 1.025 1.005 - 1.02 [facility] Blood, UA Large(A) NEG [facility] pH, UA 5.0 5.0 - 9.0 [facility] Protein, UA 2+(A) NEG [facility] Urobilinogen, UA 1.0(A) NORM mg/dL [facility] Nitrite, UA Pos(A) NEG [facility] Leuk Esterase Large(A) [facility] WBC, UA >50 0 - 5 /HPF [facility] RBC, UA >50 0 - 5 /HPF [facility] Squam Epithel, UA None seen NS /HPF [facility] Renal Epithel, UA Frequent(A) NS /HPF [facility] Bacteria, UA Few(A) NS /HPF [facility] Crystals, UA None seen /HPF [facility] Hyaline Casts, UA None seen /LPF [facility] UA Comment Microscopic results are unreliable on urines unrefrig >2hrs or refrig >8hrs. [facility] Additional Findings Many transitional epithelial cells. ? Many WBC clumps ? Small sample, less than 12 ml received. [facility] 09/30/2000 16:0 0 EST 09/30/2000 19:27 EST Lauren Li MD URINALYSIS ORDERABL ES Performing Organization Address City/State/[facility] Co de Phone Number [facility] [address] [place] [address] documented in this encounter Visit Diagnoses Not on filedocumented in this encounter
--- OUTSIDE RECORDS SUMMARY | 2024-02-24 17:07 | XMS_ITS | Encounter Summary ---
Author Organization [facility] Address [address] [place] [address] Care Team Providers Care Tso Name Role Phone Matt Jackson MD Primary Care Provider Unava ilable Encounter Details Date Type Department Care Team (Late st Contact Info) Description 03/08/2008 Before PRISM Converted Visit (Maple) [facility] - Maple conversion [address] [place] [address] Pramod Benavidez MD [address] [place] [phone] Social History Tobacco Use Types Packs/Day Years Used Date Smoking Tobacco: Never Assessed Sex and Gender Information Value Date Recorded Sex Assigned at Not on file Gender Identity Female 06/20/2020 11:02 EST Sexual Orientation Not on file documented as of this encounter Plan of Treatment Not on file documented as of this encounter Procedures Procedure Name Priority Date/Time Associated Diagnosis Comments HPV DETECTION, HIGH RISK TYPES Routine 03/08/2008 8:58 EDT CYTOPATHOLOGY Routine 03/08/2008 0:00 EDT documented in this encounter Results * HUMAN PAPILLOMA VIRUS DNA TEST (03/08/2008 8:58 EDT) Specimen Description Cervix, ThinPrep vial [facility] Result Negative for HPV types 16, 18, 31, 33, 35, 39, 45, 51, 52, 56, 58, 59, and 68. [facility] Report Status Final [id number] [facility] 03/08/2008 8:58 EDT 03/13/2008 8:58 EDT Shukri SKY MICROBIOLOGY - GENER AL ORDERABLES [facility] [address] [place] [address] * CYTOPATHOLOGY (03/08/2008 0:00 EDT) Pathology Report: CYTOPATHOLOGY REPORT ? Reports generated via electronic interface contain original data; ? however they are lacking the format of the original report. ? Caution should be taken when reading/interpreti ng unformatted reports. ? Name: ? MICHELLE BLANCO ? Accession #: ? [id number] ? : ? 1960 (Age: 47) ??F ?Collect Date: ? 03/08/2008 ? Location: ? [facility] ? Receive Date: ? 03/08/2008 ? Provider: ?PRAMOD SALVADOR MD ? Copy to: ? Specimen/Source: ?ThinPrep Pap Test, Vagina, processed on Cytyc ThinPrep ?? Imaging System, with manual evaluation ? Last Menstrual Period: ? n/a ? Treatment History: ? Hysterectomy ? Other: ? HPVDX - HPV testing requested regardless of diagnosis on current ThinPrep Pap ?? test. ? SPECIMEN ADEQUACY ? Satisfactory for Evaluation ? - assessment of transformation zone component not applicable ( e.g. atrophy, ? vaginal sample, hysterectomy) ? GENERAL CATEGORIZATION ? Negative for Intraepithelial Lesion or Malignancy ? Document reviewed and electronically signed by: ? Dee [place], [place](ASCP) ? Report Date: ??03/12/2008 14:04 ? End of Report ? [facility] 03/08/2008 03/08/2008 Pramod Benavidez MD PATHOLOGY ORDERABLE S Performing Organization Address City/State/[facility] Co de Phone Number [facility] [address] [place] [address] documented in this encounter Visit Diagnoses Not on filedocumented in this encounter Care Teams Tso Relationship Specialty Start Date End Date Matt Jackson MD PCP - General 11/04/08 08/10/18 documented as of this encounter
--- OUTSIDE RECORDS SUMMARY | 2024-02-24 17:07 | XMS_ITS | Encounter Summary ---
Author Organization [facility] Address [address] [place] [address] Care Team Providers Care Solar Photovoltaic Designer Name Role Phone Matt Jackson MD Primary Care Provider Unava ilable Encounter Details Date Type Department Care Team (Latest Contact Info) Description 08/06/2009 10:58 EST - 08/06/2009 23:59 EST Hospital Encounter [facility] - Other [address] [place] [address] Matt Castillo MD [address] [place] [phone] Discharge Disposition: Home or Self Care Social [...] on filedocumented in this encounter Care Teams Solar Photovoltaic Designer Relationship Specialty Start Date End Date Matt Jackson MD PCP - General 11/04/08 08/10/18 documented as of this encounter
--- OUTSIDE RECORDS SUMMARY | 2024-02-24 17:07 | XMS_ITS | Encounter Summary ---
Author Organization [facility] Address [address] [place] [address] Care Team Providers Care Logging Shovel Operator Name Role Phone Unavailable Primary Care Provider Unavailabl e Encounter Details Date Type Department Care Team (Latest Contact Info) Description 10/29/2008 16:50 EDT - 10/29/2008 16:52 EDT Hospital Encounter [facility] - Other [address] [place] [address] Shukri Renae PA [address] [place] [phone] Discharge Disposition: Home or Self Care Social [...] Procedure Name Priority Date/Time Associated Diagnosis Comments GROUP A STREP CULTURE Routine 08/06/2009 20:39 EST documented in this encounter Results * CULTURE FOR GROUP A BETA STREPTOCOCCUS (08/06/2009 20:39 EST) Specimen Description Throat [facility] Result NO GROUP A BETA STREPTOCOCCI ISOLATED [facility] Report Status Final 08/08/2009 [facility] 08/06/2009 20:3 9 EST 08/06/2009 20:39 EST Shukri SKY MICROBIOLOGY - GENER AL ORDERABLES Performing Organization Address City/State/[facility] Co de Phone Number [facility] [address] [place] [address] documented in this encounter Visit Diagnoses Not on filedocumented in this encounter
--- OUTSIDE RECORDS SUMMARY | 2024-02-24 17:07 | XMS_ITS | Encounter Summary ---
Author Organization [facility] Address [address] [place] [address] Care Team Providers Care Urology Physician Name Role Phone Unavailable Primary Care Provider Unavailabl e Encounter Details Date Type Department Care Team (Late st Contact Info) Description 12/25/2002 14:30 EDT Hospital Encounter [facility] - Other [address] [place] [address] Shukri Renae PA [address] [place] [phone] Social History Tobacco Use Types Packs/Day Years [...]
--- OUTSIDE RECORDS SUMMARY | 2024-02-24 17:07 | XMS_ITS | Encounter Summary ---
Author Organization [facility] Address [address] [place] [address] Care Team Providers Care Nurse Discharge Planner Name Role Phone Unavailable Primary Care Provider Unavailabl e Encounter Details Date Type Department Care Team (Late st Contact Info) Description 07/07/2006 8:27 EST Hospital Encounter [facility] - Other [address] [place] [address] Margo Kerr MD [address] [facility] [address] [place] [address] Social History Tobacco Use Types Packs/Day Years [...]
--- OUTSIDE RECORDS SUMMARY | 2024-02-24 17:07 | XMS_ITS | Encounter Summary ---
Author Organization [facility] Address [address] [place] [address] Care Team Providers Care Shactor Name Role Phone Matt Jackson MD Primary Care Provider Unava ilable Encounter Details Date Type Department Care Team (Late st Contact Info) Description 10/29/2004 Results Only [facility] Gastroenterology - [facility] [address] [place] [address] Kevin Hernandez MD [address] [place] [phone] Social History Tobacco Use Types Packs/Day Years Used Date Smoking Tobacco: Never Assessed Sex and Gender Information Value Date Recorded Sex Assigned at Not on file Gender Identity Female 06/20/2020 11:02 EST Sexual Orientation Not on file documented as of this encounter Plan of Treatment Not on file documented as of this encounter Procedures Procedure Name Priority Date/Time Associated Diagnosis Comments SURGICAL PATHOLOGY Routine 10/29/2004 0:00 EDT documented in this encounter Results * SURGICAL PATHOLOGY (10/29/2004 0:00 EDT) Pathology Report: SURGICAL PATHOLOGY REPORT Reports generated via electronic interface contain original data; however they are lacking the format of the original report. Caution should be taken when reading/interpreti ng unformatted reports. Name: ? MICHELLE ALFREDO A ? Accession #: ? [id number] ? : ? 1960 (Age: 44) ??F ? Collect Date: ? 10/29/2004 ? Location: ? [facility] ? Receive Date: ? 10/29/2004 ? Provider: KEVIN HERNANDEZ MD Copy to: MATT BERRIOS MD ? Final Pathologic Diagnosis: ? Gallbladder, cholecystectomy: - Chronic cholecystitis and cholelithiasis. Document reviewed and electronically signed by: Adalid Ni MD Report ??Date: 11/02/2004 17:18 By the signature above, the attending physician certifies that he/she has personally conducted a gross and/or microscopic examination of the described specimens and rendered or confirmed the above diagnosis. Specimen(s) Received: ? Gallbladder Clinical History: ? Cholelithiasis Gross Description: ? Received fresh labelled Bella and A-gallbladder is a product of a cholecystectomy which weighs 11.25 grams and measures 7.8 x 2.5 x 2.0 cm. ??The specimen is received inside-out and there are no stones present. ??The serosal surface is pink and smooth and grossly unremarkable. ??The gallbladder wall measures 0.1 cm in thickness. ??The mucosal surface is pink and velvety. ??The cystic duct measures 0.5 cm in length x 0.3 cm in diameter. ??There is no cystic duct lymph node. There is a stone in the container with a brown-yellow surface and measures 3.0 x 2.0 x 2.0 cm. ??The center of the stone is composed of concentric rings of yellow-orange crystalline-type material. ??Ux Developer Designer section of the cystic duct and two sections of the gallbladder mucosal wall are submitted in one cassette. (Dr. Tape-AM)/mpl End of Report [facility] 10/29/2004 10/29/2004 15: 17 EDT Kevin Hernandez MD PATHOLOGY ORDERABLES Performing Organization Address City/State/[facility] Co de Phone Number [facility] [address] [place] [address] documented in this encounter Visit Diagnoses Not on filedocumented in this encounter Care Teams Shactor Relationship Specialty Start Date End Date Matt Jackson MD PCP - General 11/04/08 08/10/18 documented as of this encounter
--- OUTSIDE RECORDS SUMMARY | 2024-02-24 17:07 | XMS_ITS | Encounter Summary ---
Author Organization [facility] Address [address] [place] [address] Care Team Providers Care Dry Heat Cabinet Attendant Name Role Phone Unavailable Primary Care Provider Unavailabl e Encounter Details Date Type Department Care Team (Latest Contact Info) Description 10/19/2004 17:56 EDT Hospital Encounter [address] [address] Joni Hernandez MD [address] [place] [address] Discharge Disposition: Auto Discharge Social History Tobacco [...] Procedure Name Priority Date/Time Associated Diagnosis Comments HEMAGRAM & DIFF Routine 10/19/2004 17:59 EDT HEPATIC FUNCTION PANEL (ALB,ALK PHOS,ALT,AST,DBIL,T OT SIMÓN,TOT PROT) Routine 10/19/2004 17:59 EDT documented in this encounter Results * (ABNORMAL) HEMAGRAM & DIFF (10/19/2004 17:59 EDT) WBC 8.70 4.0 - 12.4 K/cmm [facility] RBC 4.74 3.86 - 5.04 M/cmm [facility] Hemoglobin 13.7 11.6 - 15.2 gm/dl [facility] HCT 39.3 34.9 - 44.4 % [facility] MCV 83 81 - 98 fl [facility] MCH 28.8 26.7 - 33.3 pg [facility] MCHC 34.8 32.1 - 35.9 gm/dl [facility] PLT 295 141 - 320 K/cmm [facility] RDW-CV 12.4 11.7 - 14.6 % [facility] Comment:Performed at [facility], [place], [place] Neutrophils 64.0 45.5 - 79.7 % [facility] Lymphocytes 34.0 15.0 - 46.8 % [facility] Monocytes 1.0(L) 1.8 - 12.0 % [facility] Eosinophils 1.0 0.6 - 6.9 % [facility] ABS Neutrophils 5.56 2.20 - 8.85 K/cmm [facility] ABS Lymphs 2.96 1.09 - 3.30 K/cmm [facility] ABS Monocytes 0.09(L) 0.1 - 0.8 K/cmm [facility] ABS Eosinophils 0.09 0.03 - 0.61 K/cmm [facility] Type of Diff: Manual [facility] RBC Morphology Normal [facility] 10/19/2004 17:5 9 EDT 10/19/2004 18:01 EDT Joni Hernandez MD HISTORICAL LAB FOR S Q LOAD [facility] [address] [place] [address] * (ABNORMAL) LIVER FUNCTION TESTS (10/19/2004 17:59 EDT) Albumin 4.6 3.4 - 4.9 g/dl [facility] Total Protein 8.1(H) 6.5 - 8.0 g/dl [facility] Total Alkaline Phosphatase 101 38 - 126 U/L [facility] ALT 36 9 - 52 U/L [facility] AST 20 15 - 46 U/L [facility] Unconjugated Bilirubin 0.4 0.1 - 1.1 mg/dl [facility] Conjugated Bilirubin 0.0 0.0 - 0.3 mg/dl [facility] Bilirubin, Total <0.5 0.2 - 1.3 mg/dl [facility] Comment:Performed at [facility], [place], [place] 10/19/2004 17:5 9 EDT 10/19/2004 18:01 EDT Joni Hernandez MD CHEMISTRY & BLOOD GA S ORDERABLES [facility] [address] [place] [address] documented in this encounter Visit Diagnoses Not on filedocumented in this encounter
--- OUTSIDE RECORDS SUMMARY | 2024-02-24 17:07 | XMS_ITS | Encounter Summary ---
Author Organization [facility] Address [address] [place] [address] Care Team Providers Care Salesforce Trainer Name Role Phone Unavailable Primary Care Provider Unavailabl e Encounter Details Date Type Department Care Team (Latest Contact Info) Description 10/29/2004 9:38 EDT - 10/30/2004 11:59 EDT Hospital Encounter [facility] Cardiac/Telemetry Unit [address] [place] [address] Joni Hernandez MD [address] [place] [address] Discharge Disposition: Home or Self Care Social [...]
--- OUTSIDE RECORDS SUMMARY | 2024-02-24 17:07 | XMS_ITS | Encounter Summary ---
Author Organization [facility] Address [address] [place] [address] Care Team Providers Care Hog Dropper Name Role Phone Unavailable Primary Care Provider Unavailabl e Encounter Details Date Type Department Care Team (Latest Contact Info) Description 03/08/2007 10:35 EDT - 03/08/2007 11:59 EDT Hospital Encounter [facility] - Other [address] [place] [address] Shikha Benavidez MD [address] [place] [phone] Discharge Disposition: Home or Self Care [...]
--- OUTSIDE RECORDS SUMMARY | 2024-02-24 17:07 | XMS_ITS | Encounter Summary ---
Author Organization [facility] Address [address] [place] [address] Care Team Providers Care Binder Stripper Machine Name Role Phone Matt Jackson MD Primary Care Provider Unava ilable Encounter Details Date Type Department Care Team (Late st Contact Info) Description 12/01/2005 Results Only [facility] - Maple conversion [address] [place] [address] Pramod Franco MD [address] [place] [phone] Social History Tobacco Use Types Packs/Day Years Used Date Smoking Tobacco: Never Assessed Sex and Gender Information Value Date Recorded Sex Assigned at Not on file Gender Identity Female 06/20/2020 11:02 EST Sexual Orientation Not on file documented as of this encounter Plan of Treatment Not on file documented as of this encounter Procedures Procedure Name Priority Date/Time Associated Diagnosis Comments CYTOPATHOLOGY Routine 12/01/2005 0:00 EDT documented in this encounter Results * CYTOPATHOLOGY (12/01/2005 0:00 EDT) Pathology Report: CYTOPATHOLOGY REPORT Reports generated via electronic interface contain original data; however they are lacking the format of the original report. Caution should be taken when reading/interpreti ng unformatted reports. Name: ? MONIKAPIPPA MICHELLE A ? Accession #: ? [id number] : ? 1960 (Age: 45) ??F ?Collect Date: ? 12/01/2005 Location: ? [facility] ? Receive Date: ? 12/02/2005 Provider: ?PRAMOD FRANCO MD Copy to: ? Specimen/Source: ?ThinPrep Pap Test, Cervix/Endocervix, processed on [employer] ThinPrep Imaging System, with manual evaluation Last Menstrual Period: ? Treatment History: ? TASHA/BSO Other: ? DHPV - HPV testing requested if ASCUS/GAMALIEL on the current ThinPrep Pap test. ? SPECIMEN ADEQUACY ? Satisfactory for Evaluation - transformation zone component absent GENERAL CATEGORIZATION ? Negative for Intraepithelial Lesion or Malignancy ? Document reviewed and electronically signed by: ? CORNELIUS Arguello(ASCP) ? Report Date: ??12/06/2005 11:40 End of Report [facility] 12/01/2005 12/02/2005 Pramod Franco MD PATHOLOGY ORDERABLE S [facility] [address] [place] [address] documented in this encounter Visit Diagnoses Not on filedocumented in this encounter Care Teams Binder Stripper Machine Relationship Specialty Start Date End Date Matt Jackson MD PCP - General 11/04/08 08/10/18 documented as of this encounter
--- OUTSIDE RECORDS SUMMARY | 2024-02-24 17:07 | XMS_ITS | Encounter Summary ---
Author Organization [facility] Address [address] [place] [address] Care Team Providers Care Ice Cream Server Name Role Phone Unavailable Primary Care Provider Unavailabl e Encounter Details Date Type Department Care Team (Late st Contact Info) Description 03/27/2004 19:51 EDT Hospital Encounter [facility] [address] [place] [address] Shikha Benavidez MD [address] [place] [phone] Social History Tobacco Use Types Packs/Day [...] Procedure Name Priority Date/Time Associated Diagnosis Comments URINALYSIS WITH MICROSCOPIC IF POSITIVE Routine 03/27/2004 19:52 EDT UA REFLEX Routine 03/27/2004 19:52 EDT BACTERIAL CULTURE, URINE Routine 03/27/2004 19:52 EDT documented in this encounter Results * BACTERIAL CULTURE, URINE (03/27/2004 19:52 EDT) Specimen Description Urine [facility] Result 10,000 to 100,000 CFU/ml LACTOBACILLU S SPECIES Less than 10,000 CFU/ml Mixed gram positive growth [facility] Report Status Final [id number] [facility] 03/27/2004 19:5 2 EDT 03/27/2004 19:57 EDT Shikha Benavidez MD MICROBIOLOGY - GENE RAL ORDERABLES Performing Organization Address [facility]/ZIP Co de Phone Number [facility] [address] [place] [address] * UA REFLEX (03/27/2004 19:52 EDT) UA Billing Microscopic not indicated. [facility] 03/27/2004 19:5 2 EDT 03/27/2004 19:57 EDT Shikha Benavidez MD URINALYSIS ORDERABL ES Performing Organization Address [facility] Co de Phone Number [facility] [address] [place] [address] * (ABNORMAL) URINALYSIS (03/27/2004 19:52 EDT) Color, UA Yellow [facility] Clarity, UA Clear [facility] Glucose, UA Norm NORM [facility] Bilirubin, UA Neg NEG [facility] Ketones, UA Neg NEG [facility] Specific Blum, Urine >1.030(H) 1.005 - 1.02 [facility] Blood, UA Neg NEG [facility] pH, UA 5.5 5.0 - 9.0 [facility] Protein, UA Neg NEG [facility] Urobilinogen, UA Norm NORM mg/dL [facility] Nitrite, UA Neg NEG [facility] Leuk Esterase Neg NEG [facility] Refractometer SG,Urine 1.027(H) 1.005 - 1.02 [facility] Comment:Refractometer specif ic gravity 03/27/2004 19:5 2 EDT 03/27/2004 19:57 EDT Shikha Benavidez MD URINALYSIS ORDERABL ES Performing Organization Address City/State/[facility] Co de Phone Number [facility] [address] [place] [address] documented in this encounter Visit Diagnoses Not on filedocumented in this encounter
--- OUTSIDE RECORDS SUMMARY | 2024-02-24 17:07 | XMS_ITS | Encounter Summary ---
Author Organization [facility] Address [address] [place] [address] Care Team Providers Care Claims Assistant Name Role Phone Unavailable Primary Care Provider Unavailabl e Encounter Details Date Type Department Care Team (Latest Contact Info) Description 04/29/2005 13:08 EDT Hospital Encounter [facility] [address] [place] [address] Shukri Renae PA [address] [place] [phone] Discharge Disposition: Auto Discharge Social History Tobacco [...] Procedure Name Priority Date/Time Associated Diagnosis Comments CT ABDOMEN, PELVIS W CONTRAST 04/29/2005 14:43 EDT documented in this encounter Results * CT ABDOMEN, PELVIS W CONTRAST (04/29/2005 14:43 EDT) Anatomical Region Laterality Modality Other 04/29/2005 14:4 3 EDT Narrative 01/31/2009 3:49 EDT LLQ PAIN, S/P GALLBLADDER SURGERY- NICKED BOWEL 02/05 CT OF THE ABDOMEN AND PELVIS WITH IV CONTRAST TECHNIQUE: Axial sections were obtained from the lung bases to the ischial tuberosities after IV administration of 100 cc of Omnipaque 350. Oral contrast was administered. FINDINGS: The lung bases are clear. ??The patient is status post cholecystectomy. ??There is mild fatty infiltration of the liver. ??The spleen is unremarkable. ??There are a few accessory spleens measuring under 1 cm. ??The adrenal glands, pancreas are unremarkable. ??There is an 8-mm low density in the midsegment of the right kidney, most likely a cyst. ??The kidneys were studied in the early phase of the arterial enhancement precluding good evaluation of the renal parenchyma. ??There is no abdominal lymphadenopathy. ??The patient is status post hysterectomy. ??There is a pessary ring in the vagina. There are no pelvic masses. ??The appendix is visualized and is normal. ??The left colon was not opacified with oral contrast. ??The stomach was not distended for this examination and food mixed with contrast is present. ??There were delayed images which were obtained 4 minutes later; they show persistent, essentially identical appearance of the stomach with apparent thickening of the anterior wall and the greater curvature of the stomach. ??It is difficult to adequately characterize it in the absence of gastric distention and the patient being post-prandial. There is midline hernia in the epigastric region which contains fat and measures 3.5 cm in diameter. ??There is no evidence of ascites or free intraperitoneal air. ??The visualized osseous structures are unremarkable. IMPRESSIONS: 1. ??Status post hysterectomy. 2. ??Status post cholecystectomy. 3. ??Midline hernia in epigastric region containing fat. /tns Procedure Note Faheem Weathers MD - 01/31/2009 LLQ PAIN, S/P GALLBLADDER SURGERY- NICKED BOWEL 02/05 CT OF THE ABDOMEN AND PELVIS WITH IV CONTRAST TECHNIQUE: Axial sections were obtained from the lung bases to the ischial tuberosities after IV administration of 100 cc of Omnipaque 350. Oral contrast was administered. FINDINGS: The lung bases are clear. The patient is status post cholecystectomy. There is mild fatty infiltration of the liver. The spleen is unremarkable. There are a few accessory spleens measuring under 1 cm. The adrenal glands, pancreas are unremarkable. There is an 8-mm low density in the midsegment of the right kidney, most likely a cyst. The kidneys were studied in the early phase of the arterial enhancement precluding good evaluation of the renal parenchyma. There is no abdominal lymphadenopathy. The patient is status post hysterectomy. There is a pessary ring in the vagina. There are no pelvic masses. The appendix is visualized and is normal. The left colon was not opacified with oral contrast. The stomach was not distended for this examination and food mixed with contrast is present. There were delayed images which were obtained 4 minutes later; they show persistent, essentially identical appearance of the stomach with apparent thickening of the anterior wall and the greater curvature of the stomach. It is difficult to adequately characterize it in the absence of gastric distention and the patient being post-prandial. There is midline hernia in the epigastric region which contains fat and measures 3.5 cm in diameter. There is no evidence of ascites or free intraperitoneal air. The visualized osseous structures are unremarkable. IMPRESSIONS: 1. Status post hysterectomy. 2. Status post cholecystectomy. 3. Midline hernia in epigastric region containing fat. /ani Shukri SKY IMEmigdio CT ORDERABLES documented in this encounter Visit Diagnoses Not on filedocumented in this encounter
--- OUTSIDE RECORDS SUMMARY | 2024-02-24 17:07 | XMS_ITS | Encounter Summary ---
Author Organization [facility] Address [address] [place] [address] Care Team Providers Care Director Of Sports Medicine Name Role Phone Unavailable Primary Care Provider Unavailabl e Encounter Details Date Type Department Care Team (Latest Contact Info) Description 12/01/2005 10:55 EDT - 12/01/2005 11:59 EDT Hospital Encounter [facility] - Other [address] [place] [address] Shikha Benavidez MD [address] [place] [phone] Discharge Disposition: Auto Discharge Social History Tobacco [...]
--- OUTSIDE RECORDS SUMMARY | 2024-02-24 17:07 | XMS_ITS | Encounter Summary ---
Author Organization [facility] Address [address] [place] [address] Care Team Providers Care Sole Rounding Machine Operator Name Role Phone Unavailable Primary Care Provider Unavailabl e Encounter Details Date Type Department Care Team (Latest Contact Info) Description 02/15/2005 8:56 EDT - 02/15/2005 11:59 EDT Hospital Encounter [facility] [address] [place] [address] Mandie Renae PA [address] [place] [id number] Discharge Disposition: Auto Discharge Social History Tobacco [...] Associated Diagnosis Comments MA MAMMO SCREENING DIGITAL 02/15/2005 9:26 EDT documented in this encounter Results * MA MAMMO SCREENING DIGITAL (02/15/2005 9:26 EDT) Anatomical Region Laterality Modality Other 02/15/2005 9:26 EDT Narrative 02/06/2009 4:09 EDT ROUTINE HX GMG BR CA , MAT. AUNT BR CA [PCP MANDIE RENAE] Comparison is made to films from 02/13/2004 and films from 02/11/2003 and films from 01/26/2002. Bilateral Breast Findings: (cad used to interpret routine digital): There are scattered fibroglandular densities. ??No significant masses, calcifications or other abnormalities are seen. IMPRESSION: BILATERAL BREAST - CATEGORY 1 Negative, no evidence of malignancy. Normal interval follow-up is recommended in 12 months. OVERALL ASSESSMENT - NEGATIVE END OF IMPRESSION I have personally reviewed the images and the above interpretation and agree with the findings. Procedure Note Casper Pérez MD / Shakira Nicholas MD - 02/06/2009 ROUTINE HX GMG BR CA , MAT. AUNT BR CA [PCP MANDIE RENAE] Comparison is made to films from 02/13/2004 and films from 02/11/2003 and films from 01/26/2002. Bilateral Breast Findings: (cad used to interpret routine digital): There are scattered fibroglandular densities. No significant masses, calcifications or other abnormalities are seen. IMPRESSION: BILATERAL BREAST - CATEGORY 1 Negative, no evidence of malignancy. Normal interval follow-up is recommended in 12 months. OVERALL ASSESSMENT - NEGATIVE END OF IMPRESSION I have personally reviewed the images and the above interpretation and agree with the findings. Mandie SKY IMG MAMMOGRAPHY ORDE DORY documented in this encounter Visit Diagnoses Not on filedocumented in this encounter
--- OUTSIDE RECORDS SUMMARY | 2024-02-24 17:07 | XMS_ITS | Encounter Summary ---
Author Organization [facility] Address [address] [place] [address] Care Team Providers Care Residential Property Manager Name Role Phone Matt Jackson MD Primary Care Provider Unava ilable Encounter Details Date Type Department Care Team (Late st Contact Info) Description 03/13/2004 Results Only [facility] - [place] [facility] [address] [place] [address] Sabrina Bai MD [address] [place] [address],[address] [phone] Social History Tobacco Use Types Packs/Day Years Used Date Smoking Tobacco: Never Assessed Sex and Gender Information Value Date Recorded Sex Assigned at Not on file Gender Identity Female 06/20/2020 11:02 EST Sexual Orientation Not on file documented as of this encounter Plan of Treatment Not on file documented as of this encounter Procedures Procedure Name Priority Date/Time Associated Diagnosis Comments CYTOPATHOLOGY Routine 03/13/2004 0:00 EDT documented in this encounter Results * CYTOPATHOLOGY (03/13/2004 0:00 EDT) Pathology Report: CYTOPATHOLOGY REPORT Reports generated via electronic interface contain original data; however they are lacking the format of the original report. Caution should be taken when reading/interpreti ng unformatted reports. Name: ? ZUHAIRMICHELLE MCGRATH A ? Accession #: ? [id number] : ? 1960 (Age: 43) ??F ?Collect Date: ? 03/13/2004 Location: ? [facility] ? Receive Date: ? 03/16/2004 Provider: ?SABRINA BAI MD Copy to: ? Specimen/Source: ?ThinPrep Pap Test, Vagina Last Menstrual Period: ? Hormonal/Contracep tive Status: ? Hormone Replacement Therapy Treatment History: ? Hysterectomy: 1999 Other: ? DHPV - HPV testing requested if ASCUS/GAMALIEL on the current ThinPrep Pap test. ? SPECIMEN ADEQUACY ? Satisfactory for Evaluation - assessment of transformation zone component not applicable ( e.g. atrophy, vaginal sample, hysterectomy) GENERAL CATEGORIZATION ? Negative for Intraepithelial Lesion or Malignancy ? Document reviewed and electronically signed by: ? Margo Retana, [facility](ASCP) ? Report Date: ??03/19/2004 15:46 End of Report [facility] 03/13/2004 03/16/2004 Sabrina Bai MD PATHOLOGY ORDERABLES [facility] [address] [place] [address] documented in this encounter Visit Diagnoses Not on filedocumented in this encounter Care Teams Residential Property Manager Relationship Specialty Start Date End Date Matt Jackson MD PCP - General 11/04/08 08/10/18 documented as of this encounter
--- OUTSIDE RECORDS SUMMARY | 2024-02-24 17:07 | XMS_ITS | Encounter Summary ---
Author Organization [facility] Address [address] [place] [address] Care Team Providers Care Veneer Sheet Repairer Name Role Phone Unavailable Primary Care Provider Unavailabl e Encounter Details Date Type Department Care Team (Late st Contact Info) Description 06/07/2003 17:17 EST Hospital Encounter [facility] - Other [address] [place] [address] Luke Mcgregor, DDS [address] [place] [address] Social History Tobacco Use Types Packs/Day Years [...] Date/Time Associated Diagnosis Comments SURGICAL PATHOLOGY Routine 06/07/2003 0:00 EST documented in this encounter Results * SURGICAL PATHOLOGY (06/07/2003 0:00 EST) Pathology Report: SURGICAL PATHOLOGY REPORT Reports generated via electronic interface contain original data; however they are lacking the format of the original report. Caution should be taken when reading/interpreti ng unformatted reports. Name: ? MICHELLE ALFREDO ? Accession #: ? [id number] ? : ? 1960 (Age: 42) ??F ? Collect Date: ? 06/07/2003 ? Location: ? [facility] ? Receive Date: ? 06/10/2003 ? Provider: LUKE MCGREGOR DDS Copy to: SERGIO BREWER DDS ??Luke Bhatti DDS [address] [facility] [place] [address] ? Final Pathologic Diagnosis: A. ?Mandible, left, soft tissue lining and bone density, specimen #1, biopsy: 1. ?Central ossifying fibroma of bone. ??See comment. B. ?Mandible, left, bony curettage of cyst lining, specimen #2, curettage: 1. ?Central ossifying fibroma of bone. ??See comment. Comment: ? Dr. Elías Sotelo has seen this case in consultation and concurs. ??(Dr. Ni)/[facility] Document reviewed and electronically signed by: Adalid Ni MD Report ??Date: 06/13/2003 16:43 By the signature above, the attending physician certifies that he/she has personally conducted a gross and/or microscopic examination of the described specimens and rendered or confirmed the above diagnosis. Specimen(s) Received: A. ?Soft tissue lining & bone/tooth density (#1) B. ?Bony curettage of cyst lining (#2) Clinical History: ? 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 Received in formalin labelled MeadFournier and #1 is a tsk-xkvsf-qdlzk regular portion of bone measuring 0.6 x 0.5 x 0.4 cm. ??There is a minimal amount of attached reyes-pink mucosa. ??The specimen is entirely submitted as (A) following decalcification. Received in formalin labelled MeadFournier and #2 are three ghx-belx-vsyrk indurated portions of soft tissue and underlying bone ranging from 0.3 x 0.2 x 0.2 cm to 0.5 x 0.3 x 0.2 cm. ??The specimen is entirely submitted as (B) following decalcification. ??(Tato Atkins)/mattm ?? End of Report [facility] 06/07/2003 06/10/2003 8:5 1 EST Luke Mcgregor DDS PATHOLOGY ORDERABLES Performing Organization Address City/State/[facility] Co de Phone Number [facility] [address] [place] [address] documented in this encounter Visit Diagnoses Not on filedocumented in this encounter
--- OUTSIDE RECORDS SUMMARY | 2024-02-24 17:07 | XMS_ITS | Encounter Summary ---
Author Organization [facility] Address [address] [place] [address] Care Team Providers Care Crankshaft Balancer Name Role Phone Matt Jackson MD Primary Care Provider Unava ilable Encounter Details Date Type Department Care Team (Late st Contact Info) Description 03/08/2007 Results Only [facility] - [place] conversion [address] [place] [address] Pramod Franco MD [address] [place] [phone] Social History Tobacco Use Types Packs/Day [...] Priority Date/Time Associated Diagnosis Comments CYTOPATHOLOGY Routine 03/08/2007 0:00 EDT documented in this encounter Results * CYTOPATHOLOGY (03/08/2007 0:00 EDT) Pathology Report: CYTOPATHOLOGY REPORT Reports generated via electronic interface contain original data; however they are lacking the format of the original report. Caution should be taken when reading/interpreti ng unformatted reports. Name: ? KENNYMICHELLE HAWK A ? Accession #: ? [id number] : ? 1960 (Age: 46) ??F ?Collect Date: ? 03/08/2007 Location: ? [facility] ? Receive Date: ? 03/08/2007 Provider: ?PRAMOD FRANCO MD Copy to: ? Specimen/Source: ?ThinPrep Pap Test, Vagina, processed on [employer]o ThinPrep Imaging System, with manual evaluation Last Menstrual Period: ? Treatment History: ? Hysterectomy Other: ? DHPV - HPV testing requested if ASCUS/GAMALIEL on the current ThinPrep Pap test. ? SPECIMEN ADEQUACY ? Satisfactory for Evaluation - assessment of transformation zone component not applicable ( e.g. atrophy, vaginal sample, hysterectomy) GENERAL CATEGORIZATION ? Negative for Intraepithelial Lesion or Malignancy ? Document reviewed and electronically signed by: ? LAUREANO Connor(ASCP) ? Report Date: ??03/14/2007 15:48 End of Report [facility] 03/08/2007 03/08/2007 Pramod Franco MD PATHOLOGY ORDERABLE S [facility] [address] [place] [address] documented in this encounter Visit Diagnoses Not on filedocumented in this encounter Care Teams Crankshaft Balancer Relationship Specialty Start Date End Date Matt Jackson MD PCP - General 11/04/08 08/10/18 documented as of this encounter
--- OUTSIDE RECORDS SUMMARY | 2024-02-24 17:07 | XMS_ITS | Encounter Summary ---
Author Organization [facility] Address [address] [place] [address] Care Team Providers Care Steel Die Printer Name Role Phone Unavailable Primary Care Provider Unavailabl e Encounter Details Date Type Department Care Team (Late st Contact Info) Description 03/13/2004 10:32 EDT Hospital Encounter [facility] - Other [address] [place] [address] Elsa Potts MD [address] [facility],[address] [phone] Social History Tobacco Use Types [...]
--- OUTSIDE RECORDS SUMMARY | 2024-02-24 17:07 | XMS_ITS | Encounter Summary ---
Author Organization [facility] Address [address] [place] [address] Care Team Providers Care Flexographic Press Set Up Operator Name Role Phone Unavailable Primary Care Provider Unavailabl e Encounter Details Date Type Department Care Team (Latest Contact Info) Description 05/13/2008 13:53 EST Hospital Encounter [facility] [address] [place] [address] Rinku Mckenna MD [address] [place] [address] Discharge Disposition: Auto Discharge Social History Tobacco [...] Procedure Name Priority Date/Time Associated Diagnosis Comments SED RATE Routine 05/16/2008 10:45 EST COMPLETE BLOOD COUNT AND DIFFERENTIAL Routine 05/16/2008 10:45 EST C REACTIVE PROTEIN Routine 05/16/2008 10 :45 EST MR ABD CHOLANGIOPANCREAGRAM WO CONTRAST 05/13/2008 16:25 EST documented in this encounter Results * C-REACTIVE PROTEIN (05/16/2008 10:45 EST) Pathologist [facility] C-Reactive Protein 0.9 <1.0 mg/dl [facility] 05/16/2008 10:4 5 EST 05/16/2008 15:22 EST Shikha Benavidez MD CHEMISTRY & BLOOD G ORDERABLES Performing Organization Address [facility] de Phone Number [facility] [address] [place] [address] * (ABNORMAL) SED. RATE:WESTERGREN (05/16/2008 10:45 EST) Pathologist [facility] Sed. Rate Essenceren 28(H) 0 - 20 mm/hr [facility] Comment: Note: Sample greater than 4 hrs old (but less that 12 hrs) when tested. If refrigerated, sample is stable when tested within 12 hours of collection. 05/16/2008 10:4 5 EST 05/16/2008 15:22 EST Shikha Benavidez MD HEMATOLOGY & PF4 OR DERABLES Performing Organization Address [facility] de Phone Number [facility] [address] [place] [address] * HEMAGRAM AND DIFFERENTIAL (05/16/2008 10:45 EST) Pathologist [facility] WBC 7.42 4.0 - 12.4 K/cmm [facility] RBC 4.79 3.86 - 5.04 M/cmm [facility] Hemoglobin 13.4 11.6 - 15.2 gm/dl [facility] HCT 38.7 34.9 - 44.4 % [facility] MCV 81 81 - 98 fl [facility] MCH 27.9 26.7 - 33.3 pg [facility] MCHC 34.6 32.1 - 35.9 gm/dl [facility] PLT 290 141 - 320 K/cmm [facility] RDW-CV 12.9 11.7 - 14.6 % [facility] Neutrophils 58.2 45.5 - 79.7 % [facility] Lymphocytes 32.8 15.0 - 46.8 % [facility] Monocytes 5.9 1.8 - 12.0 % [facility] Eosinophils 2.5 0.6 - 6.9 % [facility] Basophils 0.6 0.2 - 1.4 % [facility] ABS Neutrophils 4.33 2.20 - 8.85 K/cmm [facility] ABS Lymphs 2.43 1.09 - 3.30 K/cmm [facility] ABS Monocytes 0.44 0.1 - 0.8 K/cmm [facility] ABS Eosinophils 0.18 0.03 - 0.61 K/cmm [facility] ABS Basophils 0.04 0.01 - 0.11 K/cmm [facility] Type of Diff: Automated [facility] 05/16/2008 10:4 5 EST 05/16/2008 15:22 EST Shikha Benavidez MD PACKAGES & DNA PROB E ORDERABLES Performing Organization Address City/State[facility] Co de Phone Number [facility] [address] [place] [address] * MR ABD CHOLANGIOPANCREAGRAM WO CONTRAST (05/13/2008 16:25 EST) Anatomical Region Laterality Modality Other 05/13/2008 16:2 5 EST Narrative 11/18/2008 9:21 EDT abdominal,pelvic pain,epigastric pain MR ABD CHOLANGIOPANCREAGRAM WO/CONTRAST ??May 13, 2008 4:25:00 PM Signs and Symptoms: ??abdominal,pelvic pain,epigastric pain Comparison: CT from March 13, 2008. Technique: ??Thick slab coronal heavily T2 weighted, and thin section axial and coronal heavily T2 weighted images were obtained through the biliary tree. Findings: There is no evidence of intra or extrahepatic biliary dilatation with normal caliber ducts. An irregularity seen in the common hepatic duct in the area of the preston hepatis. When compared to the prior CT, this is likely secondary to artifact from metallic clips adjacent to the duct. No filling defect identified suggesting an intraductal stone. A tiny cystic duct remnant is identified. The pancreatic duct is normal. There is no divisum. There are no fluid collections. Incidentally a 1 cm cyst is identified in the posterior right kidney. Impression: 1. No intraductal filling defects suggesting an intraductal stone. 2. 1 cm right renal cyst. 3. Post cholecystectomy changes. I have personally reviewed the images and the above interpretation and agree with the findings. Procedure Note Denilson Burton MD / Ronal Hammer, PT - 11/18/2008 abdominal,pelvic pain,epigastric pain MR ABD CHOLANGIOPANCREAGRAM WO/CONTRAST May 13, 2008 4:25:00 PM Signs and Symptoms: abdominal,pelvic pain,epigastric pain Comparison: CT from March 13, 2008. Technique: Thick slab coronal heavily T2 weighted, and thin section axial and coronal heavily T2 weighted images were obtained through the biliary tree. Findings: There is no evidence of intra or extrahepatic biliary dilatation with normal caliber ducts. An irregularity seen in the common hepatic duct in the area of the preston hepatis. When compared to the prior CT, this is likely secondary to artifact from metallic clips adjacent to the duct. No filling defect identified suggesting an intraductal stone. A tiny cystic duct remnant is identified. The pancreatic duct is normal. There is no divisum. There are no fluid collections. Incidentally a 1 cm cyst is identified in the posterior right kidney. Impression: 1. No intraductal filling defects suggesting an intraductal stone. 2. 1 cm right renal cyst. 3. Post cholecystectomy changes. I have personally reviewed the images and the above interpretation and agree with the findings. Rinku Mckenna MD IMG MRI ORDERABLE S documented in this encounter Visit Diagnoses Not on filedocumented in this encounter
--- OUTSIDE RECORDS SUMMARY | 2024-02-24 17:07 | XMS_ITS | Encounter Summary ---
Author Organization [facility] Address [address] [place] [address] Care Team Providers Care Rental Manager Name Role Phone Matt Jackson MD Primary Care Provider Unava ilable Encounter Details Date Type Department Care Team (Late st Contact Info) Description 12/25/2002 Results Only [facility] - [facility] conversion [address] [place] [address] Shukri Renae PA [address] [place] [address] Social History Tobacco Use Types Packs/Day Years Used Date Smoking Tobacco: Never Assessed Sex and Gender Information Value Date Recorded Sex Assigned at Not on file Gender Identity Female 06/20/2020 11:02 EST Sexual Orientation Not on file documented as of this encounter Plan of Treatment Not on file documented as of this encounter Procedures Procedure Name Priority Date/Time Associated Diagnosis Comments CREATININE Routine 12/25/2002 11:50 EDT BUN Routine 12/25/2002 11:50 EDT documented in this encounter Results * CREATININE (12/25/2002 11:50 EDT) Creatinine 0.8 0.7 - 1.5 mg/dl [facility] 12/25/2002 11:5 0 EDT 12/25/2002 18:56 EDT Shukri SKY HISTORICAL LAB FOR S Q LOAD Performing Organization Address [facility] Co de Phone Number [facility] [address] [place] [address] * (ABNORMAL) BUN (12/25/2002 11:50 EDT) BUN 27(H) 10 - 26 mg/dl [facility] 12/25/2002 11:5 0 EDT 12/25/2002 18:56 EDT Shukri SKY CHEMISTRY & BLOOD GA S ORDERABLES Performing Organization Address [facility] Co de Phone Number [facility] [address] [place] [address] documented in this encounter Visit Diagnoses Not on filedocumented in this encounter Care Teams Rental Manager Relationship Specialty Start Date End Date Matt Jackson MD PCP - General 11/04/08 08/10/18 documented as of this encounter
--- OUTSIDE RECORDS SUMMARY | 2024-02-24 17:07 | XMS_ITS | Encounter Summary ---
Author Organization [facility] Address [address] [place] [address] Care Team Providers Care Crosscutter Name Role Phone Unavailable Primary Care Provider Unavailabl e Encounter Details Date Type Department Care Team (Latest Contact Info) Description 02/16/2006 15:41 EDT Hospital Encounter [address] [address] Matt Jackson MD Discharge Disposition: Auto Discharge [...] Associated Diagnosis Comments MA MAMMO SCREENING DIGITAL 02/16/2006 16:05 EDT documented in this encounter Results * MA MAMMO SCREENING DIGITAL (02/16/2006 16:05 EDT) Anatomical Region Laterality Modality Other 02/16/2006 16:0 5 EDT Narrative 01/18/2009 10:54 EDT ROUTINE Comparison is made to films from 02/15/2005 (bilateral) and films from 02/13/2004 and films from 02/11/2003. Bilateral Breast Findings: (CAD used to interpret routine digital): The breasts are almost entirely fat. ??No significant masses, calcifications or other abnormalities are seen. IMPRESSION: BILATERAL BREASTS - CATEGORY 1 Negative, no evidence of malignancy. Normal interval follow-up is recommended in 12 months. OVERALL ASSESSMENT - NEGATIVE END OF IMPRESSION Procedure Note Nanci Pulliam MD - 01/18/2009 ROUTINE Comparison is made to films from 02/15/2005 (bilateral) and films from 02/13/2004 and films from 02/11/2003. Bilateral Breast Findings: (CAD used to interpret routine digital): The breasts are almost entirely fat. No significant masses, calcifications or other abnormalities are seen. IMPRESSION: BILATERAL BREASTS - CATEGORY 1 Negative, no evidence of malignancy. Normal interval follow-up is recommended in 12 months. OVERALL ASSESSMENT - NEGATIVE END OF IMPRESSION Matt Jackson MD IMG MAMMOGRAPHY SRINIVASAN CONNORS documented in this encounter Visit Diagnoses Not on filedocumented in this encounter
--- OUTSIDE RECORDS SUMMARY | 2024-02-24 17:07 | XMS_ITS | Encounter Summary ---
Author Organization [facility] Address [address] [place] [address] Care Team Providers Care Cardiopulmonary Supervisor Name Role Phone Unavailable Primary Care Provider Unavailabl e Encounter Details Date Type Department Care Team (Latest Contact Info) Description 02/03/2000 18:00 EDT - 02/08/2000 11:59 EDT Hospital Encounter [facility] General Surgery Unit [address] [place] [address] John Rivera MD [address] [place] [phone] Discharge Disposition: Home or Self Care [...] Priority Date/Time Associated Diagnosis Comments CREATININE Routine 02/08/2000 7:15 EDT CREATININE Routine 02/07/2000 6:00 EDT HEMAGRAM & DIFF Routine 02/06/2000 10:00 EDT C REACTIVE PROTEIN Routine 02/06/2000 10 :00 EDT BACTERIAL CULTURE, FECES Routine 02/05/2000 17:43 EDT OVA/PARASITE EXAM Routine 02/05/2000 17: 43 EDT C. DIFFICILE TOXIN Routine 02/05/2000 17 :43 EDT HEMAGRAM & DIFF Routine 02/05/2000 9:45 EDT C REACTIVE PROTEIN Routine 02/05/2000 9: 45 EDT GENTAMICIN PEAK Routine 02/05/2000 9:45 EDT GENTAMICIN TROUGH Routine 02/05/2000 8:1 5 EDT CHEST PA Routine 02/04/2000 13:01 EDT HEMAGRAM & DIFF Routine 02/04/2000 7:05 EDT C REACTIVE PROTEIN Routine 02/04/2000 7: 05 EDT BACTERIAL CULTURE, BLOOD Routine 02/03/2000 22:45 EDT CREATININE Routine 02/03/2000 22:30 EDT BACTERIAL CULTURE, BLOOD Routine 02/03/2000 22:30 EDT BUN Routine 02/03/2000 22:30 EDT ELECTROLYTES Routine 02/03/2000 22:[address] ABDOMEN W/CONTRAST Routine 02/03/2000 21:[address] PELVIS W/CONTRAST Routine 02/03/2000 21:09 EDT GROUP B STREPTOCOCCUS SUSCEPTIBILITY Routine 02/03/2000 17:30 EDT BACTERIAL CULTURE, URINE Routine 02/03/2000 16:30 EDT HEMAGRAM & DIFF Routine 02/03/2000 14:49 EDT C REACTIVE PROTEIN Routine 02/03/2000 14 :49 EDT documented in this encounter Results * CREATININE (02/08/2000 7:15 EDT) Creatinine 0.9 0.7 - 1.5 mg/dl [facility] 02/08/2000 7:15 EDT 02/08/2000 8:02 EDT John Rivera MD HISTORICAL LAB FOR S Q LOAD Performing Organization Address [facility] Co de Phone Number [facility] [address] [place] [address] * CREATININE (02/07/2000 6:00 EDT) Creatinine 0.7 0.7 - 1.5 mg/dl [facility] 02/07/2000 6:00 EDT 02/07/2000 10:16 EDT John Rivera MD HISTORICAL LAB FOR S Q LOAD Performing Organization Address [facility] de Phone Number [facility] [address] [place] [address] * (ABNORMAL) C-REACTIVE PROTEIN (02/06/2000 10:00 EDT) C-Reactive Protein 6.5(H) <1.0 mg/dl [facility] 02/06/2000 10:0 0 EDT 02/06/2000 10:31 EDT John Rivera MD CHEMISTRY & BLOOD GA S ORDERABLES Performing Organization Address [facility] Co de Phone Number [facility] [address] [place] [address] * (ABNORMAL) HEMAGRAM & DIFF (02/06/2000 10:00 EDT) WBC 7.70 4.0 - 12.4 K/cmm [facility] RBC 3.15(L) 3.86 - 5.04 M/cmm [facility] Hemoglobin 8.5(L) 11.6 - 15.2 gm/dl [facility] HCT 25.0(L) 34.9 - 44.4 % [facility] MCV 79(L) 81 - 98 fl [facility] MCH 27.1 26.7 - 33.3 pg [facility] MCHC 34.1 32.1 - 35.9 gm/dl [facility] PLT 412(H) 141 - 320 K/cmm [facility] RDW-CV 12.5 11.7 - 14.6 % [facility] % Neutrophils 69.5 45.5 - 79.7 % [facility] % Lymphocytes 19.2 15.0 - 46.8 % [facility] % Monocytes 5.9 1.8 - 12.0 % [facility] % Eosinophils 4.0 0.6 - 6.9 % [facility] % Basophils 1.4 0.2 - 1.4 % [facility] ABS Neutrophils 5.36 2.20 - 8.85 K/cmm [facility] ABS Lymphs 1.48 1.09 - 3.30 K/cmm [facility] ABS Monocytes 0.45 0.1 - 0.8 K/cmm [facility] ABS Eosinophils 0.31 0.03 - 0.61 K/cmm [facility] ABS Basophils 0.10 0.01 - 0.11 K/cmm [facility] Type of Diff: Automated [facility] 02/06/2000 10:0 0 EDT 02/06/2000 10:31 EDT John Rivera MD HISTORICAL LAB FOR S Q LOAD [facility] [address] [place] [address] * OVA/PARASITE EXAM (02/05/2000 17:43 EDT) Specimen Description Feces [facility] Result No ova and parasites seen. (If Cryptosporidium, Cyclospora, or microsporidium are suspected, specific tests must be requested.) [facility] Report Status Final [facility] 02/05/2000 17:4 3 EDT 02/05/2000 17:45 EDT John Rivera MD MICROBIOLOGY - GENER AL ORDERABLES Performing Organization Address [facility] de Phone Number [facility] [address] [place] [address] * C. DIFFICILE TOXIN (02/05/2000 17:43 EDT) Specimen Description Feces [facility] Result No Clostridium difficile toxin A detected [facility] Report Status Final [facility] 02/05/2000 17:4 3 EDT 02/05/2000 17:45 EDT John Rivera MD MICROBIOLOGY - GENER AL ORDERABLES Performing Organization Address [facility] de Phone Number [facility] [address] [place] [address] * BACTERIAL CULTURE, FECES (02/05/2000 17:43 EDT) Specimen Description Feces [facility] Result No Salmonella, Shigella, Campylobacte r, Yersinia, or E. coli O157:H7 isolated [facility] Report Status Final [facility] 02/05/2000 17:4 3 EDT 02/05/2000 17:45 EDT John Rivera MD MICROBIOLOGY - GENER AL ORDERABLES Performing Organization Address [facility] de Phone Number [facility] [address] [place] [address] * GENTAMICIN PEAK (02/05/2000 9:45 EDT) Gentamicin Peak 6.2 5.0 - 10.0 ug/ml [facility] Gentamicin Dose Start Date [id number] [facility] Gentamicin Dose Start Time 0830 [facility] Gentamicin Dose End Date [id number] [facility] Gentamicin Dose End Time 0900 [facility] 02/05/2000 9:45 EDT 02/05/2000 11:02 EDT John Rivera MD CHEMISTRY & BLOOD GA S ORDERABLES Performing Organization Address [facility] Co de Phone Number [facility] [address] [place] [address] * (ABNORMAL) C-REACTIVE PROTEIN (02/05/2000 9:45 EDT) [facility] C-Reactive Protein 13.4(H) <1.0 mg/dl [facility] 02/05/2000 9:45 EDT 02/05/2000 11:02 EDT John Rivera MD CHEMISTRY & BLOOD ID S ORDERABLES Performing Organization Address [facility] de Phone Number [facility] [address] [place] [address] * (ABNORMAL) HEMAGRAM & DIFF (02/05/2000 9:45 EDT) [facility] WBC 7.55 4.0 - 12.4 K/cmm [facility] RBC 3.05(L) 3.86 - 5.04 M/cmm [facility] Hemoglobin 8.3(L) 11.6 - 15.2 gm/dl [facility] HCT 24.2(L) 34.9 - 44.4 % [facility] MCV 79(L) 81 - 98 fl [facility] MCH 27.3 26.7 - 33.3 pg [facility] MCHC 34.3 32.1 - 35.9 gm/dl [facility] PLT 349(H) 141 - 320 K/cmm [facility] RDW-CV 12.6 11.7 - 14.6 % [facility] % Neutrophils 69.6 45.5 - 79.7 % [facility] % Lymphocytes 20.8 15.0 - 46.8 % [facility] % Monocytes 6.5 1.8 - 12.0 % [facility] % Eosinophils 2.6 0.6 - 6.9 % [facility] % Basophils 0.5 0.2 - 1.4 % [facility] ABS Neutrophils 5.25 2.20 - 8.85 K/cmm [facility] ABS Lymphs 1.57 1.09 - 3.30 K/cmm [facility] ABS Monocytes 0.49 0.1 - 0.8 K/cmm [facility] ABS Eosinophils 0.20 0.03 - 0.61 K/cmm [facility] ABS Basophils 0.04 0.01 - 0.11 K/cmm [facility] Type of Diff: Automated [facility] 02/05/2000 9:45 EDT 02/05/2000 11:02 EDT John Rivera MD HISTORICAL LAB FOR S Q LOAD Performing Organization Address [facility] Co de Phone Number [facility] [address] [place] [address] * GENTAMICIN TROUGH (02/05/2000 8:15 EDT) Gentamicin Trough 0.7 <1.5 ug/ml [facility] Gentamicin Dose Start Date Not Given [facility] Gentamicin Dose Start Time Not Given [facility] 02/05/2000 8:15 EDT 02/05/2000 8:39 EDT John Rivera MD CHEMISTRY & BLOOD GA S ORDERABLES Performing Organization Address [facility] Co de Phone Number [facility] [address] [place] [address] * CHEST PA (02/04/2000 13:01 EDT) Anatomical Region Laterality Modality Other 02/04/2000 13:0 1 EDT Impressions 05/13/2009 15:50 EST IMPRESSION: 1. PIC line tip over the SVC. ; /gm Narrative 05/13/2009 15:50 EST CXR TO INCLUDE RT ARM FOR VERIFICATION OF PICC TIP OF PICC LINE 4 BRANCH PLACED IN RT CEPHALIC VEIN PELVIC ABSCESSMC PA CHEST: 02/04/00, 1300 hours COMPARISON: 01/23/00 FINDINGS: The right basilic PIC line tip overlies the expected location of the SVC. The lungs are clear, and there is no evidence of pneumothorax or pleural fluid. The cardiomediastinal silhouette and pulmonary vascularity are normal. Procedure Note Jovani Goode MD - 05/13/2009 CXR TO INCLUDE RT ARM FOR VERIFICATION OF PICC TIP OF PICC LINE 4 BRANCH PLACED IN RT CEPHALIC VEIN PELVIC ABSCESSMC PA CHEST: 02/04/00, 1300 hours COMPARISON: 01/23/00 FINDINGS: The right basilic PIC line tip overlies the expected location of the SVC. The lungs are clear, and there is no evidence of pneumothorax or pleural fluid. The cardiomediastinal silhouette and pulmonary vascularity are normal. IMPRESSION IMPRESSION: 1. PIC line tip over the SVC. ; / John Rivera MD IMG DIAGNOSTIC IMAGI NG ORDERABLES * (ABNORMAL) C-REACTIVE PROTEIN (02/04/2000 7:05 EDT) C-Reactive Protein 9.1(H) <1.0 mg/dl [facility] 02/04/2000 7:05 EDT 02/04/2000 7:39 EDT John Rivera MD CHEMISTRY & BLOOD GA S ORDERABLES [facility] [address] [place] [address] * (ABNORMAL) HEMAGRAM & DIFF (02/04/2000 7:05 EDT) WBC 10.90 4.0 - 12.4 K/cmm [facility] RBC 3.05(L) 3.86 - 5.04 M/cmm [facility] Hemoglobin 8.3(L) 11.6 - 15.2 gm/dl [facility] HCT 24.0(L) 34.9 - 44.4 % [facility] MCV 79(L) 81 - 98 fl [facility] MCH 27.0 26.7 - 33.3 pg [facility] MCHC 34.4 32.1 - 35.9 gm/dl [facility] PLT 355(H) 141 - 320 K/cmm [facility] RDW-CV 12.9 11.7 - 14.6 % [facility] % Neutrophils 82.6(H) 45.5 - 79.7 % [facility] % Lymphocytes 9.7(L) 15.0 - 46.8 % [facility] % Monocytes 6.5 1.8 - 12.0 % [facility] % Eosinophils 0.7 0.6 - 6.9 % [facility] % Basophils 0.5 0.2 - 1.4 % [facility] ABS Neutrophils 9.01(H) 2.20 - 8.85 K/cmm [facility] ABS Lymphs 1.06(L) 1.09 - 3.30 K/cmm [facility] ABS Monocytes 0.71 0.1 - 0.8 K/cmm [facility] ABS Eosinophils 0.07 0.03 - 0.61 K/cmm [facility] ABS Basophils 0.05 0.01 - 0.11 K/cmm [facility] Type of Diff: Automated [facility] 02/04/2000 7:05 EDT 02/04/2000 7:39 EDT John Rivera MD HISTORICAL LAB FOR S Q LOAD Performing Organization Address City/[facility]/ZIP Co de Phone Number [facility] [address] [place] [address] * BACTERIAL CULTURE, BLOOD (02/03/2000 22:45 EDT) Specimen Description Blood Right Arm [facility] Result No growth [facility] Report Status Final [id number] [facility] 02/03/2000 22:4 5 EDT 02/04/2000 8:19 EDT John Rivera MD MICROBIOLOGY - GENER AL ORDERABLES Performing Organization Address City/[facility]/ZIP Co de Phone Number [facility] [address] [place] [address] * ELECTROLYTES (02/03/2000 22:30 EDT) Sodium 137 136 - 145 mEq/L [facility] Potassium 3.9 3.5 - 5.0 mEq/L [facility] Chloride 97 96 - 110 mEq/L [facility] CO2 27 24 - 30 mEq/L [facility] 02/03/2000 22:3 0 EDT 02/03/2000 22:43 EDT John Rivera MD CHEMISTRY & BLOOD GA S ORDERABLES Performing Organization Address [facility] Co de Phone Number [facility] [address] [place] [address] * (ABNORMAL) CREATININE (02/03/2000 22:30 EDT) Creatinine 0.6(L) 0.7 - 1.5 mg/dl [facility] 02/03/2000 22:3 0 EDT 02/03/2000 22:43 EDT John Rivera MD HISTORICAL LAB FOR S Q LOAD Performing Organization Address [facility] de Phone Number [facility] [address] [place] [address] * BUN (02/03/2000 22:30 EDT) BUN 11 10 - 26 mg/dl [facility] 02/03/2000 22:3 0 EDT 02/03/2000 22:43 EDT John Rivera MD CHEMISTRY & BLOOD GA S ORDERABLES Performing Organization Address [facility] Co de Phone Number [facility] [address] [place] [address] * BACTERIAL CULTURE, BLOOD (02/03/2000 22:30 EDT) Specimen Description Blood Left Arm [facility] Result No growth [facility] Report Status Final [id number] [facility] 02/03/2000 22:3 0 EDT 02/04/2000 8:18 EDT John Rivera MD MICROBIOLOGY - GENER AL ORDERABLES [facility] [address] [place] [address] * CT PELVIS W/CONTRAST (02/03/2000 21:09 EDT) Anatomical Region Laterality Modality Other 02/03/2000 21:0 9 EDT Impressions 05/13/2009 15:11 EST IMPRESSION: 1. There is an apparent pelvic mass as described above which most likely represents a hematoma or abscess. If clinically indicated, ultrasonography of the pelvis might be useful to better characterize the mass. 2. There is increased density within the subcutaneous fat anterior to the pelvis, which may represent inflammation. 3. Small right renal cyst. The attending radiologist has reviewed the images, and concurs with the findings described above. /[facility] Addendum: ADDENDUM: This was done with IV and oral contrast Narrative 05/13/2009 15:11 EST cc: Geovani Aguilera [facility] CT OF ABDOMEN AND PELVIS, 02/03/00, 2005 HOURS HISTORY: Status post hysterectomy with abdominal pain and evidence of sepsis. FINDINGS: There is a round, well-defined radiolucent lesion in the midportion of the right kidney posteriorly, measuring approximately .6 cm in diameter which appears to represent a simple renal cyst. The uterus is not identified, consistent with the history of hysterectomy Cephalad to the bladder, there is a fairly homogeneous mass in the posterior pelvis measuring approximately 6 x 5.6 cm. It does not contain any apparent air, and has a fairly well-defined, thin exterior wall which is slightly hyperdense as compared to the remainder of the lesion, and does not appear to be contiguous with the vaginal cuff. There is a transverse area of increased density with irregular margins within the subcutaneous fat anterior to the pelvis which is of uncertain significance but which may represent an area of inflammation. Incidentally noted is a small, well defined, hypodense lesion in the posterior aspect of the midpole of the right kidney measuring approximately .8 cm in diameter, which most likely represents a small renal cyst. The study is otherwise unremarkable. Procedure Note Titi Rodriguez MD / Roby Garcias MD - 05/13/2009 cc: Geovani Aguilera abd pain CT OF ABDOMEN AND PELVIS, 02/03/00, 2005 HOURS HISTORY: Status post hysterectomy with abdominal pain and evidence of sepsis. FINDINGS: There is a round, well-defined radiolucent lesion in the midportion of the right kidney posteriorly, measuring approximately .6 cm in diameter which appears to represent a simple renal cyst. The uterus is not identified, consistent with the history of hysterectomy Cephalad to the bladder, there is a fairly homogeneous mass in the posterior pelvis measuring approximately 6 x 5.6 cm. It does not contain any apparent air, and has a fairly well-defined, thin exterior wall which is slightly hyperdense as compared to the remainder of the lesion, and does not appear to be contiguous with the vaginal cuff. There is a transverse area of increased density with irregular margins within the subcutaneous fat anterior to the pelvis which is of uncertain significance but which may represent an area of inflammation. Incidentally noted is a small, well defined, hypodense lesion in the posterior aspect of the midpole of the right kidney measuring approximately .8 cm in diameter, which most likely represents a small renal cyst. The study is otherwise unremarkable. IMPRESSION IMPRESSION: 1. There is an apparent pelvic mass as described above which most likely represents a hematoma or abscess. If clinically indicated, ultrasonography of the pelvis might be useful to better characterize the mass. 2. There is increased density within the subcutaneous fat anterior to the pelvis, which may represent inflammation. 3. Small right renal cyst. The attending radiologist has reviewed the images, and concurs with the findings described above. /[facility] Addendum: ADDENDUM: This was done with IV and oral contrast John Rivera MD IM CT ORDERABLES * CT ABDOMEN W/CONTRAST (02/03/2000 21:09 EDT) Anatomical Region Laterality Modality Other 02/03/2000 21:0 9 EDT Narrative 05/13/2009 15:11 EST abd pain r/o appy Procedure Note iTti Rodriguez MD / Roby Garcias MD - 05/13/2009 abd pain r/o appy John Rivera MD IMG CT ORDERABLES * GROUP B STREPTOCOCCUS SUSCEPTIBILITY (02/03/2000 17:30 EDT) Specimen Description Vaginal and Rectal [facility] Result NO GROUP B BETA STREPTOCOCCI ISOLATED [facility] Report Status Final [facility] 02/03/2000 17:3 0 EDT 02/03/2000 18:56 EDT John Rivera MD HISTORICAL LAB FOR S Q LOAD Performing Organization Address [facility] Co de Phone Number [facility] [address] [place] [address] * BACTERIAL CULTURE, URINE (02/03/2000 16:30 EDT) Specimen Description Urine [facility] Result 10,000 to 100,000 CFU/ml LACTOBACILL US SPECIES [facility] Report Status Final [facility] 02/03/2000 16:3 0 EDT 02/03/2000 18:50 EDT John Rivera MD MICROBIOLOGY - GENER AL ORDERABLES Performing Organization Address [facility] Co de Phone Number [facility] [address] [place] [address] * (ABNORMAL) HEMAGRAM & DIFF (02/03/2000 14:49 EDT) WBC 11.35 4.0 - 12.4 K/cmm [facility] RBC 3.43(L) 3.86 - 5.04 M/cmm [facility] Hemoglobin 9.4(L) 11.6 - 15.2 gm/dl [facility] HCT 27.9(L) 34.9 - 44.4 % [facility] MCV 81 81 - 98 fl [facility] MCH 27.4(L) 26.7 - 33.3 pg [facility] MCHC 33.7 32.1 - 35.9 gm/dl [facility] PLT 386(H) 141 - 320 K/cmm [facility] Type of Diff: Manual [facility] Neutrophils 84(H) 45.5 - 79.7 % [facility] Lymphocytes 12(L) 15.0 - 46.8 % [facility] Monocytes 4 1.8 - 12.0 % [facility] ABS Neutrophils 9.54(H) 2.20 - 8.85 K/cmm [facility] ABS Lymphs 1.36 1.09 - 3.30 K/cmm [facility] ABS Monocytes 0.45 0.1 - 0.8 K/cmm [facility] RBC Morphology 1+ Anisocytosis [facility] 02/03/2000 14:4 9 EDT 02/03/2000 14:51 EDT John Rivera MD HISTORICAL LAB FOR S Q LOAD Performing Organization Address [facility] de Phone Number [facility] [address] [place] [address] * (ABNORMAL) C-REACTIVE PROTEIN (02/03/2000 14:49 EDT) C-Reactive Protein 10.1(H) <1.0 mg/dl [facility] 02/03/2000 14:4 9 EDT 02/03/2000 14:51 EDT John Rivera MD CHEMISTRY & BLOOD GA S ORDERABLES Performing Organization Address [facility] de Phone Number [facility] [address] [place] [address] documented in this encounter Visit Diagnoses Not on filedocumented in this encounter
--- OUTSIDE RECORDS SUMMARY | 2024-02-24 17:07 | XMS_ITS | Encounter Summary ---
Author Organization [facility] Address [address] [place] [address] Care Team Providers Care Granite Countertop Installer Name Role Phone Matt Jackson MD Primary Care Provider Unava ilable Encounter Details Date Type Department Care Team (Late st Contact Info) Description 07/07/2006 Before PRISM Converted Visit (Maple) [facility] - Maple conversion [address] [place] [address] Margo Kerr MD [address] [facility] [address] [place], [place] [id number] Social History Tobacco Use Types Packs/Day Years Used Date Smoking Tobacco: Never Assessed Sex and Gender Information Value Date Recorded Sex Assigned at Not on file Gender Identity Female 06/20/2020 11:02 EST Sexual Orientation Not on file documented as of this encounter Plan of Treatment Not on file documented as of this encounter Visit Diagnoses * Evaluation - Margo Kerr MD - 07/07/20093 EST OF PLASTIC RECONSTRUCTIVE SURGERY NEW PATIENT EVALUATION - 07/07/2006 Michelle Blanco is a 45-year-old from [place] who came in for evaluation of cosmetic improvement of her abdomen. She says that she has lost about 18 pounds at [employer] in the past two months and that her goal is to get down to 165. She started out at about 220. She says she has been gaining weight every year and finally decided that it was time to do something about it. She was 195 today on our room scale. She is primarily concerned about both her upper and lower abdomen and feels that she has gained more weight her in upper abdomen recently. She works in [employer] at [employer] and has two children ages 20 and 23. Her last mammogram was in February 2006 and was within normal limits although she does have a strong family history of breast cancer in a maternal grandmother, maternal aunt, and her mother at an early age of lung cancer. The patient has an adverse reaction to Imitrex. She has a past surgical history significant for laparoscopic cholecystomy, open hysterectomy with bowel resection [place] [address] Rivera and an arm lipoma. She says that she has had multiple surgical infections in the past and feels that she is susceptible to infection. She takes Percocet for migraines a couple of times a year. She does not smoke cigarettes. Her review of systems is on the intake form and is noncontributory. She stands 5 8?? tall and weighs 195 pounds. Thisis a BMI of about 30, at the top of the overweight category. She has a moderate amount of overhang to her lower abdominal pannus and a well healed Pfannenstiel type incision as well as multiple laparoscopic incisions. The upper most laparoscopic incision is much larger than usual and apparently it was difficult to get her gallbladder out. She has no palpablehernia. She has a few stria on the lower abdomen. I briefly examined her breasts as well because she asked about mastopexy. She has an approximately a D cup size breasts with a small amount of ptosisand could benefit from vertical mastopexy. Assessment & Plan: The patient is a reasonable candidate for cosmetic abdominoplasty particularly if she is able to lose some more weight. I would prefer to see her body mass index in the mid 20if possible and if she is able to get down to her goal weight, that would make her a much better candidate and I think she would have a better cosmetic result. I have explained the technique of abdominoplasty to her and described the risks including hematoma, seroma, infection, asymmetries, difficulties with healing of the incision or the umbilicus, hypertrophic scarring, thickness around the waist, under correction. The patient seems to understand that it is important to continue her weight loss effort and she is to contact us if she wishes to proceed after further weight loss. spent about minutes with this patient today. More than half of this time was/was not spent in a counseling capacity. Signed by Margo Kerr MD 07/08/2006 14:00 Derik York MD Margo Kerr MD - Ellen Kerr MD A - [facility] Job ID: [id number] Document ID: [id number] cc: documented in this encounter Care Teams Granite Countertop Installer Relationship Specialty Start Date End Date Matt Jackson MD PCP - General 11/04/08 08/10/18 documented as of this encounter
--- OUTSIDE RECORDS SUMMARY | 2024-02-24 17:07 | XMS_ITS | Encounter Summary ---
Author Organization [facility] Address [address] [place] [address] Care Team Providers Care Cabinet Professional Name Role Phone Unavailable Primary Care Provider Unavailabl e Encounter Details Date Type Department Care Team (Latest Contact Info) Description 06/03/2005 7:08 EST - 06/03/2005 11:59 EST Hospital Encounter [facility] Perioperative Services - [address] [address] Joni Hernandez MD [address] [place] [address] Discharge Disposition: Home or Self Care Social [...] encounter OR Notes * OR Surgeon - Joni Hernandez - 06/03/2005 0000 EST PROCEDURE REPORT PT TYPE: OPPROC PT LOC: [id number] SERVICE DATE: 06/03/2005 SURGEON: Nakul Adame MDMark A Healey, MD PORTAINER OPERATOR: Lee Ann Hernandez MD PREOPERATIVE DIAGNOSIS: Incisional ventral hernia POSTOPERATIVE DIAGNOSIS: Incisional ventral hernia PROCEDURE: Primary repair incisional ventral hernia ANESTHESIA: Local anesthetic with intravenous sedation and monitored anesthesia care INDICATIONS: Ms. Goff underwent a laparoscopic cholecystectomy on October 29, 2004. The gallbladder was very large and the epigastric trocar site had to be extended in order to remove the gallbladder. The anterior and posterior rectus sheath was repaired with a running 0 Vicryl stitch. However, several months after her surgery she started noticing a reducible epigastric mass to the right of midline. There were no obstructive symptoms of the bowel. CT scan revealed an epigastric trocar site incision hernia containing fat. FINDINGS: There was a 2-cm defect in the anterior and posterior rectus sheath on the right of midline with a reducible hernia. NARRATIVE: The patient was placed on the table in the supine position. She was given two grams of Ancef preoperatively. The preexisting incision was somewhat hypertrophied. It was also angling obliquely upwards. I therefore created a somewhat less angulated ellipse, which contained the scar. This was excised and the scar discarded. The subcutaneous tissues were divided with electrocautery. The sac was exposed and dissected free of the adjacent tissues with Metzenbaum scissors. It was followed down to its origin at the posterior rectus fascia. There it was from the undersurface of the rectus fascia. At this point, I believed there was a small amount of fluid that looked purulent.I was therefore uncomfortable placing a mesh. I therefore repaired the fascial defect with a running #1 Prolene suture. The anterior rectus sheath had scarred and . There was some separation ofthe muscle tissue as well. I mobilized the edges somewhat and repaired this fibrotic layer with a running 0 Vicryl stitch. I did not feel there was a lot of strength in this layer. The wound was irrigated at multiple states with Ancef-containing solution. Cultures of the wound were sent. The skin was closed with a running 3-0 Vicryl subcuticular stitch and Steri-Strips. Sterile dressings were applied. The patient tolerated the procedure well. She was transferred to the PACU in good condition. ESTIMATED BLOOD LOSS: 50 cc. FLUIDS: 550 cc of Ringer lactate. SPECIMENS/CULTURES: Wound C+S. DRAINS AND FOREIGN MATERIALS: None. COMPLICATIONS: None. SPONGE AND NEEDLE COUNTS: Correct. Signed by Joni Hernandez MD 06/07/2005 19:16 Althea Hernandez, MDMark Sher Hernandez MD Joni Hernandez MD - Joni Hernandez MD A - jaw Job ID: [id number] Document ID: [id number] cc: MD Joni Love MD documented in this encounter Plan of Treatment Not on file documented as of this encounter Procedures Procedure Name Priority Date/Time Associated Diagnosis Comments BACTERIAL CULTURE/SMEAR Routine 06/03/2005 12:07 EST documented in this encounter Results * BACTERIAL CULTURE/SMEAR, OTHER (06/03/2005 12:07 EST) Specimen Description Wound Epigastric Specimen submitted on a swab [facility] Gram Smear Result No polys seen No bacteria seen [facility] Result No growth [facility] Report Status Final [id number] [facility] 06/03/2005 12:0 7 EST 06/03/2005 12:07 EST Joni Hernandez MD MICROBIOLOGY - GENER AL ORDERABLES [facility] [address] [place] [address] documented in this encounter Visit Diagnoses Not on filedocumented in this encounter
--- OUTSIDE RECORDS SUMMARY | 2024-02-24 17:07 | XMS_ITS | Encounter Summary ---
Author Organization [facility] Address [address] [place] [address] Care Team Providers Care Rheumatologist Name Role Phone Unavailable Primary Care Provider Unavailabl e Encounter Details Date Type Department Care Team (Latest Contact Info) Description 06/21/2005 21:25 EST Hospital Encounter [facility] - Other [address] [place] [address] Shukri Renae PA [address] [place] [id number] Discharge Disposition: Home or Self Care Social [...] Procedure Name Priority Date/Time Associated Diagnosis Comments ALDOSTERONE, SERUM Routine 06/21/2005 8:15 EST TSH Routine 06/21/2005 8:15 EST documented in this encounter Results * TSH (06/21/2005 8:15 EST) TSH 2.04 0.35 - 5.50 uIU/ml [facility] 06/21/2005 8:15 EST 06/21/2005 12:21 EST Shukri Oc SKY CHEMISTRY & BLOOD GA S ORDERABLES [facility] [address] [place] [address] * ALDOSTERONE, SERUM (06/21/2005 8:15 EST) Aldosterone, Serum 3.0Unit: ng/dL(Note) -- EXPECTED VALUES -- ? (Ref Range) 1 to 21 ? Test Performed by: ? [facility] Dpt of Lab Med and Pathology ? [address] , [place] [address] ? Hearing Instrument Specialist: Jovani Cheng M.D. ? [facility] 06/21/2005 8:15 EST 06/21/2005 12:21 EST Shukri SKY CHEMISTRY & BLOOD GA S ORDERABLES [facility] [address] [place] [address] documented in this encounter Visit Diagnoses Not on filedocumented in this encounter
--- OUTSIDE RECORDS SUMMARY | 2024-02-24 17:07 | XMS_ITS | Encounter Summary ---
Author Organization [facility] Address [address] [place] [address] Care Team Providers Care Machine Lay Out Worker Name Role Phone Matt Jackson MD Primary Care Provider Unava ilable Encounter Details Date Type Department Care Team (Late st Contact Info) Description 12/15/2010 Results Only [facility] Laboratory Services - [facility] ([facility]) [address] [place], [place] [id number] Shukri Renae PA [address] [place], [place] [id number] Social History Tobacco Use Types Packs/Day Years Used Date Smoking Tobacco: Never Assessed Sex and Gender Information Value Date Recorded Sex Assigned at Not on file Gender Identity Female 06/20/2020 11:02 EST Sexual Orientation Not on file documented as of this encounter Plan of Treatment Not on file documented as of this encounter Procedures Procedure Name Priority Date/Time Associated Diagnosis Comments RHEUMATOID FACTOR Routine 12/15/2010 11: 44 EDT ANTI NUCLEAR AB (SHRAVAN), IFA Routine 12/15/2010 11:44 EDT documented in this encounter Results * ANTI NUCLEAR ANTIBODY (12/15/2010 11:44 EDT) Anti Nuclear Ab <40 0 - 40 Dils [facility] Blood specimen (specimen) 12/15/2010 11:44 EDT 12/15/2010 19:24 EDT Shukri SKY IMMUNOLOGY AND SEROL OGY ORDERABLES Performing Organization Address [facility] Co de Phone Number [facility] [address] [place] [address] * RHEUMATOID FACTOR (12/15/2010 11:44 EDT) Rheumatoid Factor <20 <20 IU/ml [facility] Comment:Slight hemolysis Blood specimen (specimen) 12/15/2010 11:44 EDT 12/15/2010 19:24 EDT Shukri SKY CHEMISTRY & BLOOD GA S ORDERABLES Performing Organization Address [facility] de Phone Number [facility] [address] [address] documented in this encounter Visit Diagnoses Not on filedocumented in this encounter Care Teams Machine Lay Out Worker Relationship Specialty Start Date End Date Matt Jackson MD PCP - General 11/04/08 08/10/18 documented as of this encounter
--- OUTSIDE RECORDS SUMMARY | 2024-02-24 17:07 | XMS_ITS | Encounter Summary ---
Author Organization [facility] Address [address] [place] [address] Care Team Providers Care Front End Developer Name Role Phone Unavailable Primary Care Provider Unavailabl e Encounter Details Date Type Department Care Team (Latest Contact Info) Description 03/13/2008 7:04 EDT - 03/13/2008 11:59 EDT Hospital Encounter [facility] [address] [place] [address] Shukri Renae PA [address] [place] [id number] Discharge Disposition: Auto Discharge Social History Tobacco [...] Associated Diagnosis Comments BACTERIAL CULTURE, URINE Routine 04/10/2008 11:45 EDT COMPLETE BLOOD COUNT Routine 04/04/2008 12:[address] ABDOMEN, PELVIS W CONTRAST 03/13/2008 8:19 EDT documented in this encounter Results * BACTERIAL CULTURE, URINE (04/10/2008 11:45 EDT) Specimen Description Urine [facility] Result No growth [facility] Report Status Final 04/12/2008 [facility] 04/10/2008 11:4 5 EDT 04/10/2008 19:00 EDT Shikha Benavidez MD MICROBIOLOGY - GENE RAL ORDERABLES Performing Organization Address [facility] de Phone Number [facility] [address] [place] [address] * HEMAGRAM (04/04/2008 12:22 EDT) WBC 7.61 4.0 - 12.4 K/cmm [facility] RBC 4.85 3.86 - 5.04 M/cmm [facility] Hemoglobin 13.4 11.6 - 15.2 gm/dl [facility] HCT 39.6 34.9 - 44.4 % [facility] MCV 82 81 - 98 fl [facility] MCH 27.5 26.7 - 33.3 pg [facility] MCHC 33.7 32.1 - 35.9 gm/dl [facility] PLT 290 141 - 320 K/cmm [facility] RDW-CV 12.7 11.7 - 14.6 % [facility] 04/04/2008 12:2 2 EDT 04/04/2008 12:38 EDT Shikha Benavidez MD HEMATOLOGY & PF4 OR DERABLES Performing Organization Address City/[facility] Co de Phone Number [facility] [address] [place] [address] * CT ABDOMEN, PELVIS W CONTRAST (03/13/2008 8:19 EDT) Anatomical Region Laterality Modality Other 03/13/2008 8:19 EDT Narrative 11/18/2008 9:09 EDT increasing ab/pelvic pain CT of the abdomen and pelvis March 13, 2008 at 811. History: Increasing abdominal and pelvic pain. Comparison: April 29, 2005. Technique: Helical images were obtained from the domes of the diaphragm to the iliac crests. Technique Pelvis: Immediately after the above preparation, axial images were obtained from the iliac crests to the ischial tuberosities. Oral contrast was given prior to scanning. ??During the exam, intravenous administration of 100 cc of 370% nonionic contrast at a rate of 2 cc/second was administered. Findings: The lung bases, inferior mediastinum, and inferior pleura are normal. The liver is diffusely decreased in attenuation suggesting fatty infiltration. There is no focal liver abnormality. The gallbladder is surgically absent. The spleen, pancreas, adrenal glands, and left kidney are normal. There is a 1 cm fluid attenuation lesion in the posterior aspect of the right kidney likely representing a simple cyst which is unchanged from the prior study. There is a suture line present in the rectosigmoid region suggesting prior bowel surgery. The bowel is unremarkable in appearance otherwise. The uterus is surgically absent and a pessary ring is noted. There is no free fluid. Examination of the bones is normal. The midline hernia just below the xiphoid is noted without significant interval change since 2004. Impression: 1. Fatty infiltration of the liver. 2. Post cholecystectomy and hysterectomy. 3. Simple cyst in the right kidney. 4. No change in midline hernia. I have personally reviewed the images and the above interpretation and agree with the findings. Procedure Note Luis Hinton MD / Nicolás Hunt MD - 11/18/2008 increasing ab/pelvic pain CT of the abdomen and pelvis March 13, 2008 at 811. History: Increasing abdominal and pelvic pain. Comparison: April 29, 2005. Technique: Helical images were obtained from the domes of the diaphragm to the iliac crests. Technique Pelvis: Immediately after the above preparation, axial images were obtained from the iliac crests to the ischial tuberosities. Oral contrast was given prior to scanning. During the exam, intravenous administration of 100 cc of 370% nonionic contrast at a rate of 2 cc/second was administered. Findings: The lung bases, inferior mediastinum, and inferior pleura are normal. The liver is diffusely decreased in attenuation suggesting fatty infiltration. There is no focal liver abnormality. The gallbladder is surgically absent. The spleen, pancreas, adrenal glands, and left kidney are normal. There is a 1 cm fluid attenuation lesion in the posterior aspect of the right kidney likely representing a simple cyst which is unchanged from the prior study. There is a suture line present in the rectosigmoid region suggesting prior bowel surgery. The bowel is unremarkable in appearance otherwise. The uterus is surgically absent and a pessary ring is noted. There is no free fluid. Examination of the bones is normal. The midline hernia just below the xiphoid is noted without significant interval change since 2004. Impression: 1. Fatty infiltration of the liver. 2. Post cholecystectomy and hysterectomy. 3. Simple cyst in the right kidney. 4. No change in midline hernia. I have personally reviewed the images and the above interpretation and agree with the findings. Shukri SKY IMEmigdio CT ORDERABLES documented in this encounter Visit Diagnoses Not on filedocumented in this encounter
--- OUTSIDE RECORDS SUMMARY | 2024-02-24 17:07 | XMS_ITS | Encounter Summary ---
Author Organization [facility] Address [address] [place] [address] Care Team Providers Care Junk Dealer Name Role Phone Unavailable Primary Care Provider Unavailabl e Encounter Details Date Type Department Care Team (Latest Contact Info) Description 04/30/2004 9:54 EDT - 04/30/2004 11:59 EDT Hospital Encounter [address] [address] Emeka Rasmussen MD [address] [place] [address] Discharge Disposition: Auto Discharge Social History Tobacco [...]
--- OUTSIDE RECORDS SUMMARY | 2024-02-24 17:07 | XMS_ITS | Encounter Summary ---
Author Organization [facility] Address [address] [place] [address] Care Team Providers Care Powerhouse Operator Name Role Phone Unavailable Primary Care Provider Unavailabl e Encounter Details Date Type Department Care Team (Latest Contact Info) Description 12/28/2005 15:18 EDT Hospital Encounter [facility] - Other [address] [place] [address] Shikha Benavidez MD [address] [place] [phone] Discharge Disposition: Home or Self Care Social [...] Associated Diagnosis Comments BACTERIAL CULTURE, URINE Routine 12/28/2005 11:30 EDT documented in this encounter Results * BACTERIAL CULTURE, URINE (12/28/2005 11:30 EDT) Specimen Description Urine [facility] Result No growth [facility] Report Status Final [id number] [facility] 12/28/2005 11:3 0 EDT 12/28/2005 17:10 EDT Shikha Benavidez MD MICROBIOLOGY - GENE [facility] ORDERABLES Performing Organization Address City/State/[facility] Co de Phone Number [facility] [address] [place] [phone] documented in this encounter Visit Diagnoses Not on filedocumented in this encounter
--- OUTSIDE RECORDS SUMMARY | 2024-02-24 17:07 | XMS_ITS | Encounter Summary ---
Author Organization [facility] Address [address] [place] [address] Care Team Providers Care Grappler Name Role Phone Unavailable Primary Care Provider Unavailabl e Encounter Details Date Type Department Care Team (Latest Contact Info) Description 02/11/2003 14:40 EDT Hospital Encounter [address] [address] Mandie Renae PA [address] [place] [address] Discharge Disposition: Auto Discharge Social History Tobacco [...] SEDIMENT (MICRO) WITHOUT REFLEX TO CULTURE Routine 02/15/2003 10:30 EDT BACTERIAL CULTURE, URINE Routine 02/15/2003 10:30 EDT MA MAMMO SCREENING DIGITAL Routine 02/11/2003 15:07 EDT documented in this encounter Results * BACTERIAL CULTURE, URINE (02/15/2003 10:30 EDT) Specimen Description Urine [facility] Result No growth [facility] Report Status Final [id number] [facility] 02/15/2003 10:3 0 EDT 02/15/2003 19:22 EDT Nicolás Dickens MD MICROBIOLOGY - [facility] ORDERABLES [facility] [address] [place] [address] * (ABNORMAL) UA WITH MICROSCOPIC (02/15/2003 10:30 EDT) Color, UA Yellow [facility] Clarity, UA Cloudy [facility] Glucose, UA Norm NORM [facility] Bilirubin, UA Neg NEG [facility] Ketones, UA Neg NEG [facility] Specific [place], Urine >1.030(H) 1.005 - 1.02 [facility] Blood, UA Neg NEG [facility] pH, UA 5.5 5.0 - 9.0 [facility] Protein, UA Neg NEG [facility] Urobilinogen, UA Norm NORM mg/dL [facility] Nitrite, UA Neg NEG [facility] Leuk Esterase Neg NEG [facility] WBC, UA less than 1 0 - 5 /HPF [facility] RBC, UA None seen 0 - 5 /HPF [facility] Squam Epithel, UA Few(A) NS /HPF [facility] Renal Epithel, UA None seen NS /HPF [facility] Bacteria, UA None seen NS /HPF [facility] Crystals, UA 1 to 10 /HPF [facility] Comment:Calcium Oxalate Hyaline Casts, UA Rare Hyaline /LPF [facility] UA Comment Microscopic results are unreliable on urines unrefrig >2hrs or refrig >8hrs. [facility] Additional Findings Amorphous material present [facility] Refractometer SG,Urine 1.027 1.005 - 1.02 [facility] Comment:Refractometer specif ic gravity 02/15/2003 10:3 0 EDT 02/15/2003 19:22 EDT Nicolás Dickens MD URINALYSIS ORDERA MURRAY [facility] [address] [place] [address] * MA MAMMO SCREENING DIGITAL (02/11/2003 15:07 EDT) Anatomical Region Laterality Modality Other 02/11/2003 15:0 7 EDT Impressions 03/18/2009 2:52 EDT IMPRESSION: BILATERAL BREASTS - CATEGORY 1 Negative, no evidence of malignancy. Normal interval follow-up is recommended in 12 months. OVERALL ASSESSMENT - NEGATIVE END OF IMPRESSION Narrative 03/18/2009 2:52 EDT ROUTINE ??HX SIMÓN CYSTS ?? [PCP MANDIE RENAE] Comparison is made to films from 01-17-1998. Bilateral Breast Findings (CAD used to interpret routine digital projection): The breasts are heterogeneously dense. This may lower the sensitivity of mammography. No significant masses, calcifications or other abnormalities are seen. Procedure Note Nanci Pulliam MD - 03/18/2009 ROUTINE HX SIMÓN CYSTS [PCP MANDIE RENAE] Comparison is made to films from 01-17-1998. Bilateral Breast Findings (CAD used to interpret routine digital projection): The breasts are heterogeneously dense. This may lower the sensitivity of mammography. No significant masses, calcifications or other abnormalities are seen. IMPRESSION IMPRESSION: BILATERAL BREASTS - CATEGORY 1 Negative, no evidence of malignancy. Normal interval follow-up is recommended in 12 months. OVERALL ASSESSMENT - NEGATIVE END OF IMPRESSION Mandie SKY IMG MAMMOGRAPHY SRINIVASAN CONNORS documented in this encounter Visit Diagnoses Not on filedocumented in this encounter
--- OUTSIDE RECORDS SUMMARY | 2024-02-24 17:07 | XMS_ITS | Encounter Summary ---
Author Organization [facility] Address [address] [place] [address] Care Team Providers Care Nurses' Association Executive Director Name Role Phone Unavailable Primary Care Provider Unavailabl e Encounter Details Date Type Department Care Team (Latest Contact Info) Description 04/04/2008 12:39 EDT Hospital Encounter [facility] [address], [place] [id number] Shikha Benavidez MD [address] [place] [phone] Discharge Disposition: Home or Self Care [...] OR Surgeon - Shikha Benavidez MD - 04/04/2008 0000 EDT PROCEDURE REPORT PT TYPE: OPPROC SERVICE DATE: 04/04/2008 SURGEON: Shikha Benavidez MD TURN DOWN ATTENDANT: PREOPERATIVE DIAGNOSIS Genuine stress incontinence. POSTOPERATIVE DIAGNOSIS Genuine stress incontinence. PROCEDURE Tension-free vaginal tape procedure with cystourethroscopy. ANESTHESIA Spinal. INDICATIONS The patient is a 47-year-old female who has a longstanding history of genuine stress incontinence. In 1999, she underwent total abdominal hysterectomy, bilateral salpingo-oophorectomy and she has been on hormone replacement since then using the Estring. In 2005, she underwent urodynamic testing, which revealed genuine stress incontinence. At that time, the patient was counseled regarding options and elected toattempt a trial of pelvic physical therapy to improve her incontinence; however, she did not follow through on this and at this point feels that that is not a plausible treatment option for her, as she is the primary caregiver of her 4-year-old granddaughter and also works rental clerk tool and equipment and can not manage to take the time to have the physical therapy appointments that would be required. She elects for definitive correct treatment in the form of the tension-free vaginal tape. The risks of the procedure, as well as the benefits, were reviewed with the patient on multiple occasions prior to the day of surgery. A written consent was obtained prior to the day of surgery. FINDINGS No evidence of injury to the bladder or urethra. No other complications of any type. NARRATIVE With an IV in place, the patient was taken to the operating room. She was placed in the supine position after a spinal anesthetic was administered. She was then placed in the lithotomy position in Ivan stirrups. Her lower abdomen, perineum, inner thighs and vagina were sterilely prepped with Betadine. The patient was sterilely draped. A Hernández catheter was inserted into the bladder and the bladder was emptied. The catheter was clamped and left in place. The mid urethra was identified utilizing the Hernández bulb to identify the bladder neck and it was grasped. The vaginal tissues at the level of the mid urethra were grasped with Allis clamps on either side. The vagina mucosa overlying the mid urethra was injected with a dilute solution of vasopressin. A 15-blade was then used to make approximately a 2-cm incision along the midline of the vaginal mucosa overlying the mid urethra. The Leadbetter scissors were then used to carefully dissect the vaginal mucosa off the underlying periurethral fascia on either side in both the right and the left directions to the space just behind the pubic bone or space of Retzius on either side. Once we achieved this tunnel on either side, the bladder was unclamped and onceagain re- emptied. The tension-free vaginal tape apparatus was readied and incision was made on either side of the midline at the level of the pubic symphysis, and these incisions were about a centimeter and a half lateral to midline and these were 1-cm incisions made with a 15-blade. Once all was ready, the tape introducer was inserted through this tunnel that had been dissected in the vagina behind the pubic bone through the space of Retzius and up through the incision that had actually been made at thevery beginning of the case before we moved below. The tape introducer was passed through that right-sided incision. The same series of steps was carried out on the left side Throughout this whole portion of the procedure, care wastaken to ensure that no additional vaginal tissue or urethral tissue was incorporated or punctured by the passage of the introducer. The rods were then pulled up a couple of inches on either side. With the rods in place, the patient underwent cystourethroscopy. The entire bladder was identified, including the dome of the bladder, and the trigone and the ureteral orifices. There was no evidence of hemorrhage within the bladder. There was no evidence of puncture to the bladder. The tissue of the bladder moved slightly as the rods were manipulated; however, there was no concern that the rods were in closer than normal proximity to the bladder. During the cystourethroscopy, the bladder was filled to 300 mL of normal saline. The normal saline in the bladder was emptied and the cystoscope was removed. As it was removed, the urethra was inspected and also noted to be free of any trauma. The tape rods were then pulled up through the space of Retzius and the tape was brought up through the space of Retzius. The tape was carefully laid across the mid urethra. A Alison was inserted between the tape and the urethra so that the application of the tape would be tension free. As this was done, the sheath surrounding the tape was removed. The patient was awake and was asked to cough and it was felt that she had a good tension-free application of the Prolene mesh tape. There was a littlebit of bleeding, although not very much, and so several pieces of thrombin-soaked Gelfoam were inserted into the space of Retzius on either side. This provided hemostasis. The vaginal mucosa was closed with interrupted sutures of 2-0 Vicryl and the suprapubic incisions were closed with 4-0 Monocrylwith subcuticular stitches. The patient tolerated the procedure well. There were no complications. She did go to the PACU with a Hernández catheter in place with a plan to attempt a trial of voiding to determine whether or not she needed to be discharged with a catheter in place. She did receive a prophylactic dose of 2 g of cefazolin just prior to the procedure. I was present and performed the entire procedure. ESTIMATED BLOOD LOSS Less than 100 mL. FLUIDS 1 L lactated Ringers. URINE OUTPUT Not measured throughout procedure but approximately 60 mL per I+O cath at the beginning of the procedure. COMPLICATIONS None. Signed by Shikha Benavidez MD 04/12/2008 12:05 Shikha Benavidez MD D: - Shikha Benavidez MD P - SS Job ID: [id number] Document ID: [id number] cc: Shikha Benavidez MD Document ID: [id number] cc: Shikha Benavidez MD documented in this encounter Plan of Treatment Not on file documented as of this encounter Visit Diagnoses Not on filedocumented in this encounter
--- OUTSIDE RECORDS SUMMARY | 2024-02-24 17:07 | XMS_ITS | Encounter Summary ---
Author Organization [facility] Address [address] [place] [address] Care Team Providers Care Quality Control Auditor Name Role Phone Unavailable Primary Care Provider Unavailabl e Encounter Details Date Type Department Care Team (Latest Contact Info) Description 04/10/2008 18:50 EDT Hospital Encounter [facility] - Other [address] [place] [address] Shikha Benavidez MD [address] [place] [phone] Discharge Disposition: Home or Self Care Social [...]
--- OUTSIDE RECORDS SUMMARY | 2024-02-24 17:07 | XMS_ITS | Encounter Summary ---
Author Organization [facility] Address [address] [place] [address] Care Team Providers Care Front End Driver Name Role Phone Unavailable Primary Care Provider Unavailabl e Encounter Details Date Type Department Care Team (Late st Contact Info) Description 03/20/2004 16:11 EDT Hospital Encounter [facility] - Other [address] [place] [address] Shukri Renae PA [address] [place] [id number] Social History Tobacco Use Types Packs/Day Years [...]
--- OUTSIDE RECORDS SUMMARY | 2024-02-24 17:07 | XMS_ITS | Encounter Summary ---
Author Organization [facility] Address [address] [place] [address] Care Team Providers Care Dictaphone Typist Name Role Phone Unavailable Primary Care Provider Unavailabl e Encounter Details Date Type Department Care Team (Latest Contact Info) Description 12/11/2001 22:47 EDT Hospital Encounter [facility] - Other [address] [place] [address] Morgan Cole MD [address] [place] [address] [place] [phone] Unknown, Provider, Discharge Disposition: Auto Discharge Social [...] Procedure Name Priority Date/Time Associated Diagnosis Comments TSH Routine 12/11/2001 10:40 EDT LIPID PROFILE (INCLUDES CHOLESTEROL, TRIGLYCERIDES, HDL, LDL) Routine 12/11/2001 10:40 EDT documented in this encounter Results * TSH (12/11/2001 10:40 EDT) TSH 1.99 0.35 - 5.50 uIU/ml [facility] 12/11/2001 10:4 0 EDT 12/12/2001 13:13 EDT Morgan Cole MD CHEMISTRY & BLOOD G ORDERABLES Performing Organization Address [facility] de Phone Number [facility] [address] [place] [address] * LIPID PROFILE (INCLUDES CHOLESTEROL, TRIGLYCERIDES, HDL, LDL) (12/11/2001 10:40 EDT) Cholesterol 184 mg/dl [facility] Comment: Desirable:<200 Borderline:200-239 High Risk:>wt=224 Triglycerides 113 35 - 160 mg/dl [facility] HDL 39 mg/dl [facility] Comment: Highly Desirable:>60 Desirable:35-60 High Risk:<35 LDL, Calculated 122 mg/dl [facility] Comment: Desirable:<130 Borderline:130-159 High Risk:>qp=403 Chol/HDL Ratio 4.7 [facility] 12/11/2001 10:4 0 EDT 12/12/2001 13:13 EDT Morgan Cole MD CHEMISTRY & BLOOD G ORDERABLES Performing Organization Address [facility] de Phone Number [facility] [address] [place] [address] documented in this encounter Visit Diagnoses Not on filedocumented in this encounter
--- OUTSIDE RECORDS SUMMARY | 2024-02-24 17:07 | XMS_ITS | Encounter Summary ---
Author Organization [facility] Address [address] [place] [address] Care Team Providers Care Cloth Washer Back Tender Name Role Phone Unavailable Primary Care Provider Unavailabl e Encounter Details Date Type Department Care Team (Latest Contact Info) Description 10/16/2004 13:11 EDT Hospital Encounter [address] [address] Padmini Hernandez MD Discharge Disposition: Auto Discharge Social History [...] Priority Date/Time Associated Diagnosis Comments RAD US ABDOMEN ONE ORGAN/QUADRANT Routine 10/16/2004 13:50 EDT documented in this encounter Results * RAD US ABDOMEN ONE ORGAN/QUADRANT (10/16/2004 13:50 EDT) Anatomical Region Laterality Modality Other 10/16/2004 13:5 0 EDT Impressions 03/03/2009 9:02 EDT IMPRESSION: 1. Cholelithiasis. 2. Fatty infiltration of the liver. /lds Narrative 03/03/2009 9:02 EDT RUQ ABD US ??H/O EPIGASTRIC PAIN RUQ PAIN ??R/O GALLSTONES ??JO TO FAX [phone] [facility] RIGHT UPPER QUADRANT ULTRASOUND: 10/16/04. FINDINGS: There are several large gallstones in the gallbladder. The wall of the gallbladder looks normal and there is no pericholecystic fluid collection. The biliary tree is normal in caliber. The common hepatic duct measures 6 mm in diameter. There is diffuse mild fatty infiltration of the liver with no focal abnormality. The right kidney shows no hydronephrosis. There is a 1 cm parapelvic cyst in the upper pole. The pancreas is quite well seen and looks normal. Procedure Note Rigo Bella MD - 03/03/2009 RUQ ABD US H/O EPIGASTRIC PAIN RUQ PAIN R/O GALLSTONES JO TO FAX [phone] [facility] RIGHT UPPER QUADRANT ULTRASOUND: 10/16/04. FINDINGS: There are several large gallstones in the gallbladder. The wall of the gallbladder looks normal and there is no pericholecystic fluid collection. The biliary tree is normal in caliber. The common hepatic duct measures 6 mm in diameter. There is diffuse mild fatty infiltration of the liver with no focal abnormality. The right kidney shows no hydronephrosis. There is a 1 cm parapelvic cyst in the upper pole. The pancreas is quite well seen and looks normal. IMPRESSION IMPRESSION: 1. Cholelithiasis. 2. Fatty infiltration of the liver. /wagner Padmini Hernandez MD IMG US ORD ERABLES documented in this encounter Visit Diagnoses Not on filedocumented in this encounter
--- OUTSIDE RECORDS SUMMARY | 2024-02-24 17:07 | XMS_ITS | Encounter Summary ---
Author Organization [facility] Address [address] [place] [address] Care Team Providers Care Crown Assembly Machine Set Up Mechanic Name Role Phone Unavailable Primary Care Provider Unavailabl e Encounter Details Date Type Department Care Team (Latest Contact Info) Description 02/13/2004 7:19 EDT - 02/13/2004 11:59 EDT Hospital Encounter [facility] - Other [address] [place] [address] Mandie Renae PA [address] [place] [phone] Discharge Disposition: Auto Discharge Social History Tobacco [...] Associated Diagnosis Comments MA MAMMO SCREENING DIGITAL Routine 02/13/2004 18:01 EDT documented in this encounter Results * MA MAMMO SCREENING DIGITAL (02/13/2004 18:01 EDT) Anatomical Region Laterality Modality Other 02/13/2004 18:0 1 EDT Impressions 03/13/2009 14:23 EDT IMPRESSION: BILATERAL BREASTS - CATEGORY 1 Negative, no evidence of malignancy. Normal interval follow-up is recommended in 12 months. OVERALL ASSESSMENT - NEGATIVE END OF IMPRESSION Narrative 03/13/2009 14:23 EDT ROUTINE HX SIMÓN CYSTS ??[PCP MANDIE RENAE] Comparison is made to films from 01-17-1998 and 02-11-2003. Bilateral Breast Findings (CAD used to interpret routine digital projection): There are scattered fibroglandular densities. No significant masses, calcifications or other abnormalities are seen. Procedure Note Adal Lopez MD - 03/13/2009 ROUTINE HX SIMÓN CYSTS [PCP MANDIE RENAE] Comparison is made to films from 01-17-1998 and 02-11-2003. Bilateral Breast Findings (CAD used to interpret routine digital projection): There are scattered fibroglandular densities. No significant [...]
--- OUTSIDE RECORDS SUMMARY | 2024-02-24 17:07 | XMS_ITS | Encounter Summary ---
Author Organization [facility] Address [address] [place] [address] Care Team Providers Care Supervisor Electrolytic Tinning Name Role Phone Unavailable Primary Care Provider Unavailabl e Encounter Details Date Type Department Care Team (Latest Contact Info) Description 01/26/2002 10:00 EDT - 01/26/2002 11:59 EDT Hospital Encounter [address] [address] CousinRadha mc PA Discharge Disposition: Auto Discharge Social History Tobacco [...] Priority Date/Time Associated Diagnosis Comments MA MAMMO DIAG BILAT/UNI Routine 01/26/2002 10:39 EDT documented in this encounter Results * MA MAMMO DIAG BILAT/UNI (01/26/2002 10:39 EDT) Anatomical Region Laterality Modality Other 01/26/2002 10:3 9 EDT Impressions 04/16/2009 5:42 EDT IMPRESSION: LEFT BREAST - CATEGORY 0 1.Ultrasound is recommended at this time for further evaluation of a palpable lump at 12:00. 2.Negative mammogram, no evidence of malignancy. Normal interval follow-up is recommended in 12 months. RIGHT BREAST - CATEGORY 0 1.Ultrasound is recommended at this time for further evaluation of a palpable lump at 4:00. 2.Negative mammogram, no evidence of malignancy. Normal interval follow-up is recommended in 12 months. The patient has been scheduled for the ultrasound examination of both breasts. OVERALL ASSESSMENT - INCOMPLETE: NEED ADDITIONAL IMAGING EVALUATION END OF IMPRESSION Narrative 04/16/2009 5:42 EDT DX SIMÓN MAMMO ?? INCREASED RT BR PAIN, SCREEN LT ?? [PCP KURTIS JIMENEZ] Comparison is made to films from 01-17-1998. Left Breast Findings (routine views and additional views projections): There are scattered fibroglandular densities. No significant masses, calcifications or other abnormalities are seen, including at 12:00 where the patient complains of a palpable lump. Right Breast Findings (routine views and additional views projections): There are scattered fibroglandular densities. No significant masses, calcifications or other abnormalities are seen, including at 4:00 where the patient complains of a palpable lump. Procedure Note Jamilah Stokes MD - 04/16/2009 DX SIMÓN MAMMO INCREASED RT BR PAIN, SCREEN LT [PCP MARYLOU ROMAN, KURTIS GALLO COUSINS] Comparison is made to films from 01-17-1998. Left Breast Findings (routine views and additional views projections): There are scattered fibroglandular densities. No significant masses, calcifications or other abnormalities are seen, including at 12:00 where the patient complains of a palpable lump. Right Breast Findings (routine views and additional views projections): There are scattered fibroglandular densities. No significant masses, calcifications or other abnormalities are seen, including at 4:00 where the patient complains of a palpable lump. IMPRESSION IMPRESSION: LEFT BREAST - CATEGORY 0 1.Ultrasound is recommended at this time for further evaluation of a palpable lump at 12:00. 2.Negative mammogram, no evidence of malignancy. Normal interval follow-up is recommended in 12 months. RIGHT BREAST - CATEGORY 0 1.Ultrasound is recommended at this time for further evaluation of a palpable lump at 4:00. 2.Negative mammogram, no evidence of malignancy. Normal interval follow-up is recommended in 12 months. The patient has been scheduled for the ultrasound examination of both breasts. OVERALL ASSESSMENT - INCOMPLETE: NEED ADDITIONAL IMAGING EVALUATION END OF IMPRESSION Radha SKY IMG MAMMOGRAPHY SRINIVASAN CONNORS documented in this encounter Visit Diagnoses Not on filedocumented in this encounter
--- OUTSIDE RECORDS SUMMARY | 2024-02-24 17:07 | XMS_ITS | Encounter Summary ---
Author Organization [facility] Address [address] [place] [address] Care Team Providers Care Electric Knife Operator Name Role Phone Unavailable Primary Care Provider Unavailabl e Encounter Details Date Type Department Care Team (Latest Contact Info) Description 02/09/2002 8:10 EDT - 02/09/2002 11:59 EDT Hospital Encounter [facility] - Other [address] [place] [address] CousinRadha mc PA Discharge Disposition: Auto Discharge [...] Associated Diagnosis Comments RAD US BREAST UNILATERAL OR BILATERAL Routine 02/09/2002 8:54 EDT documented in this encounter Results * RAD US BREAST UNILATERAL OR BILATERAL (02/09/2002 8:54 EDT) Anatomical Region Laterality Modality Other 02/09/2002 8:54 EDT Impressions 04/16/2009 5:29 EDT IMPRESSION: LEFT BREAST - CATEGORY 2 Small cysts at 3 o'clock. Benign, no evidence of malignancy. Normal interval follow-up is recommended in 12 months. RIGHT BREAST - CATEGORY 1 Small scattered cysts butotherwise megative exam, no evidence of malignancy. Any decision to biopsy should be based on clinical assessment. Normal interval follow-up is recommended in 12 months. OVERALL ASSESSMENT - BENIGN END OF IMPRESSION Narrative 04/16/2009 5:29 EDT DX SIMÓN US PALP LUMP RT BR ??AT 4:00. LT BR PALP LUMP AT 12:00 FROM MAMM O AT [facility] 01/26/02 ?? [PCP ALAYNA ??KURTIS JOHNSON] Comparison is made to films from 01-26-2002. Left Breast Findings (ultrasound projection): Ultrasound demonstrates a small cluster of benign cysts at 0300, 4 cm out from the nipple. There are no other findings of concern. Right Breast Findings (ultrasound projection): No significant masses or other abnormalities are seen. There are a couple of small cysts at 10 oclock, 5 cm out from the nipple. There are no abnormal lesions at 9 or 12 oclock, in the region of the patient's symptoms. Procedure Note Adal Lopez MD - 04/16/2009 DX SIMÓN US PALP LUMP RT BR AT 4:00. LT BR PALP LUMP AT 12:00 FROM MAMM O AT [facility] 01/26/02 [PCP ALAYNA JOHNSON, KURTIS HICKMAN JESSIE] Comparison is made to films from 01-26-2002. Left Breast Findings (ultrasound projection): Ultrasound demonstrates a small cluster of benign cysts at 0300, 4 cm out from the nipple. There are no other findings of concern. Right Breast Findings (ultrasound projection): No significant masses or other abnormalities are seen. There are a couple of small cysts at 10 oclock, 5 cm out from the nipple. There are no abnormal lesions at 9 or 12 oclock, in the region of the patient's symptoms. IMPRESSION IMPRESSION: LEFT BREAST - CATEGORY 2 Small cysts at 3 o'clock. Benign, no evidence of malignancy. Normal interval follow-up is recommended in 12 months. RIGHT BREAST - CATEGORY 1 Small scattered cysts butotherwise megative exam, no evidence of malignancy. Any decision to biopsy should be based on clinical assessment. Normal interval follow-up is recommended in 12 months. OVERALL ASSESSMENT - BENIGN END OF IMPRESSION Radha ROSAS US ORDERABLES documented in this encounter Visit Diagnoses Not on filedocumented in this encounter
--- OUTSIDE RECORDS SUMMARY | 2024-02-24 17:08 | XMS_ITS | Encounter Summary ---
[place] [address] Care Team Providers Care Computer Discovery Teacher Name Role Phone Yasmeen Grace Primary Care Provider + Reason for Referral * Diagnostic Test (Routine) - Closed Specialty Diagnoses / Procedures Referred By Contac t Referred To Contact Cardiology Diagnoses Family history of ischemic heart disease Procedures Mobile Yasmeen Sanchez PA [address] [place] [address] [place] [address] [facility] [place] [address] Referral ID Status Reason Start Date Expiration Date V isits Requested Visits Authorized [id number] Closed Specialty Service Requested 02/08/2024 02/07/2025 1 1 Reason for Visit * Diagnostic Test (Routine) - Closed Specialty Diagnoses / Procedures Referred By Contac t Referred To Contact Cardiology Diagnoses Family history of ischemic heart disease Procedures Mobile Yasmeen Sanchez PA [address] [place] [address] [place] [address] [facility] [place] [address] Referral ID Status Reason Start Date Expiration Date V isits Requested Visits Authorized [id number] Closed Specialty Service Requested 02/08/2024 02/07/2025 1 1 Encounter Details Date Type Department Care Team (Late st Contact Info) Description 02/08/2024 1:53 PM EDT - 02/08/2024 11:59 PM EDT Hospital Encounter Mobile Echocardiography [facility] [place] [phone] Yasmeen Grace PA [address] [place] [address] [place] [address] Family history of ischemic heart disease Discharge Disposition: Home Social History Tobacco Use Types Packs/Day Years Used Date Smoking Tobacco: Never Smokeless Tobacco: Never Alcohol Use Standard Drinks/Week Comments Yes 0 (1 standard drink = 0.6 oz pur e alcohol) rare Sex and Gender Information Value Date Recorded Sex Assigned at Not on file Gender Identity Not on file Sexual Orientation Not on file documented as of this encounter Medications at Time of Discharge Medication Sig Dispensed Refills Start Date End Date diphenhydrAMINE (Benadryl) 25 mg capsule Take 50 mg by mouth Every 4 hours. ibuprofen (Advil) 600 mg tablet Take 1 tablet every day by oral route at bedtime for 30 days. losartan (Cozaar) 25 mg tablet Take 25 mg by mouth daily. omeprazole (PriLOSEC) [address] capsule Take 20 mg by mouth daily. Ozempic 2 mg/dose (8 mg/3 mL) Pen Injector INJECT 2MG SUBCUTANEOUS ONCE A WEEK, INJECT IN THE ABDOMEN, THIGH, OR UPPER ARM 07/12/2023 Mounjaro 2.5 mg/0.5 mL Pen Injector INJECT 2.5MG SUBCUTANEOUSLY EVERY WEEK. ROTATE INJECTION SITES. Mounjaro 5 mg/0.5 mL Pen Injector INJECT 5MG SUBCUTANEOUSLY EVERY WEEK. ROTATE INJECTION SITES 09/08/2023 venlafaxine XR (EFFEXOR-XR) 75 mg Capsule, Sust. Release 24 hr Take 75 mg by mouth daily. documented as of this encounter Plan of Treatment Upcoming Encounters Date Type Department Care Team (Latest Contact Info) Description 02/27/2024 8:45 AM EDT Appointment XRay at [address] [place] [phone] 02/27/2024 9:40 AM EDT Office [place] [address] 02/27/2024 10:40 AM EDT Laboratory [place] [address] 02/27/2024 11:00 AM EDT Clinical [place] [address] 03/21/2024 10:05 AM EDT Hospital Encounter [place] [address] Evaristo Cheatham MD [facility] [place] [address] 03/21/2024 10:05 AM EDT - 03/21/2024 12:20 PM EDT Surgery [place] [address] Evaristo Cheatham MD [facility] [place] [address] TOTAL HIP ARTHROPLASTY, ANTERIOR APPROACH (WRVU 19.6) 04/23/2024 1:00 PM EDT Appointment XRay at [address] [place] [address] 04/23/2024 2:10 PM EDT Office [place] [address] Evaristo Cheatham MD [facility] [place] [address] Scheduled Procedures Name Priority Associated Diagnoses Date/Ti me TOTAL HIP ARTHROPLASTY, ANTERIOR APPROACH (WRVU 19.6) Hip osteoarthritis 03/21/2024 10:05 AM EDT HIP INTRAOP RADIOLOGIC EXAMINATION, UNILATERAL, W PELVIS; 4+ VIEWS (WRVU 0.27) Hip osteoarthritis 03/21/2024 10:05 AM EDT MODIFIER ACTIS HIP STEM DEPUY Hip osteoarthritis 03/21/2024 10:05 AM EDT MODIFIER PINNACLE GRIPTION ACETABULUM DEPUY Hip osteoarthritis 03/21/2024 10:05 AM EDT documented as of this encounter Procedures Procedure Name Priority Date/Time Associated Diagnosis Comments ECHO COMPLETE Routine 02/08/2024 1:54 PM EDT Family history of ischemic heart disease documented in this encounter Results * ECHO COMPLETE (02/08/2024 1:54 PM EDT) Anatomical Region Laterality Modality Other 02/08/2024 11:2 5 AM EDT Narrative 02/08/2024 2:02 PM EDT [address] [place] [address] ? Echocardiogram Report Name: RACHIDMICHELLE LING ? Study Date: 02/08/2024 11:25 AMBP: 156/80 mmHg ? Patient Location: : 1960 ? Height: 168 cm ? Account: [id number] Age: 63 yrs ? Weight: 78 kg Gender: Female ?BSA: 1.9 m2 Ordering Physician: YASMEEN GRACE Referring Physician: YASMEEN GRACE Performed By: Deborah Reagan RDCS Reason For Study: Family hisotry of ischemic heart disease and other diseases of the circulatory system. Exam Location: [facility]. Interpretation Summary Normal left ventricle size and systolic function. LV ejection fraction is 65%. Normal wall motion. Normal right ventricle. No significant valve abnormalities. No prior images available for direct comparison. Procedure Complete-[id number]. Satisfactory quality. There is normal sinus rhythm. Left Ventricle Left ventricle is of normal size. Wall thickness is normal. Left ventricular systolic function is normal. The left ventricular ejection fraction is 65% by Cao's biplane. There are no segmental wall motion abnormalities. Right Ventricle The right ventricle is of normal size. Right ventricular systolic function is normal. Left Atrium The left atrium is normal. No abnormality of the interatrial septum is identified. Right Atrium The right atrium is normal. Aortic Valve The aortic valve is tricuspid. It is minimally thickened. There is no aortic stenosis. There is no aortic regurgitation. Mitral Valve The mitral valve is structurally normal. There is posterior mitral annular calcification. There is no mitral stenosis. There is trace mitral regurgitation. Tricuspid Valve The tricuspid valve is structurally normal. There is trace tricuspid regurgitation. Pulmonic Valve The pulmonic valve appears to be structurally normal. There is trace pulmonic valve regurgitation. Great Arteries The aortic root is of normal size. No abnormalities are identified. Ascending aorta is normal in size. Venous Inferior vena cava is normal in size. Inferior vena cava collapse greater than 50% with respiration. Pericardium/Pleural The pericardium appears normal. Hemodynamics The right ventricular pressure is estimated to be 13 mmHg plus the right atrial pressure (RAP = 3 mmHg) is 16 mmHg. However, the RVSP may be higher due to inadequate jet. Left ventricular diastolic function is normal. Ejection Fraction ?2D Measurements ? Volumes LV Biplane EF: 67.5 % ? IVSd: 0.95 cm ?LA Volume Index: ?LVIDd: 5.0 cm ?LVIDs: 3.2 cm ?34.2 ml/m2 ?LVPWd: 0.90 cm ? EDV Biplane: 74.5 ml ? EDV BP Indexed: ?RWT: 0.36 {ratio} ?39.7 ml/m2 ?LV mass(C)d: 166.1 grams ? ESV Biplane: 24.2 ml ?LV mass(C)dI: 88.6 grams/m2 ?ESV BP Indexed: ?Ao root diam: 2.7 cm ?Ao root diam index: 1.4 ?12.9 ml/m2 ?asc Aorta Diam: 2.8 cm ? SV(LVOT): 49.0 ml ?LVOT diam: 2.0 cm ?LV Stroke Volume: 49.0 ml ?TAPSE_phl: 2.1 cm ?SI(LVOT): 26.2 ml/m2 Doppler ?3D/Strain/TomTec LV V1 VTI: 16.4 cm ?LV GLS (S3P): -15.4 % LVOT max Velocity: 81.7 cm/sec MV E max liam: 61.6 cm/sec MV A max liam: 78.5 cm/sec MV E/A: 0.79 MV dec time: 0.16 sec Lat Peak E' Liam: 9.7 cm/sec E/e' (lat): 6.4 Med Peak E' Liam: 7.5 cm/sec E/e' (med): 8.3 E/e' Average: 7.3 TR max liam: 175.6 cm/sec RVSP(TR): 15.3 mmHg I ?WMSI = 1.00 ? % Normal = 100 ?Segments ??Size X - Cannot ?? 1 - Normal ?? 2 - ? 3 - Akinetic 4 - ?1-2 ? small Interpret ? Hypokinetic ?Dyskinetic ?? 3-5 ? moderate 5 - ? 6-14 ?large Aneurysmal ?15-16 ?? diffuse Procedure Note Ronal Johnson MD - 02/08/2024 [address] [place] [address] Echocardiogram Report Name: MICHELLE GOFF Study Date: 02/08/2024 11:25 AMBP:156/80 mmHg Patient Location: : 1960 Height: 168 cmAccount: [id number] Age: 63 yrs Weight: 78 kg Gender: Female BSA: 1.9 m2 Ordering Physician: YASMEEN GRACE Referring Physician: YASMEEN GRACE Performed By: Deborah Reagan RDCS Reason For Study: Family hisotry of ischemic heart disease and other diseases of the circulatory system. Exam Location: [facility]. Interpretation Summary Normal left ventricle size and systolic function. LV ejection fraction is65%. Normal wall motion. Normal right ventricle. No significant valve abnormalities. No prior images available for direct comparison. Procedure Complete-[id number]. Satisfactory quality. There is normal sinus rhythm. Left Ventricle Left ventricle is of normal size. Wall thickness is normal. Leftventricular systolic function is normal. The left ventricular ejection fraction is 65%by Cao's biplane. There are no segmental wall motion abnormalities. Right Ventricle The right ventricle is of normal size. Right ventricular systolic functionis normal. Left Atrium The left atrium is normal. No abnormality of the interatrial septum isidentified. Right Atrium The right atrium is normal. Aortic Valve The aortic valve is tricuspid. It is minimally thickened. There is noaortic stenosis. There is no aortic regurgitation. Mitral Valve The mitral valve is structurally normal. There is posterior mitralannular calcification. There is no mitral stenosis. There is trace mitralregurgitation. Tricuspid Valve The tricuspid valve is structurally normal. There is trace tricuspid regurgitation. Pulmonic Valve The pulmonic valve appears to be structurally normal. There is tracepulmonic valve regurgitation. Great Arteries The aortic root is of normal size. No abnormalities are identified.Ascending aorta is normal in size. Venous Inferior vena cava is normal in size. Inferior vena cava collapse greaterthan 50% with respiration. Pericardium/Pleural The pericardium appears normal. Hemodynamics The right ventricular pressure is estimated to be 13 mmHg plus the rightatrial pressure (RAP = 3 mmHg) is 16 mmHg. However, the RVSP may be higher dueto inadequate jet. Left ventricular diastolic function is normal. Ejection Fraction 2D Measurements Volumes LV Biplane EF: 67.5 % IVSd: 0.95 cm LA VolumeIndex: LVIDd: 5.0 cm LVIDs: 3.2 cm 34.2 ml/m2 LVPWd: 0.90 cm EDV Biplane: 74.5ml EDV BP Indexed: RWT: 0.36 {ratio} 39.7 ml/m2 LV mass(C)d: 166.1 grams ESV Biplane: 24.2ml LV mass(C)dI: 88.6 grams/m2 ESV BP Indexed: Ao root diam: 2.7 cm Ao root diam index: 1.4 12.9 ml/m2 asc Aorta Diam: 2.8 cm SV(LVOT): 49.0ml LVOT diam: 2.0 cm LV Stroke Volume:49.0 ml TAPSE_phl: 2.1 cm SI(LVOT): 26.2ml/m2 Doppler 3D/Strain/TomTec LV V1 VTI: 16.4 cm LV GLS (S3P): -15.4 % LVOT max Velocity: 81.7 cm/sec MV E max liam: 61.6 cm/sec MV A max liam: 78.5 cm/sec MV E/A: 0.79 MV dec time: 0.16 sec Lat Peak E' Lima: 9.7 cm/sec E/e' (lat): 6.4 Med Peak E' Liam: 7.5 cm/sec E/e' (med): 8.3 E/e' Average: 7.3 TR max liam: 175.6 cm/sec RVSP(TR): 15.3 mmHg I WMSI = 1.00 % Normal = 100 SegmentsSize X - Cannot 1 - Normal 2 - 3 - Akinetic 4 - 1-2small Interpret Hypokinetic Dyskinetic 3-5moderate 5 - 6-14large Aneurysmal 15-16diffuse Yasmeen SKY ECHO ORDERABLES documented in this encounter Visit Diagnoses Diagnosis Family history of ischemic heart disease documented in this encounter Care Teams Computer Discovery Teacher Relationship Specialty Start Date End Date Yasmeen Grace PA [address] [place] [address] [place] [address] PCP - General Internal Medicine 07/05/19 documented as of this encounter
--- OUTSIDE RECORDS SUMMARY | 2024-02-24 17:08 | XMS_ITS | Encounter Summary ---
Author Organization [facility] Address [address] [place] [address] Care Team Providers Care Finished Stock Inspector Name Role Phone Unavailable Primary Care Provider Unavailabl e Encounter Details Date Type Department Care Team (Late st Contact Info) Description 12/24/1999 11:51 EDT Hospital Encounter [facility] - Other [address] [place] [address] Morgan Cole MD [address] [place] [address] [address] [place] [address] Unknown, Provider, Social History Tobacco Use Types Packs/Day Years [...]
--- OUTSIDE RECORDS SUMMARY | 2024-02-24 17:08 | XMS_ITS | Encounter Summary ---
Author Organization [facility] Address [address] [place] [address] Care Team Providers Care Diamond Sorter Name Role Phone Unavailable Primary Care Provider Unavailabl e Encounter Details Date Type Department Care Team (Late st Contact Info) Description 12/02/1999 8:21 EDT Hospital Encounter [facility] - Other [address] [place] [address] John Rivera MD [address] [place] [phone] Unknown, Provider, Social History Tobacco Use Types [...]
--- OUTSIDE RECORDS SUMMARY | 2024-02-24 17:08 | XMS_ITS | Encounter Summary ---
[place] [address] Care Team Providers Care Hitting Coach Name Role Phone Yasmeen Grace Primary Care Provider + Reason for Referral * Physical Therapy (Routine) - Authorized Specialty Diagnoses / Procedures Referred By Contac t Referred To Contact Physical Therapy Diagnoses Debility Pain of left lower extremity Primary osteoarthritis of left hip Evaristo Cheatham MD [facility] [place] [address] Unknown None Referral ID Status Reason Start Date Expiration Date Visits Requested Visits Authorized [id number] Authorized Evaluate and Treat Non PCP 09/26/2023 03/24/2024 12 12 Reason for Visit * Reason Comments Hip Pain LEFT HIP PAIN/ BILAT KNEE PAIN * Consultation (Routine) - Authorized Specialty Diagnoses / Procedures Referred By Contleeanne t Referred To Contact Orthopaedics Diagnoses Pain in right hip Yasmeen Grace PA [address] [place] [address] [place] [address] [facility] [address] [place] [phone] Referral ID Status Reason Start Date Expiration Date Visits Requested Visits Authorized [id number] Authorized Consult, Test & Treat PCP Updated and/or Approved 08/12/2023 08/11/2024 6 6 Encounter Details Date Type Department Care Team (Latest Contact Info) Description 09/26/2023 9:40 AM EDT Office [place] [address] Evaristo Cheatham MD [facility] [place] [address] Debility; Pain of left lower extremity; Primary osteoarthritis of left hip Social History Tobacco Use Types Packs/Day Years [...] - Inhaled Oxygen Concentration - - Weight 75.3 kg (166 lb) 09/26/2023 9:51 AM EDT Height 172.7 cm (5' 8) 09/26/2023 9:51 AM EDT Body Mass Index 25.24 09/26/2023 9:51 AM EDT documented in this encounter Progress Notes * Evaristo Cheatham MD - 09/26/2023 9:40 AM EDT Images from the original note were not included. Department of Orthopaedics Division of Adult Joint Reconstructive Surgery September 26, 2023 I had the pleasure of evaluating Michelle Goff in clinic in conjunction with Dr. Webb. I have seen the patient and reviewed the history/physical and I agree with the details as written. Theassessment and plan were formulated in discussion with me and I agree with them as documented. Ms. Goff is a 63 y.o. year old female with left Hip pain and bilateral knee pain secondaryto osteoarthritis. Saw Dr. Arellano years ago and had an injection into her hip. Pain for years. Hip pain worse than knees. Doing PT. Hard time sleeping. Hip aches terribly a night + C sign, pain feels deep Pain with flexion and IR My independent personal review of the imaging studies demonstrate Radiographic evidence of moderate/severe osteoarthritis of joint (i.e., Kellgren-Rah Grade 3 or 4) of her hip. Protrusio of femoral head past Kohlers line. Mild to mod OA of her knees. We reviewed the multiple treatment options available to her for this condition. Both operative and nonoperative options were discussed as well as the pure elective nature of each. I reviewed the concept of the arthritis ladder with its step-vargas approach, rising in invasiveness based on either previous response or symptom severity/impact on lifestyle. We discussed at some length about the fact that there is no cure for primary osteoarthritis. Therefore, management is supportive and nonoperative initially, with the accepted nonoperative treatment options for OA including: (1) activity modification (avoiding activities that hurt where possible, such as kneeling, or stairclimbing, (2) attainment of ideal body weight, (3) reduction of inflammationeither through oral anti-inflammatory agents, topicals, or intra- articular injections,. We also talked about the role of physical therapy to strengthen muscle groups that control lower extremity muscle groups. At this point in time she would like to proceed with Left MARK and I think this is reasonable. They report the Presence of pain and functional disability that interferes with activities of dailyliving due to osteoarthritis There is the Presence of limited range of motion, crepitus, or effusion or swelling of the joint onphysical examination They have attempted conservative treatment. There is no active infection of the skin or joint, open wound within the planned surgical site, vascular insufficiency, significant muscular atrophy of the leg, or neuromuscular disease severe enoughto compromise implant stability or post- operative recovery or quadriplegia, osseous abnormalities that cannot be optimally managed and which would increase the likelihood of a poor surgical outcome I had a long discussion with her regarding the risks and benefits of total hip arthroplasty. I indicated that in my opinion, this is the treatment option most likely to restore a more normal, pain-free level of function and that we have exhausted reasonable non-operative alternatives. I used total hip implants to demonstrate how I perform the procedure and all of their questions were answered. Ms. Goff expressed a desire to pursue this option. We then discussed in great detail the risks associated with the proposed surgery. These included but were not limited to: bleeding (which may or may not require transfusion), infection, damage to nerves or blood vessels, lateral thigh numbness, blot clot, prosthetic failure, fibrous ingrowth, femuror pelvic fracture, dislocation, leg-length inequality, persistent pain (incomplete pain relief), medical complications and need for revision surgery. The patient seemed to understand the nature of this procedure's risks. We also discussed the likely benefit of improved stride length, improved range of motion, decreased pain, decreased need for pain medications and decrease functional limitations. The patient is aware that it would take on average 1 day in the hospital, followed by approximately 12-18 months to full rehabilitation. I then had her meet with our pre-operative team today in clinic. Hx of infection with previous surgeries - will give ancef and vanco. Will extend mupirocin preop and CHG. Need xrays with mag marker All questions were answered. Evaristo Cheatham MD, MS Manager Surgery, Division of Adult Reconstructive Travel CounselorPutty Worker of Orthopaedics Department of Orthopaedics [facility] [place] [phone] [email or web address] * Dillan Webb MD - 09/26/2023 9:40 AM EDT Images from the original note were not included. Department of Orthopaedics Division of Adult Joint Reconstructive Surgery Subjective: RE: Michelle Goff CC: Chief Complaint Patient presents with Hip Pain LEFT HIP PAIN/ BILAT KNEE PAIN DIAGNOSIS: OA LEFT hip and bilateral knees ARTHROPLASTY PROCEDURES: (mm/dd/yyyy: left/right procedure, hospital, surgeon) None Michelle Goff was referred from JOSE DANIEL Van [address] [place] [id number] HISTORY OF PRESENT ILLNESS: Michelle Radha Goff who is a 63 y.o. female who has a history of LEFT hip pain that has become progressively worse not improved as of the past 4 year(s). The patient localizes the pain to in the groin area and over the side of the hip. It is a aching pain depending on their activities. Has difficulty with shoes and socks, and with switching from sitting to standing an vice versa due to the pain in her knee. The hip pain is the most severe and bothers her at night waking her up and making her get out of bed by 4am every day. Overall, the problem has been getting progressively worse not been getting better and is now significantly impacting quality of life. She had a L hip steroid injection 4 yrs ago at which she states did not help her. She has done PT since February for her knees which helped with her ROM but did not help her pain. 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 Other pertinent details of the history include: Anti-inflammatory medication history: ibuprofen (Motrin) Home exercise/activities: walking Ambulatory capacity: greater than 6 blocks Assistive devices: not using a cane or other assistive device Stair climbing: alternating feet Physical therapy: Yes Weight gain/loss: has been stable Corticosteroid injections and/or viscosupplementation: Cortisone Patient denies fevers, chills, night sweats, nausea, or vomiting. She does not endorse a history ofDVT/PE or clotting disorder. QUESTIONNAIRE RESPONSES: 09/19/2023 General Health, Prior Treatments, PreExisting Condition, Health Habits, About You PROMIS-10 General Health Very Good PROMIS-10 Quality of Life Very Good PROMIS-10 Physical Health Very Good PROMIS-10 Mental Health Very Good PROMIS-10 Social Activity Very Good PROMIS-10 Everyday Activities Moderately PROMIS-10 Pain 6 PROMIS-10 Fatigue Mild PROMIS-10 Social Roles Very Good PROMIS-10 Anxious or Depressed Never PROMIS PHYSICAL SCORE (range 16-68) 44.9 PROMIS MENTAL SCORE (range 21-68) 56 Treatments Tried Regular exercise Physical therapy Alzheimers or dementia No Cirrohosis or liver disease No HIV/AIDS No Pain in more than one joint in legs Yes Back or neck pain No Heart attack No Heart failure No Unclog/bypass leg arteries No Stroke, blood clot, TIA No Asthma No Emphysema, chronic bronchities, or COPD No Stomach ulcers/peptic ulcer disease No Diabetes No Poor kidney function No Rheumatic condtions No Cancer Yes Cancer spread No Leukemia or polycythemia vera No Lymphoma No Weight (lbs) 164 Height (feet) 5 feet Height (Inches) 7 BMI 25.68 (Overweight) Ever used tobacco products No Ever used alcoholic beverages Yes Alcohol frequency Once or twice WHO - Alcohol Advice 2 (You are at low risk of health and other problems from your current pattern of use.) Live Alone No Marital situation Schooling Some college or 2 - year degree Combined Household Income Prefer not to answer # People Supported 2 Faroese, , No, not Faroese// Race White Health Literacy Extremely Currently working Yes Current job situation Full-time 07/11/2019 [employer] Scores 46.65 07/11/2019 [facility] [employer] Scores 46.65 ALLERGIES: Allergies Allergen Reactions Sumatriptan Anxiety, Other (See Comments) and Shortness Of Breath Heavy pressure in chest Escitalopram Allergies to metals: No SOCIAL HISTORY: reports that she has never smoked. She has never used smokeless tobacco. She reports current alcohol use. She reports that she does not use drugs. Occupation: No SIGNIFICANT MEDICAL COMORBIDITIES: There is no problem list on file for this patient. No past surgical history on file. FAMILY HISTORY: Family history was reviewed with patient and is as listed below. There is not a family history of bleeding or anesthetic complications. Family History Problem Relation Age of Onset Cancer Mother Cancer Maternal Aunt REVIEW OF SYSTEMS: A detailed review of systems was performed and is as reviewed with the patient and indicated in thechart. Review of Systems Constitutional: Negative. HENT: Negative. Eyes: Negative. Respiratory: Negative. Negative for shortness of breath. Cardiovascular: Negative for chest pain. Gastrointestinal: Negative. Genitourinary: Negative. Musculoskeletal: Positive for joint pain. Skin: Negative. Neurological: Negative. Endo/Heme/Allergies: Negative. Psychiatric/Behavioral: Negative. All other systems reviewed and are negative. Patient denies fevers, chills, night sweats, nausea, or vomiting. Objective: VITALS: Ht 172.7 cm (5' 8) Wt 75.3 kg (166 lb) BMI 25.24 kg/m?? Body mass index is 25.24 kg/m??. PHYSICAL EXAMINATION: General : alert, appears stated age, and cooperative Gait: Normal. The patient cannot bear weight on the injured extremity. I have made the following determinations: Hip Exam: LEFT Prior surgery on this joint:No Leg Length: Longer leg: equal Limb Length discrepancy: 0cm Motion: Flexion contracture: 0 Total degrees of Flexion: 110 Total degrees of Abduction: 30 Total degrees of Ext Rotation: 40 Total degrees of Internal Rotation: 0 Gait Abnormality: Normal Skin Integrity: Normal Pulses Palpable: Left PT: Yes Left DP: Yes Motor/Sensory: Left Distal Motor: Normal Distal Sensory: Normal Hip Abductors: 5 Trendelenburg test: negative Left Stinchfield negative Abductor Strength 5/5 Tenderness over greater trochanter No Exam bilateral knees: Range of motion 0 to 110 degrees of flexion No instability with varus valgus stress No tenderness to palpation Skin nonerythematous with no skin lesions seen IMAGING: I personally reviewed and interpreted the radiographs obtained on : X-ray bilateral knees-mild to moderate osteoarthritis with subchondral sclerosis and joint space narrowing X-ray left hip -moderate to severe osteoarthritis of the left hip. The femoral head extends medially past:consistent with her diagnosis of Reyes's pelvis. Significant posterior osteophytes and subchondral sclerosis as well as medial joint space narrowing. REVIEW OF OUTSIDE RECORDS: None Assessment & Plan: IMPRESSION: Michelle Goff who is a 63 y.o. female who has moderate to severe osteoarthritis of herLEFT hip. We discussed both the natural history and the treatment options with the patient at length today, including both non-operative and operative measures. We reviewed the multiple treatment options available to her for this condition and the hurtful but non-harmful nature of arthritis. Both operative and nonoperative options were discussed as well as the pure elective nature of each. I reviewed the concept of the arthritis ladder with its step-vargas approach, rising in invasiveness based on either previous response or symptom severity/impact on lifestyle. Considering the apparent impact on her lifestyle and having explored non- operative treatment options, I indicated that in my opinion total hip arthroplasty would be a reasonable option to attempt to restore a more normal, pain-free level of function. I discussed general details about how the procedure is performed and all of their questions were answered. Ms. Goff expressed a desire to pursue total hip arthroplasty. With regards to her bilateral knees, she may continue with physical therapy and OTC pain medications, and we may discuss further intervention down the line. Given that her left hip is causing her most severe symptoms, will address the hip first. The patient is not a candidate for at this time for the following reasons: Potential barriers to total joint arthroplasty: -BMI > 40: No Body mass index is 25.24 kg/m??. -Active Tobacco use: No -Diabetes with hemoglobin A1C > 7.5: No -Other comorbid conditions: See above MEDICAL DECISION MAKING and PLAN: -Severe OA of left hip and has failed conservative management. Interested in total hip arthroplasty. -Proceed with left MARK pending or availability -Continue with conservative management of bilateral knee OA Dillan Webb MD 09/26/23 * Casper Lopez Gege - 09/26/2023 9:40 AM EDT I saw Michelle and reviewed the pre-operative process with the patient per Dr. Cheatham. The patient is pursuing a left total hip replacement. she will need to see Dr. Cee for pre-operative clearance and discuss post operative anticoagulation plan before undergoing surgery. We discussed the risks of a total hip arthroplasty: Bleeding, infection, scar formation, dislocation, leg length inequality, persistent pain, stiffness, bursitis, failure/wear/loosening/breakage of implants, implant malposition, need for additional/future surgery, fracture, clot formation, embolus,stroke, nerve palsy, blood vessel injury, skin numbness, anesthetic and/or medical complications, . We also reviewed their preferences regarding use of blood products and confirmed that while we would endeavor to minimize the risks of needing any transfusions, if circumstances were such that one ormore were indeed required, she would NOT refuse a blood transfusion. We reviewed options for postoperative DVT prophylaxis, based on AAOS guidelines. We discussed the pros and cons of different anticoagulants in terms of effectiveness and clot / embolus preventions vs. risks of bleeding and wound complications. The AAOS guidelines for dental procedures were reviewed with the patient. They were advised that nodental work should be performed for a minimum of two weeks prior to surgery. Additionally, no elective dental work, including cleanings, should be done for 6 months after surgery. If urgent dental work is required within six months, the patient understands to contact our office as we will prescribea prophylactic antibiotic, to be taken before the dental procedure. I reviewed risks associated with taking opioid pain medication, and Michelle signed the acute opioid pain management contract with no other questions at this time. Michelle personal risk assessment was completed. 09/26/2023 Opioid PDMP [place] PDMP Query Date 09/26/2023 [place] PDMP Query Date 09/26/2023 [place] PDMP Query Date 09/26/2023 Clotting and Bleeding Assessment Genetic predisposition or history of DVT or PE: No Hypercoaguable state?: No History of bleeding disorder?: No GI bleed or history of hemorrhagic stroke within the past 2 years: No Patient on lifelong anticoagulant for other reasons: No Discharge anticoagulation plan: CHANCE Infection Prevention Patient demonstrated appropriate skin integrity/infection knowledge level after instructions provided: Yes Patient demonstrated appropriate dental prophylaxis knowledge level after instructions provided: Yes Patient demonstrated appropriate understanding of chlorhexideine wash and mupirocin ointment: Yes General Assessment Total joint preparedness for surgery: 1:1 Patient understands when to call the office pre-op and post-op: Verbalizes understanding Assistive device(s) used pre-op: None Patient currently on narcotics: No Patient has narcotic agreement signed: No Michelle was given nasal Mupirocin to use twice daily for TEN days prior to surgery, along with chlorhexidine soap to use the two nights before and the morning before the day of surgery as well as the morning of surgery. Additional instructions were given to the patient if they had other questions as well. The patient prefers two-wheeled walker to help with post-operative ambulation. The patient has a walker and will bring it to surgery. Prep for Surgery Advance Directive: Has one (will bring in copy) Living arrangement: House Home layout: One level, Able to live on main level, Ramped entrance Who will provide post-op care and support: Who will provide transportation home: Patient's desired discharge disposition: Home Outpatient PT preference: [facility] Discharge barriers and challenges: None at this time Post operative orthopaedic anti-coagulation plan: CHANCE [place] Chronic anti-coagulation: no Expedited Discharge Candidate?: YES and would like to pursue expedited recovery. Patient is planning to be discharged home with outpatient physical therapy. Metal allergy? No We discussed using Celebrex while in house. Upon discharge we will give the patient Naprosyn to take for 6 weeks after surgery for post-operative pain management. Lorie Cabrera LAT documented in this encounter Plan of Treatment Upcoming Encounters Date Type Department Care Team (Latest Contact Info) Description 02/27/2024 8:45 AM EDT Appointment XRay at [address] [place] [address] 02/27/2024 9:40 AM EDT Office [place] [address] 02/27/2024 10:40 AM EDT Laboratory [place] [address] 02/27/2024 11:00 AM EDT Clinical [place] [address] 03/21/2024 10:05 AM EDT Hospital Encounter [place] [address] Evaristo Cheatham MD [facility] [place] [address] 03/21/2024 10:05 AM EDT - 03/21/2024 12:20 PM EDT Surgery [place] [address] Evaristo Cheatham MD [facility] [place] [address] TOTAL HIP ARTHROPLASTY, ANTERIOR APPROACH (WRVU 19.6) 04/23/2024 1:00 PM EDT Appointment XRay at [address] [place] [address] 04/23/2024 2:10 PM EDT Office [place] [address] Evaristo Cheatham MD [facility] [place] [address] Scheduled Orders Name Type Priority Associated Diagnoses Orde r Schedule SURGICAL CASE REQUEST: TOTAL HIP ARTHROPLASTY, ANTERIOR APPROACH (WRVU 19.6) Procedures Routine One Time for 1 Occurrences starting 09/26/2023 until 09/26/2023 CBC (with Diff) Lab Routine Debility Pain of left lower extremity Primary osteoarthritis of left hip Expected: 09/26/2023, Expires: 03/27/2024 Basic Metabolic Panel (non-fasting) Lab Routine Debility Pain of left lower extremity Primary osteoarthritis of left hip Expected: 09/26/2023, Expires: 03/27/2024 Prothrombin Time Lab Routine Debility Pain of left lower extremity Primary osteoarthritis of left hip Expected: 09/26/2023, Expires: 03/27/2024 APTT Lab Routine Debility Pain of left lower extremity Primary osteoarthritis of left hip Expected: 09/26/2023, Expires: 03/27/2024 EKG 12 Lead ECG Routine Debility Pain of left lower extremity Primary osteoarthritis of left hip Expected: 09/26/2023, Expires: 01/24/2024 XR Pelvis and Hip 2 Views Left Imaging Routine Debility Pain of left lower extremity Primary osteoarthritis of left hip Expected: 09/26/2023 (Approximate), Expires: 03/27/2024 Scheduled Procedures Name Priority Associated Diagnoses Date/Ti me TOTAL HIP ARTHROPLASTY, ANTERIOR APPROACH (WRVU 19.6) Hip osteoarthritis 03/21/2024 10:05 AM EDT HIP INTRAOP RADIOLOGIC EXAMINATION, UNILATERAL, W PELVIS; 4+ VIEWS (WRVU 0.27) Hip osteoarthritis 03/21/2024 10:05 AM EDT MODIFIER ACTIS HIP STEM DEPUY Hip osteoarthritis 03/21/2024 10:05 AM EDT MODIFIER PINNACLE GRIPTION ACETABULUM DEPUY Hip osteoarthritis 03/21/2024 10:05 AM EDT Scheduled Referrals Name Type Priority Associated Diagnoses Orde r Schedule Referral to Physical Therapy Outpatient Referral Routine Debility Pain of left lower extremity Primary osteoarthritis of left hip Ordered: 09/26/2023 documented as of this encounter Visit Diagnoses Diagnosis Debility Debility, unspecified Pain of left lower extremity Primary osteoarthritis of left hip Primary localized osteoarthrosis, pelvic region and thigh documented in this encounter Care Teams Hitting Coach Relationship Specialty Start Date End Date Yasmeen Grace PA [address] [place] [address] [place] [address] PCP - General Internal Medicine 07/05/19 documented as of this encounter
--- OUTSIDE RECORDS SUMMARY | 2024-02-24 17:08 | XMS_ITS | Encounter Summary ---
Author Organization [facility] [place] [address] Care Team Providers Care Sql Report Analyst Name Role Phone Yasmeen Grace Primary Care Provider + Reason for Visit * Reason Onset Date Comments Injections 07/11/2019 Encounter Details Date Type Department Care Team (Late st Contact Info) Description 07/11/2019 [place]phone [place] [phone] Emily Arellano MD [facility] [place] [address] Injections Social History Tobacco Use Types Packs/Day [...] encounter Miscellaneous Notes * Telephone Encounter - Ciara Villa - 07/11/2019 11:34 AM EST Patient looking to go somewhere closer to home for injection. Patient asked for order to be printedoff and she was going to do some research to find a place that will preform the injection. Patient will call with any questions or concerns documented in this encounter Plan of Treatment Upcoming Encounters Date Type Department Care Team (Latest Contact Info) Description 02/27/2024 8:45 AM EDT Appointment XRay at [address] [place] [address] 02/27/2024 9:40 AM EDT Office [place] [address] 02/27/2024 10:40 AM EDT [place] [address] 02/27/2024 11:00 AM EDT Clinical [place] [address] 03/21/2024 10:05 AM EDT Hospital Encounter [place] [address] Evaristo Cheatham MD [facility] [place] [address] 03/21/2024 10:05 AM EDT - 03/21/2024 12:20 PM EDT Surgery [place] [address] Evaristo Cheatham MD [facility] [place] [address] TOTAL HIP ARTHROPLASTY, ANTERIOR APPROACH (WRVU 19.6) 04/23/2024 1:00 PM EDT Appointment XRay at [address] [place] [address] 04/23/2024 2:10 PM EDT Office [place] [address] Evaristo Cheatham MD [facility] [place] [address] Scheduled Procedures Name Priority Associated Diagnoses Date/Ti [...] AM EDT documented as of this encounter Visit Diagnoses Not on filedocumented in this encounter Care Teams Sql Report Analyst Relationship Specialty Start Date End Date Yasmeen Grace PA [address] [place] [address] [place] [address] PCP - General Internal Medicine 07/05/19 documented as of this encounter
--- OUTSIDE RECORDS SUMMARY | 2024-02-24 17:08 | XMS_ITS | Encounter Summary ---
Author Organization [facility] Address [address] [place] [address] Care Team Providers Care Engineer [employer] Name Role Phone Unavailable Primary Care Provider Unavailabl e Encounter Details Date Type Department Care Team (Latest Contact Info) Description 11/25/1999 12:47 EDT Hospital Encounter [facility] Emergency Department - [facility] [address] [place], [place] [address] Emergency, Default, MD Discharge Disposition: Home or Self Care [...] Priority Date/Time Associated Diagnosis Comments RAD US TRANSVAGINAL Routine 11/25/1999 1 5:31 EDT RAD US PELVIS TA COMPLETE Routine 11/25/1999 15:31 EDT URINALYSIS WITH MICROSCOPIC IF POSITIVE Routine 11/25/1999 13:54 EDT HEMAGRAM & DIFF Routine 11/25/1999 13:50 EDT documented in this encounter Results * RAD US TRANSVAGINAL (11/25/1999 15:31 EDT) Anatomical Region Laterality Modality Other 11/25/1999 15:3 1 EDT Impressions 05/13/2009 12:40 EST IMPRESSION: 1. 2.1 x 1.6 x 1.6 cm cyst, left ovary, with small amount of free fluid. 2. Normal right ovary. 3. Trace endometrial fluid. /[facility] Narrative 05/13/2009 12:40 EST LLQ PAIN ?R/O OV PATH [employer]Y DEMONSTRATOR [employer]TRAS[employer], 11/25/99 HISTORY: Patient in Emergency Room with left lower quadrant pain, rule out ovarian pathology. The patient was scanned by suprapubic and endovaginal techniques. The uterus is normal, but there is a trace amount of free fluid in the endometrial cavity of doubtful significance. The right ovary is normal. The left ovary contains a unilocular simple cyst which measures 2.1 x 1.6 x 1.6 cm as well as several other smaller functional cysts. There is a small amount of free fluid adjacent to the left ovary. Limited scans of the kidneys showed no hydronephrosis. No other abnormality is seen. Procedure Note Marina Peralta MD - 05/13/2009 LLQ PAIN R/O OV PATH [employer]Y DEMONSTRATOR ULTRASOUND, 11/25/99 HISTORY: Patient in Emergency Room with left lower quadrant pain, rule out ovarian pathology. The patient was scanned by suprapubic and endovaginal techniques. The uterus is normal, but there is a trace amount of free fluid in the endometrial cavity of doubtful significance. The right ovary is normal. The left ovary contains a unilocular simple cyst which measures 2.1 x 1.6 x 1.6 cm as well as several other smaller functional cysts. There is a small amount of free fluid adjacent to the left ovary. Limited scans of the kidneys showed no hydronephrosis. No other abnormality is seen. IMPRESSION IMPRESSION: 1. 2.1 x 1.6 x 1.6 cm cyst, left ovary, with small amount of free fluid. 2. Normal right ovary. 3. Trace endometrial fluid. /[facility] Vikas San MD G US ORDERABLES * RAD US PELVIS TA COMPLETE (11/25/1999 15:31 EDT) Anatomical Region Laterality Modality Other 11/25/1999 15:3 1 EDT Narrative 05/13/2009 12:40 EST LLQ PAIN ?R/O OV PATH Procedure Note Marina Peralta MD - 05/13/2009 LLQ PAIN R/O OV PATH Vikas San MD [facility] ORDERABLES * URINALYSIS (11/25/1999 13:54 EDT) Color, UA Straw [facility] Clarity, UA Clear [facility] Glucose, UA Norm NORM [facility] Bilirubin, UA Neg NEG [facility] Ketones, UA Neg NEG [facility] Specific [place], Urine 1.010 1.005 - 1.02 [facility] Blood, UA Neg NEG [facility] pH, UA 6.0 5.0 - 9.0 [facility] Protein, UA Neg NEG [facility] Urobilinogen, UA Norm NORM mg/dL [facility] Nitrite, UA Neg NEG [facility] Leuk Esterase Neg NEG [facility] 11/25/1999 13:5 4 EDT 11/25/1999 13:54 EDT Default Emergency URINALYSIS ORDERABL ES [facility] [address] [place] [address] * HEMAGRAM & DIFF (11/25/1999 13:50 EDT) WBC 6.96 4.0 - 12.4 K/cmm [facility] RBC 4.69 3.86 - 5.04 M/cmm [facility] Hemoglobin 12.5 11.6 - 15.2 gm/dl [facility] HCT 38.0 34.9 - 44.4 % [facility] MCV 81 81 - 98 fl [facility] MCH 26.7 26.7 - 33.3 pg [facility] MCHC 32.9 32.1 - 35.9 gm/dl [facility] PLT 254 141 - 320 K/cmm [facility] RDW-CV 13.2 11.7 - 14.6 % [facility] % Neutrophils 55.8 45.5 - 79.7 % [facility] % Lymphocytes 33.7 15.0 - 46.8 % [facility] % Monocytes 8.7 1.8 - 12.0 % [facility] % Eosinophils 1.3 0.6 - 6.9 % [facility] % Basophils 0.5 0.2 - 1.4 % [facility] ABS Neutrophils 3.88 2.20 - 8.85 K/cmm [facility] ABS Lymphs 2.34 1.09 - 3.30 K/cmm [facility] ABS Monocytes 0.61 0.1 - 0.8 K/cmm [facility] ABS Eosinophils 0.09 0.03 - 0.61 K/cmm [facility] ABS Basophils 0.04 0.01 - 0.11 K/cmm [facility] Type of Diff: Automated [facility] 11/25/1999 13:5 0 EDT 11/25/1999 13:50 EDT Default Emergency HISTORICAL LAB FOR SQ LOAD [facility] [address] [place] [address] documented in this encounter Visit Diagnoses Not on filedocumented in this encounter
--- OUTSIDE RECORDS SUMMARY | 2024-02-24 17:08 | XMS_ITS | Encounter Summary ---
Author Organization [facility] [place] [address] Care Team Providers Care Simulation Software Engineer Name Role Phone Yasmeen Grace Primary Care Provider + Encounter Details Date Type Department Care Team (Latest Contact Info) Description 09/19/2023 Travel Social History Tobacco Use Types Packs/Day [...] 02/27/2024 8:45 AM EDT Appointment XRay at [address] [place] [address] 02/27/2024 9:40 AM EDT Office [place] [address] 02/27/2024 10:40 AM EDT [place] [address] 02/27/2024 11:00 AM EDT Clinical [place] [address] 03/21/2024 10:05 AM EDT Hospital Encounter [place] [address] Evaristo Cheatham MD [facility] [place] [address] 03/21/2024 10:05 AM EDT - 03/21/2024 12:20 PM EDT Surgery [place] [address] Evaristo Cheatham MD [facility] [place] [address] TOTAL HIP ARTHROPLASTY, ANTERIOR APPROACH (WRVU 19.6) 04/23/2024 1:00 PM EDT Appointment XRay at [address] [place] [address] 04/23/2024 2:10 PM EDT Office [place] [address] Evaristo Cheatham MD [facility] [place] [address] Scheduled Procedures Name Priority Associated Diagnoses Date/Ti [...] on filedocumented in this encounter Care Teams Simulation Software Engineer Relationship Specialty Start Date End Date Yasmeen Grace PA [address] [place] [address] [place] [address] PCP - General Internal Medicine 07/05/19 documented as of this encounter
--- OUTSIDE RECORDS SUMMARY | 2024-02-24 17:08 | XMS_ITS | Encounter Summary ---
Author Organization [facility] Address [facility] [place] [address] Care Team Providers Care Thermometer Tester Name Role Phone Yasmeen Grace Primary Care Provider + Reason for Visit * Reason Comments Establish Care nxr ( xr in eDH bila t hip pain L>R consult for bilat femoral acetabulum impingement * Consultation (Routine) - Closed Specialty Diagnoses / Procedures Referred By Manisha smiley Referred To Contact Orthopaedics Diagnoses Pain in unspecified hip HIP PAIN - PLEASE SEE PT FOR CONSIDERATION OF BILATERAL FEMORAL ACETABULAR IMPINGEMENT SURGERY. Lincoln Knight MD [address] [place] [address] [place] [address] Emily Arellano MD [facility] [place] [address] Referral ID Status Reason Start Date Expiration Date V isits Requested Visits Authorized [id number] Closed Consult, Test & [facility] PCP Updated and/or Approved 07/05/2019 07/04/2020 1 1 Encounter Details Date Type Department Care Team (Latest Contact Info) Description 07/11/2019 11:00 AM EST Office [place] [phone] Emily Arellano MD [facility] [place] [address] 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 Department of Orthopaedics Division of Adult Joint Reconstructive Surgery CHIEF COMPLAINT: Bilateral Hip Pain (L>>R) Michelle Goff was referred from Lincoln Knight MD [address] [place] [address] HPI: Michelle Goff is a 58 y.o. year old female being seen today in the clinic. The patientis experiencing Left hip pain, which is severe (VAS score >4 on a 0-10 scale) in intensity and the restriction of function (appropriate for a patient of this age) are intolerable. She states the knee has been symptomatic for years. The pain substantially limits activities of daily living. In part icular, walking tolerance and ability to stair climb is reduced. Conservative management such as non-steroidal anti-inflammatory medications available by prescription, ice and/or heat and activity modification have been minimally effective or deemed insufficient by the patient for a period lasting greater than 3 months in duration. Assistive devices and external support were not deemed by the patient to be helpful in improving their function. Ms. Goff denies fevers/chills/headache/chest pain/shortness of breath/abdominal pain/nausea or vomiting/weight changes QUESTIONNAIRE RESPONSES: General Health, Prior Treatments, PreExisting Condition, Health Habits, About You 07/11/2019 PROMIS-10 General Health Very Good PROMIS-10 Quality of Life Very Good PROMIS-10 Physical Health Very Good PROMIS-10 Mental Health Very Good PROMIS-10 Social Activity Very Good PROMIS-10 Everyday Activities Mostly PROMIS-10 Pain 7 PROMIS-10 Fatigue Mild PROMIS-10 Social Roles Very Good PROMIS-10 Anxious or Depressed Rarely PROMIS PHYSICAL SCORE (range 16-68) 44.9 PROMIS MENTAL SCORE (range 21-68) 53.3 Treatments Tried Over the counter anti-inflammatory drugs (e.g Advil, Aspirin, Aleve) HOOS JR Scores 46.65 MARK Grade 6 Alzheimers or dementia No Cirrohosis or liver [...] polycythemia vera No Lymphoma No Weight (lbs) 194 Height (feet) 5 feet Height (Inches) 7 BMI 30.38 (Obese) Ever used tobacco products No Ever used alcoholic beverages Yes Alcohol frequency Once or twice WHO - Alcohol Advice 2 (You are at low risk of health and other problems from your current pattern of use.) Live Alone No Marital situation Schooling Some college or 2 - year degree Combined Household Income $75,000 or more # People Supported 2 Citizen Of [place], , No, not Citizen Of [place]// Race White Health Literacy Extremely Currently working Yes Current job situation Full-time [facility] Response 07/11/2019 HOOS JR Scores 46.65 Spine [facility] Response 07/11/2019 HOOS JR Scores 46.65 ALLERGIES Allergies Allergen Reactions ??? Sumatriptan Anxiety, Other (See Comments) and Shortness Of Breath Heavy pressure in chest Allergies to metals: None. SOCIAL HISTORY: reports that she has never smoked. She has never used smokeless tobacco. She reports that she drinks alcohol. She reports that she does not use drugs. Occupation: Teacher SIGNIFICANT MEDICAL COMORBIDITIES: There is no problem list on file for this patient. VITALS: BP Readings from Last 1 Encounters: 07/11/19 143/72 Pulse Readings from Last 1 Encounters: 07/11/19 86 Height: 170.2 cm (5' 7) Weight: 88 kg (194 lb) Body mass index is 30.38 kg/m??. PHYSICAL EXAM: Constitution: Michelle Goff sits in the clinic today alert, appears stated age and cooperative. She is alert and oriented. Leg Length: Longer leg: equal Limb Length discrepancy: 0cm Gait Abnormality: Normal Hip Exam: Right Range of Motion: Flexion contracture: 0 Total degrees of Flexion:110 Total degrees of Abduction:40 Total degrees of External Rotation: 25 Total degrees of Internal Rotation: 10 Skin Integrity: Normal (transverse incision across lower abdomen from ASIS to ASIS from tummy tuck) Pulses Palpable: Right PT: Yes Right DP:Yes Motor/Sensory: Hip Abductors: 5 Trendelenburg test: negative Distal Motor: Normal Distal Sensory: Normal Hip Exam: Left Range of Motion: Flexion contracture: 0 Total degrees of Flexion:110 Total degrees of Abduction:40 Total degrees of External Rotation: 20 Total degrees of Internal Rotation: 0 Skin Integrity: Normal (transverse incision across lower abdomen from ASIS to ASIS from tummy tuck) Pulses Palpable: Left PT: Yes Left DP:Yes Motor/Sensory: Hip Abductors: 5 Trendelenburg test: negative Distal Motor: Normal Distal Sensory: Normal IMAGING: X-rays of the Bilateral hip were reviewed in the office and demonstrate moderate osteoarthritis. ASSESSMENT AND PLAN:Ms. Goff is a 58 y.o. year old female with Bilateral hip pain. The patient has attempted PT, Tylenol, and Advil without lasting relief. She has not attempted a steroid injection. Therefore she will undergo a steroid injection for the diagnostic and therapeutic nature of the intervention. If she get good temporary relief from the injection and would like to proceed forward with a hip replacement, then she will contact the office. She was requested to send a [employer] [facility] message the day after her injection to document the relief she gets from the injection. Emily Arellano MD documented in this encounter Plan of Treatment Upcoming Encounters Date Type Department Care Team (Latest Contact Info) Description 02/27/2024 8:45 AM EDT Appointment XRay at [address] [place] [address] 02/27/2024 9:40 AM EDT Office [place] [address] 02/27/2024 10:40 AM EDT Laboratory [place] [address] 02/27/2024 11:00 AM EDT Clinical [place] [address] 03/21/2024 10:05 AM EDT Hospital Encounter [place] [address] Evaristo Cheatham MD [facility] [place] [address] 03/21/2024 10:05 AM EDT - 03/21/2024 12:20 PM EDT Surgery [place] [address] Evaristo Cheatham MD [facility] [place] [address] TOTAL HIP ARTHROPLASTY, ANTERIOR APPROACH (WRVU 19.6) 04/23/2024 1:00 PM EDT Appointment XRay at [address] [place] [address] 04/23/2024 2:10 PM EDT Office [place] [address] Evaristo Cheatham MD [facility] [place] [address] Scheduled Procedures Name Priority Associated Diagnoses Date/Ti [...] as of this encounter Visit Diagnoses Diagnosis 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
--- OUTSIDE RECORDS SUMMARY | 2024-02-24 17:08 | XMS_ITS | Encounter Summary ---
Author Organization [facility] Address [address] [place] [address] Care Team Providers Care Bank Secrecy Act Officer Name Role Phone Unavailable Primary Care Provider Unavailabl e Encounter Details Date Type Department Care Team (Latest Contact Info) Description 12/16/1999 9:28 EDT - 12/16/1999 11:59 EDT Hospital Encounter [address] [address] John Rivera MD [address] [place] [phone] Discharge Disposition: Auto Discharge Social History [...] Procedure Name Priority Date/Time Associated Diagnosis Comments ZZBLEEDING TIME Routine 12/16/1999 9:26 EDT documented in this encounter Results * (ABNORMAL) BLEEDING TIME (12/16/1999 9:26 EDT) Bleeding Time 2.0(L) 3.0 - 10.0 mins [facility] 12/16/1999 9:26 EDT 12/16/1999 9:28 EDT John Rivera MD HEMATOLOGY & PF4 ORD ERABLES Performing Organization Address City/State/[facility] Co de Phone Number [facility] [address] [address] documented in this encounter Visit Diagnoses Not on filedocumented in this encounter
--- OUTSIDE RECORDS SUMMARY | 2024-02-24 17:08 | XMS_ITS ---
[place] [address] Care Team Providers Care Technicians And Trades Workers Name Role Phone Yasmeen Grace Primary Care Provider + Transplant Episode Kidney Potential Donor [facility] ([place], [place]) - [facility] Referred on 02/17/2022 Marked as Declined on 02/18/2022 Reason: Patient Choice Kidney CoordinatorRebekah Caban RN Phone: N/A Fax: N/A Email: N/A Care Team Name Role Phone Fax Email Rebekah Caban RN Kidney Coordinator N/A N/A N /A Events Pre-Donation Referred: 02/17/2022
--- OUTSIDE RECORDS SUMMARY | 2024-02-24 17:08 | XMS_ITS | Encounter Summary ---
Author Organization [facility] Address [address] [place] [address] Care Team Providers Care Developer Advisor Name Role Phone Unavailable Primary Care Provider Unavailabl e Encounter Details Date Type Department Care Team (Latest Contact Info) Description 12/31/1999 9:41 EDT - 12/31/1999 11:59 EDT Hospital Encounter [facility] [address] [place] [address] John Rivera MD [address] [place] [phone] Discharge Disposition: Auto Discharge Social History Tobacco [...]
--- OUTSIDE RECORDS SUMMARY | 2024-02-24 17:08 | XMS_ITS | Encounter Summary ---
Author Organization [facility] Address [address] [place] [address] Care Team Providers Care City Supervisor Name Role Phone Unavailable Primary Care Provider Unavailabl e Encounter Details Date Type Department Care Team (Latest Contact Info) Description 01/22/2000 8:24 EDT - 01/27/2000 11:59 EDT Hospital Encounter [facility] General Surgery Unit [address] [place] [address] Joel Lyle MD [address] [place] [phone] Discharge Disposition: Home or Self Care [...] Comments URINALYSIS WITH MICROSCOPIC IF POSITIVE Routine 01/26/2000 20:30 EDT HEMAGRAM & DIFF Routine 01/26/2000 17:06 EDT COMPLETE BLOOD COUNT Routine 01/24/2000 17:10 EDT HEMAGRAM & DIFF Routine 01/24/2000 9:35 EDT CHEST PA AND LATERAL Routine 01/23/2000 20:05 EDT BACTERIAL CULTURE, BLOOD Routine 01/23/2000 15:25 EDT BACTERIAL CULTURE, BLOOD Routine 01/23/2000 15:15 EDT TESTS ADDED BY PHONE Routine 01/23/2000 15:15 EDT ZZAUTOMATED CHEMO DIFF Routine 01/23/2000 15:15 EDT COMPLETE BLOOD COUNT Routine 01/23/2000 15:15 EDT URINE MICROSCOPIC Routine 01/23/2000 15: 00 EDT URINALYSIS WITH MICROSCOPIC IF POSITIVE Routine 01/23/2000 15:00 EDT BACTERIAL CULTURE, URINE Routine 01/23/2000 15:00 EDT COMPLETE BLOOD COUNT Routine 01/23/2000 10:25 EDT CREATININE Routine 01/22/2000 22:33 EDT COMPLETE BLOOD COUNT Routine 01/22/2000 22:33 EDT BUN Routine 01/22/2000 22:33 EDT ELECTROLYTES Routine 01/22/2000 22:33 EDT COMPLETE BLOOD COUNT Routine 01/22/2000 15:30 EDT ABDOMEN AP 1 VIEW Routine 01/22/2000 13: 55 EDT COMPLETE BLOOD COUNT Routine 01/22/2000 9:00 EDT SURGICAL PATHOLOGY Routine 01/22/2000 0: 00 EDT documented in this encounter Results * URINALYSIS (01/26/2000 20:30 EDT) Color, UA Yellow [facility] Clarity, UA Clear [facility] Glucose, UA Norm NORM [facility] Bilirubin, UA Neg NEG [facility] Ketones, UA Neg NEG [facility] Specific [place], Urine 1.015 1.005 - 1.02 [facility] Blood, UA Neg NEG [facility] pH, UA 6.0 5.0 - 9.0 [facility] Protein, UA Neg NEG [facility] Urobilinogen, UA Norm NORM mg/dL [facility] Nitrite, UA Neg NEG [facility] Leuk Esterase Neg NEG [facility] 01/26/2000 20:3 0 EDT 01/26/2000 21:23 EDT Joel Lyle MD URINALYSIS ORDERABLE S Performing Organization Address City/State/[facility] [[email or web address]] Co de Phone Number [facility] [address] [place] [address] * (ABNORMAL) HEMAGRAM & DIFF (01/26/2000 17:06 EDT) WBC 5.25 4.0 - 12.4 K/cmm [facility] RBC 2.84(L) 3.86 - 5.04 M/cmm [facility] Hemoglobin 8.1(L) 11.6 - 15.2 gm/dl [facility] HCT 22.8(L) 34.9 - 44.4 % [facility] MCV 80(L) 81 - 98 fl [facility] MCH 28.5 26.7 - 33.3 pg [facility] MCHC 35.5 32.1 - 35.9 gm/dl [facility] PLT 318 141 - 320 K/cmm [facility] RDW-CV 12.5 11.7 - 14.6 % [facility] % Neutrophils 63.5 45.5 - 79.7 % [facility] % Lymphocytes 19.7 15.0 - 46.8 % [facility] % Monocytes 7.6 1.8 - 12.0 % [facility] % Eosinophils 8.9(H) 0.6 - 6.9 % [facility] % Basophils 0.3 0.2 - 1.4 % [facility] ABS Neutrophils 3.33 2.20 - 8.85 K/cmm [facility] ABS Lymphs 1.04(L) 1.09 - 3.30 K/cmm [facility] ABS Monocytes 0.40 0.1 - 0.8 K/cmm [facility] ABS Eosinophils 0.47 0.03 - 0.61 K/cmm [facility] ABS Basophils 0.01 0.01 - 0.11 K/cmm [facility] Type of Diff: Automated [facility] 01/26/2000 17:0 6 EDT 01/26/2000 17:06 EDT Joel Lyle MD HISTORICAL LAB FOR S Q LOAD [facility] [address] [place] [address] * (ABNORMAL) HEMAGRAM (01/24/2000 17:10 EDT) WBC 7.62 4.0 - 12.4 K/cmm [facility] RBC 2.78(L) 3.86 - 5.04 M/cmm [facility] Hemoglobin 7.9(L) 11.6 - 15.2 gm/dl [facility] HCT 22.9(L) 34.9 - 44.4 % [facility] MCV 82 81 - 98 fl [facility] MCH 28.5 26.7 - 33.3 pg [facility] MCHC 34.5 32.1 - 35.9 gm/dl [facility] PLT 232 141 - 320 K/cmm [facility] RDW-CV 12.5 11.7 - 14.6 % [facility] 01/24/2000 17:1 0 EDT 01/24/2000 17:17 EDT Joel Lyle MD HEMATOLOGY & PF4 ORD ERABLES [facility] [address] [place] [address] * (ABNORMAL) HEMAGRAM & DIFF (01/24/2000 9:35 EDT) WBC 6.33 4.0 - 12.4 K/cmm [facility] RBC 2.55(L) 3.86 - 5.04 M/cmm [facility] Hemoglobin 7.1(L) 11.6 - 15.2 gm/dl [facility] HCT 20.7(L) 34.9 - 44.4 % [facility] MCV 81 81 - 98 fl [facility] MCH 27.7 26.7 - 33.3 pg [facility] MCHC 34.1 32.1 - 35.9 gm/dl [facility] PLT 195 141 - 320 K/cmm [facility] RDW-CV 12.5 11.7 - 14.6 % [facility] % Neutrophils 75.8 45.5 - 79.7 % [facility] % Lymphocytes 14.0(L) 15.0 - 46.8 % [facility] % Monocytes 5.9 1.8 - 12.0 % [facility] % Eosinophils 4.0 0.6 - 6.9 % [facility] % Basophils 0.3 0.2 - 1.4 % [facility] ABS Neutrophils 4.80 2.20 - 8.85 K/cmm [facility] ABS Lymphs 0.89(L) 1.09 - 3.30 K/cmm [facility] ABS Monocytes 0.37 0.1 - 0.8 K/cmm [facility] ABS Eosinophils 0.25 0.03 - 0.61 K/cmm [facility] ABS Basophils 0.02 0.01 - 0.11 K/cmm [facility] Type of Diff: Automated [facility] 01/24/2000 9:35 EDT 01/24/2000 9:44 EDT Joel Lyle MD HISTORICAL LAB FOR S Q LOAD [facility] [address] [place] [address] * CHEST PA AND LATERAL (01/23/2000 20:05 EDT) Anatomical Region Laterality Modality Other 01/23/2000 20:0 5 EDT Impressions 05/13/2009 15:46 EST IMPRESSION: 1. The heart and lungs have a generally normal appearance. I do not see convincing evidence of significant volume loss or pulmonary infiltrate. ; / Narrative 05/13/2009 15:46 EST POST OP FEVER R/O INFILTRATE VS ATELECTASIS PA LATERAL CHEST, TWO VIEW CHEST: 2004 hours 01/23/00. PROBLEM STATEMENT: Post op fever, rule out infiltrate or atelectasis. Procedure Note Shukri Rosas MD - 05/13/2009 POST OP FEVER R/O INFILTRATE VS ATELECTASIS PA LATERAL CHEST, TWO VIEW CHEST: 2004 hours 01/23/00. PROBLEM STATEMENT: Post op fever, rule out infiltrate or atelectasis. IMPRESSION IMPRESSION: 1. The heart and lungs have a generally normal appearance. I do not see convincing evidence of significant volume loss or pulmonary infiltrate. ; / Joel Lyle MD IMG DIAGNOSTIC IMAGI NG ORDERABLES * BACTERIAL CULTURE, BLOOD (01/23/2000 15:25 EDT) Specimen Description Blood Left Hand [facility] Result No growth [facility] Report Status Final [id number] [facility] 01/23/2000 15:2 5 EDT 01/23/2000 15:29 EDT Joel Lyle MD MICROBIOLOGY - [facility] AL ORDERABLES [facility] [address] [place] [address] * BACTERIAL CULTURE, BLOOD (01/23/2000 15:15 EDT) Specimen Description Blood Left Arm [facility] Result No growth [facility] Report Status Final [id number] [facility] 01/23/2000 15:1 5 EDT 01/23/2000 15:28 EDT Joel Lyle MD MICROBIOLOGY - GENER AL ORDERABLES Performing Organization Address City/[facility] [[email or web address]] Co de Phone Number [facility] [address] [place] [address] * (ABNORMAL) AUTOMATED CHEMO DIFF (01/23/2000 15:15 EDT) % Neutrophils 82.6(H) 45.5 - 79.7 % [facility] % Lymphocytes 8.9(L) 15.0 - 46.8 % [facility] % Monocytes 5.7 1.8 - 12.0 % [facility] % Eosinophils 2.7 0.6 - 6.9 % [facility] % Basophils 0.1(L) 0.2 - 1.4 % [facility] ABS Neutrophils 5.56 2.20 - 8.85 K/cmm [facility] ABS Lymphs 0.60(L) 1.09 - 3.30 K/cmm [facility] ABS Monocytes 0.38 0.1 - 0.8 K/cmm [facility] ABS Eosinophils 0.18 0.03 - 0.61 K/cmm [facility] ABS Basophils 0.01 0.01 - 0.11 K/cmm [facility] Type of Diff: Automated [facility] 01/23/2000 15:1 5 EDT 01/23/2000 15:24 EDT Joel Lyle MD HEMATOLOGY & PF4 ORD ERABLES Performing Organization Address City/[facility]/ZIP Co de Phone Number [facility] [address] [place] [address] * (ABNORMAL) HEMAGRAM (01/23/2000 15:15 EDT) WBC 6.72 4.0 - 12.4 K/cmm [facility] RBC 2.93(L) 3.86 - 5.04 M/cmm [facility] Hemoglobin 8.1(L) 11.6 - 15.2 gm/dl [facility] HCT 23.9(L) 34.9 - 44.4 % [facility] MCV 81 81 - 98 fl [facility] MCH 27.7 26.7 - 33.3 pg [facility] MCHC 34.0 32.1 - 35.9 gm/dl [facility] PLT 210 141 - 320 K/cmm [facility] RDW-CV 12.1 11.7 - 14.6 % [facility] 01/23/2000 15:1 5 EDT 01/23/2000 15:24 EDT Joel Lyle MD HEMATOLOGY & PF4 ORD ERABLES Performing Organization Address City/[facility] [[email or web address]] Co de Phone Number [facility] [address] [place] [address] * TESTS ADDED BY PHONE (01/23/2000 15:15 EDT) Tests to be added DIF [facility] 01/23/2000 15:1 5 EDT 01/23/2000 15:24 EDT Joel Lyle MD HEMATOLOGY & PF4 ORD ERABLES Performing Organization Address City/[facility] [[email or web address]] Co de Phone Number [facility] [address] [place] [address] * URINE MICROSCOPIC (01/23/2000 15:00 EDT) WBC, UA None seen 0 - 5 /HPF [facility] RBC, UA less than 1 0 - 5 /HPF [facility] Squam Epithel, UA None seen NS /HPF [facility] Renal Epithel, UA None seen NS /HPF [facility] Bacteria, UA None seen NS /HPF [facility] Crystals, UA None seen /HPF [facility] Hyaline Casts, UA None seen /LPF [facility] UA Comment Microscopic results are unreliable on urines unrefrig >2hrs or refrig >8hrs. [facility] 01/23/2000 15:0 0 EDT 01/23/2000 15:24 EDT Joel Lyle MD URINALYSIS ORDERABLE S Performing Organization Address [facility] [[email or web address]] Co de Phone Number [facility] [address] [place] [address] * (ABNORMAL) URINALYSIS (01/23/2000 15:00 EDT) Color, UA Straw [facility] Clarity, UA Clear [facility] Glucose, UA Norm NORM [facility] Bilirubin, UA Neg NEG [facility] Ketones, UA Neg NEG [facility] Specific [place], Urine 1.005 1.005 - 1.02 [facility] Blood, UA Small(A) NEG [facility] pH, UA 6.5 5.0 - 9.0 [facility] Protein, UA Neg NEG [facility] Urobilinogen, UA Norm NORM mg/dL [facility] Nitrite, UA Neg NEG [facility] Leuk Esterase Neg NEG [facility] 01/23/2000 15:0 0 EDT 01/23/2000 15:24 EDT Joel Lyle MD URINALYSIS ORDERABLE S Performing Organization Address [facility] de Phone Number [facility] [address] [place] [address] * BACTERIAL CULTURE, URINE (01/23/2000 15:00 EDT) Specimen Description Urine [facility] Result 10,000 to 100,000 CFU/ml ENTEROCOCCU S SPECIES [facility] Report Status Final [id number] [facility] 01/23/2000 15:0 0 EDT 01/23/2000 15:25 EDT Narrative Organism Antibiotic Method Susceptibility 10,000 to 100,000 cfu/ml enterococcus species Ampicillin SUSCEPTIBILITY (AVRIL) 0.5 Susceptible 10,000 to 100,000 cfu/ml enterococcus species Nitrofurantoin SUSCEPTIBILITY (AVRIL) <=32 Susceptible 10,000 to 100,000 cfu/ml enterococcus species Ciprofloxacin SUSCEPTIBILITY (AVRIL) <=0.5 Susceptible Joel Lyle MD MICROBIOLOGY - GENER AL ORDERABLES Performing Organization Address [facility] [[email or web address]] Co de Phone Number [facility] [address] [place] [address] * (ABNORMAL) HEMAGRAM (01/23/2000 10:25 EDT) WBC 5.89 4.0 - 12.4 K/cmm [facility] RBC 2.91(L) 3.86 - 5.04 M/cmm [facility] Hemoglobin 8.2(L) 11.6 - 15.2 gm/dl [facility] HCT 23.9(L) 34.9 - 44.4 % [facility] MCV 82 81 - 98 fl [facility] MCH 28.0 26.7 - 33.3 pg [facility] MCHC 34.2 32.1 - 35.9 gm/dl [facility] PLT 203 141 - 320 K/cmm [facility] RDW-CV 12.4 11.7 - 14.6 % [facility] 01/23/2000 10:2 5 EDT 01/23/2000 10:26 EDT Joel Lyle MD HEMATOLOGY & PF4 ORD ERABLES Performing Organization Address [facility] de Phone Number [facility] [address] [place] [address] * ELECTROLYTES (01/22/2000 22:33 EDT) Sodium 136 136 - 145 mEq/L [facility] Potassium 4.5 3.5 - 5.0 mEq/L [facility] Chloride 103 96 - 110 mEq/L [facility] CO2 26 24 - 30 mEq/L [facility] 01/22/2000 22:3 3 EDT 01/22/2000 22:50 EDT Joel Lyle MD CHEMISTRY & BLOOD GA S ORDERABLES Performing Organization Address [facility] [[email or web address]] Co de Phone Number [facility] [address] [place] [address] * CREATININE (01/22/2000 22:33 EDT) Creatinine 0.7 0.7 - 1.5 mg/dl [facility] 01/22/2000 22:3 3 EDT 01/22/2000 22:50 EDT Joel Lyle MD HISTORICAL LAB FOR S Q LOAD Performing Organization Address City/[facility]/ZIP Co de Phone Number [facility] [address] [place] [address] * (ABNORMAL) HEMAGRAM (01/22/2000 22:33 EDT) WBC 9.21 4.0 - 12.4 K/cmm [facility] RBC 3.16(L) 3.86 - 5.04 M/cmm [facility] Hemoglobin 8.7(L) 11.6 - 15.2 gm/dl [facility] HCT 26.0(L) 34.9 - 44.4 % [facility] MCV 82 81 - 98 fl [facility] MCH 27.6 26.7 - 33.3 pg [facility] MCHC 33.6 32.1 - 35.9 gm/dl [facility] PLT 244 141 - 320 K/cmm [facility] RDW-CV 12.4 11.7 - 14.6 % [facility] 01/22/2000 22:3 3 EDT 01/22/2000 22:50 EDT Joel Lyle MD HEMATOLOGY & PF4 ORD ERABLES Performing Organization Address City/[facility]/ZIP Co de Phone Number [facility] [address] [place] [address] * (ABNORMAL) BUN (01/22/2000 22:33 EDT) BUN 9(L) 10 - 26 mg/dl [facility] 01/22/2000 22:3 3 EDT 01/22/2000 22:50 EDT Joel Lyle MD CHEMISTRY & BLOOD GA S ORDERABLES Performing Organization Address [facility] [[email or web address]] Co de Phone Number [facility] [address] [place] [address] * (ABNORMAL) HEMAGRAM (01/22/2000 15:30 EDT) WBC 23.84(H) 4.0 - 12.4 K/cmm [facility] RBC 3.82(L) 3.86 - 5.04 M/cmm [facility] Hemoglobin 10.6(L) 11.6 - 15.2 gm/dl [facility] HCT 30.9(L) 34.9 - 44.4 % [facility] MCV 81 81 - 98 fl [facility] MCH 27.6 26.7 - 33.3 pg [facility] MCHC 34.1 32.1 - 35.9 gm/dl [facility] PLT 451(H) 141 - 320 K/cmm [facility] RDW-CV 12.5 11.7 - 14.6 % [facility] 01/22/2000 15:3 0 EDT 01/22/2000 15:31 EDT Joel Lyle MD HEMATOLOGY & PF4 ORD ERABLES Performing Organization Address [facility] [[email or web address]] Co de Phone Number [facility] [address] [place] [address] * ABDOMEN AP 1 VIEW (01/22/2000 13:55 EDT) Anatomical Region Laterality Modality Other 01/22/2000 13:5 5 EDT Narrative 05/13/2009 17:39 EST NEEDLE LOST R/O F.B AP ABDOMEN, SINGLE VIEW: 01/22/00, 1355 The upper abdomen is excluded. There is no evidence of retained surgical instrument or sponge in the pelvis or mid-abdomen. /sb Procedure Note Jovani Goode MD - 05/13/2009 NEEDLE LOST R/O F.B AP ABDOMEN, SINGLE VIEW: 01/22/00, 1355 The upper abdomen is excluded. There is no evidence of retained surgical instrument or sponge in the pelvis or mid-abdomen. /sb Joel Lyle MD IMG DIAGNOSTIC IMAGI NG ORDERABLES * (ABNORMAL) HEMAGRAM (01/22/2000 9:00 EDT) WBC 7.47 4.0 - 12.4 K/cmm [facility] RBC 4.95 3.86 - 5.04 M/cmm [facility] Hemoglobin 13.9 11.6 - 15.2 gm/dl [facility] HCT 40.4 34.9 - 44.4 % [facility] MCV 82 81 - 98 fl [facility] MCH 28.1 26.7 - 33.3 pg [facility] MCHC 34.4 32.1 - 35.9 gm/dl [facility] PLT 328(H) 141 - 320 K/cmm [facility] RDW-CV 12.7 11.7 - 14.6 % [facility] 01/22/2000 9:00 EDT 01/22/2000 9:07 EDT Joel Lyle MD HEMATOLOGY & PF4 ORD ERABLES [facility] [address] [place] [address] * SURGICAL PATHOLOGY (01/22/2000 0:00 EDT) Pathology Report: SURGICAL PATHOLOGY REPORT Reports generated via electronic interface contain original data; however they are lacking the format of the original report. Caution should be taken when reading/interpreti ng unformatted reports. Name: ? TOÑO ALFREDO ? Accession #: ? [id number] ? : ? 1960 (Age: 39) ??F ? Collect Date: ? 01/22/2000 ? Location: ? B003 ? Receive Date: ? 01/22/2000 ? Provider: JOEL LYLE MD Copy to: MAHESH ROMAN MD ? Final Pathologic Diagnosis: A. ?Uterus and ovaries, total abdominal hysterectomy and bilateral salpingo-oophorect jaida: 1. ?Endomyometrium: ? - Mid-secretory endometrium with no specific pathologic findings. 2. ?Myometrium and serosa: ? - No specific ??pathologic findings. 3. ?Cervix: ? - No specific pathologic findings. 4. ?Ovaries, bilateral: ? - No specific pathologic findings. 5. ?Fallopian tubes, bilateral: ? - No specific pathologic findings. B. 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 2. ?Endometriosis. 3. ?Mucosal surface with no specific pathologic findings. Document reviewed and electronically signed by: Loida Guerra MD Report ??Date: 01/26/2000 18:04 By the signature above, the attending physician certifies that he/she has personally conducted a gross and/or microscopic examination of the described specimens and rendered or confirmed the above diagnosis. Specimen(s) Received: A. ?Uterus and BSO (#1) B. ?Rectum (#2) Clinical History: ? Severe pelvic pain; endo Gross Description: ? Received in normal saline labelled [place] and #1 uterus and BSO is the product of a total hysterectomy and bilateral salpingo-oophorect jaida. ??The uterus measures 9.0 cm from fundus to cervix, 7.0 cm from cornu to cornu, and 4.0 cm from anterior to posterior, with the roughly circular cervix measuring 3.5 x 3.0 cm. ??Adnexal structures are included with the specimen. ??The left fallopian tube measures 7.0 cm in length with a diameter of 0.7 cm, and the right fallopian tube measures 6.2 cm in length with a diameter of 0.6 cm. ??The attached left ovary measures 3.0 x 2.5 x 1.0 cm, while the attached right ovary measures 2.9 x 2.0 x 0.6 cm. ??The uterus is bivalved to reveal a slightly mucoid and minimally hemorrhagic endometrial surface. ??The endometrium measures 0.2 cm in thickness, while the myometrium measures 1.2 cm in thickness. ??The serosal surface of both the anterior and posterior halves of the bivalved uterus are uniformly reyes-pink, smooth, and glistening. ??Cut sectioning of both the anterior and posterior halves reveals an absence of any leiomyomata. ??Telephone Lineworker sections of the endomyometrium taken from the posterior and anterior uterine halves are submitted as (A1) and (A2). ??A lower uterine section from the posterior half is taken and submitted as (A3). ??Examination of the ecto- and endocervix reveals a slightly hyperemic ectocervical surface on the left half of the cervix. ??The squamocolumnar junction is visualized. ??The endocervical canal is widely patent with the lumen measuring 1.0 x 0.4 cm in maximum diameter. ??Telephone Lineworker sections of the cervix are taken at the 12 o' clock and 6 o' clock positions and submitted as (A4) and (A5). ??Sections showing the serosal surface from both the anterior and posterior uterine halves are taken and submitted as (A6). ??Each ovary is bisected to reveal the presence of corpora lutea in both the left and right halves. ??A section from the left and right ovaries are taken and submitted as (A7) and (A8). ??The left and right fallopian tubes are cross sectioned to reveal a pinpoint lumen. ??Telephone Lineworker cross sectional samples are taken from the left and right fallopian tubes and submitted as (A9) and (A10), respectively. ?? Received in normal saline labelled [place] and rectum is a short portion of rectum received open plus two rings of bowel. ??The specimen is pinned out and in placed in formalin to fix. ??The small piece of rectum measures 6.5 x 6.0 x 1.2 cm. ??The mucosal surface is unremarkable. ??The serosal surface shows some very diffuse mild hyperemia. ??The two rings of bowel measure 2.5 x 1.7 x 1.0 cm and 2.0 x 1.4 x 0.8 cm, respectively. ??No orientation is provided with the section of rectum. ??Surgical resection margins of the bowel segment are taken and submitted as (B1) and (B2). ??Serial sectioning of the remainder of the bowel does not reveal any focal abnormalities, diverticula, or areas of focal hemorrhage. ??Telephone Lineworker sections are taken and submitted as (B3) through (B5). ??No orientation is provided with the bowel rings. ??The bowel rings are longitudinally bisected and then bisected in a perpendicular plane with the resultant sections placed on edge and submitted as (B6) through (B10). ??(Dr. Silva)/cuba End of Report [facility] 01/22/2000 01/22/2000 14: 59 EDT Joel Lyle MD PATHOLOGY ORDERABLES [facility] [address] [place] [address] documented in this encounter Visit Diagnoses Not on filedocumented in this encounter
--- OUTSIDE RECORDS SUMMARY | 2024-02-24 17:08 | XMS_ITS | Encounter Summary ---
Author Organization [facility] [place] [address] Care Team Providers Care Senior Interactive Producer Name Role Phone Yasmeen Grace Primary Care Provider + Encounter Details Date Type Department Care Team (Late st Contact Info) Description 08/12/2023 12:05 AM EST Ancillary Procedure Radiology [facility] at [facility] [place] [phone] Yasmeen Grace PA [address] [place] [address] [place], [place] [id number] Social History Tobacco Use Types Packs/Day Years [...] 02/27/2024 8:45 AM EDT Appointment XRay at [address] [place] [phone] 02/27/2024 9:40 AM EDT Office [place] [phone] 02/27/2024 10:40 AM EDT Laboratory [place] [phone] 02/27/2024 11:00 AM EDT Clinical [place] [address] 03/21/2024 10:05 AM EDT Hospital Encounter [place] [address] Evaristo Cheatham MD [facility] [place] [address] 03/21/2024 10:05 AM EDT - 03/21/2024 12:20 PM EDT Surgery [place] [address] Evaristo Cheatham MD [facility] [place] [address] TOTAL HIP ARTHROPLASTY, ANTERIOR APPROACH (WRVU 19.6) 04/23/2024 1:00 PM EDT Appointment XRay at [address] [place] [address] 04/23/2024 2:10 PM EDT Office [place] [address] Evaristo Cheatham MD [facility] [place] [address] Scheduled Procedures Name Priority Associated Diagnoses Date/Ti [...] Procedure Name Priority Date/Time Associated Diagnosis Comments FILM LIBRARY STORAGE ONLY DX KNEE Routine 08/12/2023 12:05 AM EST documented in this encounter Results * Film Library- Storage Only DX Knee (08/12/2023 12:05 AM EST) Narrative [facility] - 08/13/2023 1:22 AM EST This exam is auto-finalizing. It's purpose is for storage only. Yasmeen SKY IMG FILM LIBRARY ORDERABLES Performing Organization Address City/State/[facility] Co de Phone Number [place], [place] documented in this encounter Visit Diagnoses Not on filedocumented in this encounter Care Teams Senior Interactive Producer Relationship Specialty Start Date End Date Yasmeen Grace PA [address] [place] [address] [place] [id number] PCP - General Internal Medicine 07/05/19 documented as of this encounter
--- OUTSIDE RECORDS SUMMARY | 2024-02-24 17:08 | XMS_ITS | Encounter Summary ---
Author Organization [facility] [place] [address] Care Team Providers Care Medical Science Liaison Name Role Phone Unavailable Primary Care Provider Unavailabl e Encounter Details Date Type Department Care Team (Late st Contact Info) Description 06/11/2019 Ancillary Procedure [place] [address] Emily Arellano MD [facility] [place] [address] Social History Tobacco Use Types Packs/Day Years Used Date Smoking Tobacco: Never Assessed Sex and Gender Information Value Date Recorded Sex Assigned at Not on file Gender Identity Not on file Sexual Orientation Not on file documented as of this encounter Plan of Treatment Upcoming Encounters Date Type Department Care Team (Latest Contact Info) Description 02/27/2024 8:45 AM EDT Appointment XRay at [address] [place] [address] 02/27/2024 9:40 AM EDT Office [place] [address] 02/27/2024 10:40 AM EDT [place] [address] 02/27/2024 11:00 AM EDT Clinical [place] [address] 03/21/2024 10:05 AM EDT Hospital Encounter Main [place] [address] Evaristo Cheatham MD [facility] [place] [address] 03/21/2024 10:05 AM EDT - 03/21/2024 12:20 PM EDT Surgery Main [place] [address] Evaristo Cheatham MD [facility] [place] [address] TOTAL HIP ARTHROPLASTY, ANTERIOR APPROACH (WRVU 19.6) 04/23/2024 1:00 PM EDT Appointment XRay at [address] [place] [address] 04/23/2024 2:10 PM EDT Office [place] [address] Evaristo Cheatham MD [facility] [place] [address] Scheduled Procedures Name Priority Associated Diagnoses Date/Ti [...] Diagnosis Comments FILM LIBRARY STORAGE ONLY DX HIP Routine 06/11/2019 12:00 AM EST documented in this encounter Results * Film Library- Storage Only DX Hip (06/11/2019 12:00 AM EST) Narrative JOSE LUIS ANTUNEZ - 07/02/2019 3:19 PM EST This exam is auto-finalizing. It's purpose is for storage only. Emily Arellano MD IMG FILM LIBRARY OR DERABLES JOSE LUIS ANTUNEZ [place] documented in this encounter Visit Diagnoses Not on filedocumented in this encounter
--- OUTSIDE RECORDS SUMMARY | 2024-02-24 17:08 | XMS_ITS | Encounter Summary ---
[place] [address] Care Team Providers Care Trailhead Maintenance Worker Name Role Phone Yasmeen Grace Primary Care Provider + Reason for Referral * Consultation (Routine) - Authorized Specialty Diagnoses / Procedures Referred By Contleeanne t Referred To Contact Orthopaedics Diagnoses Pain in right hip Yasmeen Grace PA [address] [place] [address] [place] [address] [facility] [address] [place] [phone] Referral ID Status Reason Start Date Expiration Date Visits Requested Visits Authorized [id number] Authorized Consult, Test & Treat PCP Updated and/or Approved 08/12/2023 08/11/2024 6 6 Encounter Details Date Type Department Care Team (Late st Contact Info) Description 08/12/2023 Transcribe Orders eD Incoming Referrals [phone] Yasmeen Grace PA [address] [place] [address] [place] [address] Pain in right hip Social History Tobacco Use Types Packs/Day [...] 02/27/2024 8:45 AM EDT Appointment XRay at [address] [place] [address] 02/27/2024 9:40 AM EDT Office [place] [address] 02/27/2024 10:40 AM EDT Laboratory [place] [address] 02/27/2024 11:00 AM EDT Clinical [place] [address] 03/21/2024 10:05 AM EDT Hospital Encounter [place] [address] Evaristo Cheatham MD [facility] [place] [address] 03/21/2024 10:05 AM EDT - 03/21/2024 12:20 PM EDT Surgery [place] [address] Evaristo Cheatham MD [facility] [place] [address] TOTAL HIP ARTHROPLASTY, ANTERIOR APPROACH (WRVU 19.6) 04/23/2024 1:00 PM EDT Appointment XRay at [address] [place] [address] 04/23/2024 2:10 PM EDT Office [place] [address] Evaristo Cheatham MD [facility] [place] [address] Scheduled Procedures Name Priority Associated Diagnoses Date/Ti [...] Name Type Priority Associated Diagnoses Order Schedule Referral to Orthopaedics Outpatient Referral Routine Pain in right hip Ordered: 08/12/2023 documented as of this encounter Visit Diagnoses Diagnosis Pain in right hip Pain in joint, pelvic region and thigh documented in this encounter Care Teams Trailhead Maintenance Worker Relationship Specialty Start Date End Date Yasmeen Grace PA [address] [place] [address] [place] [address] PCP - General Internal Medicine 07/05/19 documented as of this encounter
--- OUTSIDE RECORDS SUMMARY | 2024-02-24 17:08 | XMS_ITS | Encounter Summary ---
[place] [address] Care Team Providers Care Manager Practice Name Role Phone Yasmeen Grace Primary Care Provider + Reason for Referral * Consultation (Routine) - Closed Specialty Diagnoses / Procedures Referred By Contac t Referred To Contact Weight and Wellness Diagnoses Hypertension, essential Tanya Odom APRN [address] [place] [address] [facility] [place] [address] Referral ID Status Reason Start Date Expiration Date V isits Requested Visits Authorized [id number] Closed Consult, Test & Treat PCP Updated and/or Approved 12/06/2022 12/07/2023 6 6 Encounter Details Date Type Department Care Team (Latest Contact Info) Description 12/24/2022 Transcribe Orders eDH Incoming Referrals [phone] Tanya Odom APRN [address] [place] [address] Hypertension, essential Social History Tobacco Use Types Packs/Day Years [...] 02/27/2024 8:45 AM EDT Appointment XRay at [address] [place] [address] 02/27/2024 9:40 AM EDT Office [place] [address] 02/27/2024 10:40 AM EDT Laboratory [place] [address] 02/27/2024 11:00 AM EDT Clinical [place] [address] 03/21/2024 10:05 AM EDT Hospital Encounter [place] [address] Evaristo Cheatham MD [facility] [place]THOPAEDIC [place] [address] 03/21/2024 10:05 AM EDT - 03/21/2024 12:20 PM EDT Surgery [place] [address] Evaristo Cheatham MD [facility] [place]THOPAEDIC [place] [address] TOTAL HIP ARTHROPLASTY, ANTERIOR APPROACH (WRVU 19.6) 04/23/2024 1:00 PM EDT Appointment XRay at [address] [place] [address] 04/23/2024 2:10 PM EDT Office [place] [address] Evaristo Cheatham MD [facility] [place]THOPAEDIC [place] [address] Scheduled Procedures Name Priority Associated Diagnoses Date/Ti [...] Associated Diagnoses Orde r Schedule Referral to Bariatric Surgery Program Outpatient Referral Routine Hypertension, essential Ordered: 12/24/2022 documented as of this encounter Visit Diagnoses Diagnosis Hypertension, essential Unspecified essential hypertension documented in this encounter Care Teams Manager Practice Relationship Specialty Start Date End Date Yasmeen Grace PA [address] [place] [address] [place] [address] PCP - General Internal Medicine 07/05/19 documented as of this encounter
--- OUTSIDE RECORDS SUMMARY | 2024-02-24 17:08 | XMS_ITS | Encounter Summary ---
[place] [address] Care Team Providers Care Associate Professor Of Sociology Name Role Phone Yasmeen Grace Primary Care Provider + Reason for Referral * Consultation (Routine) - Closed Specialty Diagnoses / Procedures Referred By Contleeanne t Referred To Contact General Surgery Diagnoses Primary hypertension Procedures BARIATRIC SURGERY Tanya Odom APRN [address] [place] [address] [facility] [place] [address] Referral ID Status Reason Start Date Expiration Date V isits Requested Visits Authorized [id number] Closed Consult, Test & Treat PCP Updated and/or Approved 12/31/2022 12/31/2023 6 6 Encounter Details Date Type Department Care Team (Latest Contact Info) Description 12/31/2022 Transcribe Orders eDH Incoming Referrals [phone] Tanya Odom APRN [address] [place] [place] [address] Primary hypertension Social History Tobacco Use Types Packs/Day Years [...] 02/27/2024 8:45 AM EDT Appointment XRay at [address] [place] [address] 02/27/2024 9:40 AM EDT Office [place] [address] 02/27/2024 10:40 AM EDT [place] [address] 02/27/2024 11:00 AM EDT Clinical [place] [address] 03/21/2024 10:05 AM EDT Hospital Encounter [place] [address] Evaristo Cheatham MD [facility] [place]AED[place] [address] 03/21/2024 10:05 AM EDT - 03/21/2024 12:20 PM EDT [place] [address] Evaristo Cheatham MD [facility] [place]OPAED[place] [address] TOTAL HIP ARTHROPLASTY, ANTERIOR APPROACH (WRVU 19.6) 04/23/2024 1:00 PM EDT Appointment XRay at [address] [place] [address] 04/23/2024 2:10 PM EDT Office [place] [address] Evaristo Cheatham MD [facility] ORTHOPAEDIC [place] [address] Scheduled Procedures Name Priority Associated Diagnoses Date/Ti [...] Associated Diagnoses Orde r Schedule Referral to General Surgery Outpatient Referral Routine Primary hypertension Ordered: 12/31/2022 documented as of this encounter Visit Diagnoses Diagnosis Primary hypertension Unspecified essential hypertension documented in this encounter Care Teams Associate Professor Of Sociology Relationship Specialty Start Date End Date Yasmeen Grace PA [address] [place] [address] [place] [address] PCP - General Internal Medicine 07/05/19 documented as of this encounter
--- OUTSIDE RECORDS SUMMARY | 2024-02-24 17:08 | XMS_ITS | Encounter Summary ---
Author Organization [facility] Address [address] [place] [address] Care Team Providers Care Igniter Assembler Name Role Phone Unavailable Primary Care Provider Unavailabl e Encounter Details Date Type Department Care Team (Latest Contact Info) Description 11/28/1999 9:58 EDT - 11/28/1999 11:59 EDT Hospital Encounter [facility] Emergency Department - [facility] [address] [place] [address] Emergency, Default, MD Discharge Disposition: Home or [...] Associated Diagnosis Comments RAD US TRANSVAGINAL Routine 11/28/1999 1 6:[address] ABDOMEN W/CONTRAST Routine 11/28/1999 15:[address] PELVIS W/CONTRAST Routine 11/28/1999 15:44 EDT N.GONORRHOEAE PROBE Routine 11/28/1999 1 2:54 EDT CHLAMYDIA TRACHOMATIS PROBE Routine 11/28/1999 12:54 EDT documented in this encounter Results * RAD US TRANSVAGINAL (11/28/1999 16:08 EDT) Anatomical Region Laterality Modality Other 11/28/1999 16:0 8 EDT Impressions 05/13/2009 16:19 EST IMPRESSION: 1) Two cysts are again seen in the left ovary, which appear slightly smaller than on the previous examination. Normal flow was seen in the left ovary. 2) Probable small 1.2cm fibroid in the fundus. /vjc Narrative 05/13/2009 16:19 EST LT ABD PAIN ENDOVAGINAL ULTRASOUND 11/28/99 HISTORY: Left lower abdominal pain. Rule out ruptured cyst. COMPARISON: 11/25/99 The left ovary measured 3.7 x 1.8 x 2.0cm. There is a small cyst in the left ovary which measures 1.6 x 1.1.x 0.9cm. A second small cyst is seen which measures 2.1 x 1.2cm. The cyst appears slightly smaller when compared to the previous examination. The left ovary demonstrates normal arterial and venous flow. The right ovary is unremarkable and also demonstrates normal arterial and venous flow. The uterus shows no fluid collections. There may be a small fibroid in the fundus measuring approximately 1.1cm in maximum dimension. A trace amount of physiologic fluid is seen within the cul-de-sac. Procedure Note Kena Guerra MD - 05/13/2009 LT ABD PAIN ENDOVAGINAL ULTRASOUND 11/28/99 HISTORY: Left lower abdominal pain. Rule out ruptured cyst. COMPARISON: 11/25/99 The left ovary measured 3.7 x 1.8 x 2.0cm. There is a small cyst in the left ovary which measures 1.6 x 1.1.x 0.9cm. A second small cyst is seen which measures 2.1 x 1.2cm. The cyst appears slightly smaller when compared to the previous examination. The left ovary demonstrates normal arterial and venous flow. The right ovary is unremarkable and also demonstrates normal arterial and venous flow. The uterus shows no fluid collections. There may be a small fibroid in the fundus measuring approximately 1.1cm in maximum dimension. A trace amount of physiologic fluid is seen within the cul-de-sac. IMPRESSION IMPRESSION: 1) Two cysts are again seen in the left ovary, which appear slightly smaller than on the previous examination. Normal flow was seen in the left ovary. 2) Probable small 1.2cm fibroid in the fundus. /harry Default Emergency MD IMG US ORDERABLES * CT PELVIS W/CONTRAST (11/28/1999 15:44 EDT) Anatomical Region Laterality Modality Other 11/28/1999 15:4 4 EDT Impressions 05/13/2009 16:19 EST IMPRESSION: #1: Essentially negative renal colic CT. Small right kidney cyst. #2: S/P bilateral tubal ligation. #3: Simple left ovarian cyst. These findings were called to Dr. Holcomb by Dr. Alonso on 11-28-99. The attending radiologist has reviewed the images and concurs with the findings. D: 11-28-99 T: 12-01-99 /am Narrative 05/13/2009 16:19 EST HYPOGASTRIC PAIN, DIAHREA, CHANGE IN BOWEL HABITS R.O DIVERTICULAR ABSCESS 11-28-99 CT ABDOMEN AND PELVIS: HISTORY: Abdominal pain, rule out diverticular disease or abscess. COMPARISON: Pelvic ultrasound performed earlier in the day. TECHNIQUE: Using neither oral nor intravenous contrast material, 5mm sections were made from just above the kidneys through the urinary bladder. FINDINGS: ABDOMEN: The liver, spleen, pancreas, adrenals and gallbladder are unremarkable. The right kidney demonstrates a small simple cyst. The left kidney is unremarkable. Otherwise the kidneys show no evidence of hydronephrosis or nephrolithiasis. The ureters bilaterally appear unremarkable. The bladder is also within normal limits without calculi. The stomach, small and large bowel are identified and are normal in caliber however evaluation of the bowel is limited without oral contrast. No significant ascites or lymphadenopathy is seen in the upper abdomen. PELVIS: No free fluid, lymphadenopathy or masses are identified. A left ovarian cyst is identified. The patient is s/p bilateral tubal ligation with surgical clips noted. The bones are unremarkable except for degenerative joint disease especially in the SI joints. Procedure Note Jose Monsivais MD / Charlie, Kena Naylor MD - 05/13/2009 HYPOGASTRIC PAIN, DIAHREA, CHANGE IN BOWEL HABITS R.O DIVERTICULAR ABSCESS 11-28-99 CT ABDOMEN AND PELVIS: HISTORY: Abdominal pain, rule out diverticular disease or abscess. COMPARISON: Pelvic ultrasound performed earlier in the day. TECHNIQUE: Using neither oral nor intravenous contrast material, 5mm sections were made from just above the kidneys through the urinary bladder. FINDINGS: ABDOMEN: The liver, spleen, pancreas, adrenals and gallbladder are unremarkable. The right kidney demonstrates a small simple cyst. The left kidney is unremarkable. Otherwise the kidneys show no evidence of hydronephrosis or nephrolithiasis. The ureters bilaterally appear unremarkable. The bladder is also within normal limits without calculi. The stomach, small and large bowel are identified and are normal in caliber however evaluation of the bowel is limited without oral contrast. No significant ascites or lymphadenopathy is seen in the upper abdomen. PELVIS: No free fluid, lymphadenopathy or masses are identified. A left ovarian cyst is identified. The patient is s/p bilateral tubal ligation with surgical clips noted. The bones are unremarkable except for degenerative joint disease especially in the SI joints. IMPRESSION IMPRESSION: #1: Essentially negative renal colic CT. Small right kidney cyst. #2: S/P bilateral tubal ligation. #3: Simple left ovarian cyst. These findings were called to Dr. Holcomb by Dr. Alonso on 11-28-99. The attending radiologist has reviewed the images and concurs with the findings. D: 11-28-99 T: 12-01-99 /am Wyatt Holcomb MD [facility] CT ORDERABLES * CT ABDOMEN W/CONTRAST (11/28/1999 15:44 EDT) Anatomical Region Laterality Modality Other 11/28/1999 15:4 4 EDT Narrative 05/13/2009 16:19 EST HYPOGASTRIC PAIN, DIAHREA, CHANGE IN BOWEL HABITS R.O DIVERTICULAR ABSCESS Procedure Note Jose Monsivais MD / Kena Guerra MD - 05/13/2009 HYPOGASTRIC PAIN, DIAHREA, CHANGE IN BOWEL HABITS R.O DIVERTICULAR ABSCESS Wyatt Holcomb MD [facility] CT ORDERABLES * CHLAMYDIA TRACHOMATIS PROBE (11/28/1999 12:54 EDT) Specimen Description Unknown [facility] Result No Chlamydia trachomatis DNA detected by metal polisher mediated amplification. [facility] Report Status Final [id number] [facility] 11/28/1999 12:5 4 EDT 11/28/1999 12:54 EDT Default Emergency MD HISTORICAL LAB FOR SQ LOAD Performing Organization Address [facility] Co de Phone Number [facility] [address] [place] [address] * N.GONORRHOEAE PROBE (11/28/1999 12:54 EDT) Specimen Description Unknown [facility] Result No Neisseria gonorrhoeae DNA detected by metal polisher mediated amplification. [facility] Report Status Final [id number] [facility] 11/28/1999 12:5 4 EDT 11/28/1999 12:54 EDT Default Emergency MD HISTORICAL LAB FOR SQ LOAD Performing Organization Address [facility] Co de Phone Number [facility] [address] [place] [address] documented in this encounter Visit Diagnoses Not on filedocumented in this encounter
--- OUTSIDE RECORDS SUMMARY | 2024-02-24 17:08 | XMS_ITS | Encounter Summary ---
Author Organization [facility] Address [address] [place] [address] Care Team Providers Care Forensic Science Technician Name Role Phone Unavailable Primary Care Provider Unavailabl e Encounter Details Date Type Department Care Team (Latest Contact Info) Description 10/09/1999 17:39 EDT Hospital Encounter [facility] Emergency Department - [facility] [address] [place] [address] Emergency, Default, MD Discharge Disposition: Home or [...]
--- OUTSIDE RECORDS SUMMARY | 2024-02-24 17:08 | XMS_ITS | Encounter Summary ---
Author Organization [facility] Address [address] [place] [address] Care Team Providers Care Welder Gas Tungsten Arc Name Role Phone Unavailable Primary Care Provider Unavailabl e Encounter Details Date Type Department Care Team (Late st Contact Info) Description 11/29/1999 9:47 EDT Hospital Encounter [facility] Emergency Department - [address] [address] Emergency, MD Matthew Social History Tobacco Use Types Packs/Day Years [...] SEDIMENT (MICRO) WITHOUT REFLEX TO CULTURE Routine 12/02/1999 13:30 EDT BACTERIAL CULTURE, URINE Routine 12/02/1999 13:30 EDT documented in this encounter Results * BACTERIAL CULTURE, URINE (12/02/1999 13:30 EDT) Specimen Description Urine [facility] Result Less than 10,000 CFU/ml Mixed gram positive growth [facility] Report Status Final [id number] [facility] 12/02/1999 13:3 0 EDT 12/02/1999 19:46 EDT John Rivera MD MICROBIOLOGY - GENER AL ORDERABLES [facility] [address] [place] [address] * (ABNORMAL) UA WITH MICROSCOPIC (12/02/1999 13:30 EDT) Color, UA Yellow [facility] Clarity, UA Clear [facility] Glucose, UA Norm NORM [facility] Bilirubin, UA Neg NEG [facility] Ketones, UA Neg NEG [facility] Specific [place], Urine 1.025 1.005 - 1.02 [facility] Blood, UA Neg NEG [facility] pH, UA 5.0 5.0 - 9.0 [facility] Protein, UA Neg NEG [facility] Urobilinogen, UA Norm NORM mg/dL [facility] Nitrite, UA Neg NEG [facility] Leuk Esterase Neg NEG [facility] WBC, UA 1 to 5 0 - 5 /HPF [facility] RBC, UA None seen 0 - 5 /HPF [facility] Squam Epithel, UA Few(A) NS /HPF [facility] Renal Epithel, UA None seen NS /HPF [facility] Bacteria, UA None seen NS /HPF [facility] Crystals, UA None seen /HPF [facility] Hyaline Casts, UA None seen /LPF [facility] UA Comment Microscopic results are unreliable on urines unrefrig >2hrs or refrig >8hrs. [facility] 12/02/1999 13:3 0 EDT 12/02/1999 19:46 EDT John Rivera MD URINALYSIS ORDERABLE S [facility] [address] [place] [address] documented in this encounter Visit Diagnoses Not on filedocumented in this encounter
--- OUTSIDE RECORDS SUMMARY | 2024-02-24 17:08 | XMS_ITS | Encounter Summary ---
Author Organization [facility] [place] [address] Care Team Providers Care Bleacher [employer] Name Role Phone Yasmeen Grace Primary Care Provider + Encounter Details Date Type Department Care Team (Latest Contact Info) Description 09/26/2023 Travel Social History Tobacco Use Types Packs/Day [...] 02/27/2024 8:45 AM EDT Appointment XRay at [address] [place] [address] 02/27/2024 9:40 AM EDT Office [place] [address] 02/27/2024 10:40 AM EDT Laboratory [place] [address] 02/27/2024 11:00 AM EDT Clinical [place] [address] 03/21/2024 10:05 AM EDT Hospital Encounter [place] [address] Evaristo Cheatham MD [facility] [place] [address] 03/21/2024 10:05 AM EDT - 03/21/2024 12:20 PM EDT Surgery [place] [address] Evaristo Cheatham MD [facility] [place] [address] TOTAL HIP ARTHROPLASTY, ANTERIOR APPROACH (WRVU 19.6) 04/23/2024 1:00 PM EDT Appointment XRay at [address] [place] [address] 04/23/2024 2:10 PM EDT Office [place] [address] Evaristo Cheatham MD [facility] [place] [address] Scheduled Procedures Name Priority Associated Diagnoses Date/Ti [...] on filedocumented in this encounter Care Teams Bleacher [employer] Relationship Specialty Start Date End Date Yasmeen Grace PA [address] [place] [address] [place] [address] PCP - General Internal Medicine 07/05/19 documented as of this encounter
--- OUTSIDE RECORDS SUMMARY | 2024-02-24 17:08 | XMS_ITS | Encounter Summary ---
[place] [address] Care Team Providers Care Deli Bakery Clerk Name Role Phone Yasmeen Grace Primary Care Provider + Encounter Details Date Type Department Care Team (Late st Contact Info) Description 02/18/2022 Telephone [place] [address] Ovi Sabillon RESOLUTION AGENT [facility] [place] [address] Social History Tobacco Use Types Packs/Day Years [...] encounter Miscellaneous Notes * Telephone Encounter - Ovi Sabillon APRN - 02/18/2022 12:32 PM EDT Received Typo Machine Operator survey completed online. TC to patient to review Typo Machine Operator Survey and start the living donor education process. Michelle is interested in donating to her friend, Ricardo Rosas. Michelle is ABO AB, her intended recipient is ABO A. 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 I discussed with her other forms of donation. She is only interested in direct donation. I have thanked her for coming forward. I will close the transplant episode at this time. Donor Name: Michelle Goff Age: 61 y.o. Relationship to Recipient: Ricardo Rosas Blood Type: AB - knows from donating blood documented in this encounter Plan of Treatment Upcoming Encounters Date Type Department Care Team (Latest Contact Info) Description 02/27/2024 8:45 AM EDT Appointment XRay at [address] [place] [address] 02/27/2024 9:40 AM EDT Office [place] [address] 02/27/2024 10:40 AM EDT Laboratory [place] [address] 02/27/2024 11:00 AM EDT Clinical [place] [address] 03/21/2024 10:05 AM EDT Hospital Encounter [place] [address] Evaristo Cheatham MD [facility] [place] [address] 03/21/2024 10:05 AM EDT - 03/21/2024 12:20 PM EDT Surgery [place] [address] Evaristo Cheatham MD [facility] [place] [address] TOTAL HIP ARTHROPLASTY, ANTERIOR APPROACH (WRVU 19.6) 04/23/2024 1:00 PM EDT Appointment XRay at [address] [place] [address] 04/23/2024 2:10 PM EDT Office [place] [address] Evaristo Cheatham MD [facility] [place] [address] Scheduled Procedures Name Priority Associated Diagnoses Date/Ti [...] on filedocumented in this encounter Care Teams Deli Bakery Clerk Relationship Specialty Start Date End Date Yasmeen Grace PA [address] [place] [address] [place] [address] PCP - General Internal Medicine 07/05/19 documented as of this encounter
--- OUTSIDE RECORDS SUMMARY | 2024-02-24 17:08 | XMS_ITS | Encounter Summary ---
Author Organization [facility] [place] [address] Care Team Providers Care Prepress Proofer Name Role Phone Yasmeen Grcae Primary Care Provider + Reason for Visit * Reason Onset Date Comments Follow-up 07/12/2019 Encounter Details Date Type Department Care Team (Late st Contact Info) Description 07/12/2019 Telephone [place] [phone] Emily Arellano MD [facility] [place] [address] Follow-up Social History Tobacco Use Types Packs/Day Years [...] encounter Miscellaneous Notes * Telephone Encounter - Razia Parada - 07/16/2019 10:22 AM EST Called patient to schedule injection. Patient advised us she is going to have injection completed close to her home as she is over two hours away. * Telephone Encounter - Kacey Anderson - 07/12/2019 9:20 AM EST LM#1 to return call to answer fluoro questions and get scheduled for left hip injection with radiology, order is in. documented in this encounter Plan of Treatment Upcoming Encounters Date Type Department Care Team (Latest Contact Info) Description 02/27/2024 8:45 AM EDT Appointment XRay at [address] [place] [address] 02/27/2024 9:40 AM EDT Office [place] [address] 02/27/2024 10:40 AM EDT [place] [address] 02/27/2024 11:00 AM EDT Clinical [place] [address] 03/21/2024 10:05 AM EDT Hospital Encounter [place] [address] Evaristo Cheatham MD [facility] [place] [address] 03/21/2024 10:05 AM EDT - 03/21/2024 12:20 PM EDT Surgery [place] [address] Evaristo Cheatham MD [facility] [place]THOPAED[place] [address] TOTAL HIP ARTHROPLASTY, ANTERIOR APPROACH (WRVU 19.6) 04/23/2024 1:00 PM EDT Appointment XRay at [address] [place] [address] 04/23/2024 2:10 PM EDT Office [place] [address] Evaristo Cheatham MD [facility] [place] [address] Scheduled Procedures Name Priority Associated Diagnoses Date/Ti [...] on filedocumented in this encounter Care Teams Prepress Proofer Relationship Specialty Start Date End Date Yasmeen Grace PA [address] [place] [address] [place] [address] PCP - General Internal Medicine 07/05/19 documented as of this encounter
--- OUTSIDE RECORDS SUMMARY | 2024-02-24 17:08 | XMS_ITS | Encounter Summary ---
Author Organization [facility] Address [address] [place] [address] Care Team Providers Care Track Superintendent Name Role Phone Unavailable Primary Care Provider Unavailabl e Encounter Details Date Type Department Care Team (Latest Contact Info) Description 12/28/1999 10:30 EDT - 12/28/1999 11:59 EDT Hospital Encounter [facility] [address] [place] [address] Luke Cox MD Discharge Disposition: Auto Discharge Social History [...]
--- OUTSIDE RECORDS SUMMARY | 2024-02-24 17:08 | XMS_ITS | Encounter Summary ---
Author Organization [facility] [place] [address] Care Team Providers Care Bioinformatics Developer Name Role Phone Yasmeen Grace Primary Care Provider + Encounter Details Date Type Department Care Team (Late st Contact Info) Description 10/13/2023 Orders [place] [address] Casper Lopez Debility; Pain of left lower extremity; Primary osteoarthritis of left hip; Left hip pain Social History Tobacco Use Types Packs/Day [...] 02/27/2024 8:45 AM EDT Appointment XRay at [address] [place] [address] 02/27/2024 9:40 AM EDT Office [place] [address] 02/27/2024 10:40 AM EDT [place] [address] 02/27/2024 11:00 AM EDT Clinical [place] [address] 03/21/2024 10:05 AM EDT Hospital Encounter [place] [address] Evaristo Cheatham MD [facility] [place] [address] 03/21/2024 10:05 AM EDT - 03/21/2024 12:20 PM EDT Surgery [place] [address] Evaristo Cheatham MD [facility] [place] [address] TOTAL HIP ARTHROPLASTY, ANTERIOR APPROACH (WRVU 19.6) 04/23/2024 1:00 PM EDT Appointment XRay at [address] [place] [address] 04/23/2024 2:10 PM EDT Office [place] [address] Evaristo Cheatham MD [facility] [place] [address] Scheduled Orders Name Type Priority Associated Diagnoses Orde r Schedule XR Hip 1 view Left Imaging Routine Debility Pain of left lower extremity Primary osteoarthritis of left hip Left hip pain Expected: 10/20/2023 (Approximate), Expires: 04/20/2024 Scheduled Procedures Name Priority Associated Diagnoses Date/Ti [...] Primary localized osteoarthrosis, pelvic region and thigh Left hip pain Pain in joint, pelvic region and thigh documented in this encounter Care Teams Bioinformatics Developer Relationship Specialty Start Date End Date Yasmeen Grace PA [address] [place] [address] [place] [address] PCP - General Internal Medicine 07/05/19 documented as of this encounter
--- OUTSIDE RECORDS SUMMARY | 2024-02-24 17:08 | XMS_ITS | Encounter Summary ---
Author Organization [facility] Address [address] [place] [address] Care Team Providers Care Draw End Hand Name Role Phone Unavailable Primary Care Provider Unavailabl e Encounter Details Date Type Department Care Team (Late st Contact Info) Description 12/18/1999 7:32 EDT Hospital Encounter [facility] [address] [place] [address] John Rivera MD [address] [place] [phone] Social History Tobacco Use Types Packs/Day [...] Procedure Name Priority Date/Time Associated Diagnosis Comments BILIRUBIN DIRECT/INDIRECT Routine 12/24/1999 12:15 EDT LIPASE Routine 12/24/1999 12:15 EDT GGT Routine 12/24/1999 12:15 EDT AMYLASE Routine 12/24/1999 12:15 EDT COMPREHENSIVE METABOLIC PANEL (CMP) Routine 12/24/1999 12:15 EDT PT [id number] MUTATION Routine 12/18/1999 7 :45 EDT THROMBOSIS PANEL PATIENT NOT ON COUMADIN Routine 12/18/1999 7:45 EDT documented in this encounter Results * LIPASE (12/24/1999 12:15 EDT) Lipase 144 0 - 210 U/L [facility] 12/24/1999 12:1 5 EDT 12/24/1999 19:14 EDT Morgan Cole MD CHEMISTRY & BLOOD G ORDERABLES Performing Organization Address [facility] de Phone Number [facility] [address] [place] [address] * GGT (12/24/1999 12:15 EDT) Pathologist [facility] GGT 19 12 - 43 U/L [facility] 12/24/1999 12:1 5 EDT 12/24/1999 19:14 EDT Morgan Cole MD CHEMISTRY & BLOOD G ORDERABLES Performing Organization Address [facility] de Phone Number [facility] [address] [place] [address] * DIRECT BILIRUBIN (12/24/1999 12:15 EDT) Conjugated Bilirubin 0.0 0.0 - 0.3 mg/dl [facility] Unconjugated Bilirubin 0.4 0.1 - 1.1 mg/dl [facility] 12/24/1999 12:1 5 EDT 12/24/1999 19:14 EDT Morgan Cole MD CHEMISTRY & BLOOD G ORDERABLES Performing Organization Address [facility] Co de Phone Number [facility] [address] [place] [address] * COMPREHENSIVE METABOLIC PANEL (12/24/1999 12:15 EDT) Potassium 4.5 3.5 - 5.0 mEq/L [facility] Sodium 140 136 - 145 mEq/L [facility] Chloride 102 96 - 110 mEq/L [facility] CO2 25 24 - 30 mEq/L [facility] Total Alkaline Phosphatase 83 38 - 126 U/L [facility] Bilirubin, Total 0.7 0.2 - 1.3 mg/dl [facility] AST 28 8 - 50 U/L [facility] ALT 49 15 - 75 U/L [facility] Albumin 4.3 3.0 - 5.5 g/dl [facility] Total Protein 7.9 6.0 - 8.5 g/dl [facility] Creatinine 0.7 0.7 - 1.5 mg/dl [facility] BUN 14 10 - 26 mg/dl [facility] Calcium 9.2 8.5 - 10.5 mg/dl [facility] Calculated Calcium 9.3 8.5 - 10.5 mg/dl [facility] Glucose, Serum 80 70 - 110 mg/dl [facility] Albumin/Globulin Ratio 1.2 [facility] 12/24/1999 12:1 5 EDT 12/24/1999 19:14 EDT Morgan Cole MD CHEMISTRY & BLOOD G ORDERABLES Performing Organization Address [facility] Co de Phone Number [facility] [address] [place] [address] * AMYLASE (12/24/1999 12:15 EDT) Amylase 45 30 - 110 U/L [facility] 12/24/1999 12:1 5 EDT 12/24/1999 19:14 EDT Morgan Cole MD CHEMISTRY & BLOOD G ORDERABLES [facility] [address] [place] [address] * PT [id number] MUTATION (12/18/1999 7:45 EDT) Prothrombin Mutation Negative ??(Note) This test is performed pursuant to an agreement with ? [employer] ? 'This test was developed and its performance characteristics ? determined by Laboratory Medicine and Pathology, [facility] ? [place]. It has not been cleared or approved by the U.[place]. ? Food and Drug Administration.' ? -- EXPECTED VALUES -- ? Negative (reported as positive ? or negative) ? A signed Special Coagulation DNA- ? Diagnostic Laboratory report will ? be provided. ? [facility] Comment (Note) This individual DOES NOT have the Prothrombin ? 30245 G->A mutation. ? Although the Prothrombin 30537 G->A mutation is absent, ? the individual may have other genetic or environmental ? risk factors for thrombosis. Consider additional ? testing for hemostatic disorders associated with increased ? thrombosis risk, if indicated. ? TEST PERFORMED OR REFERRED BY [facility] ? [facility] ? [address] ? [place], [place] ??[address] ? [facility] 12/18/1999 7:45 EDT 12/18/1999 7:48 EDT John Rivera MD HISTORICAL LAB FOR S Q LOAD [facility] [address] [place] [address] * THROMBOSIS PANEL PATIENT NOT ON COUMADIN (12/18/1999 7:45 EDT) APCR V Ratio 3.0 ??(Note) -- EXPECTED VALUES -- ? (Ref Range) 2.4 to 4.0 ? [facility] Interpretation (Note) No evidence of resistance to Activated Protein C (APC). ? Normal results of Activated Protein C-Resistance (APC-R) ? assay. ? TEST PERFORMED OR REFERRED BY [facility] ? [facility] ? [address] ? [place], [place] ??[address] ? [facility] APTT V with APC 93Unit: s ??(Note) -- EXPECTED VALUES -- ? (Ref Range) 68 to 137 ? [facility] Baseline APTT V 31Unit: s ??(Note) -- EXPECTED VALUES -- ? (Ref Range) 26 to 38 ? [facility] Antithrombin, Funct. 97 86 - 128 % [facility] Comment: CAUTION: Antithrombin III levels can be INCREASED by coumadin and DECREASED by heparin. Results must be interpreted with caution for patients on these drugs. Cardiolipin IgG Negative ??(Note) 'This test was developed and its performance characteristics ? determined by [facility], [facility] ? [place]. It has not been cleared or approved by the U.S. ? Food and Drug Administration.' ? -- EXPECTED VALUES -- ? Negative ? Positives will be titered. ? [facility] Cardiolipin IgM Negative ??(Note) 'This test was developed and its performance characteristics ? determined by [facility] Pathology, [facility] ? [place]. It has not been cleared or approved by the [place]. ? Food and Drug Administration.' ? -- EXPECTED VALUES -- ? Negative ? Positives will be titered. ? TEST PERFORMED OR REFERRED BY [facility] ? [facility] ? [address] ? [place], [place] ??[address] ? [facility] Protein C Clot 126 66 - 131 % [facility] Comment: A. Acquired protein C deficiencies are associated with ??liver disease, oral ? anticoagulants, acute thrombotic events and DIC. oral anticoagulants, acute thrombotic events and DIC. B. Results may be affected by plasma heparin levels greater than 1.0 U/ml C. Results may be affected by the presence of Lupus Anticoagulants, or factor ?VIII concentrations greater than 250%. ??Confirmation of the results by a ?functional, chromogenic assay may be useful in these circumstances ? or factor VIII concentrations greater than 250% D. Results are not affected by the presence of Activated Protein Resistance ?(APC-R) or the Factor V Leiden mutation associated with APC-R. ? Activated Protein Resistance (APC-R) or the Factor V Leiden mutation ?associated with APC-R. E. Results should be interpreted with caution under these conditions. Dilute Viper Venom 26.9 22.3 - 35.8 secs [facility] Factor V Leiden Negative ??(Note) This test is performed pursuant to an agreement with ? [employer] ? 'This test was developed and its performance characteristics ? determined by [facility] Medicine and Pathology, [facility] ? [place]. It has not been cleared or approved by the [place] ? Food and Drug Administration.' ? -- EXPECTED VALUES -- ? Negative (reported as positive ?or negative) ? [facility] Fact 5 Leiden Comment (Note) This individual DOES NOT have the factor V (fV) ? R506Q (Leiden) mutation. ? Although the factor V R506Q mutation is absent, the ? individual may have other genetic and environmental risk ? factors for thrombosis. Consider additional testing for ? hemostatic disorders associated with increased thrombosis ? risk, if indicated. ? TEST PERFORMED OR REFERRED BY [facility] ? [facility] ? [address] ? [place], [place] ??[address] ? [facility] Homocysteine 4.5 4.5 - 12.4 umol/L [facility] Comment: Reference range may not apply to non-fasting samples. Fasting Pro Time 12.2 11.7 - 13.4 secs [facility] Comment:PT WAS ON ASPIRIN I.N.R. 0.9 0.8 - 1.2 Ratio [facility] Comment: Moderate Intensity Coumadin INR = 2.0-3.0 Adjustments in anticoagulant therapy dose should be based upon the INR and NOT the Pro Time PT WAS ON ASPIRIN PTT 21 20 - 31 secs [facility] Comment: Therapeutic Heparin range: ??58-100 seconds PT WAS ON ASPIRIN Protein S Activity 125 72 - 148 % [facility] Comment: A. Acquired Protein S deficiencies are associated with , oral ?anticoagulants, vitamin K deficiency, L-Aspariginase treatment, ?inflammatory syndrome and acute thrombotic events. ??Acquired deficiencies ?may or may not be associated with liver disease and DIC. ??Neonates have ?slightly lower levels (compared to adults) of Protein S. ? , oral anticoagulants, vitamin K deficiency, L-Aspariginase ? treatment, inflammatory syndrome and acute thombotic events. ? Acquired deficiencies may or may not be associated with liver disease and ?DIC. ? Neonates have slightly lower levels (compared to adults) of Protein S. B. Results may be UNDERESTIMATED in this assay by the presence of activated ?Protein Resistance (APC-R) or the Factor V Leiden mutation associated with ?APC-R, or high levels of a Factor VIIa or Factor II, in the patient's ?plasma. ? Protein Resistance (APC-R) or the Factor V Leiden mutation associated with ?APC-R, ? or high levels of a Factor VIIa or Factor II, in the patient's plasma. ?? Results may be OVERESTIMATED in this assay by the presence of Lupus ?Antocoagulants (las) in the patient's plasma, or plasma heparin levels ?greater than 2.0 U/ml. ? (Las) in the patient's plasma, or plasma heparin levels greater than 2.0 ?U/ml. C. Results should be interpreted with caution under these conditions. Thrombin Time 15.6 14.6 - 20.1 secs [facility] 12/18/1999 7:45 EDT 12/18/1999 7:48 EDT John Rivera MD PACKAGES & DNA PROBE ORDERABLES [facility] [address] [place] [address] documented in this encounter Visit Diagnoses Not on filedocumented in this encounter
--- OUTSIDE RECORDS SUMMARY | 2024-02-24 17:08 | XMS_ITS | Encounter Summary ---
Author Organization [facility] Address [address] [place] [address] Care Team Providers Care Logger All Round Name Role Phone Unavailable Primary Care Provider Unavailabl e Encounter Details Date Type Department Care Team (Late st Contact Info) Description 08/06/1999 16:18 EST Hospital Encounter [facility] [address] [place] [address] Morgan Cole MD [address] [place] [address] [address] [place] [address] Unknown, Provider, Social History Tobacco [...] Procedure Name Priority Date/Time Associated Diagnosis Comments THYROID CASCADE Routine 08/06/1999 10:50 EST documented in this encounter Results * THYROID CASCADE (08/06/1999 10:50 EST) TSH 1.83 0.35 - 5.50 uIU/ml [facility] Comment: TSH cascade is not recommended for patients in which pituitary or hypothalamic disorders are suspected. 08/06/1999 10:5 0 EST 08/06/1999 18:30 EST Morgan Cole MD CHEMISTRY & BLOOD G ORDERABLES [facility] [address] [place] [address] documented in this encounter Visit Diagnoses Not on filedocumented in this encounter
--- OUTSIDE RECORDS SUMMARY | 2024-02-24 17:08 | XMS_ITS | Encounter Summary ---
Author Organization [facility] [address] Care Team Providers Care Assignment Agent Name Role Phone Unavailable Primary Care Provider Unavailabl e Encounter Details Date Type Department Care Team (Late st Contact Info) Description 07/02/2019 3:20 PM EST Ancillary Procedure [place] [address] Emily Arellano MD [facility] [place] [address] Social History Tobacco Use Types Packs/Day Years Used Date Smoking Tobacco: Never Assessed Sex and Gender Information Value Date Recorded Sex Assigned at Not on file Gender Identity Not on file Sexual Orientation Not on file documented as of this encounter Plan of Treatment Upcoming Encounters Date Type Department Care Team (Latest Contact Info) Description 02/27/2024 8:45 AM EDT Appointment XRay at [address] [place] [address] 02/27/2024 9:40 AM EDT Office [place] [address] 02/27/2024 10:40 AM EDT Laboratory [place] [address] 02/27/2024 11:00 AM EDT Clinical [place] [address] 03/21/2024 10:05 AM EDT Hospital Encounter [place] [address] Evaristo Cheatham MD [facility] [place] [address] 03/21/2024 10:05 AM EDT - 03/21/2024 12:20 PM EDT Surgery [place] [address] Evaristo Cheatham MD [facility] [place] [address] TOTAL HIP ARTHROPLASTY, ANTERIOR APPROACH (WRVU 19.6) 04/23/2024 1:00 PM EDT Appointment XRay at [address] [place] [address] 04/23/2024 2:10 PM EDT Office [place] [address] Evaristo Cheatham MD [facility] [place] [address] Scheduled Procedures Name Priority Associated Diagnoses Date/Ti [...] Diagnosis Comments FILM LIBRARY STORAGE ONLY DX PELVIS Routine 07/02/2019 3:18 PM EST documented in this encounter Results * Film Library- Storage Only DX Pelvis (07/02/2019 3:18 PM EST) Narrative JOSE LUIS ANTUNEZ - 07/02/2019 3:18 PM EST This exam is auto-finalizing. It's purpose is for storage only. Emily Arellano MD IMG FILM LIBRARY OR DERABLES JOSE LUIS ANTUNEZ [place] documented in this encounter Visit Diagnoses Not on filedocumented in this encounter
--- OUTSIDE RECORDS SUMMARY | 2024-02-24 17:08 | XMS_ITS | Encounter Summary ---
Author Organization [facility] [place] [address] Care Team Providers Care Folder Machine Name Role Phone Yasmeen Grace Primary Care Provider + Encounter Details Date Type Department Care Team (Late st Contact Info) Description 08/12/2023 Ancillary Procedure [place] [address] Yasmeen Grace PA [address] [place] [address] [place] [address] Social History Tobacco Use Types Packs/Day Years [...] 02/27/2024 8:45 AM EDT Appointment XRay at [address] [place] [address] 02/27/2024 9:40 AM EDT Office Visit [place] [address] 02/27/2024 10:40 AM EDT Laboratory [place] [address] 02/27/2024 11:00 AM EDT Clinical Support [place] [address] 03/21/2024 10:05 AM EDT Hospital Encounter Main [place] [address] Evaristo Cheatham MD [facility] [place] [address] 03/21/2024 10:05 AM EDT - 03/21/2024 12:20 PM EDT Surgery [place] [address] Evaristo Cheatham MD [facility] [place] [address] TOTAL HIP ARTHROPLASTY, ANTERIOR APPROACH (WRVU 19.6) 04/23/2024 1:00 PM EDT Appointment XRay at [address] [place] [address] 04/23/2024 2:10 PM EDT Office Visit [place] [address] Evaristo Cheatham MD [facility] [place] [address] Scheduled Procedures Name Priority Associated Diagnoses Date/Ti [...] FILM LIBRARY STORAGE ONLY DX HIP Routine 08/12/2023 12:00 AM EST documented in this encounter Results * Film Library- Storage Only DX Hip (08/12/2023 12:00 AM EST) Narrative JOSE LUIS ANTUNEZ - 08/13/2023 1:22 AM EST This exam is auto-finalizing. It's purpose is for storage only. Yasmeen SKY IMG FILM LIBRARY ORDERABLES Performing Organization Address City/State/[facility] Co de Phone Number [place], [place] documented in this encounter Visit Diagnoses Not on filedocumented in this encounter Care Teams Folder Machine Relationship Specialty Start Date End Date Yasmeen Grace PA [address] [place] [address] [place] [address] PCP - General Internal Medicine 07/05/19 documented as of this encounter
--- OUTSIDE RECORDS SUMMARY | 2024-02-24 17:08 | XMS_ITS | Clinical Summary ---
Author Organization Formerly [facility] [place] [address] Care Team Providers Care Electric Furnace Operator Name Role Phone Yasmeen Grace Primary Care Provider + Allergies Active Allergy Reactions Criticality Noted Date Comments Escitalopram 09/26/2023 Sumatriptan Anxiety,Other (See Comments),Shortness Of Breath High 07/17/2014 Heavy pressure in chest Medications Medication Sig Dispensed Refills Start Date End Date Status venlafaxine XR (EFFEXOR-XR) 75 mg Capsule, Sust. Release 24 hr Take 75 mg by mouth daily. Active diphenhydrAMINE (Benadryl) 25 mg capsule Take 50 mg by mouth Every 4 hours. Active ibuprofen (Advil) 600 mg tablet Take 1 tablet every day by oral route at bedtime for 30 days. Active losartan (Cozaar) 25 mg tablet Take 25 mg by mouth daily. Active omeprazole (PriLOSEC) [address] capsule Take 20 mg by mouth daily. Active Ozempic 2 mg/dose (8 mg/3 mL) Pen Injector INJECT 2MG SUBCUTANEOUS ONCE A WEEK, INJECT IN THE ABDOMEN, THIGH, OR UPPER ARM 07/12/2023 Active Mounjaro 2.5 mg/0.5 mL Pen Injector INJECT 2.5MG SUBCUTANEOUSLY EVERY WEEK. ROTATE INJECTION SITES. Active Mounjaro 5 mg/0.5 mL Pen Injector INJECT 5MG SUBCUTANEOUSLY EVERY WEEK. ROTATE INJECTION SITES 09/08/2023 Active Active Problems No known active problems Encounters Date Type Department Care Team Description 02/08/2024 1:53 PM EDT - 02/08/2024 11:59 PM EDT Hospital Encounter [place] [address] Yasmeen Grace PA Family history of ischemic heart disease Discharge Disposition: Home from Last 3 Months Family History Medical History Relation Comments Cancer Maternal Aunt Cancer Mother Relation Status Comments Maternal Aunt Mother Social History Tobacco Use Types Packs/Day Years Used Date Smoking Tobacco: Never Smokeless Tobacco: Never Alcohol Use Standard Drinks/Week Comments Yes 0 (1 standard drink = 0.6 oz pur e alcohol) rare Sex and Gender Information Value Date Recorded Sex Assigned at Not on file Gender Identity Not on file Sexual Orientation Not on file Last Filed [...] Mass Index 25.24 09/26/2023 9:51 AM EDT Plan of Treatment Upcoming Encounters Date Type Department Care Team (Latest Contact Info) Description 02/27/2024 8:45 AM EDT Appointment XRay at [address] [place] [address] 02/27/2024 9:40 AM EDT Office [place] [address] 02/27/2024 10:40 AM EDT Laboratory [place] [address] 02/27/2024 11:00 AM EDT Clinical [place] [address] 03/21/2024 10:05 AM EDT Hospital Encounter [place] [address] Evaristo Cheatham MD [facility] [place] [address] 03/21/2024 10:05 AM EDT - 03/21/2024 12:20 PM EDT Surgery [place] [address] Evaristo Cheatham MD [facility] [place] [address] TOTAL HIP ARTHROPLASTY, ANTERIOR APPROACH (WRVU 19.6) 04/23/2024 1:00 PM EDT Appointment XRay at [address] [place] [address] 04/23/2024 2:10 PM EDT Office [place] [address] Evaristo Cheatham MD [facility] [place] [address] Scheduled Procedures Name Priority Associated Diagnoses Date/Ti me TOTAL HIP ARTHROPLASTY, ANTERIOR APPROACH (WRVU 19.6) Hip osteoarthritis 03/21/2024 10:05 AM EDT HIP INTRAOP RADIOLOGIC EXAMINATION, UNILATERAL, W PELVIS; 4+ VIEWS (WRVU 0.27) Hip osteoarthritis 03/21/2024 10:05 AM EDT MODIFIER ACTIS HIP STEM DEPUY Hip osteoarthritis 03/21/2024 10:05 AM EDT MODIFIER PINNACLE GRIPTION ACETABULUM DEPUY Hip osteoarthritis 03/21/2024 10:05 AM EDT Health Maintenance Due Date Last Done Comments CT Colonography 1961 Colonoscopy 1961 Colorectal Cancer Screening 1960 FIT DNA 1961 FIT 1961 Sigmoidoscopy (10 year) with FIT yearly 1961 Sigmoidoscopy 1960 HIV screen 1979 Hepatitis C Screening 1979 Tdap adult 1980 Tetanus vaccine 1980 HPV test 1991 PAP Smear 1991 Breast Cancer Share Decision Needed 2001 Breast Cancer screening 2001 Diabetes Screening (HgbA1C or Glucose) 2001 Zoster vaccine (1 of 2) 2011 Advance Directive 2016 Covid-19 Vaccine ( season) 03/04/202309/2021, 10/08/2021 Influenza (Flu) vaccine (1 o f 1 - Influenza standard series) 03/04/2024 Procedures Procedure Name Priority Date/Time Associated Diagnosis Comments ECHO COMPLETE Routine 02/08/2024 1:54 PM EDT Family history of ischemic heart disease from Last 3 Months Results * ECHO COMPLETE (02/08/2024 1:54 PM EDT) Anatomical Region Laterality Modality Other 02/08/2024 11:2 5 AM EDT Narrative 02/08/2024 2:02 PM EDT [address] [place] [address] ? Echocardiogram Report Name: RACHIDLaylaKARIMETOÑO HAWK ? Study Date: 02/08/2024 11:25 AMBP: 156/80 mmHg ? Patient Location: 4A : 1960 ? Height: 168 cm ? Account: [id number] Age: 63 yrs ? Weight: 78 kg Gender: Female ?BSA: 1.9 m2 Ordering Physician: YASMEEN GRACE Referring Physician: YASMEEN GRACE Performed By: Deborah Reagan RDCS Reason For Study: Family hisotry of ischemic heart disease and other diseases of the circulatory system. Exam Location: [facility]. Interpretation Summary Normal left ventricle size and systolic function. LV ejection fraction is 65%. Normal wall motion. Normal right ventricle. No significant valve abnormalities. No prior images available for direct comparison. Procedure Complete-[id number]. Satisfactory quality. There is normal sinus rhythm. [...] Note Ronal Johnson MD - 02/08/2024 [address] [place] [id number] Echocardiogram Report Name: TOÑO GOFF Study Date: 02/08/2024 11:25 AMBP:156/80 mmHg Patient Location: : 1960 Height: 168 cmAccount: [id number] Age: 63 yrs Weight: 78 kg Gender: Female BSA: 1.9 m2 Ordering Physician: YASMEEN GRACE Referring Physician: YASMEEN GRACE Performed By: Deborah Reagan RDCS Reason For Study: Family hisotry of ischemic heart disease and other diseases of the circulatory system. Exam Location: [facility]. Interpretation Summary Normal left ventricle size and systolic function. LV ejection fraction is65%. Normal wall motion. Normal right ventricle. No significant valve abnormalities. No prior images available for direct comparison. Procedure Complete-[id number]. Satisfactory quality. There is normal sinus rhythm. [...] 6-14large Aneurysmal 15-16diffuse Yasmeen SKY ECHO ORDERABLES from Last 3 Months Advance Directives Documents on File Type Date Recorded Patient History Teacher Expl anation Personal History Teacher 09/26/2023 12:51 PM Care Teams Electric Furnace Operator Relationship Specialty Start Date End Date Yasmeen Grace PA [address] [place] [address] [place] [address] PCP - General Internal Medicine 07/05/19
--- OUTSIDE RECORDS SUMMARY | 2024-02-24 17:08 | XMS_ITS | Continuity of Care Document ---
Author Organization [place] [facility] Address [address] [place] [address] Assessment No assessment recorded. Plan of Treatment Reminders Order Date Submit Date Provider Last Modified By Organization Details Last Modified Time Details Appointments None recorded. Lab culture, wound - source: right 2nd toe cellulitis [address], [address], [place], [address], 4 16:05:37 Referral None recorded. Procedures None recorded. Surgeries None recorded. Imaging None recorded. Medication Orders Bactrim DS 800 mg-160 mg tablet 2023 024 [facility] [place], [address], 4 14:39:06 Patient TargetsNo targets recorded. Patient InstructionsNo instructions recorded. Reason for Referral None Reported. 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 Today, rapid COVID, flu, strep negative. On exam, lung sounds clear, O2 sat 98% on room air. Will send confirmatory COVID PCR due to clinical concerns for COVID and patient's history Problem Code: R50.9; Problem Code Type: ICD-10; Not Available [facility] 05/13/2023 06:02:13 Problem Notes None recorded. Medical Equipment None Reported. Medications Name Sig Start Date Stop Date Status Note LastModified by Organization Details LastModified Time venlafaxine ER 37.5 mg capsule,exte nded release 24 hr TAKE 1 CAPSULE BY MOUTH ONCE DAILY WITH FOOD, TAKE WITH 75 MG CAPSULE 02/14 completed Not Available Not Available Not Available venlafaxine ER 75 mg capsule,exte nded release 24 hr TAKE 1 CAPSULE BY MOUTH ONCE DAILY WITH FOOD, TAKE WITH 37.5 MG CAPSULE 02/14 completed Not Available Not Available Not Available venlafaxine ER 150 mg capsule,exte nded release 24 hr TAKE 1 CAPSULE BY MOUTH ONCE DAILY FOR 90 DAYS 02/14 completed Not Available Not Available Not Available lorazepam 0.5 mg tablet TAKE 1 TABLET BY MOUTH TWICE DAILY FOR 28 DAYS 02/14 completed Not Available Not Available Not Available omeprazole 20 mg capsule,aneesh yed release TAKE 1 CAPSULE BY MOUTH ONCE DAILY active Not Available Not Available No t Available Bactrim DS 800 mg-160 mg tablet Take 1 tablet every 12 hours by oral route for 7 days. 2023 active Not Available Not Available Not Avai lable losartan active Not Available Not Avai lable Not Available Vitals Date Recorded Respiratory rate Body height Body mass index (BMI) Body weight Body temperature Oxygen saturation Oxygen saturation in Arterial blood by Pulse oximetry Heart rate Systolic blood pressure Diastolic blood pressure Provider Name and Address Organization Details Last Updated DateTime 18 /min 167.64 cm 27.7 kg/m2 76645.4 g 98.3 [degF] 97 % 97 % 70 /min 124 mm[Hg] 74 mm[Hg] Merline Claros [facility] 14:27:33 Social History Question Answer Notes LastModified by Organizat ion Details LastModified Time Tobacco Smoking Status Never Smoker Merline Claros [facility] 02/15/2024 14:24:42 What Was The Date Of Your Most Recent Tobacco Screening? 02/15/2024 Information not available 02/15/2024 Has Tobacco Cessation Counseling Been Provided? No Information not available 02/15/2024 Do You Or Have You Ever Used Any Other Forms Of Tobacco Or Nicotine? No Information not available 02/15/2024 Sex: Female Functional Status None recorded. Mental Status None recorded. Family History Nothing Reported. Medical History No medical history recorded. Gynecological HistoryNo gynecological history recorded. Obstetrics History GPAL:G 0 P 0 0 0 0 Past Encounters Encounter ID Performer Location Encounter Start Date Encounter Closed Date Diagnosis/Indication Diagnosis SNOMED-CT Code [id number] MICHAEL SANDOVAL PA-C [facility] [address] [address] 02/15/2024 14:17:54 02/15/2024 14:38:20 Cellulitis [id number] Health Concerns Section Related Observation LastModified by Organization Detai ls LastModified Time None Recorded Concern Status LastModified by Organization Details LastModified Time None Recorded Payers Encounter Date Sequence Insurance Name Policy Number Policy Dimas Covered Member ID Dimas Member ID Guarantor Name 02/15/2024 1 [place] [employer] [place] Michelle estes [id number] Michelle Maciel r Notes Date Note Type Note Provider Name and Address Organization Details Recorded Time 02/15/2024 text/html HPI Notes: Chet eng is a 63-year-old female presenting for toe infection. About 3 weeks ago developed a cyst on her right second toe. She did drain it and it was feeling better went to drain it again last night but did not realize that her tweezers were dirty. Overnight started having increasing pain in the toe. Looked at the toe this morning and it was red and swollen. Denies any numbness or tingling. No previous history of skin infections. She does have a hip replacement scheduled for next month and wants to make sure any infections have completely cleared. Denies any fevers or chills. [address], [place], [address], [facility]. 02/15/2024 14:46:24 OBGyn Episode No OBEpisode recorded.
--- OUTSIDE RECORDS SUMMARY | 2024-02-24 17:08 | XMS_ITS | Encounter Summary ---
Author Organization [facility] [place] [address] Care Team Providers Care Post Office Markup Clerk Name Role Phone Yasmeen Grace Primary Care Provider + Encounter Details Date Type Department Care Team (Late st Contact Info) Description 02/17/2022 Telephone [place] [phone] Lexie Masterson Social History Tobacco Use Types Packs/Day Years [...] encounter Miscellaneous Notes * Telephone Encounter - Lexie Masterson - 02/17/2022 10:21 AM EDT First Name Michelle Doroteo Garcia Last Name [place] Address [address] [place] [address] Best time to call any Email Address [email or web address] Date of 1960 Age [id number] Gender Female Height in inches 584 Weight in pounds 203 Body Mass Index (BMI) 0 Who would you like to donate to? Ricardo Rosas What is your relation to your donor? Scot What is your Blood type? AB Who is your Primary Care Physician (PCP)? Yasmeen Mills When was your last physical exam? 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 I Hysterectomy, Gall Bladder, Rotator Cuff (R), Please list your medications Venlafaxine Please list any allergies you have Imitrex documented in this encounter Plan of Treatment Upcoming Encounters Date Type Department Care Team (Latest Contact Info) Description 02/27/2024 8:45 AM EDT Appointment XRay at [address] [place] [address] 02/27/2024 9:40 AM EDT Office [place] [address] 02/27/2024 10:40 AM EDT Laboratory [place] [address] 02/27/2024 11:00 AM EDT Clinical [place] [address] 03/21/2024 10:05 AM EDT Hospital Encounter [place] [address] Evaristo Cheatham MD [facility] [place] [address] 03/21/2024 10:05 AM EDT - 03/21/2024 12:20 PM EDT Surgery [place] [address] Evaristo Cheatham MD [facility] [place] [address] TOTAL HIP ARTHROPLASTY, ANTERIOR APPROACH (WRVU 19.6) 04/23/2024 1:00 PM EDT Appointment XRay at [address] [place] [address] 04/23/2024 2:10 PM EDT Office Visit [facility]edics at [facility] [place] [address] Evaristo Cheatham MD [facility] [place] [address] Scheduled Procedures Name Priority Associated Diagnoses Date/Ti [...] on filedocumented in this encounter Care Teams Post Office Markup Clerk Relationship Specialty Start Date End Date Yasmeen Grace PA [address] [place] [address] [place] [address] PCP - General Internal Medicine 07/05/19 documented as of this encounter
[2024-02-24 18:19] VITALS: BP 138/78; PULSE 78; RESP 20; O2SAT 98
--- NOTE | 2024-02-25 19:32 | NUR.NOTE ---
Nursing Note: pateint called need information on what meds were given in ED at time of visit
--- NOTE | 2024-02-27 10:47 | NUR.NOTE ---
Nursing Note: Received call from patient requesting the name of the abx she was given on tuesday as [place] [facility] Pt was updated on medication and dose that was administered.
== END 2024-02-24 18:21 | disposition home or self-care (01) ==
PROVIDERS: Emergency Provider Registered Nurse Emergency; PCP Internal Medicine
DX: L03.031 Cellulitis of right toe (principal)
CPT/HCPCS: 96374; 99284; 99283; J0690

== ENCOUNTER 2024-02-25 21:11 | Emergency (ER) | payer BC, SELFPAY ==
[2024-02-25 21:13] VITALS: BP 156/84; PULSE 83; RESP 14; TEMP 36.8; O2SAT 99
--- NOTE | 2024-02-25 22:33 | ED.GENADUL_ITS ---
Discharge Plan Discharge Details Chief Complaint: Allergic Primary Care Provider: Yasmeen Grace ED Provider: Anastasia Christopher Home Meds and New Rx's Prescriptions: No Action multivitamin Tablet 1 tab PO DAILY omeprazole 20 mg capsule,delayed release(DR/EC) 20 mg PO DAILY levofloxacin 500 mg tablet 500 mg PO DAILY 5 Days Qty: 5 0RF Rx Instructions: take one tablet once daily x 5 days HPI General Date/Time Provider Initiated Documentation: 02/25/24 21:18 . HPI Narrative: Michelle is a 63-year-old female who presents to the emergency department who presents to the emergency department today for evaluation of chills and nausea accompanied by foot swelling, rash, and feeling of blisters. She denies recorded fever, wheezing, difficulty breathing, vomiting, abdominal pain, change in bowel or bladder function, oral lesions, other rashes. She reports that she has been on antibiotics for the last 12 days for treatment of cellulitis of the right second toe. She says this started after she popped a cowan pimple that was on the end of her toe. She was initially treated with a course of Bactrim, followed by Levaquin. She presented to the emergency department yesterday because her toe appeared purple with increased swelling. She had IV antibiotics administered, I&D performed without expression of purulent fluid, and instructed to follow-up on 5 more days of Levaquin. She reports that this afternoon she developed chills, followed by a rash to her bilateral feet and swelling to the top of her feet. She feels like the back of her heels are blistered. No known recent environmental contacts. No known history of i mmunocompromise or significant past medical history. Physical exam remarkable for erythematous maculopapular rash noted to the lateral aspect of the dorsum of both feet (worse on left), accompanied by swelling to the dorsum of the feet and tenderness with palpation of the back of the heel. She does have mild erythema and swelling of the right second toe. No oral lesions noted. Moist mucous membranes. Easy work of breathing. DDx includes but is not limited to: Systemic inflammatory response, medication reaction, abscess, contact dermatitis, stasis dermatitis I independently interpreted the following tests: CBC, BMP, ESR, and CRP all reassuring. CT of right lower extremity performed to rule out abscess or bony involvement. Handoff report givne to Dr Yan, overnight attending while awaiting CT results. Related Data Home Medications ?Medication ?Instructions ?Recorded ?Confirmed omeprazole 20 mg capsule,delayed 20 mg PO DAILY 10/19/21 02/25/24 release multivitamin 1 tab PO DAILY 10/21/21 02/25/24 levofloxacin 500 mg tablet 500 mg PO DAILY Cellulitis 5 days 02/24/24 02/25/24 #5 tabs Previous Rx's ?Medication ?Instructions ?Recorded levofloxacin 500 mg tablet 500 mg PO DAILY Cellulitis 5 days 02/24/24 #5 tabs Allergies Allergy/AdvReac Type Severity Reaction Status Date / Time cefatrizine Allergy Intermediate Hives Verified 02/25/24 21:19 sumatriptan (From Imitrex) Allergy chest pain Verified 02/25/24 21:19 General Stated Complaint: Allergic LIZ: 3 Review of Systems Narrative: see HPI Exam Const General: cooperative, healthy appearing, comfortable and no acute distress Nutritional Appearance: average body habitus Skin Rashes: rashes noted (bilateral feet, erythematous rash ) Trauma: no lacerations or abrasions Extrem Right lower extremity: full ROM and normal capillary refill Left lower extremity: full ROM and normal capillary refill Other: swelling to dorsum of bilateral feet with erythematous rash noted, no obvious blisters/vesicles or abscess Course Vital Signs Vital signs: Vital Signs Temperature 36.8 C 02/25/24 21:13 Pulse 83 02/25/24 21:13 Respiratory Rate 14 02/25/24 21:13 Blood Pressure 156/84 H 02/25/24 21:13 Pulse Oximetry 99 02/25/24 21:13 Temperature 36.8 C 02/25/24 21:13 Pulse 83 02/25/24 21:13 Respiratory Rate 14 02/25/24 21:13 Respiratory Effort Normal 02/25/24 21:29 Respiratory Pattern Normal 02/25/24 21:29 Blood Pressure 156/84 H 02/25/24 21:13 Pulse Oximetry 99 02/25/24 21:13 Pain Level 5 02/25/24 21:13 Comment L foot 02/25/24 21:13 Medical Decision Making Quality:SDOH Health Related Social Needs: No Data to Display PFSH All Active Problems (Updated 02/24/24 @ 17:59 by Luann Huffman NP) Cellulitis of second toe of right foot (Acute) Memory deficit (Acute) Cognitive decline (Acute) LFT elevation (Acute) Chest pain on exertion (Acute) Post-acute sequelae of COVID-19 (PASC) (Acute) Parosmia (Acute) Medical History Sense of smell altered REHMAN (dyspnea on exertion) COVID-19 Encounter for tubal ligation Shoulder arthralgia Verruca plantaris Tubulovillous adenoma of rectum Onychomycosis Basal cell carcinoma of scalp Migraine Fibrocystic disease of breast Dizziness and giddiness Reyes's pelvis Degenerative joint disease of hand Constipation Benign paroxysmal positional vertigo Mixed anxiety and depressive disorder Osteoarthritis of hips, bilateral Surgical History History of tonsillectomy H/O: hysterectomy H/O exploratory laparotomy S/P total abdominal hysterectomy H/O breast augmentation H/O abdominoplasty History of cholecystectomy H/O hernia repair S/P cystourethroscopy with dilation of urethral stricture H/O local excision of skin lesion History of colonoscopy H/O carpal tunnel repair Family History Mother Malignant carcinoid tumor of lung Maternal Uncle FH: prostate cancer Social History Smoking/Tobacco Use Status: Never Smoking risk assessment performed?: Yes Alcohol Intake: current Alcohol Intake frequency: holidays/special occasions only Drug use: Never Household members: spouse Housing: house Communication Needs: Corrective Lenses Pets and animals: Yes Working smoke detector in home: Yes Carbon monox detector in home: Yes Do you feel safe at home: Yes Do you feel safe in your relationship?: Yes
[2024-02-25 22:49] LABS: Abs Immature Grans 0.04 10^3/uL (0.0-0.06); Absolute Basophil Count 0.05 10^3/uL (0.0-0.2); Absolute Eosinophil Count 0.16 10^3/uL (0.0-0.7); Absolute Lymphocyte Count 2.06 10^3/uL (1.2-3.4); Absolute Monocyte Count 0.45 10^3/uL (0.1-0.8); Basophils % 0.7 %; Eosinophils % 2.2 %; HCT 38.2 % (36.0-46.0); HGB 12.8 g/dL (11.2-15.7); Immature Grans % 0.5 %; MCH 28.3 pg (27.0-33.0); MCHC 33.5 % (32.0-36.0); MCV 84 fL (80-95); MPV 9.8 fL (8.0-11.0); Monocytes % 6.1 %; Neutrophils % 62.5 %; Platelet Count 282 10^3/uL (130-400); RBC 4.53 10^6/uL (3.93-5.22); RDW 12.5 % (11.7-14.6); RDW-SD 38.1 fL; WBC 7.36 10^3/uL (4.4-10.8)
[2024-02-25 22:52] LABS: ESR 13 mm/hr (0-30)
[2024-02-25 22:58] LABS: Anion Gap 6.8 mmol/L (3-11); BUN 20 mg/dL (7-18); CO2 29.2 mmol/L (21.0-32.0); CREATININE 0.8 mg/dL (0.55-1.02); Chloride 102 mmol/L (98-107); Estimated GFR 83.26 (mL/min/1.73m2); Glucose 98 mg/dL (74-106); Potassium 3.7 mmol/L (3.5-5.1); Sodium 138 mmol/L (136-145)
[2024-02-25 23:01] LABS: C-Reactive Protein < 0.50 mg/dL (<or=0.5)
--- NOTE | 2024-02-25 23:46 | DI.CT_ITS ---
Exam(s) CT LOWER EXTREMITY RT W EXAM: CT LOWER EXTREMITY RT W CLINICAL HISTORY: R second toe cellulitis, ? abscess. TECHNIQUE: Imaging Protocol: Axial computed tomography images with coronal and sagittal reformatted images were created and reviewed. CONTRAST MATERIAL: Intravenous: Omnipaque 350 Contrast volume:100 ml Contrast route:IV - COMPARISON: No exams were available for comparison FINDINGS: Bones: There is no evidence of fracture or dislocation. Heel spurs. No cellulitic or osteomyelitic changes are identified. No lytic or sclerotic lesions are identified. Joints: There is no significant joint space narrowing. No significant periarticular spurring. Soft Tissues: Soft tissue swelling of 2nd toe. No visible abscess. IMPRESSION: Soft tissue swelling of the 2nd toe. No abscess is visible. There is no evidence of osteomyelitis. RADIATION DOSE DELIVERED: Total DLP DATA REPOSITORY: All CT scans at this facility are submitted to the National Radiology Data Registry (NRDR) Dose Index Registry (DIR) with the [employer] (ACR). RADIATION OPTIMIZATION: All CT scans at this facility use at least one of these dose optimization te chniques: automated exposure control; mA and/or kV adjustment per patient size (includes targeted exa ms where dose is matched to clinical indication); or iterative reconstruction.
[2024-02-25] MEDS: Omnipaque 350 MG/ML 100 ML BTL IJ (23:48)
[2024-02-25] MEDS: Normal Saline - Diluent 50 ML VIAL IJ (23:48)
--- NOTE | 2024-02-26 00:24 | DI.VRAD_ITS ---
PROCEDURE INFORMATION: Exam: CT Right Lower Extremity, Foot Exam date and time: 02/25/2024 11:33 PM Age: 63 years old Clinical indication: Other: R second toe cellulitis, ? abscess TECHNIQUE: Imaging protocol: CT of the right lower extremity with intravenous contrast was performed. Exam focused on the foot. Contrast material: OMNIPAQUE 350; Contrast volume: 100 ml; Contrast route: INTRAVENOUS (IV); COMPARISON: No relevant prior studies available. FINDINGS: Bones/joints: Bone mineralization is age-appropriate. There is no evidence of fracture. No evidence periosteal reaction or bony erosions to suggest osteomyelitis. MRI would be more sensitive modality for this finding if clinically warranted. No evidence of dislocation. There is a noninflamed plantar enthesophyte. Noninflamed enthesophyte seen within the region of the Achilles tendon. The joint spaces are adequately preserved; no significant degenerative narrowing and no bony erosion seen. Soft tissues: There is soft tissue swelling present of the 2nd toe. No evidence of abscess identified. No evidence of soft tissue gas identified. Other findings: No radiopaque foreign body present. IMPRESSION: 1. There is soft tissue swelling present of the 2nd toe. No evidence of abscess identified. No evidence of soft tissue gas identified. 2. No acute osseous abnormality. 3. There is no evidence of fracture. 4. No evidence periosteal reaction or bony erosions to suggest osteomyelitis. MRI would be more sensitive modality for this finding if clinically warranted. Dictated and Authenticated by: Chano Blake MD. Ordering:AUSTIN Oconnor MD
--- NOTE | 2024-02-26 00:51 | ED.PROG_ITS ---
Date of service: 02/26/24 Time of Service: 00:51 Medical Decision Making This patient was signed out to me. Please see previous notes for H&P and initial eval. In brief, 63yo F with hx recent LE cellulitis presenting with LE rash and swelling. Vitals signs and labs reassuring, not septic, inflammatory markers normal. Signed out pending CT LE read. CT as below, no clear abscess or evidence of bony involvement. On reassessment patient reports swelling has improved. Denies any pain currently. Does have erythema to left lateral foot with no blistering or skin breakdown, as well as slight erythema to right lateral foot. No swelling noted, no ankle effusions, no pain with passive ROM at ankles. Does have some erythema and swelling to right 2nd toe with tenderness, consistent wtih resolving infection/drained abscess. No suggestion of sepsis, septic joint, SJS/TEN, DRESS, shingles, anaphylaxis. Rash did start some time after receiving ancef in the ED, no other new exposures/poision IV/poison oak/etc. I am not certain of the etiology of her rash however with her reassuring workup she is appropriate to followup with her PCP. Discussed with patient who states This is fucking ridiculous. I've been here all this time and you have no answers for me. and I have to go to [facility] on Tuesday because I'm having a hip replacement in a month and they won't touch me like this. I empathized with her frustration and advised her to followup closely with her PCP and to return to the emergency department for new or worsening symptoms. Discharged home; discharge instructions and return precautions were reviewed with patient who verbalized understanding. All questions were answered. Imaging Data Radiologic Study: Imaging: CT Scan Radiologist's impression: IMPRESSION: 1. There is soft tissue swelling present of the 2nd toe. No evidence of abscess identified. No evidence of soft tissue gas identified. 2. No acute osseous abnormality. 3. There is no evidence of fracture. 4. No evidence periosteal reaction or bony erosions to suggest osteomyelitis. MRI would be more sensitive modality for this finding if clinically warranted. Lab Data Lab results reviewed: Yes I reviewed the patient's lab results. Labs: Laboratory Tests Range/Units 02/25/24 22:40 WBC (4.4-10.8) 10^3/uL 7.36 RBC (3.93-5.22) 10^6/uL 4.53 Hgb (11.2-15.7) g/dL 12.8 Hct (36.0-46.0) % 38.2 MCV (80-95) fL 84 MCH (27.0-33.0) pg 28.3 MCHC (32.0-36.0) % 33.5 RDW (11.7-14.6) % 12.5 Plt Count (130-400) 10^3/uL 282 MPV (8.0-11.0) fL 9.8 Immature Gran % % 0.5 Neutrophils % % 62.5 Lymphocytes % % 28.0 Monocytes % % 6.1 Eosinophils % % 2.2 Basophils % % 0.7 Nucleated RBC % (0.0-0.3) % 0.0 Absolute Neutrophils (1.2-6.7) 10^3/uL 4.60 Absolute Lymphocytes (1.2-3.4) 10^3/uL 2.06 Absolute Monocytes (0.1-0.8) 10^3/uL 0.45 Absolute Eosinophils (0.0-0.7) 10^3/uL 0.16 Absolute Basophils (0.0-0.2) 10^3/uL 0.05 ESR (0-30) mm/hr 13 Sodium (136-145) mmol/L 138 Potassium (3.5-5.1) mmol/L 3.7 Chloride (98-107) mmol/L 102 Carbon Dioxide (21.0-32.0) mmol/L 29.2 Anion Gap (3-11) mmol/L 6.8 BUN (7-18) mg/dL 20 H Creatinine (0.55-1.02) mg/dL 0.8 Est GFR (CKD-EPI 2020) (mL/min/1.73m2) 83.26 Glucose (74-106) mg/dL 98 Calcium (8.5-10.1) mg/dL 9.0 C-Reactive Protein (<or=0.5) mg/dL < 0.50 Quality:[facility] Health Related Social Needs: No Data to Display Sign Out Sign Out Data: Sign Out Comment: 63-year-old female presented to emergency department for new onset rash and swelling to feet. Being treated for cellulitis x 13 days to second toe. Labs all reassuring. Awaiting attending assessment and CT results. Last updated by Anastasia Christopher at 02/26/24 01:02 Discharge Plan Disposition Patient Disposition: Home Condition: Good Discharge Details Clinical Impression: Rash, Cellulitis of second toe of right foot Primary Care Provider: Yasmeen Grace ED Provider: Sahra Yan Home Meds and New Rx's Prescriptions: Continued multivitamin Tablet 1 tab PO DAILY omeprazole 20 mg capsule,delayed release(DR/EC) 20 mg PO DAILY levofloxacin 500 mg tablet 500 mg PO DAILY 5 Days Qty: 5 0RF Rx Instructions: take one tablet once daily x 5 days Discharge Instructions Instructions: Cellulitis (Skin Infection), Adult ED, Skin Rash ED Additional Instructions: Continue taking your antibiotic as prescribed. Call your primary care doctor on Tuesday to schedule an appointment to be seen within the following 72 hours to followup on your visit here. Return to the emergency department for new or worsening symptoms including fever, difficulty walking, or if you have any other concerns. Referrals: Yasmeen Grace [Primary Care Provider] -
[2024-02-26 01:45] VITALS: BP 142/72; PULSE 80; RESP 16; TEMP 36.6; O2SAT 98
== END 2024-02-26 02:04 | disposition home or self-care (01) ==
PROVIDERS: Nurse Practitioner Family; Emergency Provider Student in an Organized Health Care Education/Training Program; PCP Internal Medicine
DX: L03.031 Cellulitis of right toe (principal)
CPT/HCPCS: 00123; 36415; 80048; 85652; 99285; 73701; 85025; 86140; 99284; J3490